=== PATIENT | male | born 1960 | race Two or more races ===

== ENCOUNTER 2016-12-05 01:04 | Inpatient (IN) | payer MEDICAID, OTHER ==
[~2016-12-05] VITALS: Ht 172.7 cm; Wt 83.5 kg
[2016-12-05] VITALS (10 sets, daily range): BP systolic 104–116; BP diastolic 57–71; PULSE 96–106; RESP 20; Ht 172.7 cm; Wt 83.5 kg
[~2016-12-05 01:04] MED LIST: ASPI325T4 PO; ATOR80TA75 PO; ESOM40CA PO; GLIM2TAB PO; IBUP200C11; METF1000 PO; METO-335 PO; NIT4 SL; SITA100T8 PO; VALS80TA2 PO
--- NOTE | 2016-12-05 01:12 | ERA ---
ER Documentation Chief Complaint Date/Time DATE: 12/05/16 TIME: 01:11 Chief Complaint Chest pain HPI The patient is a 56-year-old male, presenting to the ER because of left-sided chest pain going to the left upper back about 2 hours prior to arrival at rest. He had similar symptoms previously, complains of dyspnea. The pain was 9/ 10 that went down to 7/10 after EMS administered 3 nitroglycerin spray and aspirin 160 mg p.o. He denies fever, chills, neck pain, chest pain, abdominal pain, vomiting, dysuria, diarrhea. He smokes and drinks Past medical history: CAD, hypertension, diabetes mellitus, dyslipidemia, ischemic cardiomyopathy with low EF Past medical history: He has 6 stent PCI, last stent was about 7 months ago at [facility] ROS All systems reviewed and are negative except as per history of present illness. Medications Home Meds Reported Medications Carbamide Peroxide* (Debrox*) 6.5% - 15 Ml Drops, 10 DROP BOTH EARS BID, BOTTLE 4 DROPS BY OTIC 2 TIMES A DAY INTO AFFECTED EAR, 12/05/16 Cholecalciferol* (Vitamin D3*) 1,000 Unit Tablet, 1000 UNIT PO DAILY, TAB 12/05/16 Glipizide* (Glipizide*) 10 Mg Tablet, 10 MG PO AC BREAKFAST, TAB 12/05/16 Losartan Potassium* (Losartan Potassium*) 50 Mg Tablet, 50 MG PO DAILY, TAB 12/05/16 Losartan Potassium* (Losartan Potassium*) 50 Mg Tablet, 50 MG PO DAILY, TAB 12/05/16 [place]-3/Dha/Epa/Fish Oil (FISH OIL 1,000 MG SOFTGEL) 1 Each Capsule, 1 EACH PO, CAP 12/05/16 Aspirin* (Aspirin* EC) 81 Mg Tablet.dr, 81 MG PO DAILY, TAB 12/05/16 Clopidogrel Bisulfate* (Clopidogrel Bisulfate*) 75 Mg Tablet, 75 MG PO DAILY, # 30 TAB 12/05/16 Atorvastatin* (Atorvastatin*) 80 Mg Tablet, 80 MG PO QHS, #30 TAB 12/05/16 Fluoxetine Hcl* (Fluoxetine Hcl*) 10 Mg Tablet, 10 MG PO DAILY, TAB 12/05/16 Canagliflozin (Invokana) 300 Mg Tablet, 300 MG PO BID, TAB 12/05/16 Nitroglycerin* (Nitrostat*) 0.4 Mg Tab.subl, 0.4 MG SL Q5MIN Y for CHEST PAIN, BOTTLE 09/15/13 Aspirin* (Aspirin*) 325 Mg Tablet, 325 MG PO DAILY, #1 TAB 09/15/13 Metoprolol Succinate* (Toprol XL*) 25 Mg Tab.sr.24h, 25 MG PO DAILY, TAB hold for systolic bp 105 or heart reate less than 60 beats per minute 09/15/13 Atorvastatin* (Atorvastatin*) 80 Mg Tablet, 80 MG PO HS, TAB 09/13/13 Metformin Hcl* (Metformin Hcl*) 1,000 Mg Tablet, 1000 MG PO DAILY, TAB 09/13/13 Glimepiride* (Glimepiride*) 2 Mg Tablet, 2 MG PO WITH BREAKFAST, TAB 09/13/13 Ibuprofen* (Advil*) 200 Mg Capsule, 200 MG DAILY, #2 CAP 09/13/13 Nitroglycerin* (Nitrostat*) 0.4 Mg Tab.subl, 0.4 MG SL Q5MIN Y for CHEST PAIN, BOTTLE 09/13/13 Sitagliptin* (Januvia*) 100 Mg Tablet, 100 MG PO DAILY, TAB 09/13/13 Esomeprazole Mag Trihydrate (Nexium) 40 Mg Capsule.dr, 40 MG PO DAILY, CAP 09/13/13 Valsartan* (Diovan*) 80 Mg Tablet, 80 MG PO DAILY, TAB 09/13/13 Allergies Allergies: Coded Allergies: No Known Drug Allergy (Unverified Allergy, Mild, 12/05/16) PMhx/Soc History of Surgery: Yes (ANGIOGRAPHY W/ STENT ) Anesthesia Reaction: No Hx Neurological Disorder: No Hx Respiratory Disorders: No Hx Cardiac Disorders: No (STENTS ) Hx Psychiatric Problems: No Hx Miscellaneous Medical Probl: Yes Hx Alcohol Use: No Hx Substance Use: No Hx Tobacco Use: Yes Physical Exam Vitals Vital Signs Date Time Temp Pulse Resp B/P Pulse Ox O2 Delivery O2 Flow Rate FiO2 12/05/16 04:17 94 22 114/85 96 Nasal Cannula 2.0 12/05/16 03:33 94 22 115/85 96 Nasal Cannula 2.0 12/05/16 01:43 Nasal Cannula 2 12/05/16 01:14 99.0 107 22 126/78 94 Physical Exam Const: No acute distress. Head: Atraumatic. Eyes: Normal Conjunctiva. ENT: Normal External Ears, Nose and Mouth. Neck: Full range of motion. No meningismus. Resp: Clear to auscultation bilaterally. Cardio: Regular rate and rhythm. Abd: Soft, non distended, normal bowel sounds, Minimal epigastric abdominal tenderness Skin: No petechiae or rashes. Back: No midline or flank tenderness. Ext: No cyanosis, or edema. Neur: Awake and alert. No focal deficit Psych: Normal Mood and Affect. Result Diagram: 12/05/1613412/05/16 013 Results 24 hrs Laboratory Tests Test 12/05/16 01:35 White Blood Count 9.710^3/ul Red Blood Count 4.6110^6/ul Hemoglobin 14.1g/dl Hematocrit 41.3% Mean Corpuscular Volume 89.6fl Mean Corpuscular Hemoglobin 30.6pg Mean Corpuscular Hemoglobin Concent 34.1g/dl Red Cell Distribution Width 12.8% Platelet Count 18889^3/UL Mean Platelet Volume 9.5fl Neutrophils % 75.0% Lymphocytes % 14.3% Monocytes % 9.8% Eosinophils % 0.2% Basophils % 0.4% Nucleated Red Blood Cells % 0.0/100WBC Neutrophils # 7.310^3/ul Lymphocytes # 1.410^3/ul Monocytes # 1.010^3/ul Eosinophils # 0.010^3/ul Basophils # 0.010^3/ul Nucleated Red Blood Cells # 0.010^3/ul Prothrombin Time 12.5Sec Prothrombin Time Ratio 1.0 INR International Normalized Ratio 0.93 Activated Partial Thromboplast Time 34.1Sec Sodium Level 138mmol/L Potassium Level 3.8mmol/L Chloride Level 104mmol/L Carbon Dioxide Level 24mmol/L Anion Gap 14 Blood Urea Nitrogen 12mg/dl Creatinine 0.61mg/dl Glucose Level 266mg/dl Calcium Level 9.6mg/dl Total Bilirubin 0.3mg/dl Direct Bilirubin 0.00mg/dl Indirect Bilirubin 0.3mg/dl Aspartate Amino Transf (AST/SGOT) 17IU/L Alanine Aminotransferase (ALT/SGPT) 36IU/L Alkaline Phosphatase 51IU/L Troponin I 0.184ng/ml B-Type Natriuretic Peptide 317PG/ML Total Protein 7.2g/dl Albumin 4.3g/dl Globulin 2.90g/dl Albumin/Globulin Ratio 1.48 Lipase 592U/L Ethyl Alcohol Level < 10.0mg/dl Current Medications Medications (Trade) Dose Ordered Sig/Vianca Route PRN Reason Start Time Stop Time Status Last Admin Dose Admin Enoxaparin Sodium (Lovenox) 77 mg ONCE SC 12/05/16 04:00 12/05/16 04:12 Procedures/MDM EKG: At 1:19 AM Read by emergency physician Rate/Rhythm: Sinus tachycardia 103 beats/min QRS, ST, T-waves: No ST elevation, no T inversion, Left atrial enlargement, LAD, Inferolateral ST and T abnormalities Impression: Abnormal EKG EKG: At 3:16 am Read by emergency physician Rate/Rhythm: Normal sinus rhythm 95 beats/min QRS, ST, T-waves: No ST elevation, no T inversion, Left atrial enlargement, Inferolateral ST and T abnormality Impression: Abnormal EKG [place] [id number] Radiology Main Line: [phone] DIAGNOSTIC IMAGING REPORT Patient: TIFFANIE CASTILLO : 1960 Age: 56 Sex: M MR #: [id number] DOS: 12/05/16 0116 Ordering MD: ENRIQUE TEJEDA MD Location: E/R Room/Bed: PROCEDURE: XR Chest. CLINICAL INDICATION: Chest pain. TECHNIQUE: Single frontal view of the chest. COMPARISON: 09/12/2013 FINDINGS: The cardiomediastinal silhouette is within normal limits. The lungs are clear. No signs of pleural fluid or pneumothorax are seen. The osseous structures and soft tissues are unremarkable. IMPRESSION: No evidence for active cardiopulmonary disease. RPTAT: UU Physician Juli Date Time Electronically viewed and signed by Physician Juli on 12/05/2016 02:00 RS/ CC: ENRIQUE TEJEDA MD MEDICAL MAKING DECISION: Patient is a 56-year-old male, presenting with acute non-STEMI. He was treated with Lovenox 1 mg/kg subcutaneously for acute non- STEMI. After the aforementioned treatment, he does not have any chest pain The differential diagnoses considered include but are not limited to acute coronary syndrome, acute myocardial infarction, pericarditis, pulmonary embolism , aortic dissection, pneumonia, pleural effusion, pneumothorax, GERD, chest wall pain. Critical Care: Time: 35 minutes excluding all billable procedures. Treatments/Evaluations: Close monitoring and treatment of unstable vital signs, cardiorespiratory, and neurologic status, while maintaining tight balance of fluid, respiratory, and cardiac interventions. Departure Diagnosis: Primary Impression: Non-STEMI (non-ST elevated myocardial infarction) Condition: Stable Comments I discussed the findings with the patient. I discussed the patient with the on- call hospitalist Dr. Wen and who was made aware of the lab, the treatment, the patient condition. The patient is admitted to telemetry ENRIQUE TEJEDA MD Dec 05, 2016 01:12
[2016-12-05 02:00] LABS: BASOPHILS % 0.4 % (0.0-2.0); EOSINOPHILS % 0.2 % (0.0-7.0); HEMATOCRIT 41.3 % (42.0-52.0); HEMOGLOBIN 14.1 g/dl (14.0-18.0); LYMPHOCYTES # 1.4 10^3/ul (0.8-2.9); LYMPHOCYTES % 14.3 % (15.0-51.0); MEAN CORPUSCULAR HEMOGLOBIN 30.6 pg (29.0-33.0); MEAN CORPUSCULAR HGB CONC 34.1 g/dl (32.0-37.0); MEAN CORPUSCULAR VOLUME 89.6 fl (82.0-101.0); MEAN PLATELET VOLUME 9.5 fl (7.4-10.4); MONOCYTES % 9.8 % (0.0-11.0); NEUTROPHIL # 7.3 10^3/ul (1.6-7.5); PLATELET COUNT 249 10^3/UL (140-415); RED BLOOD COUNT 4.61 10^6/ul (4.70-6.10); RED CELL DISTRIBUTION WIDTH 12.8 % (11.5-14.5); WHITE BLOOD COUNT 9.7 10^3/ul (4.8-10.8)
--- NOTE | 2016-12-05 02:00 | RADRPT ---
PROCEDURE: XR Chest. CLINICAL INDICATION: Chest pain. TECHNIQUE: Single frontal view of the chest. COMPARISON: 09/12/2013 FINDINGS: The cardiomediastinal silhouette is within normal limits. The lungs are clear. No signs of pleural f luid or pneumothorax are seen. The osseous structures and soft tissues are unremarkable. IMPRESSION: No evidence for active cardiopulmonary disease. RPTAT: UU Physician Juli Date Time Electronically viewed and signed by Iftikhar Gutierrez Physician on 12/05/2016 02:00 RS/
[2016-12-05 02:15] LABS: INR 0.93; PROTIME 12.5 Sec (12.2-14.2)
[2016-12-05 02:16] LABS: PARTIAL THROMBOPLASTIN TIME 34.1 Sec (25.0-35.0)
[2016-12-05 02:30] LABS: ALANINE AMINOTRANSFERASE 36 IU/L (13-69); ALBUMIN 4.3 g/dl (3.3-4.9); ALBUMIN/GLOBULIN RATIO 1.48; ALKALINE PHOSPHATASE 51 IU/L (42-121); ANION GAP 14 (8-16); ASPARTATE AMINO TRANSFERASE 17 IU/L (15-46); BILIRUBIN,INDIRECT 0.3 mg/dl (0-1.1); BILIRUBIN,TOTAL 0.3 mg/dl (0.2-1.3); BLOOD UREA NITROGEN 12 mg/dl (7-20); CALCIUM 9.6 mg/dl (8.4-10.2); CARBON DIOXIDE 24 mmol/L (21-31); CHLORIDE 104 mmol/L (97-110); CREATININE 0.61 mg/dl (0.61-1.24); GLUCOSE 266 mg/dl (70-220); POTASSIUM 3.8 mmol/L (3.5-5.1); SODIUM 138 mmol/L (135-144); TOTAL PROTEIN 7.2 g/dl (6.1-8.1)
[2016-12-05 02:40] LABS: B-TYPE NATRIURETIC PEPTIDE 317 PG/ML (0-125)
[2016-12-05 02:46] LABS: ETHANOL < 10.0 mg/dl
[2016-12-05 02:48] LABS: TROPONIN-I 0.184 ng/ml (0.00-0.12)
[2016-12-05] MEDS ORDERED: ENOXAPARIN 80 MG/0.8 ML SYG SC SCH (04:00)
[2016-12-05] MEDS ORDERED: FLUO10TA PO (04:05)
[2016-12-05] MEDS ORDERED: CANA300T PO (04:05)
[2016-12-05] MEDS ORDERED: ATOR80TA75 PO (04:05)
[2016-12-05] MEDS ORDERED: CLOP75TA4 PO (04:07)
[2016-12-05] MEDS ORDERED: ASPI-664 PO (04:07)
[2016-12-05] MEDS ORDERED: GLIP-95 PO (04:18)
[2016-12-05] MEDS ORDERED: CHOL100062 PO (04:18)
[2016-12-05] MEDS ORDERED: CARB15DR50 BOTH EARS (04:18)
[2016-12-05] MEDS ORDERED: OMEG1CAP31 PO (04:18)
[2016-12-05] MEDS ORDERED: LOSA50TA6 PO (04:18)
[2016-12-05] MEDS ORDERED: NACL 0.9% 3 ML SYG IV SCH (05:00)
[2016-12-05] MEDS ORDERED: NITROGLYCERIN (SL) 0.4 MG TAB SL PRN ×2 (05:00)
[2016-12-05] MEDS ORDERED: ALBUTEROL/IPRATROPIUM (NEB) 3 ML AMP HHN PRN (05:00)
[2016-12-05] MEDS: DEXTROSE 5%-0.45% NACL 1,000 ML IV SCH ×2 (05:06→07:38)
[2016-12-05] MEDS: INSULIN ASPART [NOVOLOG] 3 ML PEN SC SCH ×4 (05:28→23:47)
[2016-12-05] MEDS: PANTOPRAZOLE (EC) 40 MG TAB PO SCH (05:35)
--- NOTE | 2016-12-05 07:38 | HP ---
Date/Time of Note Date/Time of Note DATE: 12/05/16 TIME: 07:31 Assessment/Plan VTE Prophylaxis VTE Prophylaxis Intervention: heparin Lines/Catheters IV [facility] Peripheral IV Urinary Cath still in place: No Assessment/Plan Assessment/Plan 1. NSTEMI -Continue telemetry monitoring -Continue his home cardiac medications, including aspirin, Plavix, beta-korey and statin. Will provide nitro and morphine as needed for pain -Will trend his troponin and start heparin drip accordingly -2D echo and cardiology consult 2. History of CAD with multiple stents -See #1 3. Ischemic cardiomyopathy with EF of 25-30% -See #1 4. Diabetes with hyperglycemia -Check A1c -Insulin while in house with adjustment as needed 5. Dyslipidemia -Continue statin 6. Pancreatitis -Patient with elevated lipase of over 600 -He is already n.p.o. for possible cardiac cath -Continue IV fluids and I will provide pain medication as needed - will repeat lipase and check abdominal ultrasound HPI/ROS Admit Date/Time Admit Date/Time Dec 05, 2016 at 03:57 Hx of Present Illness This is a 56-year-old male with a history of CAD with stents, ischemic cardiomyopathy with EF of 2530%, diabetes, dyslipidemia who presented to the emergency department complaining of chest pain. Pain is left-sided with radiation to the left arm. Pain slightly improved with sublingual nitro. Patient underwent PCI with stent in [address] Tomas after he presented with STEMI. He also underwent PCI with stent 7 months ago at [facility]. When presented to the ER, his first troponin is elevated at 0.184. Rest of labs are within normal limits except a glucose of 266 and a lipase of 592. Chest x-ray was no active cardiopulmonary disease. PMH/Family/Social Social History Smoking Status: Current every day smoker Exam/Review of Systems Vital Signs Vitals Vital Signs Date Time Temp Pulse Resp B/P Pulse Ox O2 Delivery O2 Flow Rate FiO2 12/05/16 07:06 98.2 62 20 104/57 98 12/05/16 04:17 Nasal Cannula 2.0 Exam Constitutional: other (No acute distress) Head: atraumatic, normocephalic Eyes: EOMI, PERRL Respiratory: clear to auscultation, normal air movement Cardiovascular: nl pulses, regular rate and rhythm Gastrointestinal: non-tender, soft Extremities: normal pulses Labs Result Diagram: 12/05/165 12/05/16134 Medications Medications Current Medications Dextrose/Sodium Chloride (D5-1/2ns) 1,000 ml @ 70 mls/hr [id number] IV Last administered on 12/05/16 05:06; Admin Dose 70 MLS/HR; Start 12/05/16 at 04:38 Ondansetron HCl (Zofran Inj) 4 mg Q6H PRN IV NAUSEA AND/OR VOMITING; Start at 05:00 Nitroglycerin (Nitroglycerin (Sl Tab) 0.4 Mg) 1 tab Q5M PRN SL CHEST PAIN; Start 12/05/16 at 05:00 Acetaminophen (Tylenol Tab) 650 mg Q6H PRN PO PAIN LEVEL 1-3 OR FEVER; Start at 05:00 Morphine Sulfate (morphine) 2 mg Q4H PRN IV PAIN LEVEL 7-10; Start 12/05/16 at 05:00 Enoxaparin Sodium (Lovenox) 40 mg DAILY SC ; Start 12/05/16 at 09:00 Aspirin (Halfprin) 81 mg DAILY PO ; Start 12/05/16 at 09:00 Atorvastatin Calcium (Lipitor) 80 mg HS PO ; Start 12/05/16 at 21:00 Carbamide Peroxide (Debrox Otic) 10 drop BID BOTH EARS ; Start 12/05/16 at 09:00 Cholecalciferol (Vitamin D) 1,000 unit DAILY PO ; Start 12/05/16 at 09:00 Clopidogrel Bisulfate (plaVIX) 75 mg DAILY PO ; Start 12/05/16 at 09:00 Fluoxetine HCl (Prozac) 10 mg DAILY PO ; Start 12/05/16 at 09:00 Losartan Potassium (Cozaar) 50 mg DAILY PO ; Start 12/05/16 at 09:00 Metoprolol Succinate (Toprol Xl) 25 mg DAILY PO ; Start 12/05/16 at 09:00 Valsartan (Diovan) 80 mg DAILY PO ; Start 12/05/16 at 09:00 Pantoprazole (Protonix Tab) 40 mg DAILY@06 PO Last administered on 12/05/16 05 :35; Admin Dose 40 MG; Start 12/05/16 at 06:00 Insulin Glargine (Lantus) 12 unit DAILY@08 SC ; Start 12/05/16 at 08:00 Insulin Aspart (Novolog Insulin Pen) NOVOLOG *MILD* ALGORI... Q6 SC ; Start at 06:00 IMELDA JOHNSON MD Dec 05, 2016 07:38
[2016-12-05 08:11] LABS: CK-MB 11.1 ng/ml (0.0-2.4)
[2016-12-05 08:13] LABS: TROPONIN-I 3.44 ng/ml (0.00-0.12)
[2016-12-05] MEDS: VALSARTAN 80 MG TAB PO SCH (08:43)
[2016-12-05] MEDS: ASPIRIN (EC) 81 MG TAB PO SCH (08:43)
[2016-12-05] MEDS: CLOPIDOGREL 75 MG TAB PO SCH (08:43)
[2016-12-05] MEDS: METOPROLOL (XL) 25 MG TAB PO SCH (08:43)
[2016-12-05] MEDS: LOSARTAN 50 MG TAB PO SCH (08:43)
[2016-12-05] MEDS: CARBAMIDE PEROXIDE 6.5% 15ML OTIC BOTH EARS SCH ×2 (08:43→20:44)
[2016-12-05] MEDS: INSULIN GLARGINE [LANtus] 3 ML PEN SC SCH (08:46)
[2016-12-05] MEDS: FLUOXETINE 10 MG CAP PO SCH (08:47)
[2016-12-05] MEDS ORDERED: LOSARTAN 50 MG TAB PO SCH (09:00)
[2016-12-05] MEDS ORDERED: ENOXAPARIN 40 MG/0.4 ML SYG SC SCH (09:00)
--- NOTE | 2016-12-05 09:11 | RADRPT ---
PROCEDURE: US Abdomen (right upper quadrant). CLINICAL INDICATION: Pancreatitis. TECHNIQUE: Multiple real-time longitudinal and transverse images of the right upper quadrant of th e abdomen were acquired utilizing a curved array transducer. Images were reviewed on a high-resoluti on PACS workstation. COMPARISON: None FINDINGS: The liver is enlarged and diffusely increased in echogenicity consistent with fatty metamorphosis. There is no focal hepatic lesion. Color Doppler and pulsed Doppler sonography demonstrate normal a ntegrade flow in the portal vein. The gallbladder is normal with no stones or wall thickening. There is no pericholecystic fluid cheng ection. The bile ducts are normal with the common bile duct measuring 4.2 mm in diameter. The pancreas is not visualized due to overlying bowel gas. No free fluid is present. The right kidney measures 13.3 x 4.9 cm. There is normal echogenicity of the right kidney. There is no perinephric fluid collection. No hydronephrosis, mass, or calculus is seen. IMPRESSION: 1. Hepatomegaly. 2. Fatty metamorphosis of the liver. 3. Pancreas not visualized. 4. Otherwise normal right upper quadrant abdomen ultrasound. RPTAT: QQ .Blayne Gonzalez MD, Date Time Electronically viewed and signed by .Blayne Gonzalez MD, on 12/05/2016 09:10 .R/
[2016-12-05] MEDS ORDERED: HEPARIN 1000 UNITS/ML 10 ML INJ IV PRN (11:00)
[2016-12-05] MEDS ORDERED: HEPARIN 1000 UNITS/ML 10 ML INJ IV ONE (11:00)
[2016-12-05] MEDS: CHOLECALCIFEROL 1,000 UNIT TAB PO SCH (11:20)
[2016-12-05] MEDS: HEPARIN 25000 UNITS/250 ML 250 ML IV SCH ×2 (11:23→17:56)
[2016-12-05 11:43] LABS: BASOPHILS % 0.3 % (0.0-2.0); EOSINOPHILS % 0.1 % (0.0-7.0); HEMATOCRIT 41.4 % (42.0-52.0); HEMOGLOBIN 14.4 g/dl (14.0-18.0); LYMPHOCYTES # 1.9 10^3/ul (0.8-2.9); LYMPHOCYTES % 16.1 % (15.0-51.0); MEAN CORPUSCULAR HEMOGLOBIN 31.2 pg (29.0-33.0); MEAN CORPUSCULAR HGB CONC 34.8 g/dl (32.0-37.0); MEAN CORPUSCULAR VOLUME 89.6 fl (82.0-101.0); MEAN PLATELET VOLUME 9.6 fl (7.4-10.4); MONOCYTE # 1.3 10^3/ul (0.3-0.9); MONOCYTES % 10.8 % (0.0-11.0); NEUTROPHIL # 8.6 10^3/ul (1.6-7.5); NEUTROPHILS % 72.4 % (39.0-77.0); PLATELET COUNT 241 10^3/UL (140-415); RED BLOOD COUNT 4.62 10^6/ul (4.70-6.10); RED CELL DISTRIBUTION WIDTH 12.6 % (11.5-14.5); WHITE BLOOD COUNT 11.9 10^3/ul (4.8-10.8)
--- NOTE | 2016-12-05 14:53 | CONS ---
Date/Time of Note Date/Time of Note DATE: 12/05/16 TIME: 14:51 Assessment/Plan Assessment/Plan Additional Assessment/Plan 56 yo with isch CMY, EF 25%, [place] [facility] [place], possible medical non-compliance , now with NSTEMI. Will obtain results from [facility] - [facility] rx for now. # [id number] Consultation Date/Type/Reason Admit Date/Time Dec 05, 2016 at 03:57 Initial Consult Date Exam/Review of Systems Vital Signs Vitals Vital Signs Date Time Temp Pulse Resp B/P Pulse Ox O2 Delivery O2 Flow Rate FiO2 12/05/16 12:08 101 12/05/16 11:53 99.1 20 116/71 96 12/05/16 04:17 Nasal Cannula 2.0 Results Result Diagram: 12/05/16 1124 12/05/16 0135 Results 24 hrs Laboratory Tests Test 12/05/16 01:35 12/05/16 05:08 12/05/16 07:23 12/05/16 08:42 White Blood Count 9.7 Red Blood Count 4.61 L Hemoglobin 14.1 Hematocrit 41.3 L Mean Corpuscular Volume 89.6 Mean Corpuscular Hemoglobin 30.6 Mean Corpuscular Hemoglobin Concent 34.1 Red Cell Distribution Width 12.8 Platelet Count 249 Mean Platelet Volume 9.5 Neutrophils % 75.0 Lymphocytes % 14.3 L Monocytes % 9.8 Eosinophils % 0.2 Basophils % 0.4 Nucleated Red Blood Cells % 0.0 Neutrophils # 7.3 Lymphocytes # 1.4 Monocytes # 1.0 H Eosinophils # 0.0 Basophils # 0.0 Nucleated Red Blood Cells # 0.0 Prothrombin Time 12.5 Prothrombin Time Ratio 1.0 INR International Normalized Ratio 0.93 Activated Partial Thromboplast Time 34.1 Sodium Level 138 Potassium Level 3.8 Chloride Level 104 Carbon Dioxide Level 24 Anion Gap 14 Blood Urea Nitrogen 12 Creatinine 0.61 Glucose Level 266 H Calcium Level 9.6 Total Bilirubin 0.3 Direct Bilirubin 0.00 Indirect Bilirubin 0.3 Aspartate Amino Transf (AST/SGOT) 17 Alanine Aminotransferase (ALT/SGPT) 36 Alkaline Phosphatase 51 Troponin I 0.184 *H 3.440 *H B-Type Natriuretic Peptide 317 H Total Protein 7.2 Albumin 4.3 Globulin 2.90 Albumin/Globulin Ratio 1.48 Lipase 177 Ethyl Alcohol Level < 10.0 Bedside Glucose 134 162 Creatine Kinase 227 H Creatine Kinase Index 4.9 Creatinine Kinase MB (Mass) 11.10 H Test 12/05/16 11:24 12/05/16 12:01 White Blood Count 11.9 #H Red Blood Count 4.62 L Hemoglobin 14.4 Hematocrit 41.4 L Mean Corpuscular Volume 89.6 Mean Corpuscular Hemoglobin 31.2 Mean Corpuscular Hemoglobin Concent 34.8 Red Cell Distribution Width 12.6 Platelet Count 241 Mean Platelet Volume 9.6 Neutrophils % 72.4 Lymphocytes % 16.1 Monocytes % 10.8 Eosinophils % 0.1 Basophils % 0.3 Nucleated Red Blood Cells % 0.0 Neutrophils # 8.6 H Lymphocytes # 1.9 Monocytes # 1.3 H Eosinophils # 0.0 Basophils # 0.0 Nucleated Red Blood Cells # 0.0 Bedside Glucose 155 Medications Medications Current Medications Ondansetron HCl (Zofran Inj) 4 mg Q6H PRN IV NAUSEA AND/OR VOMITING; Start at 05:00 Nitroglycerin (Nitroglycerin (Sl Tab) 0.4 Mg) 1 tab Q5M PRN SL CHEST PAIN; Start 12/05/16 at 05:00 Acetaminophen (Tylenol Tab) 650 mg Q6H PRN PO PAIN LEVEL 1-3 OR FEVER; Start at 05:00 Morphine Sulfate (morphine) 2 mg Q4H PRN IV PAIN LEVEL 7-10; Start 12/05/16 at 05:00 Aspirin (Halfprin) 81 mg DAILY PO Last administered on 12/05/16 08:43; Admin Dose 81 MG; Start 12/05/16 at 09:00 Atorvastatin Calcium (Lipitor) 80 mg HS PO ; Start 12/05/16 at 21:00 Carbamide Peroxide (Debrox Otic) 10 drop BID BOTH EARS Last administered on 08:43; Admin Dose 10 DROP; Start 12/05/16 at 09:00 Cholecalciferol (Vitamin D) 1,000 unit DAILY PO Last administered on 12/05/16 11:20; Admin Dose 1,000 UNIT; Start 12/05/16 at 09:00 Clopidogrel Bisulfate (plaVIX) 75 mg DAILY PO Last administered on 12/05/16 08 :43; Admin Dose 75 MG; Start 12/05/16 at 09:00 Fluoxetine HCl (Prozac) 10 mg DAILY PO Last administered on 12/05/16 08:47; Admin Dose 10 MG; Start 12/05/16 at 09:00 Losartan Potassium (Cozaar) 50 mg DAILY PO Last administered on 12/05/16 08:43 ; Admin Dose 50 MG; Start 12/05/16 at 09:00 Metoprolol Succinate (Toprol Xl) 25 mg DAILY PO Last administered on 12/05/16 08:43; Admin Dose 25 MG; Start 12/05/16 at 09:00 Valsartan (Diovan) 80 mg DAILY PO Last administered on 12/05/16 08:43; Admin Dose 80 MG; Start 12/05/16 at 09:00 Pantoprazole (Protonix Tab) 40 mg DAILY@06 PO Last administered on 12/05/16 05 :35; Admin Dose 40 MG; Start 12/05/16 at 06:00 Insulin Glargine (Lantus) 12 unit DAILY@08 SC Last administered on 12/05/16 08 :46; Admin Dose 12 UNIT; Start 12/05/16 at 08:00 Insulin Aspart (Novolog Insulin Pen) NOVOLOG *MILD* ALGORI... Q6 SC Last administered on 12/05/16 12:16; Admin Dose 1 UNIT; Start 12/05/16 at 06:00 KING CM MD Dec 05, 2016 14:53
[2016-12-05 15:14] LABS: CK-MB 6.3 ng/ml (0.0-2.4); TROPONIN-I 3.8 ng/ml (0.00-0.12)
[2016-12-05 17:45] LABS: INR 1.01; PROTIME 13.3 Sec (12.2-14.2)
[2016-12-05 17:46] LABS: PARTIAL THROMBOPLASTIN TIME 65.5 Sec (25.0-35.0)
[2016-12-05] MEDS: ATORVASTATIN 80 MG TAB PO SCH (20:44)
[2016-12-05] MEDS ORDERED: ATORVASTATIN 80 MG TAB PO SCH (21:00)
[2016-12-06] VITALS (10 sets, daily range): BP systolic 90–126; BP diastolic 55–74; PULSE 84–110; RESP 19–20
--- NOTE | 2016-12-06 01:09 | CONS ---
DATE OF ADMISSION: 12/05/2016 DATE OF CONSULTATION: 12/05/2016 REASON FOR CONSULTATION: Chest pain. HISTORY OF PRESENT ILLNESS: Mr. Velázquez is a 56-year-old gentleman with history of extensive coronary disease, history of ischemic cardiomyopathy of 25%, recent stenting at [facility] x4 in May 2016, possible medical noncompliance, chest pain. The patient has mildly elevated troponin, has chest precordial sternal chest pain, as well as abdominal pain prior. It is not clear to me if patient has totally been compliant with his cardiac medications. In the setting of this event, the patient does also have elevated lipase and recent alcohol intake, for now conservative therapy is expected. Patient has been initiated on heparin per Dr. Hyatt, which is reasonable. Will try to obtain the records from [facility] and track his troponins. It does not appear the patient has suffered a large myocardial infarction. Right now, he does not DVT or fluid overload at this time. Will obtain a 2D echo to re-establish ejection fraction. PAST MEDICAL HISTORY: 1. Hypertension. 2. Dyslipidemia. 3. Ischemic cardiomyopathy. 4. Prior history of multiple stenting, recently in May 2016 at [facility]. 5. History of medical noncompliance. 6. History of diabetes. 7. History of tobacco use, active. ALLERGIES: NO KNOWN DRUG ALLERGIES. SOCIAL HISTORY: Patient has history of tobacco use. He has a history of alcohol use, does not use drugs. FAMILY HISTORY: Negative for sudden cardiac , premature coronary artery disease. MEDICATIONS: Patient has an extensive medication list including metoprolol, aspirin, Plavix, but I am not clear if he is truly compliant with all his medicines. REVIEW OF SYSTEMS: No fevers, no chills. No chest pain reported now. . No nausea, vomiting. No dysuria, hematuria. Cranial nerves II-XII intact. PHYSICAL EXAMINATION: Temperature 99.1, heart rate is 101, blood pressure 116/71. Patient is alert and oriented x3. Normocephalic, atraumatic. Trachea 6-7 cm. Heart is regular. murmur at the base. PMI . Bowel sounds are present. LABORATORY: White blood cell count 1.9, hemoglobin , platelets 241,000. INR 1.0. His troponin is positive at 3.4. 11.4. ASSESSMENT: 1. Patient with non ST elevation myocardial infarction. His troponins are elevated. He has been initiated on heparin. He is chest pain free now. For now, medical indicated. 2. Hypertension. Blood pressure well optimized. Continue to follow. 3. Cardiomyopathy. Patient with history of cardiomyopathy, ishemic. Will followup with a 2D echo, will try to find cath results form [facility]. 4. Medical noncompliance. Patient encouraged to comply with his medical therapy. 5. Tobacco use. I would like to thank Dr. Wen for referring this patient for my evaluation. Dictated By: Ray Ferro MD /yvette/frank /Document#: [id number]
[2016-12-06] MEDS ORDERED: ACCU-CHEK XX SCH (02:00)
[2016-12-06] MEDS ORDERED: GLUCAGON 1 MG INJ IM PRN (05:30)
[2016-12-06] MEDS ORDERED: GLUCOSE GEL 15 GRAM TUBE BUCCAL PRN (05:30)
[2016-12-06] MEDS ORDERED: DEXTROSE 50% 50 ML SYRINGE IV PRN ×2 (05:30)
[2016-12-06] MEDS ORDERED: GLUCOSE GEL 15 GRAM TUBE PO PRN ×2 (05:30)
[2016-12-06] MEDS: PANTOPRAZOLE (EC) 40 MG TAB PO SCH (06:26)
[2016-12-06 07:42] LABS: ALBUMIN 4.2 g/dl (3.3-4.9); ALBUMIN/GLOBULIN RATIO 1.4; BILIRUBIN,INDIRECT 0.9 mg/dl (0-1.1); BILIRUBIN,TOTAL 0.9 mg/dl (0.2-1.3); CALCIUM 9.3 mg/dl (8.4-10.2); CREATININE 0.67 mg/dl (0.61-1.24); MAGNESIUM 1.9 mg/dl (1.7-2.5); POTASSIUM 3.9 mmol/L (3.5-5.1); TOTAL PROTEIN 7.2 g/dl (6.1-8.1)
[2016-12-06] MEDS: METOPROLOL (XL) 25 MG TAB PO SCH (08:20)
[2016-12-06] MEDS: ACETAMINOPHEN 325 MG TAB PO PRN ×3 (08:20→18:52)
[2016-12-06] MEDS: FLUOXETINE 10 MG CAP PO SCH (08:20)
[2016-12-06] MEDS: CLOPIDOGREL 75 MG TAB PO SCH (08:20)
[2016-12-06] MEDS: ASPIRIN (EC) 81 MG TAB PO SCH (08:20)
[2016-12-06] MEDS: VALSARTAN 80 MG TAB PO SCH (08:20)
[2016-12-06] MEDS: CHOLECALCIFEROL 1,000 UNIT TAB PO SCH (08:20)
[2016-12-06] MEDS: LOSARTAN 50 MG TAB PO SCH (08:21)
[2016-12-06] MEDS: CARBAMIDE PEROXIDE 6.5% 15ML OTIC BOTH EARS SCH ×2 (08:21→20:34)
[2016-12-06] MEDS: INSULIN GLARGINE [LANtus] 3 ML PEN SC SCH (08:24)
[2016-12-06] MEDS: INSULIN ASPART [NOVOLOG] 3 ML PEN SC SCH ×4 (08:25→20:32)
[2016-12-06] MEDS: HEPARIN 25000 UNITS/250 ML 250 ML IV SCH ×5 (08:25→22:51)
[2016-12-06 10:19] LABS: BASOPHILS % 0.4 % (0.0-2.0); HEMATOCRIT 41.4 % (42.0-52.0); HEMOGLOBIN 14.3 g/dl (14.0-18.0); LYMPHOCYTES # 1.8 10^3/ul (0.8-2.9); LYMPHOCYTES % 16.4 % (15.0-51.0); MEAN CORPUSCULAR HGB CONC 34.5 g/dl (32.0-37.0); MEAN CORPUSCULAR VOLUME 89.8 fl (82.0-101.0); MEAN PLATELET VOLUME 10.3 fl (7.4-10.4); MONOCYTE # 1.3 10^3/ul (0.3-0.9); MONOCYTES % 11.8 % (0.0-11.0); NEUTROPHIL # 7.9 10^3/ul (1.6-7.5); NEUTROPHILS % 71.1 % (39.0-77.0); PLATELET COUNT 227 10^3/UL (140-415); RED BLOOD COUNT 4.61 10^6/ul (4.70-6.10); RED CELL DISTRIBUTION WIDTH 12.6 % (11.5-14.5)
--- NOTE | 2016-12-06 12:51 | PN ---
Date/Time of Note Date/Time of Note DATE: 12/06/16 TIME: 12:50 Assessment/Plan VTE Prophylaxis VTE Prophylaxis Intervention: other Lines/Catheters IV Catheter Type (from Nrs): Peripheral IV Urinary Cath still in place: No Assessment/Plan Chief Complaint/Hosp Course 1) NSTMI - monitor - echo results pending - awaiting further workup per cardiology Problems: Subjective 24 Hr Interval Summary Free Text/Dictation Patient denies any current chest pain Exam/Review of Systems Vital Signs Vitals Vital Signs Date Time Temp Pulse Resp B/P Pulse Ox O2 Delivery O2 Flow Rate FiO2 12/06/16 12:10 84 12/06/16 12:02 97.7 20 101/62 96 12/05/16 04:17 Nasal Cannula 2.0 Intake and Output 12/05/16 12/05/16 12/06/16 15:00 23:00 07:00 Intake Total 1000 ml 627.5 ml Balance 1000 ml 627.5 ml Exam Constitutional: well developed Head: atraumatic, normocephalic Neck: supple Respiratory: clear to auscultation Cardiovascular: regular rate and rhythm Gastrointestinal: non-tender, soft Extremities: normal pulses Results Result Diagram: 12/06/16 0706 12/06/16 0706 Results 24 hrs Laboratory Tests Test 12/05/16 14:05 12/05/16 16:58 12/05/16 17:07 12/05/16 23:07 Creatine Kinase 201 H Creatine Kinase Index 3.1 Creatinine Kinase MB (Mass) 6.30 H Troponin I 3.800 *H Bedside Glucose 132 Prothrombin Time 13.3 Prothrombin Time Ratio 1.0 INR International Normalized Ratio 1.01 Activated Partial Thromboplast Time 65.5 H 52.5 H Test 12/05/16 23:35 12/06/16 07:06 12/06/16 07:48 12/06/16 08:07 Bedside Glucose 192 162 White Blood Count 11.0 H Red Blood Count 4.61 L Hemoglobin 14.3 Hematocrit 41.4 L Mean Corpuscular Volume 89.8 Mean Corpuscular Hemoglobin 31.0 Mean Corpuscular Hemoglobin Concent 34.5 Red Cell Distribution Width 12.6 Platelet Count 227 Mean Platelet Volume 10.3 Neutrophils % 71.1 Lymphocytes % 16.4 Monocytes % 11.8 H Eosinophils % 0.0 Basophils % 0.4 Nucleated Red Blood Cells % 0.0 Neutrophils # 7.9 H Lymphocytes # 1.8 Monocytes # 1.3 H Eosinophils # 0.0 Basophils # 0.0 Nucleated Red Blood Cells # 0.0 Sodium Level 135 Potassium Level 3.9 Chloride Level 100 Carbon Dioxide Level 22 Anion Gap 17 H Blood Urea Nitrogen 13 Creatinine 0.67 Glucose Level 159 # Hemoglobin A1c 8.8 H Calcium Level 9.3 Magnesium Level 1.9 Total Bilirubin 0.9 Direct Bilirubin 0.00 Indirect Bilirubin 0.9 Aspartate Amino Transf (AST/SGOT) 24 Alanine Aminotransferase (ALT/SGPT) 32 Alkaline Phosphatase 53 Total Protein 7.2 Albumin 4.2 Globulin 3.00 Albumin/Globulin Ratio 1.40 Triglycerides Level 101 Cholesterol Level 158 LDL Cholesterol, Calculated 99 HDL Cholesterol 39 Cholesterol/HDL Ratio 4.0 Activated Partial Thromboplast Time 55.4 H Test 12/06/16 12:24 Bedside Glucose 255 H Medications Medications Current Medications Ondansetron HCl (Zofran Inj) 4 mg Q6H PRN IV NAUSEA AND/OR VOMITING; Start at 05:00 Nitroglycerin (Nitroglycerin (Sl Tab) 0.4 Mg) 1 tab Q5M PRN SL CHEST PAIN; Start 12/05/16 at 05:00 Acetaminophen (Tylenol Tab) 650 mg Q6H PRN PO PAIN LEVEL 1-3 OR FEVER Last administered on 12/06/16 08:20; Admin Dose 650 MG; Start 12/05/16 at 05:00 Morphine Sulfate (morphine) 2 mg Q4H PRN IV PAIN LEVEL 7-10; Start 12/05/16 at 05:00 Aspirin (Halfprin) 81 mg DAILY PO Last administered on 12/06/16 08:20; Admin Dose 81 MG; Start 12/05/16 at 09:00 Atorvastatin Calcium (Lipitor) 80 mg HS PO Last administered on 12/05/16 20:44 ; Admin Dose 80 MG; Start 12/05/16 at 21:00 Carbamide Peroxide (Debrox Otic) 10 drop BID BOTH EARS Last administered on 20:44; Admin Dose 10 DROP; Start 12/05/16 at 09:00 Cholecalciferol (Vitamin D) 1,000 unit DAILY PO Last administered on 12/06/16 08:20; Admin Dose 1,000 UNIT; Start 12/05/16 at 09:00 Clopidogrel Bisulfate (plaVIX) 75 mg DAILY PO Last administered on 12/06/16 08 :20; Admin Dose 75 MG; Start 12/05/16 at 09:00 Fluoxetine HCl (Prozac) 10 mg DAILY PO Last administered on 12/06/16 08:20; Admin Dose 10 MG; Start 12/05/16 at 09:00 Losartan Potassium (Cozaar) 50 mg DAILY PO Last administered on 12/06/16 08:21 ; Admin Dose 50 MG; Start 12/05/16 at 09:00 Metoprolol Succinate (Toprol Xl) 25 mg DAILY PO Last administered on 12/06/16 08:20; Admin Dose 25 MG; Start 12/05/16 at 09:00 Valsartan (Diovan) 80 mg DAILY PO Last administered on 12/06/16 08:20; Admin Dose 80 MG; Start 12/05/16 at 09:00 Pantoprazole (Protonix Tab) 40 mg DAILY@06 PO Last administered on 12/06/16 06 :26; Admin Dose 40 MG; Start 12/05/16 at 06:00 Insulin Glargine (Lantus) 12 unit DAILY@08 SC Last administered on 12/06/16 08 :24; Admin Dose 12 UNIT; Start 12/05/16 at 08:00 Diagnostic Test (Pha) (Accu-Chek) 1 ea 02 XX ; Start 12/07/16 at 02:00 Miscellaneous Information 1 ea NOTE XX ; Start 12/06/16 at 05:30 Glucose (Glutose) 15 gm Q15M PRN PO DECREASED GLUCOSE; Start 12/06/16 at 05:30 Glucose (Glutose) 22.5 gm Q15M PRN PO DECREASED GLUCOSE; Start 12/06/16 at 05: 30 Dextrose (D50w Syringe) 25 ml Q15M PRN IV DECREASED GLUCOSE; Start 12/06/16 at 05:30 Dextrose (D50w Syringe) 50 ml Q15M PRN IV DECREASED GLUCOSE; Start 12/06/16 at 05:30 Glucagon (Glucagen) 1 mg Q15M PRN IM DECREASED GLUCOSE; Start 12/06/16 at 05:30 Glucose (Glutose) 15 gm Q15M PRN BUCCAL DECREASED GLUCOSE; Start 12/06/16 at 05 :30 ES MEDRANO Dec 06, 2016 12:51
--- NOTE | 2016-12-06 13:34 | CONS ---
Date/Time of Note Date/Time of Note DATE: 12/06/16 TIME: 13:33 Assessment/Plan Assessment/Plan Additional Assessment/Plan 1. Patient with non ST elevation myocardial infarction. His troponins are elevated. He has been initiated on heparin. He is chest pain free now. Will schedule stress test tomorrow. 2. Hypertension. Blood pressure well optimized. Continue to follow. BETTER. 3. Cardiomyopathy. Patient with history of cardiomyopathy, ishemic. Will followup with a 2D echo, will try to find cath results form [facility]. 4. Medical noncompliance. Patient encouraged to comply with his medical therapy. 5. Tobacco use. D/c advised. Consultation Date/Type/Reason Admit Date/Time Dec 05, 2016 at 03:57 24 HR Interval Summary Free Text/Dictation chest pain free now. Will schedule stress test tomorrow. ROS: No fever, no chills, no nausea, no vomiting, no diarrhea/constipation No recent weight changes No chest pain, no PND, no orthopnea No dizziness, blurred vision No thirst, no heat or cold intolerance Exam/Review of Systems Vital Signs Vitals Vital Signs Date Time Temp Pulse Resp B/P Pulse Ox O2 Delivery O2 Flow Rate FiO2 12/06/16 12:10 84 12/06/16 12:02 97.7 20 101/62 96 12/05/16 04:17 Nasal Cannula 2.0 Intake and Output 12/05/16 12/05/16 12/06/16 15:00 23:00 07:00 Intake Total 1000 ml 627.5 ml Balance 1000 ml 627.5 ml Exam General: WN/WD/NAD, AOx 3 HEENT: Unicetric/atraumatic/EOMI ( follow commands) NECK: JVD elevated, no thyromegaly Lymph: no lymphadenopathy HEART: regular with no S3, II/ systolic murmur at apex LUNGS: Coarse sounds ABD: soft, NT, ND, +BS : Intact Neuro: non focal SKIN: chronic changes EXT: trace edema Results Result Diagram: 12/06/16 0712/06/16 0706 Results 24 hrs Laboratory Tests Test 12/05/16 14:05 12/05/16 16:58 12/05/16 17:07 12/05/16 23:07 Creatine Kinase 201 H Creatine Kinase Index 3.1 Creatinine Kinase MB (Mass) 6.30 H Troponin I 3.800 *H Bedside Glucose 132 Prothrombin Time 13.3 Prothrombin Time Ratio 1.0 INR International Normalized Ratio 1.01 Activated Partial Thromboplast Time 65.5 H 52.5 H Test 12/05/16 23:35 12/06/16 07:06 12/06/16 07:48 12/06/16 08:07 Bedside Glucose 192 162 White Blood Count 11.0 H Red Blood Count 4.61 L Hemoglobin 14.3 Hematocrit 41.4 L Mean Corpuscular Volume 89.8 Mean Corpuscular Hemoglobin 31.0 Mean Corpuscular Hemoglobin Concent 34.5 Red Cell Distribution Width 12.6 Platelet Count 227 Mean Platelet Volume 10.3 Neutrophils % 71.1 Lymphocytes % 16.4 Monocytes % 11.8 H Eosinophils % 0.0 Basophils % 0.4 Nucleated Red Blood Cells % 0.0 Neutrophils # 7.9 H Lymphocytes # 1.8 Monocytes # 1.3 H Eosinophils # 0.0 Basophils # 0.0 Nucleated Red Blood Cells # 0.0 Sodium Level 135 Potassium Level 3.9 Chloride Level 100 Carbon Dioxide Level 22 Anion Gap 17 H Blood Urea Nitrogen 13 Creatinine 0.67 Glucose Level 159 # Hemoglobin A1c 8.8 H Calcium Level 9.3 Magnesium Level 1.9 Total Bilirubin 0.9 Direct Bilirubin 0.00 Indirect Bilirubin 0.9 Aspartate Amino Transf (AST/SGOT) 24 Alanine Aminotransferase (ALT/SGPT) 32 Alkaline Phosphatase 53 Total Protein 7.2 Albumin 4.2 Globulin 3.00 Albumin/Globulin Ratio 1.40 Triglycerides Level 101 Cholesterol Level 158 LDL Cholesterol, Calculated 99 HDL Cholesterol 39 Cholesterol/HDL Ratio 4.0 Activated Partial Thromboplast Time 55.4 H Test 12/06/16 12:24 Bedside Glucose 255 H Medications Medications Current Medications Ondansetron HCl (Zofran Inj) 4 mg Q6H PRN IV NAUSEA AND/OR VOMITING; Start at 05:00 Nitroglycerin (Nitroglycerin (Sl Tab) 0.4 Mg) 1 tab Q5M PRN SL CHEST PAIN; Start 12/05/16 at 05:00 Acetaminophen (Tylenol Tab) 650 mg Q6H PRN PO PAIN LEVEL 1-3 OR FEVER Last administered on 12/06/16t 08:20; Admin Dose 650 MG; Start 12/05/16 at 05:00 Morphine Sulfate (morphine) 2 mg Q4H PRN IV PAIN LEVEL 7-10; Start 12/05/16 at 05:00 Aspirin (Halfprin) 81 mg DAILY PO Last administered on 12/06/16 08:20; Admin Dose 81 MG; Start 12/05/16 at 09:00 Atorvastatin Calcium (Lipitor) 80 mg HS PO Last administered on 12/05/16 20:44 ; Admin Dose 80 MG; Start 12/05/16 at 21:00 Carbamide Peroxide (Debrox Otic) 10 drop BID BOTH EARS Last administered on 20:44; Admin Dose 10 DROP; Start 12/05/16 at 09:00 Cholecalciferol (Vitamin D) 1,000 unit DAILY PO Last administered on 12/06/16 08:20; Admin Dose 1,000 UNIT; Start 12/05/16 at 09:00 Clopidogrel Bisulfate (plaVIX) 75 mg DAILY PO Last administered on 12/06/16 08 :20; Admin Dose 75 MG; Start 12/05/16 at 09:00 Fluoxetine HCl (Prozac) 10 mg DAILY PO Last administered on 12/06/16 08:20; Admin Dose 10 MG; Start 12/05/16 at 09:00 Losartan Potassium (Cozaar) 50 mg DAILY PO Last administered on 12/06/16 08:21 ; Admin Dose 50 MG; Start 12/05/16 at 09:00 Metoprolol Succinate (Toprol Xl) 25 mg DAILY PO Last administered on 12/06/16 08:20; Admin Dose 25 MG; Start 12/05/16 at 09:00 Valsartan (Diovan) 80 mg DAILY PO Last administered on 12/06/16 08:20; Admin Dose 80 MG; Start 12/05/16 at 09:00 Pantoprazole (Protonix Tab) 40 mg DAILY@06 PO Last administered on 12/06/16 06 :26; Admin Dose 40 MG; Start 12/05/16 at 06:00 Insulin Glargine (Lantus) 12 unit DAILY@08 SC Last administered on 12/06/16 08 :24; Admin Dose 12 UNIT; Start 12/05/16 at 08:00 Diagnostic Test (Pha) (Accu-Chek) 1 ea 02 XX ; Start 12/07/16 at 02:00 Miscellaneous Information 1 ea NOTE XX ; Start 12/06/16 at 05:30 Glucose (Glutose) 15 gm Q15M PRN PO DECREASED GLUCOSE; Start 12/06/16 at 05:30 Glucose (Glutose) 22.5 gm Q15M PRN PO DECREASED GLUCOSE; Start 12/06/16 at 05: 30 Dextrose (D50w Syringe) 25 ml Q15M PRN IV DECREASED GLUCOSE; Start 12/06/16 at 05:30 Dextrose (D50w Syringe) 50 ml Q15M PRN IV DECREASED GLUCOSE; Start 12/06/16 at 05:30 Glucagon (Glucagen) 1 mg Q15M PRN IM DECREASED GLUCOSE; Start 12/06/16 at 05:30 Glucose (Glutose) 15 gm Q15M PRN BUCCAL DECREASED GLUCOSE; Start 12/06/16 at 05 :30 KING CM MD Dec 06, 2016 13:34
[2016-12-06 15:00] LABS: ADD UMIC YES; UR ASCORBIC ACID NEGATIVE (NEGATIVE); UR BACTERIA FEW /HPF (NONE SEEN); UR BILIRUBIN (Dip) NEGATIVE (NEGATIVE); UR BLOOD (Dip) 1+ mg/dL (NEGATIVE); UR CLARITY CLEAR (CLEAR); UR COLOR YELLOW (YELLOW); UR GLUCOSE (Dip) 3+ mg/dL (NEGATIVE); UR KETONES (Dip) 1+ mg/dL (NEGATIVE); UR LEUKOCYTE ESTERASE (Dip) NEGATIVE Leu/ul (NEGATIVE); UR NITRITE (Dip) NEGATIVE (NEGATIVE); UR RBC 1 /HPF (0-5); UR SPECIFIC GRAVITY (Dip) 1.033 (1.003-1.030); UR TOTAL PROTEIN (Dip) NEGATIVE (NEGATIVE); UR UROBILINOGEN (Dip) 2+ mg/dL (NEGATIVE)
--- NOTE | 2016-12-06 15:12 | RADRPT ---
PROCEDURE: XR Chest. CLINICAL INDICATION: Shortness of breath. TECHNIQUE: Single frontal view. COMPARISON: 12/05/2016. FINDINGS: The lungs are clear. The heart size is normal. There is no pleural effusion or pneumothorax. There is calcific tendonitis of the right shoulder. IMPRESSION: 1. Calcific tendonitis of the right shoulder. 2. Otherwise normal chest radiograph. RPTAT: QQ .Blayne Gonzalez MD, MD Date Time Electronically viewed and signed by .Blayne Gonzalez MD, on 12/06/2016 15:12 .R/
[2016-12-06] MEDS ORDERED: SOD CHLORIDE 0.9% 1,000 ML IV SCH (19:00)
[2016-12-06] MEDS: ONDANSETRON 4 MG INJ IV PRN (19:30)
[2016-12-06] MEDS: LEVOFLOXACIN 500MG/D5W (PMX) 100 ML IVPB SCH (19:50)
[2016-12-06] MEDS: morphine 2 MG INJ IV PRN (20:01)
[2016-12-06] MEDS: ATORVASTATIN 80 MG TAB PO SCH (20:32)
[2016-12-07] VITALS (14 sets, daily range): BP systolic 90–117; BP diastolic 51–75; PULSE 91–130; RESP 18–20
[2016-12-07] MEDS: ACCU-CHEK XX SCH (02:00)
[2016-12-07] MEDS: morphine 2 MG INJ IV PRN ×2 (02:29→18:49)
[2016-12-07] MEDS: ONDANSETRON 4 MG INJ IV PRN (02:29)
[2016-12-07] MEDS: ACETAMINOPHEN 325 MG TAB PO PRN (02:36)
[2016-12-07] MEDS ORDERED: ALBUTEROL/IPRATROPIUM (NEB) 3 ML AMP HHN PRN (02:55)
[2016-12-07] MEDS: HEPARIN 25000 UNITS/250 ML 250 ML IV SCH (03:07)
[2016-12-07] MEDS: PANTOPRAZOLE (EC) 40 MG TAB PO SCH (06:01)
[2016-12-07] MEDS: ALBUTEROL/IPRATROPIUM (NEB) 3 ML AMP HHN SCH ×3 (07:53→19:48)
[2016-12-07 08:19] LABS: BASOPHILS % 0.2 % (0.0-2.0); LYMPHOCYTES # 1.2 10^3/ul (0.8-2.9); MEAN CORPUSCULAR HGB CONC 32.6 g/dl (32.0-37.0); MEAN CORPUSCULAR VOLUME 92.1 fl (82.0-101.0); MEAN PLATELET VOLUME 9.8 fl (7.4-10.4); MONOCYTE # 1.4 10^3/ul (0.3-0.9); MONOCYTES % 10.7 % (0.0-11.0); NEUTROPHIL # 10.6 10^3/ul (1.6-7.5); NEUTROPHILS % 79.6 % (39.0-77.0); PLATELET COUNT 240 10^3/UL (140-415); RED BLOOD COUNT 4.67 10^6/ul (4.70-6.10); RED CELL DISTRIBUTION WIDTH 13.1 % (11.5-14.5); WHITE BLOOD COUNT 13.3 10^3/ul (4.8-10.8)
[2016-12-07] MEDS ORDERED: INSULIN GLARGINE [LANtus] 3 ML PEN SC ONE (08:30)
[2016-12-07] MEDS: CLOPIDOGREL 75 MG TAB PO SCH (08:47)
[2016-12-07] MEDS: CHOLECALCIFEROL 1,000 UNIT TAB PO SCH (08:47)
[2016-12-07] MEDS: ASPIRIN (EC) 81 MG TAB PO SCH (08:47)
[2016-12-07] MEDS: METOPROLOL (XL) 25 MG TAB PO SCH (08:48)
[2016-12-07] MEDS: FLUOXETINE 10 MG CAP PO SCH (08:48)
[2016-12-07] MEDS: LOSARTAN 50 MG TAB PO SCH (08:49)
[2016-12-07] MEDS: INSULIN ASPART [NOVOLOG] 3 ML PEN SC SCH ×4 (08:52→21:02)
[2016-12-07 09:00] LABS: ALBUMIN 3.8 g/dl (3.3-4.9); ALBUMIN/GLOBULIN RATIO 1.4; BILIRUBIN,INDIRECT 0.6 mg/dl (0-1.1); BILIRUBIN,TOTAL 0.6 mg/dl (0.2-1.3); CALCIUM 8.7 mg/dl (8.4-10.2); CREATININE 0.69 mg/dl (0.61-1.24); POTASSIUM 3.9 mmol/L (3.5-5.1); TOTAL PROTEIN 6.5 g/dl (6.1-8.1)
[2016-12-07] MEDS: CARBAMIDE PEROXIDE 6.5% 15ML OTIC BOTH EARS SCH ×2 (09:00→21:00)
[2016-12-07] MEDS ORDERED: REGADENOSON 0.4 MG/5 ML SYG ONE (09:16)
--- NOTE | 2016-12-07 09:28 | CONS ---
Date/Time of Note Date/Time of Note DATE: 12/07/16 TIME: 09:26 Assessment/Plan Assessment/Plan Additional Assessment/Plan 1. Patient with non ST elevation myocardial infarction. His troponins are elevated. He has been initiated on heparin, will hold off now with downtrending troponin . He is chest pain free now. Stress test today. 2. Hypertension. Blood pressure well optimized. Continue to follow. BETTER. 3. Cardiomyopathy. Patient with history of cardiomyopathy, ishemic. Will followup with a 2D echo, will try to find cath results form [facility]. 4. Medical noncompliance. Patient encouraged to comply with his medical therapy. 5. Tobacco use. D/c advised. Consultation Date/Type/Reason Admit Date/Time Dec 05, 2016 at 03:57 24 HR Interval Summary Free Text/Dictation Downtrending troponin . He is chest pain free now. Stress test today. ROS: No fever, no chills, no nausea, no vomiting, no diarrhea/constipation No recent weight changes No chest pain, no PND, no orthopnea No dizziness, blurred vision No thirst, no heat or cold intolerance Exam/Review of Systems Vital Signs Vitals Vital Signs Date Time Temp Pulse Resp B/P Pulse Ox O2 Delivery O2 Flow Rate FiO2 12/07/16 08:20 98 12/07/16 08:09 99.2 20 91/62 98 12/07/16 07:53 Nasal Cannula 4.0 Intake and Output 12/06/16 12/06/16 12/07/16 15:00 23:00 07:00 Intake Total 1100 ml 1747.5 ml Balance 1100 ml 1747.5 ml Exam General: WN/WD/NAD, AOx 3 HEENT: Unicetric/atraumatic/EOMI (follows commands) NECK: JVD elevated, no thyromegaly Lymph: no lymphadenopathy HEART: regular with no S3, II/ systolic murmur at apex LUNGS: Coarse sounds ABD: soft, NT, ND, +BS : Intact Neuro: non focal SKIN: chronic changes EXT: trace edema Results Result Diagram: 12/07/16 0711 12/07/16 0711 Results 24 hrs Laboratory Tests Test 12/06/16 12:24 12/06/16 13:49 12/06/16 14:42 12/06/16 17:01 Bedside Glucose 255 H 351 H Activated Partial Thromboplast Time 45.9 H Urine Color YELLOW Urine Clarity CLEAR Urine pH 5.0 Urine Specific [place] 1.033 H Urine Ketones 1+ H Urine Nitrite NEGATIVE Urine Bilirubin NEGATIVE Urine Urobilinogen 2+ H Urine Leukocyte Esterase NEGATIVE Urine Microscopic RBC 1 Urine Microscopic WBC 1 Urine Bacteria FEW A Urine Hemoglobin 1+ H Urine Glucose 3+ H Urine Total Protein NEGATIVE Test 12/06/16 20:31 12/06/16 20:50 12/07/16 07:11 12/07/16 07:51 Bedside Glucose 158 212 Activated Partial Thromboplast Time 114.6 *H 79.3 *H White Blood Count 13.3 #H Red Blood Count 4.67 L Hemoglobin 14.0 Hematocrit 43.0 Mean Corpuscular Volume 92.1 Mean Corpuscular Hemoglobin 30.0 Mean Corpuscular Hemoglobin Concent 32.6 Red Cell Distribution Width 13.1 Platelet Count 240 Mean Platelet Volume 9.8 Neutrophils % 79.6 H Lymphocytes % 9.0 L Monocytes % 10.7 Eosinophils % 0.0 Basophils % 0.2 Nucleated Red Blood Cells % 0.0 Neutrophils # 10.6 H Lymphocytes # 1.2 Monocytes # 1.4 H Eosinophils # 0.0 Basophils # 0.0 Nucleated Red Blood Cells # 0.0 Sodium Level 133 L Potassium Level 3.9 Chloride Level 98 Carbon Dioxide Level 19 L Anion Gap 20 H Blood Urea Nitrogen 14 Creatinine 0.69 Glucose Level 202 Calcium Level 8.7 Total Bilirubin 0.6 Direct Bilirubin 0.00 Indirect Bilirubin 0.6 Aspartate Amino Transf (AST/SGOT) 25 Alanine Aminotransferase (ALT/SGPT) 32 Alkaline Phosphatase 61 Troponin I 0.554 *H Total Protein 6.5 Albumin 3.8 Globulin 2.70 Albumin/Globulin Ratio 1.40 Medications Medications Current Medications Ondansetron HCl (Zofran Inj) 4 mg Q6H PRN IV NAUSEA AND/OR VOMITING Last administered on 12/07/16 02:29; Admin Dose 4 MG; Start 12/05/16 at 05:00 Nitroglycerin (Nitroglycerin (Sl Tab) 0.4 Mg) 1 tab Q5M PRN SL CHEST PAIN; Start 12/05/16 at 05:00 Acetaminophen (Tylenol Tab) 650 mg Q6H PRN PO PAIN LEVEL 1-3 OR FEVER Last administered on 12/07/16 02:36; Admin Dose 650 MG; Start 12/05/16 at 05:00 Morphine Sulfate (morphine) 2 mg Q4H PRN IV PAIN LEVEL 7-10 Last administered on 12/07/16 02:29; Admin Dose 2 MG; Start 12/05/16 at 05:00 Aspirin (Halfprin) 81 mg DAILY PO Last administered on 12/07/16 08:47; Admin Dose 81 MG; Start 12/05/16 at 09:00 Atorvastatin Calcium (Lipitor) 80 mg HS PO Last administered on 12/06/16 20:32 ; Admin Dose 80 MG; Start 12/05/16 at 21:00 Carbamide Peroxide (Debrox Otic) 10 drop BID BOTH EARS Last administered on 20:44; Admin Dose 10 DROP; Start 12/05/16 at 09:00 Cholecalciferol (Vitamin D) 1,000 unit DAILY PO Last administered on 12/07/16 08:47; Admin Dose 1,000 UNIT; Start 12/05/16 at 09:00 Clopidogrel Bisulfate (plaVIX) 75 mg DAILY PO Last administered on 12/07/16 08 :47; Admin Dose 75 MG; Start 12/05/16 at 09:00 Fluoxetine HCl (Prozac) 10 mg DAILY PO Last administered on 12/07/16 08:48; Admin Dose 10 MG; Start 12/05/16 at 09:00 Losartan Potassium (Cozaar) 50 mg DAILY PO Last administered on 12/07/16 08:49 ; Admin Dose 50 MG; Start 12/05/16 at 09:00 Metoprolol Succinate (Toprol Xl) 25 mg DAILY PO Last administered on 12/07/16 08:48; Admin Dose 25 MG; Start 12/05/16 at 09:00 Valsartan (Diovan) 80 mg DAILY PO Last administered on 12/06/16 08:20; Admin Dose 80 MG; Start 12/05/16 at 09:00 Pantoprazole (Protonix Tab) 40 mg DAILY@06 PO Last administered on 12/07/16 06 :01; Admin Dose 40 MG; Start 12/05/16 at 06:00 Insulin Glargine (Lantus) 12 unit DAILY@08 SC Last administered on 12/06/16 08 :24; Admin Dose 12 UNIT; Start 12/05/16 at 08:00; Status Future hold Diagnostic Test (Pha) (Accu-Chek) 1 ea 02 XX ; Start 12/07/16 at 02:00 Miscellaneous Information 1 ea NOTE XX ; Start 12/06/16 at 05:30 Glucose (Glutose) 15 gm Q15M PRN PO DECREASED GLUCOSE; Start 12/06/16 at 05:30 Glucose (Glutose) 22.5 gm Q15M PRN PO DECREASED GLUCOSE; Start 12/06/16 at 05: 30 Dextrose (D50w Syringe) 25 ml Q15M PRN IV DECREASED GLUCOSE; Start 12/06/16 at 05:30 Dextrose (D50w Syringe) 50 ml Q15M PRN IV DECREASED GLUCOSE; Start 12/06/16 at 05:30 Glucagon (Glucagen) 1 mg Q15M PRN IM DECREASED GLUCOSE; Start 12/06/16 at 05:30 Glucose 15 gm 15 gm Q15M PRN BUCCAL DECREASED GLUCOSE; Start 12/06/16 at 05:30 Levofloxacin/ Dextrose (Levaquin 500mg/ D5W 100 ml (Pmx)) 100 ml @ 100 mls/hr Q24H IVPB Last administered on 12/06/16t 19:50; Admin Dose 100 MLS/HR; Start at 19:00 KING CM MD Dec 07, 2016 09:28
--- NOTE | 2016-12-07 11:05 | RADRPT ---
PROCEDURE: Lexiscan myocardial perfusion study CLINICAL INDICATION: 56 -year-old patient complaining of chest pain. TECHNIQUE: Lexiscan 0.4 mg intravenously separate acquisition gated myocardial perfusion SPECT usi ng Tc 99m sestamibi 33.0 mCi intravenously at stress and Tc-99m Sestamibi, 10.5 mCi intravenously at rest was performed using the rest/stress sequence. Poststress sestamibi SPECT images were obtained in the supine positions. COMPARISON: September 12, 2013. FINDINGS: Perfusion images reveal a large size moderate to severe in degree nonreversible perfusion defect in the apical, anterior, septal and inferior andres. Lexiscan post stress gated SPECT images demonstrate moderate to severe hypokinesis of the dilated le ft ventricle. IMPRESSION: 1. The type and distribution of the scintigraphic abnormalities are most consistent with a large si ze nonreversible perfusion defect involving the apex, anterior, septal and inferior andres. 2. Moderate to severe hypokinesis of the dilated left ventricle. 3. The left ventricle ejection fraction at stress is 21%. A call report was made to Dr. Ferro at 11:00 a.m. on December 07, 2016 RPTAT: HH .Klaudia Herzog MD, Date Time Electronically viewed and signed by .Klaudia Herzog MD, on 12/07/2016 11:04 .L/
--- NOTE | 2016-12-07 13:26 | PN ---
Date/Time of Note Date/Time of Note DATE: 12/07/16 TIME: 13:15 Assessment/Plan VTE Prophylaxis VTE Prophylaxis Intervention: SCD's Lines/Catheters IV [facility]ter Type (from [facility]): Peripheral IV Urinary Cath still in place: No Assessment/Plan Chief Complaint/Hosp Course Patient status post stress test today, denies any chest pain denies shortness of breath, borderline blood pressure. Problems: Assessment/Plan - NSTEMI. S/p stress test today. Continue aspirin and Plavix. Dr. Ferro is following in cardiology consultation. - History of CAD with multiple stents - Hypertension. - Ischemic cardiomyopathy ejection fraction of 30% - Dyslipidemia, continue statin - Diabetes mellitus with hemoglobin A1c is 8.8. - Tobacco use. Patient is strongly advised. - Medical noncompliance. Further recommendations based on clinical course. Plan of care discussed with Dr. Waggoner. Exam/Review of Systems Vital Signs Vitals Vital Signs Date Time Temp Pulse Resp B/P Pulse Ox O2 Delivery O2 Flow Rate FiO2 12/07/16 12:12 91 12/07/16 11:58 98.7 20 91/51 98 12/07/16 08:10 Nasal Cannula 4.0 Intake and Output 12/06/16 12/06/16 12/07/16 15:00 23:00 07:00 Intake Total 1100 ml 1747.5 ml Balance 1100 ml 1747.5 ml Exam Constitutional: alert, oriented Head: normocephalic Neck: supple Respiratory: clear to auscultation Cardiovascular: nl pulses Gastrointestinal: non-tender, soft Musculoskeletal: nl extremities to inspection Extremities: normal pulses Results Result Diagram: 12/07/16 0711 12/07/16 0711 Results 24 hrs Laboratory Tests Test 12/06/16 13:49 12/06/16 14:42 12/06/16 17:01 12/06/16 20:31 Activated Partial Thromboplast Time 45.9 H Urine Color YELLOW Urine Clarity CLEAR Urine pH 5.0 Urine Specific [place] 1.033 H Urine Ketones 1+ H Urine Nitrite NEGATIVE Urine Bilirubin NEGATIVE Urine Urobilinogen 2+ H Urine Leukocyte Esterase NEGATIVE Urine Microscopic RBC 1 Urine Microscopic WBC 1 Urine Bacteria FEW A Urine Hemoglobin 1+ H Urine Glucose 3+ H Urine Total Protein NEGATIVE Bedside Glucose 351 H 158 Test 12/06/16 20:50 12/07/16 07:11 12/07/16 07:51 12/07/16 11:52 Activated Partial Thromboplast Time 114.6 *H 79.3 *H White Blood Count 13.3 #H Red Blood Count 4.67 L Hemoglobin 14.0 Hematocrit 43.0 Mean Corpuscular Volume 92.1 Mean Corpuscular Hemoglobin 30.0 Mean Corpuscular Hemoglobin Concent 32.6 Red Cell Distribution Width 13.1 Platelet Count 240 Mean Platelet Volume 9.8 Neutrophils % 79.6 H Lymphocytes % 9.0 L Monocytes % 10.7 Eosinophils % 0.0 Basophils % 0.2 Nucleated Red Blood Cells % 0.0 Neutrophils # 10.6 H Lymphocytes # 1.2 Monocytes # 1.4 H Eosinophils # 0.0 Basophils # 0.0 Nucleated Red Blood Cells # 0.0 Sodium Level 133 L Potassium Level 3.9 Chloride Level 98 Carbon Dioxide Level 19 L Anion Gap 20 H Blood Urea Nitrogen 14 Creatinine 0.69 Glucose Level 202 Calcium Level 8.7 Total Bilirubin 0.6 Direct Bilirubin 0.00 Indirect Bilirubin 0.6 Aspartate Amino Transf (AST/SGOT) 25 Alanine Aminotransferase (ALT/SGPT) 32 Alkaline Phosphatase 61 Troponin I 0.554 *H Total Protein 6.5 Albumin 3.8 Globulin 2.70 Albumin/Globulin Ratio 1.40 Bedside Glucose 212 278 H Medications Medications Current Medications Ondansetron HCl (Zofran Inj) 4 mg Q6H PRN IV NAUSEA AND/OR VOMITING Last administered on 12/07/16 02:29; Admin Dose 4 MG; Start 12/05/16 at 05:00 Nitroglycerin (Nitroglycerin (Sl Tab) 0.4 Mg) 1 tab Q5M PRN SL CHEST PAIN; Start 12/05/16 at 05:00 Acetaminophen (Tylenol Tab) 650 mg Q6H PRN PO PAIN LEVEL 1-3 OR FEVER Last administered on 12/07/16 02:36; Admin Dose 650 MG; Start 12/05/16 at 05:00 Morphine Sulfate (morphine) 2 mg Q4H PRN IV PAIN LEVEL 7-10 Last administered on 12/07/16 02:29; Admin Dose 2 MG; Start 12/05/16 at 05:00 Aspirin (Halfprin) 81 mg DAILY PO Last administered on 12/07/16 08:47; Admin Dose 81 MG; Start 12/05/16 at 09:00 Atorvastatin Calcium (Lipitor) 80 mg HS PO Last administered on 12/06/16 20:32 ; Admin Dose 80 MG; Start 12/05/16 at 21:00 Carbamide Peroxide (Debrox Otic) 10 drop BID BOTH EARS Last administered on 20:44; Admin Dose 10 DROP; Start 12/05/16 at 09:00 Cholecalciferol (Vitamin D) 1,000 unit DAILY PO Last administered on 12/07/16 08:47; Admin Dose 1,000 UNIT; Start 12/05/16 at 09:00 Clopidogrel Bisulfate (plaVIX) 75 mg DAILY PO Last administered on 12/07/16 08 :47; Admin Dose 75 MG; Start 12/05/16 at 09:00 Fluoxetine HCl (Prozac) 10 mg DAILY PO Last administered on 12/07/16 08:48; Admin Dose 10 MG; Start 12/05/16 at 09:00 Losartan Potassium (Cozaar) 50 mg DAILY PO Last administered on 12/07/16 08:49 ; Admin Dose 50 MG; Start 12/05/16 at 09:00 Metoprolol Succinate (Toprol Xl) 25 mg DAILY PO Last administered on 12/07/16 08:48; Admin Dose 25 MG; Start 12/05/16 at 09:00 Valsartan (Diovan) 80 mg DAILY PO Last administered on 12/06/16 08:20; Admin Dose 80 MG; Start 12/05/16 at 09:00 Pantoprazole (Protonix Tab) 40 mg DAILY@06 PO Last administered on 12/07/16 06 :01; Admin Dose 40 MG; Start 12/05/16 at 06:00 Insulin Glargine (Lantus) 12 unit DAILY@08 SC Last administered on 12/06/16 08 :24; Admin Dose 12 UNIT; Start 12/05/16 at 08:00; Status Future hold Diagnostic Test (Pha) (Accu-Chek) 1 ea 02 XX ; Start 12/07/16 at 02:00 Miscellaneous Information 1 ea NOTE XX ; Start 12/06/16 at 05:30 Glucose (Glutose) 15 gm Q15M PRN PO DECREASED GLUCOSE; Start 12/06/16 at 05:30 Glucose (Glutose) 22.5 gm Q15M PRN PO DECREASED GLUCOSE; Start 12/06/16 at 05: 30 Dextrose (D50w Syringe) 25 ml Q15M PRN IV DECREASED GLUCOSE; Start 12/06/16 at 05:30 Dextrose (D50w Syringe) 50 ml Q15M PRN IV DECREASED GLUCOSE; Start 12/06/16 at 05:30 Glucagon (Glucagen) 1 mg Q15M PRN IM DECREASED GLUCOSE; Start 12/06/16 at 05:30 Glucose 15 gm 15 gm Q15M PRN BUCCAL DECREASED GLUCOSE; Start 12/06/16 at 05:30 Levofloxacin/ Dextrose (Levaquin 500mg/ D5W 100 ml (Pmx)) 100 ml @ 100 mls/hr Q24H IVPB Last administered on 12/06/16t 19:50; Admin Dose 100 MLS/HR; Start at 19:00 RIGOBERTO LAI Dec 07, 2016 13:26
--- NOTE | 2016-12-07 14:16 | PDOCDIS ---
Discharge Instructions CONDITION Patient Condition: Good HOME CARE INSTRUCTIONS: Diet Instructions: Reduced Sodium ACTIVITY: Activity Restrictions: No Restrictions FOLLOW UP/APPOINTMENTS Follow-up Plan FOLLOW UP WITH YOUR PRIMARY CARE PHYSICIAN IN 1-2 WEEKS, ALSO FOLLOW UP WITH YOUR ENVIRONMENTAL REMEDIATION SPECIALIST SJ ROBERTSON Dec 07, 2016 14:16
[2016-12-07] MEDS: LINAGLIPTIN 5 MG TABLET PO SCH (17:17)
[2016-12-07] MEDS: LEVOFLOXACIN 500MG/D5W (PMX) 100 ML IVPB SCH (17:44)
[2016-12-07] MEDS ORDERED: FUROSEMIDE 20 MG INJ ONE (19:16)
[2016-12-07] MEDS ORDERED: FUROSEMIDE 20 MG INJ IV ONE (19:30)
[2016-12-07] MEDS ORDERED: CEPASTAT LOZENGE MT PRN (20:00)
--- NOTE | 2016-12-07 20:25 | ECORPT ---
DATE OF SERVICE: 12/07/2016 ECHOCARDIOGRAM PROCEDURE PERFORMED: Lexiscan cardiac stress test. REASON FOR TEST: Non-ST elevation myocardial infarction. Prior history of coronary artery disease. PROCEDURE: The patient condition. He had Lexiscan scan injection. Initial heart rate was 90 and went up to 110. Blood pressure 98/60. Imaging portion will be dictated separately. Dictated By: Ray Ferro MD /yvette/shani /Document#: [id number]
[2016-12-07] MEDS: ATORVASTATIN 80 MG TAB PO SCH (20:59)
[2016-12-07] MEDS: SPIRONOLACTONE 25 MG TAB PO SCH (20:59)
[2016-12-07] MEDS: VALSARTAN 80 MG TAB PO SCH (21:48)
[2016-12-08] VITALS (11 sets, daily range): BP systolic 108–122; BP diastolic 64–72; PULSE 76–120; RESP 16–18
[2016-12-08] MEDS: morphine 2 MG INJ IV PRN ×2 (02:02→05:55)
[2016-12-08] MEDS: ONDANSETRON 4 MG INJ IV PRN (02:02)
[2016-12-08] MEDS: ACCU-CHEK XX SCH (02:06)
[2016-12-08] MEDS: PANTOPRAZOLE (EC) 40 MG TAB PO SCH (05:44)
[2016-12-08] MEDS: FUROSEMIDE 20 MG INJ IV SCH ×2 (05:45→18:21)
[2016-12-08] MEDS ORDERED: INSULIN GLARGINE [LANtus] 3 ML PEN SC SCH (08:00)
[2016-12-08] MEDS: INSULIN ASPART [NOVOLOG] 3 ML PEN SC SCH ×7 (08:08→21:21)
[2016-12-08] MEDS: ALBUTEROL/IPRATROPIUM (NEB) 3 ML AMP HHN SCH ×3 (08:18→19:49)
[2016-12-08] MEDS: SPIRONOLACTONE 25 MG TAB PO SCH (08:29)
[2016-12-08] MEDS: VALSARTAN 80 MG TAB PO SCH (08:29)
[2016-12-08] MEDS: CLOPIDOGREL 75 MG TAB PO SCH (08:29)
[2016-12-08] MEDS: ASPIRIN (EC) 81 MG TAB PO SCH (08:29)
[2016-12-08] MEDS: FLUOXETINE 10 MG CAP PO SCH (08:29)
[2016-12-08] MEDS: LINAGLIPTIN 5 MG TABLET PO SCH (08:29)
[2016-12-08] MEDS: METOPROLOL (XL) 25 MG TAB PO SCH (08:30)
[2016-12-08] MEDS: CARBAMIDE PEROXIDE 6.5% 15ML OTIC BOTH EARS SCH ×2 (08:30→21:12)
[2016-12-08] MEDS: ENOXAPARIN 40 MG/0.4 ML SYG SC SCH (08:31)
[2016-12-08] MEDS: CHOLECALCIFEROL 1,000 UNIT TAB PO SCH (08:40)
--- NOTE | 2016-12-08 08:41 | CONS ---
Date/Time of Note Date/Time of Note DATE: 12/08/16 TIME: 08:38 Assessment/Plan Assessment/Plan Additional Assessment/Plan 1. Patient with non ST elevation myocardial infarction. His troponins are elevated. He has been initiated on heparin, will hold off now with downtrending troponin . He is chest pain free now. Stress test- LARGE FIX DEFECT, EF 21%. . 2. Hypertension. Blood pressure well optimized. Continue to follow. BETTER. 3. Cardiomyopathy. Patient with history of cardiomyopathy, ishemic. cath results form [facility]- no reversible defect by stress test - sharmin add gentle diuresis now. 4. Medical noncompliance. Patient encouraged to comply with his medical therapy. 5. Tobacco use. D/c advised. 6. Tachycardia - sinus tachy ? unclear, infection - mild CHF by exam only. Consultation Date/Type/Reason Admit Date/Time Dec 05, 2016 at 03:57 24 HR Interval Summary Free Text/Dictation Now with sinus tach - etiology unclear - sharmin monitor - gentle diuresis now. ROS: No fever, no chills, no nausea, no vomiting, no diarrhea/constipation No recent weight changes No chest pain, no PND, no orthopnea No dizziness, blurred vision No thirst, no heat or cold intolerance Exam/Review of Systems Vital Signs Vitals Vital Signs Date Time Temp Pulse Resp B/P Pulse Ox O2 Delivery O2 Flow Rate FiO2 12/08/16 08:28 110 12/08/16 08:21 22 92 Nasal Cannula 4.0 12/08/16 07:47 98.1 109/68 Intake and Output 12/07/16 12/07/16 12/08/16 15:00 23:00 07:00 Intake Total 1200 ml Balance 1200 ml Exam General: WN/WD/NAD, AOx 3 HEENT: Unicetric/atraumatic/EOMI (follow commands) NECK: JVD elevated, no thyromegaly Lymph: no lymphadenopathy HEART: tachy regular with no S3, II/ systolic murmur at apex LUNGS: Coarse sounds ABD: soft, NT, ND, +BS : Intact Neuro: non focal SKIN: chronic changes EXT: trace edema Results Result Diagram: 12/07/16 0711 12/07/16 0711 Results 24 hrs Laboratory Tests Test 12/07/16 11:52 12/07/16 16:47 12/07/16 20:58 12/08/16 01:55 Bedside Glucose 278 H 415 *H 325 H 204 Medications Medications Current Medications Ondansetron HCl (Zofran Inj) 4 mg Q6H PRN IV NAUSEA AND/OR VOMITING Last administered on 12/08/16 02:02; Admin Dose 4 MG; Start 12/05/16 at 05:00 Nitroglycerin (Nitroglycerin (Sl Tab) 0.4 Mg) 1 tab Q5M PRN SL CHEST PAIN; Start 12/05/16 at 05:00 Acetaminophen (Tylenol Tab) 650 mg Q6H PRN PO PAIN LEVEL 1-3 OR FEVER Last administered on 12/07/16 02:36; Admin Dose 650 MG; Start 12/05/16 at 05:00 Morphine Sulfate (morphine) 2 mg Q4H PRN IV PAIN LEVEL 7-10 Last administered on 12/08/16 05:55; Admin Dose 2 MG; Start 12/05/16 at 05:00 Aspirin (Halfprin) 81 mg DAILY PO Last administered on 12/07/16 08:47; Admin Dose 81 MG; Start 12/05/16 at 09:00 Atorvastatin Calcium (Lipitor) 80 mg HS PO Last administered on 12/07/16 20:59 ; Admin Dose 80 MG; Start 12/05/16 at 21:00 Carbamide Peroxide (Debrox Otic) 10 drop BID BOTH EARS Last administered on 20:44; Admin Dose 10 DROP; Start 12/05/16 at 09:00 Cholecalciferol (Vitamin D) 1,000 unit DAILY PO Last administered on 12/07/16 08:47; Admin Dose 1,000 UNIT; Start 12/05/16 at 09:00 Clopidogrel Bisulfate (plaVIX) 75 mg DAILY PO Last administered on 12/07/16 08 :47; Admin Dose 75 MG; Start 12/05/16 at 09:00 Fluoxetine HCl (Prozac) 10 mg DAILY PO Last administered on 12/07/16 08:48; Admin Dose 10 MG; Start 12/05/16 at 09:00 Metoprolol Succinate (Toprol Xl) 25 mg DAILY PO Last administered on 12/07/16 08:48; Admin Dose 25 MG; Start 12/05/16 at 09:00 Valsartan (Diovan) 80 mg DAILY PO Last administered on 12/06/16 08:20; Admin Dose 80 MG; Start 12/05/16 at 09:00 Pantoprazole (Protonix Tab) 40 mg DAILY@06 PO Last administered on 12/08/16 05 :44; Admin Dose 40 MG; Start 12/05/16 at 06:00 Diagnostic Test (Pha) (Accu-Chek) 1 ea 02 XX Last administered on 12/08/16 02: 06; Admin Dose 1 EA; Start 12/07/16 at 02:00 Miscellaneous Information 1 ea NOTE XX ; Start 12/06/16 at 05:30 Glucose (Glutose) 15 gm Q15M PRN PO DECREASED GLUCOSE; Start 12/06/16 at 05:30 Glucose (Glutose) 22.5 gm Q15M PRN PO DECREASED GLUCOSE; Start 12/06/16 at 05: 30 Dextrose (D50w Syringe) 25 ml Q15M PRN IV DECREASED GLUCOSE; Start 12/06/16 at 05:30 Dextrose (D50w Syringe) 50 ml Q15M PRN IV DECREASED GLUCOSE; Start 12/06/16 at 05:30 Glucagon (Glucagen) 1 mg Q15M PRN IM DECREASED GLUCOSE; Start 12/06/16 at 05:30 Glucose 15 gm 15 gm Q15M PRN BUCCAL DECREASED GLUCOSE; Start 12/06/16 at 05:30 Levofloxacin/ Dextrose (Levaquin 500mg/ D5W 100 ml (Pmx)) 100 ml @ 100 mls/hr Q24H IVPB Last administered on 12/07/16 17:44; Admin Dose 100 MLS/HR; Start at 19:00 Linagliptin (Tradjenta) 5 mg DAILY PO Last administered on 12/07/16 17:17; Admin Dose 5 MG; Start 12/07/16 at 14:15 Spironolactone (Aldactone) 25 mg DAILY PO Last administered on 12/07/16 20:59 ; Admin Dose 25 MG; Start 12/07/16 at 19:30 Enoxaparin Sodium (Lovenox) 40 mg DAILY SC ; Start 12/08/16 at 09:00 Phenol (Cepastat Lozenge) 1 lozenge Q1H PRN MT SORE THROAT Last administered on 12/08/16 02:05; Admin Dose 1 LOZENGE; Start 12/07/16 at 20:00 Insulin Glargine (Lantus) 12 unit DAILY@08 SC ; Start 12/08/16 at 08:00 KING CM MD Dec 08, 2016 08:41
[2016-12-08] MEDS ORDERED: FUROSEMIDE 20 MG TAB PO ONE (09:00)
[2016-12-08] MEDS ORDERED: FUROSEMIDE 20 MG INJ IV SCH (09:00)
--- NOTE | 2016-12-08 09:08 | RADRPT ---
Echocardiogram Report Patient Name: TIFFANIE CASTILLO Gender: Male Date: 1960 Study Date: 05-Dec-2016 Search Engineer: DREW Location: I Ref. Physician: IMELDA JOHNSON Quality: Adequate Procedures: Transthoracic echocardiogram with complete 2D, M-Mode, and doppler examination. Indications: NSTEMI. 2D/M Mode Doppler Measurement Value Normal Ranges Measurement Value Normal Ranges AoR Diam MM 3.8 cm AV Peak Alfredo 1.1 m/sec ACS MM 2.0 cm AV Peak PG 4.9 mmHg LVIDd 2D 6.7 3.5 - 5.6 cm LVOT Peak Alfredo 0.7 m/sec LVIDs 2D 5.7 2.1 - 4.1 cm LVOT Peak PG 2.0 mmHg LVPWd 2D 1.0 0.6 - 1.1 cm MV E Peak Alfredo 0.9 m/sec IVSd 2D 1.0 0.6 - 1.1 cm MV A Peak Alfredo 0.8 m/sec EDV 2D 234.6 cm3 MV E/A 1.2 ESV 2D 185.0 cm3 MV Decel Time 126 msec LA Dimen 2D 3.9 2.3 - 4.0 cm MV Decel [place] 7 MV E/A 1.2 PV Peak Alfredo 1.0 m/sec PV Peak PG 4.0 mmHg Findings Left Ventricle: Normal left ventricular wall thickness. Moderate enlargement of left ventricle cavity. Severe global left ventricular systolic dysfunction. Severe left ventricular systolic dysfunction. Ejection fraction is visually estimated at 30 %. Tissue Doppler/Mitral Doppler indices are consistent with pseudonormalization with mildly elevated left atrial pressure (Stage II diastolic dysfunction), patient could not Valsalva. E/E`=25. These segments of the LV are akinetic inferior base segment, inferior mid segment, Apical inferior segment, apical anterior segment, apical septum segment, inferoseptum mid segment, inferoseptum base segment, apical lateral segment and inferolateral mid segment. Right Ventricle: Normal right ventricular size. Left Atrium: The left atrium is normal in size. Right Atrium: The right atrium is normal in size. Atrial Septum: Normal atrial septum. Mitral Valve: Normal appearance of the mitral valve. Moderate mitral valve regurgitation. Aortic Valve: Normal appearance of the aortic valve. No significant aortic stenosis or insufficiency. Tricuspid Valve: Normal appearance of the tricuspid valve. No evidence of tricuspid regurgitation. Pulmonic Valve: Pulmonic valve not well visualized. No evidence of pulmonic regurgitation. Pericardium: Normal pericardium with no significant pericardial effusion. Aorta: Normal aortic root. IVC: Normal size and normal respiratory collapse consistent with normal right atrial pressure. Pulmonary Artery: Normal pulmonary artery size. Conclusions 1.Normal left ventricular wall thickness. Moderate enlargement of left ventricle cavity. Severe global left ventricular systolic dysfunction. Severe left ventricular systolic dysfunction. Ejection fraction is visually estimated at 30 %. Tissue Doppler/Mitral Doppler indices are consistent with pseudonormalization with mildly elevated left atrial pressure (Stage II diastolic dysfunction), patient could not Valsalva. E/E`=25. These segments of the LV are akinetic inferior base segment, inferior mid segment, Apical inferior segment, apical anterior segment, apical septum segment, inferoseptum mid segment, inferoseptum base segment, apical lateral segment and inferolateral mid segment. 2.Normal appearance of the mitral valve. Moderate mitral valve regurgitation. 3.Normal appearance of the tricuspid valve. No evidence of tricuspid regurgitation. Electronically Signed By: Ray Ferro 07-Dec-2016 10:00:37 -[id number] Patient Name: TIFFANIE CASTILLO Study Date: 05-Dec-2016 [id number]
--- NOTE | 2016-12-08 09:09 | RADRPT ---
PROCEDURE: XR Chest. CLINICAL INDICATION: Shortness of breath TECHNIQUE: 2 AP views of the chest were obtained COMPARISON: Chest x-ray dated 12/06/2016 FINDINGS: There is a peripheral left lung opacity. No pleural effusion or pneumothorax is seen. The cardiomed iastinal silhouette is upper limits of normal in size. The osseous structures are unremarkable. IMPRESSION: Peripheral left lung opacity, at least partially related to overlying soft tissues. A lateral view i s recommended for further evaluation. Alternatively, CT of the chest can be performed. RPTAT: HH .Betsey Rodriguez MD, Date Time Electronically viewed and signed by .Betsey Rordiguez MD, on 12/08/2016 07:55 .G/
[2016-12-08] MEDS: LEVOFLOXACIN 500MG/D5W (PMX) 100 ML IVPB SCH (18:21)
--- NOTE | 2016-12-08 19:16 | PN ---
Date/Time of Note Date/Time of Note DATE: 12/08/16 TIME: 19:13 Assessment/Plan VTE Prophylaxis VTE Prophylaxis Intervention: SCD's Lines/Catheters IV Catheter Type (from [facility]): [place] Urinary Cath still in place: No Assessment/Plan Chief Complaint/Hosp Course Patient complains of shortness of breath, decreasing chest pain however complains of precluding pricking sensation in the chest, obtain CT of the chest , continue antibiotics for possible underlying pneumonia. Assessment/Plan - NSTEMI. S/p stress test today. Continue aspirin and Plavix. Dr. Ferro is following in cardiology consultation. - History of CAD with multiple stents - Hypertension. - Ischemic cardiomyopathy ejection fraction of 30% - Dyslipidemia, continue statin - Diabetes mellitus with hemoglobin A1c is 8.8. Continue Lantus and pre-meal NovoLog. - Tobacco use. Patient is strongly advised. - Medical noncompliance. Further recommendations based on clinical course. Plan of care discussed with Dr. Waggoner. Problems: Exam/Review of Systems Vital Signs Vitals Vital Signs Date Time Temp Pulse Resp B/P Pulse Ox O2 Delivery O2 Flow Rate FiO2 12/08/16 16:40 98.6 76 18 119/72 94 Room Air 12/08/16 14:16 4.0 Intake and Output 12/07/16 12/07/16 12/08/16 15:00 23:00 07:00 Intake Total 1200 ml Balance 1200 ml Exam Constitutional: alert, oriented Head: normocephalic Neck: supple Respiratory: clear to auscultation Cardiovascular: nl pulses Gastrointestinal: non-tender, soft Musculoskeletal: nl extremities to inspection Extremities: normal pulses Results Result Diagram: 12/07/16 0711 12/07/16 0711 Results 24 hrs Laboratory Tests Test 12/07/16 20:58 12/08/16 01:55 12/08/16 07:32 12/08/16 08:05 Bedside Glucose 325 H 204 232 H B-Type Natriuretic Peptide 1330 H Test 12/08/16 11:56 12/08/16 17:13 Bedside Glucose 268 H 173 Medications Medications Current Medications Ondansetron HCl (Zofran Inj) 4 mg Q6H PRN IV NAUSEA AND/OR VOMITING Last administered on 12/08/16t 02:02; Admin Dose 4 MG; Start 12/05/16 at 05:00 Nitroglycerin (Nitroglycerin (Sl Tab) 0.4 Mg) 1 tab Q5M PRN SL CHEST PAIN; Start 12/05/16 at 05:00 Acetaminophen (Tylenol Tab) 650 mg Q6H PRN PO PAIN LEVEL 1-3 OR FEVER Last administered on 12/07/16 02:36; Admin Dose 650 MG; Start 12/05/16 at 05:00 Morphine Sulfate (morphine) 2 mg Q4H PRN IV PAIN LEVEL 7-10 Last administered on 12/08/16 05:55; Admin Dose 2 MG; Start 12/05/16 at 05:00 Aspirin (Halfprin) 81 mg DAILY PO Last administered on 12/08/16 08:29; Admin Dose 81 MG; Start 12/05/16 at 09:00 Atorvastatin Calcium (Lipitor) 80 mg HS PO Last administered on 12/07/16 20:59 ; Admin Dose 80 MG; Start 12/05/16 at 21:00 Carbamide Peroxide (Debrox Otic) 10 drop BID BOTH EARS Last administered on 08:30; Admin Dose 10 DROP; Start 12/05/16 at 09:00 Cholecalciferol (Vitamin D) 1,000 unit DAILY PO Last administered on 12/08/16 08:40; Admin Dose 1,000 UNIT; Start 12/05/16 at 09:00 Clopidogrel Bisulfate (plaVIX) 75 mg DAILY PO Last administered on 12/08/16 08 :29; Admin Dose 75 MG; Start 12/05/16 at 09:00 Fluoxetine HCl (Prozac) 10 mg DAILY PO Last administered on 12/08/16 08:29; Admin Dose 10 MG; Start 12/05/16 at 09:00 Metoprolol Succinate (Toprol Xl) 25 mg DAILY PO Last administered on 12/08/16 08:30; Admin Dose 25 MG; Start 12/05/16 at 09:00 Valsartan (Diovan) 80 mg DAILY PO Last administered on 12/08/16 08:29; Admin Dose 80 MG; Start 12/05/16 at 09:00 Pantoprazole (Protonix Tab) 40 mg DAILY@06 PO Last administered on 12/08/16 05 :44; Admin Dose 40 MG; Start 12/05/16 at 06:00 Diagnostic Test (Pha) (Accu-Chek) 1 ea 02 XX Last administered on 12/08/16 02: 06; Admin Dose 1 EA; Start 12/07/16 at 02:00 Miscellaneous Information 1 ea NOTE XX ; Start 12/06/16 at 05:30 Glucose (Glutose) 15 gm Q15M PRN PO DECREASED GLUCOSE; Start 12/06/16 at 05:30 Glucose (Glutose) 22.5 gm Q15M PRN PO DECREASED GLUCOSE; Start 12/06/16 at 05: 30 Dextrose (D50w Syringe) 25 ml Q15M PRN IV DECREASED GLUCOSE; Start 12/06/16 at 05:30 Dextrose (D50w Syringe) 50 ml Q15M PRN IV DECREASED GLUCOSE; Start 12/06/16 at 05:30 Glucagon (Glucagen) 1 mg Q15M PRN IM DECREASED GLUCOSE; Start 12/06/16 at 05:30 Glucose 15 gm 15 gm Q15M PRN BUCCAL DECREASED GLUCOSE; Start 12/06/16 at 05:30 Levofloxacin/ Dextrose (Levaquin 500mg/ D5W 100 ml (Pmx)) 100 ml @ 100 mls/hr Q24H IVPB Last administered on 12/08/16 18:21; Admin Dose 100 MLS/HR; Start at 19:00 Linagliptin (Tradjenta) 5 mg DAILY PO Last administered on 12/08/16 08:29; Admin Dose 5 MG; Start 12/07/16 at 14:15 Spironolactone (Aldactone) 25 mg DAILY PO Last administered on 12/08/16 08:29 ; Admin Dose 25 MG; Start 12/07/16 at 19:30 Enoxaparin Sodium (Lovenox) 40 mg DAILY SC Last administered on 12/08/16 08:31 ; Admin Dose 40 MG; Start 12/08/16 at 09:00 Phenol (Cepastat Lozenge) 1 lozenge Q1H PRN MT SORE THROAT Last administered on 12/08/16 02:05; Admin Dose 1 LOZENGE; Start 12/07/16 at 20:00 Insulin Glargine (Lantus) 12 unit DAILY@08 SC Last administered on 12/08/16 08 :51; Admin Dose 12 UNIT; Start 12/08/16 at 08:00 RIGOBERTO LAI Dec 08, 2016 19:16
[2016-12-08] MEDS ORDERED: INSULIN ASPART [NOVOLOG] 3 ML PEN SC SCH (21:00)
[2016-12-08] MEDS: ATORVASTATIN 80 MG TAB PO SCH (21:12)
[2016-12-08] MEDS: ZOLPIDEM 5 MG TAB PO PRN (21:13)
[2016-12-09] VITALS (11 sets, daily range): BP systolic 98–117; BP diastolic 61–78; PULSE 92–103; RESP 18–20
[2016-12-09] MEDS ORDERED: ACCU-CHEK XX SCH ×2 (02:00)
[2016-12-09] MEDS: ACCU-CHEK XX SCH (02:00)
[2016-12-09] MEDS: FUROSEMIDE 20 MG INJ IV SCH ×2 (06:39→17:11)
[2016-12-09] MEDS: PANTOPRAZOLE (EC) 40 MG TAB PO SCH (06:40)
[2016-12-09] MEDS: metFORMIN 500 MG TAB PO SCH ×2 (08:18→17:11)
[2016-12-09 08:28] LABS: BASOPHILS % 0.1 % (0.0-2.0); EOSINOPHILS % 0.1 % (0.0-7.0); HEMATOCRIT 36.9 % (42.0-52.0); HEMOGLOBIN 12.3 g/dl (14.0-18.0); LYMPHOCYTES # 1.1 10^3/ul (0.8-2.9); LYMPHOCYTES % 12.8 % (15.0-51.0); MEAN CORPUSCULAR HGB CONC 33.3 g/dl (32.0-37.0); MEAN PLATELET VOLUME 9.7 fl (7.4-10.4); MONOCYTE # 1.2 10^3/ul (0.3-0.9); MONOCYTES % 13.3 % (0.0-11.0); NEUTROPHIL # 6.4 10^3/ul (1.6-7.5); NEUTROPHILS % 73.1 % (39.0-77.0); PLATELET COUNT 271 10^3/UL (140-415); RED CELL DISTRIBUTION WIDTH 13.2 % (11.5-14.5); WHITE BLOOD COUNT 8.8 10^3/ul (4.8-10.8)
[2016-12-09] MEDS: INSULIN GLARGINE [LANtus] 3 ML PEN SC SCH (08:28)
[2016-12-09] MEDS: INSULIN ASPART [NOVOLOG] 3 ML PEN SC SCH ×7 (08:30→20:52)
[2016-12-09] MEDS: LINAGLIPTIN 5 MG TABLET PO SCH (08:40)
[2016-12-09] MEDS: VALSARTAN 80 MG TAB PO SCH (08:40)
[2016-12-09] MEDS: SPIRONOLACTONE 25 MG TAB PO SCH (08:40)
[2016-12-09] MEDS: ASPIRIN (EC) 81 MG TAB PO SCH (08:40)
[2016-12-09] MEDS: CLOPIDOGREL 75 MG TAB PO SCH (08:40)
[2016-12-09] MEDS: METOPROLOL (XL) 25 MG TAB PO SCH (08:41)
[2016-12-09] MEDS: FLUOXETINE 10 MG CAP PO SCH (08:41)
[2016-12-09] MEDS: CARBAMIDE PEROXIDE 6.5% 15ML OTIC BOTH EARS SCH ×2 (08:41→20:53)
[2016-12-09] MEDS: CHOLECALCIFEROL 1,000 UNIT TAB PO SCH (08:44)
[2016-12-09 08:54] LABS: CALCIUM 8.7 mg/dl (8.4-10.2); CREATININE 0.59 mg/dl (0.61-1.24); POTASSIUM 3.8 mmol/L (3.5-5.1)
[2016-12-09] MEDS: ALBUTEROL/IPRATROPIUM (NEB) 3 ML AMP HHN SCH ×3 (09:00→20:34)
[2016-12-09] MEDS ORDERED: IODIXANOL LOCM 100 ML BTL ONE (09:30)
[2016-12-09] MEDS ORDERED: SOD CHLORIDE 0.9% 100 ML ONE (09:30)
[2016-12-09] MEDS: ENOXAPARIN 40 MG/0.4 ML SYG SC SCH (10:39)
--- NOTE | 2016-12-09 13:47 | RADRPT ---
PROCEDURE: CT Chest with contrast. CLINICAL INDICATION: Lung opacity. Abnormal chest x-ray. TECHNIQUE: CT scan of the chest with contrast was performed following the uncomplicated intravenou s administration of 90 cc of Visipaque 320. Coronal and sagittal reformatted images were obtained f rom the axial source images. Images were reviewed on a high-resolution PACS workstation. CTDIvol (mG y): 13.37; Total Exam DLP (mGy-cm): 583.00. One or more of the following dose reduction techniques were utilized: - Automated exposure control. - Adjustment of the mA and/or kV according to patient size. - Use of iterative reconstruction technique. COMPARISON: Chest x-ray 12/07/2016. CT chest 05/23/2016. FINDINGS: Limited imaging of the lower neck is unremarkable. The heart is within upper limits of normal in size to mildly enlarged. There is no pericardial effus ion. Prominent mediastinal and hilar lymph nodes are present and increased since prior examination. The largest lymph node measures 10 mm in short axis within the prevascular space. The thoracic aorta is normal in caliber. Atherosclerotic calcification is present. Coronary artery calcifications ar e present. The pulmonary arteries are not enlarged. Trace right and small layering left pleural effusions are present. There is a large area of consolid ation within the left upper lobe along the major fissure. Ground-glass opacification with background interstitial thickening is seen within the immediate surrounding pulmonary parenchyma. Air bronchog wang are present. Patchy consolidation is seen within the lateral segment of the right middle lobe. Nonspecific ground-glass opacification is seen within the bilateral lower lobes. Diffuse bronchial w all thickening is present. A small cluster of tiny nodules are seen within the medial aspect of the right upper lobe and are slightly decreased. Limited imaging of the upper abdomen is unremarkable. Degenerative changes of the thoracic spine are present. Body wall soft tissues are unremarkable. IMPRESSION: Mild cardiac enlargement with trace right and small left layering pleural effusions. Dominant area of consolidation with air bronchograms within the posterior aspect of the left upper l obe. Mild patchy consolidation is seen within the lateral aspect of the right middle lobe with a non specific ground-glass opacification within the bilateral lower lobes. Imaging findings suggest the p resence of pneumonia. Correlate with appropriate clinical data and signs and symptomatology. Diffuse bronchial wall thickening suggesting airway inflammation. Mild mediastinal and hilar lymphadenopathy, likely reactive in nature. RPTAT: [facility] .Ethel Isidro MD, MD Date Time Electronically viewed and signed by .Ethel Isidro MD, on 12/09/2016 13:47 .T/
--- NOTE | 2016-12-09 14:13 | PN ---
Date/Time of Note Date/Time of Note DATE: 12/09/16 TIME: 14:03 Assessment/Plan VTE Prophylaxis VTE Prophylaxis Intervention: SCD's Lines/Catheters IV [facility] Urinary Cath still in place: No Assessment/Plan Chief Complaint/Hosp Course Patient continues to complains of shortness of breath, currently on supplemental oxygen, plans of occasional chest pain. Blood glucose is improved however still above 200, continue glimepiride metformin Lantus, pre-meal NovoLog and NovoLog per mild algorithm sliding. Assessment/Plan - CAP, continue Levaquin. Dr. Barr is asked to see patient in infection disease consultation. - NSTEMI. S/p stress test today. Continue aspirin and Plavix. Dr. Ferro is following in cardiology consultation. - History of CAD with multiple stents - Hypertension. - Ischemic cardiomyopathy ejection fraction of 30% - Dyslipidemia, continue statin - Diabetes mellitus with hemoglobin A1c is 8.8. Continue Lantus and pre-meal NovoLog. - Tobacco use. Cessation is strongly advised. - Medical noncompliance. Further recommendations based on clinical course. Plan of care discussed with Dr. Waggoner. Problems: Exam/Review of Systems Vital Signs Vitals Vital Signs Date Time Temp Pulse Resp B/P Pulse Ox O2 Delivery O2 Flow Rate FiO2 12/09/16 13:10 103 24 94 21 12/09/16 11:39 98.9 104/67 12/09/16 09:00 Nasal Cannula 6.0 Intake and Output 12/08/16 12/08/16 12/09/16 15:00 23:00 07:00 Intake Total 900 ml 400 ml Output Total 1200 ml Balance 900 ml -800 ml Exam Constitutional: alert, oriented Head: normocephalic Neck: supple Respiratory: clear to auscultation Cardiovascular: nl pulses Gastrointestinal: non-tender, soft Musculoskeletal: nl extremities to inspection Extremities: normal pulses Results Result Diagram: 12/09/16 0744 12/09/16 0744 Results 24 hrs Laboratory Tests Test 12/08/16 17:13 12/08/16 21:14 12/09/16 02:48 12/09/16 07:44 Bedside Glucose 173 243 H 260 H White Blood Count 8.8 # Red Blood Count 4.10 L Hemoglobin 12.3 L Hematocrit 36.9 L Mean Corpuscular Volume 90.0 Mean Corpuscular Hemoglobin 30.0 Mean Corpuscular Hemoglobin Concent 33.3 Red Cell Distribution Width 13.2 Platelet Count 271 Mean Platelet Volume 9.7 Neutrophils % 73.1 Lymphocytes % 12.8 L Monocytes % 13.3 H Eosinophils % 0.1 Basophils % 0.1 Nucleated Red Blood Cells % 0.0 Neutrophils # 6.4 Lymphocytes # 1.1 Monocytes # 1.2 H Eosinophils # 0.0 Basophils # 0.0 Nucleated Red Blood Cells # 0.0 Sodium Level 134 L Potassium Level 3.8 Chloride Level 97 Carbon Dioxide Level 25 Anion Gap 16 Blood Urea Nitrogen 17 Creatinine 0.59 L Glucose Level 225 H Calcium Level 8.7 Test 12/09/16 08:11 12/09/16 12:06 Bedside Glucose 220 206 Medications Medications Current Medications Ondansetron HCl (Zofran Inj) 4 mg Q6H PRN IV NAUSEA AND/OR VOMITING Last administered on 12/08/16 02:02; Admin Dose 4 MG; Start 12/05/16 at 05:00 Nitroglycerin (Nitroglycerin (Sl Tab) 0.4 Mg) 1 tab Q5M PRN SL CHEST PAIN; Start 12/05/16 at 05:00 Acetaminophen (Tylenol Tab) 650 mg Q6H PRN PO PAIN LEVEL 1-3 OR FEVER Last administered on 12/07/16 02:36; Admin Dose 650 MG; Start 12/05/16 at 05:00 Morphine Sulfate (morphine) 2 mg Q4H PRN IV PAIN LEVEL 7-10 Last administered on 12/08/16 05:55; Admin Dose 2 MG; Start 12/05/16 at 05:00 Aspirin (Halfprin) 81 mg DAILY PO Last administered on 12/09/16 08:40; Admin Dose 81 MG; Start 12/05/16 at 09:00 Atorvastatin Calcium (Lipitor) 80 mg HS PO Last administered on 12/08/16 21:12 ; Admin Dose 80 MG; Start 12/05/16 at 21:00 Carbamide Peroxide (Debrox Otic) 10 drop BID BOTH EARS Last administered on 21:12; Admin Dose 10 DROP; Start 12/05/16 at 09:00 Cholecalciferol (Vitamin D) 1,000 unit DAILY PO Last administered on 12/09/16 08:44; Admin Dose 1,000 UNIT; Start 12/05/16 at 09:00 Clopidogrel Bisulfate (plaVIX) 75 mg DAILY PO Last administered on 12/09/16 08 :40; Admin Dose 75 MG; Start 12/05/16 at 09:00 Fluoxetine HCl (Prozac) 10 mg DAILY PO Last administered on 12/09/16 08:41; Admin Dose 10 MG; Start 12/05/16 at 09:00 Metoprolol Succinate (Toprol Xl) 25 mg DAILY PO Last administered on 12/09/16 08:41; Admin Dose 25 MG; Start 12/05/16 at 09:00 Valsartan (Diovan) 80 mg DAILY PO Last administered on 12/09/16 08:40; Admin Dose 80 MG; Start 12/05/16 at 09:00 Pantoprazole (Protonix Tab) 40 mg DAILY@06 PO Last administered on 12/09/16 06 :40; Admin Dose 40 MG; Start 12/05/16 at 06:00 Diagnostic Test (Pha) (Accu-Chek) 1 ea 02 XX Last administered on 12/08/16 02: 06; Admin Dose 1 EA; Start 12/07/16 at 02:00 Miscellaneous Information 1 ea NOTE XX ; Start 12/06/16 at 05:30 Glucose (Glutose) 15 gm Q15M PRN PO DECREASED GLUCOSE; Start 12/06/16 at 05:30 Glucose (Glutose) 22.5 gm Q15M PRN PO DECREASED GLUCOSE; Start 12/06/16 at 05: 30 Dextrose (D50w Syringe) 25 ml Q15M PRN IV DECREASED GLUCOSE; Start 12/06/16 at 05:30 Dextrose (D50w Syringe) 50 ml Q15M PRN IV DECREASED GLUCOSE; Start 12/06/16 at 05:30 Glucagon (Glucagen) 1 mg Q15M PRN IM DECREASED GLUCOSE; Start 12/06/16 at 05:30 Glucose 15 gm 15 gm Q15M PRN BUCCAL DECREASED GLUCOSE; Start 12/06/16 at 05:30 Levofloxacin/ Dextrose (Levaquin 500mg/ D5W 100 ml (Pmx)) 100 ml @ 100 mls/hr Q24H IVPB Last administered on 12/08/16 18:21; Admin Dose 100 MLS/HR; Start at 19:00 Linagliptin (Tradjenta) 5 mg DAILY PO Last administered on 12/09/16 08:40; Admin Dose 5 MG; Start 12/07/16 at 14:15 Spironolactone (Aldactone) 25 mg DAILY PO Last administered on 12/09/16 08:40 ; Admin Dose 25 MG; Start 12/07/16 at 19:30 Enoxaparin Sodium (Lovenox) 40 mg DAILY SC Last administered on 12/09/16 10:39 ; Admin Dose 40 MG; Start 12/08/16 at 09:00 Phenol (Cepastat Lozenge) 1 lozenge Q1H PRN MT SORE THROAT Last administered on 12/08/16 02:05; Admin Dose 1 LOZENGE; Start 12/07/16 at 20:00 Insulin Glargine (Lantus) 21 unit DAILY@08 SC Last administered on 12/09/16 08 :28; Admin Dose 21 UNIT; Start 12/09/16 at 08:00 Zolpidem Tartrate (Ambien) 5 mg HS PRN PO INSOMNIA Last administered on 21:13; Admin Dose 5 MG; Start 12/08/16 at 21:00 RIGOBERTO LAI Dec 09, 2016 14:13
--- NOTE | 2016-12-09 17:49 | CONS ---
Date/Time of Note Date/Time of Note DATE: 12/09/16 TIME: 17:34 Assessment/Plan Assessment/Plan Chief Complaint/Hosp Course IMP: 1.nstemi-no sig increase 2.chest pain-resolved 3.cardiomyopathy-low ef lexiscan with large scar, no sig ischemia 4.DM 5.PNA Recc: -Tele -continue lasix/aldactone -Continue BB/ARB -continue statin -Follow volume status closely -Continue abx's and f/u cx data Problems: Consultation Date/Type/Reason Admit Date/Time Dec 05, 2016 at 03:57 Initial Consult Date 12/05/16 Type of Consultation: cardiology Reason for Consultation nstemi/cardiomyopathy Referring Provider: IMELDA JOHNSON MD Exam/Review of Systems Vital Signs Vitals Vital Signs Date Time Temp Pulse Resp B/P Pulse Ox O2 Delivery O2 Flow Rate FiO2 12/09/16 16:28 98.6 98 18 98/61 98 12/09/16 13:10 21 12/09/16 09:00 Nasal Cannula 6.0 Intake and Output 12/08/16 12/08/16 12/09/16 15:00 23:00 07:00 Intake Total 900 ml 400 ml Output Total 1200 ml Balance 900 ml -800 ml Exam Review of Systems: CONSTITUTIONAL: No fevers, chills. PULMONARY: No sob CARDIOVASCULAR: No chest pain/palpitations GASTROINTESTINAL: No nausea/vomiting. GENITOURINARY: No hematuria/dysuria. MUSCULOSKELETAL: No myagias/arthalgias. PSYCHIATRIC: The patient denies depression. NEUROLOGIC: No weakness Constitutional: alert Psych: no complaints Head: normocephalic ENMT: mucosa pink and moist Neck: jvd (9 cm water), supple Respiratory: diminished breath sounds Cardiovascular: regular rate and rhythm Gastrointestinal: non-tender, soft Musculoskeletal: muscle tone Extremities: normal pulses Neurological: other (no focal deficits) Results Result Diagram: 12/09/16 0744 12/09/16 0744 Results 24 hrs Laboratory Tests Test 12/08/16 21:14 12/09/16 02:48 12/09/16 07:44 12/09/16 08:11 Bedside Glucose 243 H 260 H 220 White Blood Count 8.8 # Red Blood Count 4.10 L Hemoglobin 12.3 L Hematocrit 36.9 L Mean Corpuscular Volume 90.0 Mean Corpuscular Hemoglobin 30.0 Mean Corpuscular Hemoglobin Concent 33.3 Red Cell Distribution Width 13.2 Platelet Count 271 Mean Platelet Volume 9.7 Neutrophils % 73.1 Lymphocytes % 12.8 L Monocytes % 13.3 H Eosinophils % 0.1 Basophils % 0.1 Nucleated Red Blood Cells % 0.0 Neutrophils # 6.4 Lymphocytes # 1.1 Monocytes # 1.2 H Eosinophils # 0.0 Basophils # 0.0 Nucleated Red Blood Cells # 0.0 Sodium Level 134 L Potassium Level 3.8 Chloride Level 97 Carbon Dioxide Level 25 Anion Gap 16 Blood Urea Nitrogen 17 Creatinine 0.59 L Glucose Level 225 H Calcium Level 8.7 Test 12/09/16 12:06 12/09/16 17:12 Bedside Glucose 206 207 Medications Medications Current Medications Ondansetron HCl (Zofran Inj) 4 mg Q6H PRN IV NAUSEA AND/OR VOMITING Last administered on 12/08/16 02:02; Admin Dose 4 MG; Start 12/05/16 at 05:00 Nitroglycerin (Nitroglycerin (Sl Tab) 0.4 Mg) 1 tab Q5M PRN SL CHEST PAIN; Start 12/05/16 at 05:00 Acetaminophen (Tylenol Tab) 650 mg Q6H PRN PO PAIN LEVEL 1-3 OR FEVER Last administered on 12/07/16 02:36; Admin Dose 650 MG; Start 12/05/16 at 05:00 Morphine Sulfate (morphine) 2 mg Q4H PRN IV PAIN LEVEL 7-10 Last administered on 12/08/16 05:55; Admin Dose 2 MG; Start 12/05/16 at 05:00 Aspirin (Halfprin) 81 mg DAILY PO Last administered on 12/09/16 08:40; Admin Dose 81 MG; Start 12/05/16 at 09:00 Atorvastatin Calcium (Lipitor) 80 mg HS PO Last administered on 12/08/16 21:12 ; Admin Dose 80 MG; Start 12/05/16 at 21:00 Carbamide Peroxide (Debrox Otic) 10 drop BID BOTH EARS Last administered on 21:12; Admin Dose 10 DROP; Start 12/05/16 at 09:00 Cholecalciferol (Vitamin D) 1,000 unit DAILY PO Last administered on 12/09/16 08:44; Admin Dose 1,000 UNIT; Start 12/05/16 at 09:00 Clopidogrel Bisulfate (plaVIX) 75 mg DAILY PO Last administered on 12/09/16 08 :40; Admin Dose 75 MG; Start 12/05/16 at 09:00 Fluoxetine HCl (Prozac) 10 mg DAILY PO Last administered on 12/09/16 08:41; Admin Dose 10 MG; Start 12/05/16 at 09:00 Metoprolol Succinate (Toprol Xl) 25 mg DAILY PO Last administered on 12/09/16 08:41; Admin Dose 25 MG; Start 12/05/16 at 09:00 Valsartan (Diovan) 80 mg DAILY PO Last administered on 12/09/16 08:40; Admin Dose 80 MG; Start 12/05/16 at 09:00 Pantoprazole (Protonix Tab) 40 mg DAILY@06 PO Last administered on 12/09/16 06 :40; Admin Dose 40 MG; Start 12/05/16 at 06:00 Diagnostic Test (Pha) (Accu-Chek) 1 ea 02 XX Last administered on 12/08/16 02: 06; Admin Dose 1 EA; Start 12/07/16 at 02:00 Miscellaneous Information 1 ea NOTE XX ; Start 12/06/16 at 05:30 Glucose (Glutose) 15 gm Q15M PRN PO DECREASED GLUCOSE; Start 12/06/16 at 05:30 Glucose (Glutose) 22.5 gm Q15M PRN PO DECREASED GLUCOSE; Start 12/06/16 at 05: 30 Dextrose (D50w Syringe) 25 ml Q15M PRN IV DECREASED GLUCOSE; Start 12/06/16 at 05:30 Dextrose (D50w Syringe) 50 ml Q15M PRN IV DECREASED GLUCOSE; Start 12/06/16 at 05:30 Glucagon (Glucagen) 1 mg Q15M PRN IM DECREASED GLUCOSE; Start 12/06/16 at 05:30 Glucose 15 gm 15 gm Q15M PRN BUCCAL DECREASED GLUCOSE; Start 12/06/16 at 05:30 Levofloxacin/ Dextrose (Levaquin 500mg/ D5W 100 ml (Pmx)) 100 ml @ 100 mls/hr Q24H IVPB Last administered on 12/08/16 18:21; Admin Dose 100 MLS/HR; Start at 19:00 Linagliptin (Tradjenta) 5 mg DAILY PO Last administered on 12/09/16 08:40; Admin Dose 5 MG; Start 12/07/16 at 14:15 Spironolactone (Aldactone) 25 mg DAILY PO Last administered on 12/09/16 08:40 ; Admin Dose 25 MG; Start 12/07/16 at 19:30 Enoxaparin Sodium (Lovenox) 40 mg DAILY SC Last administered on 12/09/16 10:39 ; Admin Dose 40 MG; Start 12/08/16 at 09:00 Phenol (Cepastat Lozenge) 1 lozenge Q1H PRN MT SORE THROAT Last administered on 12/08/16 02:05; Admin Dose 1 LOZENGE; Start 12/07/16 at 20:00 Insulin Glargine (Lantus) 21 unit DAILY@08 SC Last administered on 12/09/16 08 :28; Admin Dose 21 UNIT; Start 12/09/16 at 08:00 Zolpidem Tartrate (Ambien) 5 mg HS PRN PO INSOMNIA Last administered on 21:13; Admin Dose 5 MG; Start 12/08/16 at 21:00 ROMA BUSCH Dec 09, 2016 17:46
[2016-12-09] MEDS: LEVOFLOXACIN 500MG/D5W (PMX) 100 ML IVPB SCH (18:15)
--- NOTE | 2016-12-09 18:47 | CONS ---
DATE OF ADMISSION: 12/05/2016 DATE OF CONSULTATION: 12/09/2016 REASON FOR CONSULTATION: Antibiotic management. HISTORY OF PRESENT ILLNESS: Ev Velázquez is a 56-year-old [place] male who is admitted with a number of problems and is being seen for antibiotic management. His past problems include: 1. Coronary artery disease with stent placement. 2. Ischemic cardiomyopathy myopathy with ejection fraction of 25-30 percent. 3. Adult-onset diabetes mellitus. 4. Dyslipidemia. Acutely, the patient comes in with left-sided chest pain with radiation to the arm slightly improved with sublingual nitro. He had a PCI done by Dr. Tomas in 2009 after he presented with a STEMI and underwent PCI 7 months ago at [facility]. Chest x-ray initially showed no acute infiltrates. He was admitted as noted on the . His white count was 9.7, H and H of 14.1 and 41.3, platelet count 249,000. White count on the was 8.8. BUN and creatinine 17/0.59. Urine is 2+ urobilinogen, negative nitrite and negative leukocyte esterase. Ethyl alcohol less than 10. Chest x-ray on the showed peripheral left lung opacity at least partially related to overlying soft tissue. A CT scan of the chest was done on the , and it showed mild cardiac enlargement with trace right and small left layering pleural effusions. Dominant areas of consolidation with air bronchograms within the posterior aspect of left upper lobe. Mild patchy consolidation within the lateral aspect of the right middle lobe with nonspecific ground-glass opacification within the bilateral lower lobes. Imaging findings suggest the presence of pneumonia, correlate with appropriate clinical data and signs and symptomatology. Diffuse bronchial wall thickening suggesting airway inflammation, mild mediastinal and hilar lymphadenopathy, likely reactive in nature. The patient was placed on Levaquin on the . Currently he continues to complain of shortness of breath. He has community-acquired pneumonia on Levaquin plus numerous cardiac problems. Today's white count is 8.8. PAST MEDICAL HISTORY: As outlined. PAST SURGICAL HISTORY: As outline. FAMILY HISTORY: Noncontributory. SOCIAL HISTORY: He does not smoke, drink, or abuse drugs. ALLERGIES: NONE TO PENICILLIN, SULFA, OR FOODS. MEDICATION: Per chart. REVIEW OF SYSTEMS: Noncontributory. PHYSICAL EXAMINATION: GENERAL: Patient is a well-developed, well-nourished male who is alert, responsive, in no acute distress. VITAL SIGNS: Stable. He is afebrile. SKIN: Without generalized rash. HEENT: Within normal limits. NECK: Supple. Lymph nodes nonpalpable. CHEST: Clear to P and A. HEART: Without murmur or gallop. ABDOMEN: Soft, nontender, without organosplenomegaly or masses. EXTREMITIES: Without cyanosis, clubbing, or edema. RECTAL: Deferred. GENITAL: Deferred. NEUROLOGIC: No focal neurological abnormalities. IMPRESSION AND PLAN: Patient currently is afebrile. His white count is coming down to 8.8, and he has community-acquired pneumonia. I do not think that he is bringing up significant sputum but if he is, we will try to get a sputum culture, and if he does not progress, we will change him from Levaquin to cefepime. I will dictate my findings to Dr. Waggoner. Dictated By: Mekhi Barr MD JD/yvette/thuan /Document#: [id number]
[2016-12-09] MEDS: ATORVASTATIN 80 MG TAB PO SCH (20:53)
[2016-12-10] VITALS (10 sets, daily range): BP systolic 90–108; BP diastolic 57–73; PULSE 74–103; RESP 15–18
[2016-12-10] MEDS: ACCU-CHEK XX SCH (01:59)
[2016-12-10] MEDS: ZOLPIDEM 5 MG TAB PO PRN ×2 (02:03→22:49)
[2016-12-10] MEDS: PANTOPRAZOLE (EC) 40 MG TAB PO SCH (05:52)
[2016-12-10] MEDS: FUROSEMIDE 20 MG INJ IV SCH ×2 (05:52→17:06)
[2016-12-10] MEDS: ALBUTEROL/IPRATROPIUM (NEB) 3 ML AMP HHN SCH ×3 (07:45→20:35)
[2016-12-10 07:50] LABS: BASOPHILS % 0.5 % (0.0-2.0); EOSINOPHILS # 0.1 10^3/ul (0.0-0.5); EOSINOPHILS % 0.9 % (0.0-7.0); HEMATOCRIT 35.1 % (42.0-52.0); LYMPHOCYTES # 1.1 10^3/ul (0.8-2.9); LYMPHOCYTES % 14.9 % (15.0-51.0); MEAN CORPUSCULAR HEMOGLOBIN 30.3 pg (29.0-33.0); MEAN CORPUSCULAR HGB CONC 34.2 g/dl (32.0-37.0); MEAN CORPUSCULAR VOLUME 88.6 fl (82.0-101.0); MEAN PLATELET VOLUME 9.6 fl (7.4-10.4); MONOCYTE # 1.1 10^3/ul (0.3-0.9); MONOCYTES % 14.2 % (0.0-11.0); NEUTROPHIL # 5.2 10^3/ul (1.6-7.5); PLATELET COUNT 294 10^3/UL (140-415); RED BLOOD COUNT 3.96 10^6/ul (4.70-6.10); RED CELL DISTRIBUTION WIDTH 12.6 % (11.5-14.5); WHITE BLOOD COUNT 7.5 10^3/ul (4.8-10.8)
[2016-12-10] MEDS: glipiZIDE 10 MG TAB PO SCH (07:56)
[2016-12-10 08:05] LABS: CALCIUM 8.5 mg/dl (8.4-10.2); CREATININE 0.64 mg/dl (0.61-1.24); POTASSIUM 3.6 mmol/L (3.5-5.1)
[2016-12-10] MEDS: INSULIN GLARGINE [LANtus] 3 ML PEN SC SCH (08:06)
[2016-12-10] MEDS: INSULIN ASPART [NOVOLOG] 3 ML PEN SC SCH ×7 (08:06→20:23)
[2016-12-10] MEDS: metFORMIN 500 MG TAB PO SCH ×2 (08:07→17:05)
[2016-12-10] MEDS: CARBAMIDE PEROXIDE 6.5% 15ML OTIC BOTH EARS SCH ×2 (08:44→20:18)
[2016-12-10] MEDS: CLOPIDOGREL 75 MG TAB PO SCH (08:48)
[2016-12-10] MEDS: ASPIRIN (EC) 81 MG TAB PO SCH (08:48)
[2016-12-10] MEDS: CHOLECALCIFEROL 1,000 UNIT TAB PO SCH (08:48)
[2016-12-10] MEDS: SPIRONOLACTONE 25 MG TAB PO SCH (08:48)
[2016-12-10] MEDS: LINAGLIPTIN 5 MG TABLET PO SCH (08:49)
[2016-12-10] MEDS: METOPROLOL (XL) 25 MG TAB PO SCH (08:49)
[2016-12-10] MEDS: FLUOXETINE 10 MG CAP PO SCH (08:49)
[2016-12-10] MEDS: VALSARTAN 80 MG TAB PO SCH (08:49)
[2016-12-10] MEDS: ENOXAPARIN 40 MG/0.4 ML SYG SC SCH (08:56)
--- NOTE | 2016-12-10 14:40 | CONS ---
Date/Time of Note Date/Time of Note DATE: 12/10/16 TIME: 14:39 Assessment/Plan Assessment/Plan Chief Complaint/Hosp Course Patient is alert feels good denies pain, breathing comfortably on nasal cannula Temperature 98.5 pulse 86 respirations 18 blood pressure 97/60 saturation 96 on 3 L WBC 7.5 H&H 12 and 35.1 platelets 294 neutrophils 69 BUN 20 creatinine 0.64 Blood cultures remain negative Antimicrobials patient is on Levaquin Physical examination well-developed well-nourished middle-aged [place]ian man who is awake in no distress head atraumatic normocephalic sclerae nonicteric vehicle mucosa pink neck is supple chest rise symmetrical breath sounds clear. S1-S2 abdomen soft bowel sounds present extremities without cyanosis Assessment #1 community-acquired pneumonia #2 ischemic cardiomyopathy with ejection fraction of 25-30% #3 diabetes #4 history of cardiac stents Plan: Remains stable continue present care, follow cardiology recommendations, follow sputum cultures Problems: Consultation Date/Type/Reason Admit Date/Time Dec 05, 2016 at 03:57 Initial Consult Date Type of Consultation: id Referring Provider: IMELDA JOHNSON MD Exam/Review of Systems Vital Signs Vitals Vital Signs Date Time Temp Pulse Resp B/P Pulse Ox O2 Delivery O2 Flow Rate FiO2 12/10/16 13:53 92 22 96 Nasal Cannula 3.0 12/10/16 11:28 98.5 97/60 12/09/16 13:10 21 Intake and Output 12/09/16 12/09/16 12/10/16 15:00 23:00 07:00 Intake Total 700 ml 400 ml Balance 700 ml 400 ml Results Result Diagram: 12/10/1617 12/10/16 0717 Results 24 hrs Laboratory Tests Test 12/09/16 17:12 12/09/16 20:50 12/10/16 01:55 12/10/16 07:17 Bedside Glucose 207 213 312 H White Blood Count 7.5 Red Blood Count 3.96 L Hemoglobin 12.0 L Hematocrit 35.1 L Mean Corpuscular Volume 88.6 Mean Corpuscular Hemoglobin 30.3 Mean Corpuscular Hemoglobin Concent 34.2 Red Cell Distribution Width 12.6 Platelet Count 294 Mean Platelet Volume 9.6 Neutrophils % 69.0 Lymphocytes % 14.9 L Monocytes % 14.2 H Eosinophils % 0.9 Basophils % 0.5 Nucleated Red Blood Cells % 0.0 Neutrophils # 5.2 Lymphocytes # 1.1 Monocytes # 1.1 H Eosinophils # 0.1 Basophils # 0.0 Nucleated Red Blood Cells # 0.0 Sodium Level 131 L Potassium Level 3.6 Chloride Level 94 L Carbon Dioxide Level 30 Anion Gap 11 Blood Urea Nitrogen 20 Creatinine 0.64 Glucose Level 283 H Calcium Level 8.5 Magnesium Level 2.1 Test 12/10/16 07:55 12/10/16 11:46 Bedside Glucose 275 H 175 Medications Medications Current Medications Ondansetron HCl (Zofran Inj) 4 mg Q6H PRN IV NAUSEA AND/OR VOMITING Last administered on 12/08/16 02:02; Admin Dose 4 MG; Start 12/05/16 at 05:00 Nitroglycerin (Nitroglycerin (Sl Tab) 0.4 Mg) 1 tab Q5M PRN SL CHEST PAIN; Start 12/05/16 at 05:00 Acetaminophen (Tylenol Tab) 650 mg Q6H PRN PO PAIN LEVEL 1-3 OR FEVER Last administered on 12/07/16 02:36; Admin Dose 650 MG; Start 12/05/16 at 05:00 Morphine Sulfate (morphine) 2 mg Q4H PRN IV PAIN LEVEL 7-10 Last administered on 12/08/16 05:55; Admin Dose 2 MG; Start 12/05/16 at 05:00 Aspirin (Halfprin) 81 mg DAILY PO Last administered on 12/10/16 08:48; Admin Dose 81 MG; Start 12/05/16 at 09:00 Atorvastatin Calcium (Lipitor) 80 mg HS PO Last administered on 12/09/16 20:53 ; Admin Dose 80 MG; Start 12/05/16 at 21:00 Carbamide Peroxide (Debrox Otic) 10 drop BID BOTH EARS Last administered on 20:53; Admin Dose 10 DROP; Start 12/05/16 at 09:00 Cholecalciferol (Vitamin D) 1,000 unit DAILY PO Last administered on 12/10/16 08:48; Admin Dose 1,000 UNIT; Start 12/05/16 at 09:00 Clopidogrel Bisulfate (plaVIX) 75 mg DAILY PO Last administered on 12/10/16 08 :48; Admin Dose 75 MG; Start 12/05/16 at 09:00 Fluoxetine HCl (Prozac) 10 mg DAILY PO Last administered on 12/10/16 08:49; Admin Dose 10 MG; Start 12/05/16 at 09:00 Metoprolol Succinate (Toprol Xl) 25 mg DAILY PO Last administered on 12/10/16 08:49; Admin Dose 25 MG; Start 12/05/16 at 09:00 Valsartan (Diovan) 80 mg DAILY PO Last administered on 12/10/16 08:49; Admin Dose 80 MG; Start 12/05/16 at 09:00 Pantoprazole (Protonix Tab) 40 mg DAILY@06 PO Last administered on 12/10/16 05 :52; Admin Dose 40 MG; Start 12/05/16 at 06:00 Diagnostic Test (Pha) (Accu-Chek) 1 ea 02 XX Last administered on 12/08/16 02: 06; Admin Dose 1 EA; Start 12/07/16 at 02:00 Miscellaneous Information 1 ea NOTE XX ; Start 12/06/16 at 05:30 Glucose (Glutose) 15 gm Q15M PRN PO DECREASED GLUCOSE; Start 12/06/16 at 05:30 Glucose (Glutose) 22.5 gm Q15M PRN PO DECREASED GLUCOSE; Start 12/06/16 at 05: 30 Dextrose (D50w Syringe) 25 ml Q15M PRN IV DECREASED GLUCOSE; Start 12/06/16 at 05:30 Dextrose (D50w Syringe) 50 ml Q15M PRN IV DECREASED GLUCOSE; Start 12/06/16 at 05:30 Glucagon (Glucagen) 1 mg Q15M PRN IM DECREASED GLUCOSE; Start 12/06/16 at 05:30 Glucose 15 gm 15 gm Q15M PRN BUCCAL DECREASED GLUCOSE; Start 12/06/16 at 05:30 Levofloxacin/ Dextrose (Levaquin 500mg/ D5W 100 ml (Pmx)) 100 ml @ 100 mls/hr Q24H IVPB Last administered on 12/09/16 18:15; Admin Dose 100 MLS/HR; Start at 19:00 Linagliptin (Tradjenta) 5 mg DAILY PO Last administered on 12/10/16 08:49; Admin Dose 5 MG; Start 12/07/16 at 14:15 Spironolactone (Aldactone) 25 mg DAILY PO Last administered on 12/10/16 08:48 ; Admin Dose 25 MG; Start 12/07/16 at 19:30 Enoxaparin Sodium (Lovenox) 40 mg DAILY SC Last administered on 12/10/16 08:56 ; Admin Dose 40 MG; Start 12/08/16 at 09:00 Phenol (Cepastat Lozenge) 1 lozenge Q1H PRN MT SORE THROAT Last administered on 12/08/16 02:05; Admin Dose 1 LOZENGE; Start 12/07/16 at 20:00 Insulin Glargine (Lantus) 21 unit DAILY@08 SC Last administered on 12/10/16 08 :06; Admin Dose 21 UNIT; Start 12/09/16 at 08:00 Zolpidem Tartrate (Ambien) 5 mg HS PRN PO INSOMNIA Last administered on 02:03; Admin Dose 5 MG; Start 12/08/16 at 21:00 SKYLAR ROSADO NP Dec 10, 2016 14:40
[2016-12-10] MEDS: LEVOFLOXACIN 500MG/D5W (PMX) 100 ML IVPB SCH (18:09)
--- NOTE | 2016-12-10 19:01 | CONS ---
Date/Time of Note Date/Time of Note DATE: 12/10/16 TIME: 18:58 Assessment/Plan Assessment/Plan Chief Complaint/Hosp Course IMP: 1.nstemi-no sig increase 2.chest pain-resolved 3.cardiomyopathy-low ef lexiscan with large scar, no sig ischemia 4.DM 5.PNA Recc: -Tele -continue lasix/aldactone -Continue BB and decrease ARB and follow marginal BP -start digoxin to increase contractility with very low ef -continue statin -Follow volume status closely -Continue abx's and f/u cx data Problems: Consultation Date/Type/Reason Admit Date/Time Dec 05, 2016 at 03:57 Initial Consult Date 12/05/16 Type of Consultation: cardiology Reason for Consultation CHF Referring Provider: IMELDA JOHNSON MD Exam/Review of Systems Vital Signs Vitals Vital Signs Date Time Temp Pulse Resp B/P Pulse Ox O2 Delivery O2 Flow Rate FiO2 12/10/16 18:20 3.0 12/10/16 16:19 88 12/10/16 16:00 Nasal Cannula 12/10/16 15:25 98.3 18 93/70 99 12/09/16 13:10 21 Intake and Output 12/09/16 12/09/16 12/10/16 15:00 23:00 07:00 Intake Total 700 ml 400 ml Balance 700 ml 400 ml Exam Review of Systems: CONSTITUTIONAL: No fevers, chills. PULMONARY: mild sob CARDIOVASCULAR: No chest pain/palpitations GASTROINTESTINAL: No nausea/vomiting. GENITOURINARY: No hematuria/dysuria. MUSCULOSKELETAL: No myagias/arthalgias. PSYCHIATRIC: The patient denies depression. NEUROLOGIC: No weakness Constitutional: alert Psych: no complaints Head: normocephalic ENMT: mucosa pink and moist Neck: jvd (9 cm water), supple Respiratory: diminished breath sounds Cardiovascular: regular rate and rhythm Gastrointestinal: non-tender, soft Musculoskeletal: muscle tone (normal) Extremities: edema (none) Neurological: other (No focal deficits) Results Result Diagram: 12/10/1671612/10/16716 Results 24 hrs Laboratory Tests Test 12/09/16 20:50 12/10/16 01:55 12/10/16 07:17 12/10/16 07:55 Bedside Glucose 213 312 H 275 H White Blood Count 7.5 Red Blood Count 3.96 L Hemoglobin 12.0 L Hematocrit 35.1 L Mean Corpuscular Volume 88.6 Mean Corpuscular Hemoglobin 30.3 Mean Corpuscular Hemoglobin Concent 34.2 Red Cell Distribution Width 12.6 Platelet Count 294 Mean Platelet Volume 9.6 Neutrophils % 69.0 Lymphocytes % 14.9 L Monocytes % 14.2 H Eosinophils % 0.9 Basophils % 0.5 Nucleated Red Blood Cells % 0.0 Neutrophils # 5.2 Lymphocytes # 1.1 Monocytes # 1.1 H Eosinophils # 0.1 Basophils # 0.0 Nucleated Red Blood Cells # 0.0 Sodium Level 131 L Potassium Level 3.6 Chloride Level 94 L Carbon Dioxide Level 30 Anion Gap 11 Blood Urea Nitrogen 20 Creatinine 0.64 Glucose Level 283 H Calcium Level 8.5 Magnesium Level 2.1 Test 12/10/16 11:46 12/10/16 17:04 Bedside Glucose 175 123 Medications Medications Current Medications Ondansetron HCl (Zofran Inj) 4 mg Q6H PRN IV NAUSEA AND/OR VOMITING Last administered on 12/08/16 02:02; Admin Dose 4 MG; Start 12/05/16 at 05:00 Nitroglycerin (Nitroglycerin (Sl Tab) 0.4 Mg) 1 tab Q5M PRN SL CHEST PAIN; Start 12/05/16 at 05:00 Acetaminophen (Tylenol Tab) 650 mg Q6H PRN PO PAIN LEVEL 1-3 OR FEVER Last administered on 12/07/16 02:36; Admin Dose 650 MG; Start 12/05/16 at 05:00 Morphine Sulfate (morphine) 2 mg Q4H PRN IV PAIN LEVEL 7-10 Last administered on 12/08/16 05:55; Admin Dose 2 MG; Start 12/05/16 at 05:00 Aspirin (Halfprin) 81 mg DAILY PO Last administered on 12/10/16 08:48; Admin Dose 81 MG; Start 12/05/16 at 09:00 Atorvastatin Calcium (Lipitor) 80 mg HS PO Last administered on 12/09/16 20:53 ; Admin Dose 80 MG; Start 12/05/16 at 21:00 Carbamide Peroxide (Debrox Otic) 10 drop BID BOTH EARS Last administered on 20:53; Admin Dose 10 DROP; Start 12/05/16 at 09:00 Cholecalciferol (Vitamin D) 1,000 unit DAILY PO Last administered on 12/10/16 08:48; Admin Dose 1,000 UNIT; Start 12/05/16 at 09:00 Clopidogrel Bisulfate (plaVIX) 75 mg DAILY PO Last administered on 12/10/16 08 :48; Admin Dose 75 MG; Start 12/05/16 at 09:00 Fluoxetine HCl (Prozac) 10 mg DAILY PO Last administered on 12/10/16 08:49; Admin Dose 10 MG; Start 12/05/16 at 09:00 Metoprolol Succinate (Toprol Xl) 25 mg DAILY PO Last administered on 12/10/16 08:49; Admin Dose 25 MG; Start 12/05/16 at 09:00 Valsartan (Diovan) 80 mg DAILY PO Last administered on 12/10/16 08:49; Admin Dose 80 MG; Start 12/05/16 at 09:00 Pantoprazole (Protonix Tab) 40 mg DAILY@06 PO Last administered on 12/10/16 05 :52; Admin Dose 40 MG; Start 12/05/16 at 06:00 Diagnostic Test (Pha) (Accu-Chek) 1 ea 02 XX Last administered on 12/08/16 02: 06; Admin Dose 1 EA; Start 12/07/16 at 02:00 Miscellaneous Information 1 ea NOTE XX ; Start 12/06/16 at 05:30 Glucose (Glutose) 15 gm Q15M PRN PO DECREASED GLUCOSE; Start 12/06/16 at 05:30 Glucose (Glutose) 22.5 gm Q15M PRN PO DECREASED GLUCOSE; Start 12/06/16 at 05: 30 Dextrose (D50w Syringe) 25 ml Q15M PRN IV DECREASED GLUCOSE; Start 12/06/16 at 05:30 Dextrose (D50w Syringe) 50 ml Q15M PRN IV DECREASED GLUCOSE; Start 12/06/16 at 05:30 Glucagon (Glucagen) 1 mg Q15M PRN IM DECREASED GLUCOSE; Start 12/06/16 at 05:30 Glucose 15 gm 15 gm Q15M PRN BUCCAL DECREASED GLUCOSE; Start 12/06/16 at 05:30 Levofloxacin/ Dextrose (Levaquin 500mg/ D5W 100 ml (Pmx)) 100 ml @ 100 mls/hr Q24H IVPB Last administered on 12/10/16 18:09; Admin Dose 100 MLS/HR; Start at 19:00 Linagliptin (Tradjenta) 5 mg DAILY PO Last administered on 12/10/16 08:49; Admin Dose 5 MG; Start 12/07/16 at 14:15 Spironolactone (Aldactone) 25 mg DAILY PO Last administered on 12/10/16 08:48 ; Admin Dose 25 MG; Start 12/07/16 at 19:30 Enoxaparin Sodium (Lovenox) 40 mg DAILY SC Last administered on 12/10/16 08:56 ; Admin Dose 40 MG; Start 12/08/16 at 09:00 Phenol (Cepastat Lozenge) 1 lozenge Q1H PRN MT SORE THROAT Last administered on 12/08/16 02:05; Admin Dose 1 LOZENGE; Start 12/07/16 at 20:00 Insulin Glargine (Lantus) 21 unit DAILY@08 SC Last administered on 12/10/16 08 :06; Admin Dose 21 UNIT; Start 12/09/16 at 08:00 Zolpidem Tartrate (Ambien) 5 mg HS PRN PO INSOMNIA Last administered on 02:03; Admin Dose 5 MG; Start 12/08/16 at 21:00 ROMA BUSCH Dec 10, 2016 19:01
--- NOTE | 2016-12-10 19:50 | PN ---
Date/Time of Note Date/Time of Note DATE: 12/10/16 TIME: 19:49 Assessment/Plan VTE Prophylaxis VTE Prophylaxis Intervention: SCD's Lines/Catheters IV [facility] Type [facility] Saline Lock Urinary Cath still in place: No Assessment/Plan Assessment/Plan - CAP, continue Levaquin. Dr. Barr is asked to see patient in infection disease consultation. - NSTEMI. S/p stress test today. Continue aspirin and Plavix. Dr. Ferro is following in cardiology consultation. - History of CAD with multiple stents - Hypertension. - Ischemic cardiomyopathy ejection fraction of 30% - Dyslipidemia, continue statin - Diabetes mellitus with hemoglobin A1c is 8.8. Continue Lantus and pre-meal NovoLog. - Tobacco use. Cessation is strongly advised. - Medical noncompliance. Further recommendations based on clinical course. Plan of care discussed with Dr. Waggoner. Subjective 24 Hr Interval Summary Free Text/Dictation feels better, family at bed side, all Qs answered. want to go home. dw staff- no new events reported overnight Eyes: no complaints ENT: no complaints Respiratory: no complaints Cardiovascular: no complaints Gastrointestinal: no complaints Genitourinary: no complaints Exam/Review of Systems Vital Signs Vitals Vital Signs Date Time Temp Pulse Resp B/P Pulse Ox O2 Delivery O2 Flow Rate FiO2 12/10/16 19:33 98.2 95 15 90/65 100 12/10/16 18:20 3.0 12/10/16 16:00 Nasal Cannula 12/09/16 13:10 21 Intake and Output 12/09/16 12/09/16 12/10/16 15:00 23:00 07:00 Intake Total 700 ml 400 ml Balance 700 ml 400 ml Exam Constitutional: alert, well developed Respiratory: clear to auscultation, normal air movement Cardiovascular: nl pulses Gastrointestinal: non-tender, soft Musculoskeletal: nl extremities to inspection Extremities: normal pulses Neurological: nl mental status, nl speech Results Result Diagram: 12/10/1671612/10/16716 Results 24 hrs Laboratory Tests Test 12/09/16 20:50 12/10/16 01:55 12/10/16 07:17 12/10/16 07:55 Bedside Glucose 213 312 H 275 H White Blood Count 7.5 Red Blood Count 3.96 L Hemoglobin 12.0 L Hematocrit 35.1 L Mean Corpuscular Volume 88.6 Mean Corpuscular Hemoglobin 30.3 Mean Corpuscular Hemoglobin Concent 34.2 Red Cell Distribution Width 12.6 Platelet Count 294 Mean Platelet Volume 9.6 Neutrophils % 69.0 Lymphocytes % 14.9 L Monocytes % 14.2 H Eosinophils % 0.9 Basophils % 0.5 Nucleated Red Blood Cells % 0.0 Neutrophils # 5.2 Lymphocytes # 1.1 Monocytes # 1.1 H Eosinophils # 0.1 Basophils # 0.0 Nucleated Red Blood Cells # 0.0 Sodium Level 131 L Potassium Level 3.6 Chloride Level 94 L Carbon Dioxide Level 30 Anion Gap 11 Blood Urea Nitrogen 20 Creatinine 0.64 Glucose Level 283 H Calcium Level 8.5 Magnesium Level 2.1 Test 12/10/16 11:46 12/10/16 17:04 Bedside Glucose 175 123 Medications Medications Current Medications Ondansetron HCl (Zofran Inj) 4 mg Q6H PRN IV NAUSEA AND/OR VOMITING Last administered on 12/08/16 02:02; Admin Dose 4 MG; Start 12/05/16 at 05:00 Nitroglycerin (Nitroglycerin (Sl Tab) 0.4 Mg) 1 tab Q5M PRN SL CHEST PAIN; Start 12/05/16 at 05:00 Acetaminophen (Tylenol Tab) 650 mg Q6H PRN PO PAIN LEVEL 1-3 OR FEVER Last administered on 12/07/16 02:36; Admin Dose 650 MG; Start 12/05/16 at 05:00 Morphine Sulfate (morphine) 2 mg Q4H PRN IV PAIN LEVEL 7-10 Last administered on 12/08/16 05:55; Admin Dose 2 MG; Start 12/05/16 at 05:00 Aspirin (Halfprin) 81 mg DAILY PO Last administered on 12/10/16 08:48; Admin Dose 81 MG; Start 12/05/16 at 09:00 Atorvastatin Calcium (Lipitor) 80 mg HS PO Last administered on 12/09/16 20:53 ; Admin Dose 80 MG; Start 12/05/16 at 21:00 Carbamide Peroxide (Debrox Otic) 10 drop BID BOTH EARS Last administered on 20:53; Admin Dose 10 DROP; Start 12/05/16 at 09:00 Cholecalciferol (Vitamin D) 1,000 unit DAILY PO Last administered on 12/10/16 08:48; Admin Dose 1,000 UNIT; Start 12/05/16 at 09:00 Clopidogrel Bisulfate (plaVIX) 75 mg DAILY PO Last administered on 12/10/16 08 :48; Admin Dose 75 MG; Start 12/05/16 at 09:00 Fluoxetine HCl (Prozac) 10 mg DAILY PO Last administered on 12/10/16 08:49; Admin Dose 10 MG; Start 12/05/16 at 09:00 Metoprolol Succinate (Toprol Xl) 25 mg DAILY PO Last administered on 12/10/16 08:49; Admin Dose 25 MG; Start 12/05/16 at 09:00 Pantoprazole (Protonix Tab) 40 mg DAILY@06 PO Last administered on 12/10/16 05 :52; Admin Dose 40 MG; Start 12/05/16 at 06:00 Diagnostic Test (Pha) (Accu-Chek) 1 ea 02 XX Last administered on 12/08/16 02: 06; Admin Dose 1 EA; Start 12/07/16 at 02:00 Miscellaneous Information 1 ea NOTE XX ; Start 12/06/16 at 05:30 Glucose (Glutose) 15 gm Q15M PRN PO DECREASED GLUCOSE; Start 12/06/16 at 05:30 Glucose (Glutose) 22.5 gm Q15M PRN PO DECREASED GLUCOSE; Start 12/06/16 at 05: 30 Dextrose (D50w Syringe) 25 ml Q15M PRN IV DECREASED GLUCOSE; Start 12/06/16 at 05:30 Dextrose (D50w Syringe) 50 ml Q15M PRN IV DECREASED GLUCOSE; Start 12/06/16 at 05:30 Glucagon (Glucagen) 1 mg Q15M PRN IM DECREASED GLUCOSE; Start 12/06/16 at 05:30 Glucose 15 gm 15 gm Q15M PRN BUCCAL DECREASED GLUCOSE; Start 12/06/16 at 05:30 Levofloxacin/ Dextrose (Levaquin 500mg/ D5W 100 ml (Pmx)) 100 ml @ 100 mls/hr Q24H IVPB Last administered on 12/10/16 18:09; Admin Dose 100 MLS/HR; Start at 19:00 Linagliptin (Tradjenta) 5 mg DAILY PO Last administered on 12/10/16 08:49; Admin Dose 5 MG; Start 12/07/16 at 14:15 Spironolactone (Aldactone) 25 mg DAILY PO Last administered on 12/10/16 08:48 ; Admin Dose 25 MG; Start 12/07/16 at 19:30 Enoxaparin Sodium (Lovenox) 40 mg DAILY SC Last administered on 12/10/16 08:56 ; Admin Dose 40 MG; Start 12/08/16 at 09:00 Phenol (Cepastat Lozenge) 1 lozenge Q1H PRN MT SORE THROAT Last administered on 12/08/16 02:05; Admin Dose 1 LOZENGE; Start 12/07/16 at 20:00 Insulin Glargine (Lantus) 21 unit DAILY@08 SC Last administered on 12/10/16 08 :06; Admin Dose 21 UNIT; Start 12/09/16 at 08:00 Zolpidem Tartrate (Ambien) 5 mg HS PRN PO INSOMNIA Last administered on 02:03; Admin Dose 5 MG; Start 12/08/16 at 21:00 Valsartan (Diovan) 40 mg DAILY PO ; Start 12/11/16 at 09:00 Digoxin (Digoxin) 0.125 mg DAILY@13 PO ; Start 12/11/16 at 13:00 ILENE JIMENEZ Dec 10, 2016 19:50
[2016-12-10] MEDS: ATORVASTATIN 80 MG TAB PO SCH (20:23)
[2016-12-11] VITALS (13 sets, daily range): BP systolic 97–118; BP diastolic 56–67; PULSE 85–120; RESP 15–20
[2016-12-11] MEDS: ACCU-CHEK XX SCH (02:00)
[2016-12-11] MEDS: FUROSEMIDE 20 MG INJ IV SCH ×2 (05:46→17:13)
[2016-12-11] MEDS: PANTOPRAZOLE (EC) 40 MG TAB PO SCH (05:46)
[2016-12-11 07:23] LABS: BASOPHIL # 0.1 10^3/ul (0.0-0.1); BASOPHILS % 0.7 % (0.0-2.0); EOSINOPHILS # 0.1 10^3/ul (0.0-0.5); EOSINOPHILS % 1.5 % (0.0-7.0); HEMOGLOBIN 13.5 g/dl (14.0-18.0); LYMPHOCYTES % 21.8 % (15.0-51.0); MEAN CORPUSCULAR HEMOGLOBIN 29.8 pg (29.0-33.0); MEAN CORPUSCULAR HGB CONC 32.9 g/dl (32.0-37.0); MEAN CORPUSCULAR VOLUME 90.5 fl (82.0-101.0); MEAN PLATELET VOLUME 9.7 fl (7.4-10.4); MONOCYTE # 1.2 10^3/ul (0.3-0.9); MONOCYTES % 12.6 % (0.0-11.0); NEUTROPHIL # 5.8 10^3/ul (1.6-7.5); PLATELET COUNT 390 10^3/UL (140-415); RED BLOOD COUNT 4.53 10^6/ul (4.70-6.10); RED CELL DISTRIBUTION WIDTH 12.9 % (11.5-14.5); WHITE BLOOD COUNT 9.1 10^3/ul (4.8-10.8)
[2016-12-11] MEDS: ALBUTEROL/IPRATROPIUM (NEB) 3 ML AMP HHN SCH ×3 (07:44→20:22)
[2016-12-11] MEDS: metFORMIN 500 MG TAB PO SCH ×2 (08:06→17:12)
[2016-12-11] MEDS: glipiZIDE 10 MG TAB PO SCH (08:06)
[2016-12-11] MEDS: INSULIN GLARGINE [LANtus] 3 ML PEN SC SCH (08:07)
[2016-12-11] MEDS: INSULIN ASPART [NOVOLOG] 3 ML PEN SC SCH ×7 (08:12→20:06)
[2016-12-11] MEDS: ASPIRIN (EC) 81 MG TAB PO SCH (08:13)
[2016-12-11] MEDS: CHOLECALCIFEROL 1,000 UNIT TAB PO SCH (08:14)
[2016-12-11] MEDS: SPIRONOLACTONE 25 MG TAB PO SCH (08:14)
[2016-12-11] MEDS: LINAGLIPTIN 5 MG TABLET PO SCH (08:14)
[2016-12-11] MEDS: CLOPIDOGREL 75 MG TAB PO SCH (08:14)
[2016-12-11] MEDS: VALSARTAN 80 MG TAB PO SCH (08:15)
[2016-12-11] MEDS: FLUOXETINE 10 MG CAP PO SCH (08:15)
[2016-12-11] MEDS: METOPROLOL (XL) 25 MG TAB PO SCH (08:15)
[2016-12-11] MEDS: ENOXAPARIN 40 MG/0.4 ML SYG SC SCH (08:30)
[2016-12-11] MEDS: CARBAMIDE PEROXIDE 6.5% 15ML OTIC BOTH EARS SCH ×2 (08:31→20:09)
[2016-12-11 09:35] LABS: CREATININE 0.6 mg/dl (0.61-1.24); POTASSIUM 3.5 mmol/L (3.5-5.1)
[2016-12-11] MEDS: DIGOXIN 0.125 MG TAB PO SCH (12:13)
--- NOTE | 2016-12-11 14:16 | CONS ---
Date/Time of Note Date/Time of Note DATE: 12/11/16 TIME: 14:15 Assessment/Plan Assessment/Plan Chief Complaint/Hosp Course Alert feels better comfortable on room air Temperature 98.1 pulse 74 respirations 17 blood pressure 115/67 saturation 97% on room air WBC 9.1 platelets 390 no shift no bands BUN 13 creatinine 0.60 Antimicrobials: patient is on Levaquin Physical examination: well-developed well-nourished middle-aged [place] man who is awake in no distress head atraumatic normocephalic sclerae nonicteric vehicle mucosa pink neck is supple chest rise symmetrical breath sounds clear. S1-S2 abdomen soft bowel sounds present extremities without cyanosis Assessment #1 community-acquired pneumonia #2 ischemic cardiomyopathy with ejection fraction of 25-30% #3 diabetes #4 history of cardiac stents Plan: Remains stable, continue present care, follow cardiology recommendations, be discharged on oral Levaquin Problems: Consultation Date/Type/Reason Admit Date/Time Dec 05, 2016 at 03:57 Type of Consultation: id Referring Provider: IMELDA JOHNSON MD Exam/Review of Systems Vital Signs Vitals Vital Signs Date Time Temp Pulse Resp B/P Pulse Ox O2 Delivery O2 Flow Rate FiO2 12/11/16 12:03 92 12/11/16 11:55 98.1 17 115/67 97 12/11/16 07:47 3.0 12/11/16 07:47 Nasal Cannula 12/09/16 13:10 21 Intake and Output 12/10/16 12/10/16 12/11/16 15:00 23:00 07:00 Intake Total 820 ml Balance 820 ml Results Result Diagram: 12/11/16 0654 12/11/16 0654 Results 24 hrs Laboratory Tests Test 12/10/16 17:04 12/10/16 20:21 12/11/16 06:54 12/11/16 08:05 Bedside Glucose 123 144 236 H White Blood Count 9.1 # Red Blood Count 4.53 L Hemoglobin 13.5 L Hematocrit 41.0 L Mean Corpuscular Volume 90.5 Mean Corpuscular Hemoglobin 29.8 Mean Corpuscular Hemoglobin Concent 32.9 Red Cell Distribution Width 12.9 Platelet Count 390 # Mean Platelet Volume 9.7 Neutrophils % 63.0 Lymphocytes % 21.8 Monocytes % 12.6 H Eosinophils % 1.5 Basophils % 0.7 Nucleated Red Blood Cells % 0.0 Neutrophils # 5.8 Lymphocytes # 2.0 Monocytes # 1.2 H Eosinophils # 0.1 Basophils # 0.1 Nucleated Red Blood Cells # 0.0 Sodium Level 135 Potassium Level 3.5 Chloride Level 96 L Carbon Dioxide Level 29 Anion Gap 14 Blood Urea Nitrogen 13 Creatinine 0.60 L Glucose Level 229 H Calcium Level 9.0 Test 12/11/16 12:03 Bedside Glucose 256 H Medications Medications Current Medications Ondansetron HCl (Zofran Inj) 4 mg Q6H PRN IV NAUSEA AND/OR VOMITING Last administered on 12/08/16 02:02; Admin Dose 4 MG; Start 12/05/16 at 05:00 Nitroglycerin (Nitroglycerin (Sl Tab) 0.4 Mg) 1 tab Q5M PRN SL CHEST PAIN; Start 12/05/16 at 05:00 Acetaminophen (Tylenol Tab) 650 mg Q6H PRN PO PAIN LEVEL 1-3 OR FEVER Last administered on 12/07/16 02:36; Admin Dose 650 MG; Start 12/05/16 at 05:00 Morphine Sulfate (morphine) 2 mg Q4H PRN IV PAIN LEVEL 7-10 Last administered on 12/08/16 05:55; Admin Dose 2 MG; Start 12/05/16 at 05:00 Aspirin (Halfprin) 81 mg DAILY PO Last administered on 12/11/16 08:13; Admin Dose 81 MG; Start 12/05/16 at 09:00 Atorvastatin Calcium (Lipitor) 80 mg HS PO Last administered on 12/10/16 20:23 ; Admin Dose 80 MG; Start 12/05/16 at 21:00 Carbamide Peroxide (Debrox Otic) 10 drop BID BOTH EARS Last administered on 20:53; Admin Dose 10 DROP; Start 12/05/16 at 09:00 Cholecalciferol (Vitamin D) 1,000 unit DAILY PO Last administered on 12/11/16 08:14; Admin Dose 1,000 UNIT; Start 12/05/16 at 09:00 Clopidogrel Bisulfate (plaVIX) 75 mg DAILY PO Last administered on 12/11/16 08 :14; Admin Dose 75 MG; Start 12/05/16 at 09:00 Fluoxetine HCl (Prozac) 10 mg DAILY PO Last administered on 12/11/16 08:15; Admin Dose 10 MG; Start 12/05/16 at 09:00 Metoprolol Succinate (Toprol Xl) 25 mg DAILY PO Last administered on 12/11/16 08:15; Admin Dose 25 MG; Start 12/05/16 at 09:00 Pantoprazole (Protonix Tab) 40 mg DAILY@06 PO Last administered on 12/11/16 05 :46; Admin Dose 40 MG; Start 12/05/16 at 06:00 Diagnostic Test (Pha) (Accu-Chek) 1 ea 02 XX Last administered on 12/08/16 02: 06; Admin Dose 1 EA; Start 12/07/16 at 02:00 Miscellaneous Information 1 ea NOTE XX ; Start 12/06/16 at 05:30 Glucose (Glutose) 15 gm Q15M PRN PO DECREASED GLUCOSE; Start 12/06/16 at 05:30 Glucose (Glutose) 22.5 gm Q15M PRN PO DECREASED GLUCOSE; Start 12/06/16 at 05: 30 Dextrose (D50w Syringe) 25 ml Q15M PRN IV DECREASED GLUCOSE; Start 12/06/16 at 05:30 Dextrose (D50w Syringe) 50 ml Q15M PRN IV DECREASED GLUCOSE; Start 12/06/16 at 05:30 Glucagon (Glucagen) 1 mg Q15M PRN IM DECREASED GLUCOSE; Start 12/06/16 at 05:30 Glucose 15 gm 15 gm Q15M PRN BUCCAL DECREASED GLUCOSE; Start 12/06/16 at 05:30 Levofloxacin/ Dextrose (Levaquin 500mg/ D5W 100 ml (Pmx)) 100 ml @ 100 mls/hr Q24H IVPB Last administered on 12/10/16 18:09; Admin Dose 100 MLS/HR; Start at 19:00 Linagliptin (Tradjenta) 5 mg DAILY PO Last administered on 12/11/16 08:14; Admin Dose 5 MG; Start 12/07/16 at 14:15 Spironolactone (Aldactone) 25 mg DAILY PO Last administered on 12/11/16 08:14 ; Admin Dose 25 MG; Start 12/07/16 at 19:30 Enoxaparin Sodium (Lovenox) 40 mg DAILY SC Last administered on 12/11/16 08:30 ; Admin Dose 40 MG; Start 12/08/16 at 09:00 Phenol (Cepastat Lozenge) 1 lozenge Q1H PRN MT SORE THROAT Last administered on 12/08/16 02:05; Admin Dose 1 LOZENGE; Start 12/07/16 at 20:00 Zolpidem Tartrate (Ambien) 5 mg HS PRN PO INSOMNIA Last administered on 22:49; Admin Dose 5 MG; Start 12/08/16 at 21:00 Valsartan (Diovan) 40 mg DAILY PO Last administered on 12/11/16 08:15; Admin Dose 40 MG; Start 12/11/16 at 09:00 Digoxin (Digoxin) 0.125 mg DAILY@13 PO Last administered on 12/11/16 12:13; Admin Dose 0.125 MG; Start 12/11/16 at 13:00 Insulin Glargine (Lantus) 24 unit DAILY@08 SC Last administered on 12/11/16 08 :07; Admin Dose 24 UNIT; Start 12/11/16 at 08:00 SKYLAR ROSADO NP Dec 11, 2016 14:16
--- NOTE | 2016-12-11 16:38 | CONS ---
Date/Time of Note Date/Time of Note DATE: 12/11/16 TIME: 16:34 Assessment/Plan Assessment/Plan Chief Complaint/Hosp Course IMP: 1.nstemi-no sig increase 2.chest pain-resolved 3.cardiomyopathy-low ef lexiscan with large scar, no sig ischemia 4.DM 5.PNA Recc: -Tele -continue lasix/aldactone -Continue BB/ARB and follow BP closelu -Continue digoxin to increase contractility with very low ef -continue statin -Follow volume status closely -Continue abx's and f/u cx data Problems: Consultation Date/Type/Reason Admit Date/Time Dec 05, 2016 at 03:57 Initial Consult Date 12/05/16 Type of Consultation: cardiology Reason for Consultation chest pain Referring Provider: IMELDA JOHNSON MD Exam/Review of Systems Vital Signs Vitals Vital Signs Date Time Temp Pulse Resp B/P Pulse Ox O2 Delivery O2 Flow Rate FiO2 12/11/16 15:42 98.0 90 18 100/56 99 12/11/16 07:47 3.0 12/11/16 07:47 Nasal Cannula 12/09/16 13:10 21 Intake and Output 12/10/16 12/10/16 12/11/16 15:00 23:00 07:00 Intake Total 820 ml Balance 820 ml Exam Review of Systems: CONSTITUTIONAL: No fevers, chills. PULMONARY: No sob CARDIOVASCULAR: No chest pain/palpitations GASTROINTESTINAL: No nausea/vomiting. GENITOURINARY: No hematuria/dysuria. MUSCULOSKELETAL: No myagias/arthalgias. PSYCHIATRIC: The patient denies depression. NEUROLOGIC: No weakness Constitutional: alert, oriented Psych: no complaints Head: normocephalic ENMT: mucosa pink and moist Neck: jvd (9 cm water), supple Respiratory: clear to auscultation Cardiovascular: regular rate and rhythm Gastrointestinal: non-tender, soft Musculoskeletal: muscle weakness (normal) Extremities: edema (none) Neurological: other (No focal deficits) Results Result Diagram: 12/11/16 0654 12/11/16 0654 Results 24 hrs Laboratory Tests Test 12/10/16 17:04 12/10/16 20:21 12/11/16 06:54 12/11/16 08:05 Bedside Glucose 123 144 236 H White Blood Count 9.1 # Red Blood Count 4.53 L Hemoglobin 13.5 L Hematocrit 41.0 L Mean Corpuscular Volume 90.5 Mean Corpuscular Hemoglobin 29.8 Mean Corpuscular Hemoglobin Concent 32.9 Red Cell Distribution Width 12.9 Platelet Count 390 # Mean Platelet Volume 9.7 Neutrophils % 63.0 Lymphocytes % 21.8 Monocytes % 12.6 H Eosinophils % 1.5 Basophils % 0.7 Nucleated Red Blood Cells % 0.0 Neutrophils # 5.8 Lymphocytes # 2.0 Monocytes # 1.2 H Eosinophils # 0.1 Basophils # 0.1 Nucleated Red Blood Cells # 0.0 Sodium Level 135 Potassium Level 3.5 Chloride Level 96 L Carbon Dioxide Level 29 Anion Gap 14 Blood Urea Nitrogen 13 Creatinine 0.60 L Glucose Level 229 H Calcium Level 9.0 Test 12/11/16 12:03 Bedside Glucose 256 H Medications Medications Current Medications Ondansetron HCl (Zofran Inj) 4 mg Q6H PRN IV NAUSEA AND/OR VOMITING Last administered on 12/08/16 02:02; Admin Dose 4 MG; Start 12/05/16 at 05:00 Nitroglycerin (Nitroglycerin (Sl Tab) 0.4 Mg) 1 tab Q5M PRN SL CHEST PAIN; Start 12/05/16 at 05:00 Acetaminophen (Tylenol Tab) 650 mg Q6H PRN PO PAIN LEVEL 1-3 OR FEVER Last administered on 12/07/16 02:36; Admin Dose 650 MG; Start 12/05/16 at 05:00 Morphine Sulfate (morphine) 2 mg Q4H PRN IV PAIN LEVEL 7-10 Last administered on 12/08/16 05:55; Admin Dose 2 MG; Start 12/05/16 at 05:00 Aspirin (Halfprin) 81 mg DAILY PO Last administered on 12/11/16 08:13; Admin Dose 81 MG; Start 12/05/16 at 09:00 Atorvastatin Calcium (Lipitor) 80 mg HS PO Last administered on 12/10/16 20:23 ; Admin Dose 80 MG; Start 12/05/16 at 21:00 Carbamide Peroxide (Debrox Otic) 10 drop BID BOTH EARS Last administered on 20:53; Admin Dose 10 DROP; Start 12/05/16 at 09:00 Cholecalciferol (Vitamin D) 1,000 unit DAILY PO Last administered on 12/11/16 08:14; Admin Dose 1,000 UNIT; Start 12/05/16 at 09:00 Clopidogrel Bisulfate (plaVIX) 75 mg DAILY PO Last administered on 12/11/16 08 :14; Admin Dose 75 MG; Start 12/05/16 at 09:00 Fluoxetine HCl (Prozac) 10 mg DAILY PO Last administered on 12/11/16 08:15; Admin Dose 10 MG; Start 12/05/16 at 09:00 Metoprolol Succinate (Toprol Xl) 25 mg DAILY PO Last administered on 12/11/16 08:15; Admin Dose 25 MG; Start 12/05/16 at 09:00 Pantoprazole (Protonix Tab) 40 mg DAILY@06 PO Last administered on 12/11/16 05 :46; Admin Dose 40 MG; Start 12/05/16 at 06:00 Diagnostic Test (Pha) (Accu-Chek) 1 ea 02 XX Last administered on 12/08/16 02: 06; Admin Dose 1 EA; Start 12/07/16 at 02:00 Miscellaneous Information 1 ea NOTE XX ; Start 12/06/16 at 05:30 Glucose (Glutose) 15 gm Q15M PRN PO DECREASED GLUCOSE; Start 12/06/16 at 05:30 Glucose (Glutose) 22.5 gm Q15M PRN PO DECREASED GLUCOSE; Start 12/06/16 at 05: 30 Dextrose (D50w Syringe) 25 ml Q15M PRN IV DECREASED GLUCOSE; Start 12/06/16 at 05:30 Dextrose (D50w Syringe) 50 ml Q15M PRN IV DECREASED GLUCOSE; Start 12/06/16 at 05:30 Glucagon (Glucagen) 1 mg Q15M PRN IM DECREASED GLUCOSE; Start 12/06/16 at 05:30 Glucose 15 gm 15 gm Q15M PRN BUCCAL DECREASED GLUCOSE; Start 12/06/16 at 05:30 Levofloxacin/ Dextrose (Levaquin 500mg/ D5W 100 ml (Pmx)) 100 ml @ 100 mls/hr Q24H IVPB Last administered on 12/10/16 18:09; Admin Dose 100 MLS/HR; Start at 19:00 Linagliptin (Tradjenta) 5 mg DAILY PO Last administered on 12/11/16 08:14; Admin Dose 5 MG; Start 12/07/16 at 14:15 Spironolactone (Aldactone) 25 mg DAILY PO Last administered on 12/11/16 08:14 ; Admin Dose 25 MG; Start 12/07/16 at 19:30 Enoxaparin Sodium (Lovenox) 40 mg DAILY SC Last administered on 12/11/16 08:30 ; Admin Dose 40 MG; Start 12/08/16 at 09:00 Phenol (Cepastat Lozenge) 1 lozenge Q1H PRN MT SORE THROAT Last administered on 12/08/16 02:05; Admin Dose 1 LOZENGE; Start 12/07/16 at 20:00 Zolpidem Tartrate (Ambien) 5 mg HS PRN PO INSOMNIA Last administered on 22:49; Admin Dose 5 MG; Start 12/08/16 at 21:00 Valsartan (Diovan) 40 mg DAILY PO Last administered on 12/11/16 08:15; Admin Dose 40 MG; Start 12/11/16 at 09:00 Digoxin (Digoxin) 0.125 mg DAILY@13 PO Last administered on 12/11/16 12:13; Admin Dose 0.125 MG; Start 12/11/16 at 13:00 Insulin Glargine (Lantus) 24 unit DAILY@08 SC Last administered on 12/11/16 08 :07; Admin Dose 24 UNIT; Start 12/11/16 at 08:00 ROMA BUSCH Dec 11, 2016 16:38
--- NOTE | 2016-12-11 17:06 | RADRPT ---
PROCEDURE: XR Chest. CLINICAL INDICATION: Pneumonia TECHNIQUE: Single portable view of the chest was obtained. COMPARISON: 12/07/2016 FINDINGS: Normal cardiomediastinal silhouette. Similar consolidation in the left upper lobe. No pleural effusi on or pneumothorax. IMPRESSION: Similar left upper lobe consolidation consistent with pneumonia. RPTAT:AAJJ Physician Estuardo Date Time Electronically viewed and signed by Bee Cast Physician on 12/11/2016 17:06 /
[2016-12-11] MEDS: LEVOFLOXACIN 500MG/D5W (PMX) 100 ML IVPB SCH (18:34)
--- NOTE | 2016-12-11 19:03 | PN ---
Date/Time of Note Date/Time of Note DATE: 12/11/16 TIME: 18:59 Assessment/Plan VTE Prophylaxis VTE Prophylaxis Intervention: LMWH Lines/Catheters IV [facility]ter Type (from [facility]): Saline Lock Urinary Cath still in place: No Assessment/Plan Chief Complaint/Hosp Course Complaints of shortness of breath on exertion comfortable at rest, complains of occasional dizziness, denies chest pain. Patient condition and treatment discussed with patient and patient's at the bedside Assessment/Plan - CAP, continue Levaquin. Dr. Barr is asked to see patient in infection disease consultation. - NSTEMI. S/p stress test today. Continue aspirin and Plavix. Dr. Ferro is following in cardiology consultation. - History of CAD with multiple stents - Hypertension. - Ischemic cardiomyopathy ejection fraction of 30% - Dyslipidemia, continue statin - Diabetes mellitus with hemoglobin A1c is 8.8. Continue Lantus and pre-meal NovoLog. - Tobacco use. Cessation is strongly advised. - Medical noncompliance. Further recommendations based on clinical course. Plan of care discussed with Dr. Waggoner. Problems: Exam/Review of Systems Vital Signs Vitals Vital Signs Date Time Temp Pulse Resp B/P Pulse Ox O2 Delivery O2 Flow Rate FiO2 12/11/16 16:04 88 12/11/16 15:42 98.0 18 100/56 99 12/11/16 07:47 3.0 12/11/16 07:47 Nasal Cannula 12/09/16 13:10 21 Intake and Output 12/10/16 12/10/16 12/11/16 15:00 23:00 07:00 Intake Total 820 ml Balance 820 ml Exam Constitutional: alert, oriented Head: normocephalic Neck: supple Respiratory: clear to auscultation Cardiovascular: nl pulses Gastrointestinal: non-tender, soft Musculoskeletal: nl extremities to inspection Extremities: normal pulses Results Result Diagram: 12/11/16 0654 12/11/16 0654 Results 24 hrs Laboratory Tests Test 12/10/16 20:21 12/11/16 06:54 12/11/16 08:05 12/11/16 12:03 Bedside Glucose 144 236 H 256 H White Blood Count 9.1 # Red Blood Count 4.53 L Hemoglobin 13.5 L Hematocrit 41.0 L Mean Corpuscular Volume 90.5 Mean Corpuscular Hemoglobin 29.8 Mean Corpuscular Hemoglobin Concent 32.9 Red Cell Distribution Width 12.9 Platelet Count 390 # Mean Platelet Volume 9.7 Neutrophils % 63.0 Lymphocytes % 21.8 Monocytes % 12.6 H Eosinophils % 1.5 Basophils % 0.7 Nucleated Red Blood Cells % 0.0 Neutrophils # 5.8 Lymphocytes # 2.0 Monocytes # 1.2 H Eosinophils # 0.1 Basophils # 0.1 Nucleated Red Blood Cells # 0.0 Sodium Level 135 Potassium Level 3.5 Chloride Level 96 L Carbon Dioxide Level 29 Anion Gap 14 Blood Urea Nitrogen 13 Creatinine 0.60 L Glucose Level 229 H Calcium Level 9.0 Test 12/11/16 17:10 Bedside Glucose 97 Medications Medications Current Medications Ondansetron HCl (Zofran Inj) 4 mg Q6H PRN IV NAUSEA AND/OR VOMITING Last administered on 12/08/16 02:02; Admin Dose 4 MG; Start 12/05/16 at 05:00 Nitroglycerin (Nitroglycerin (Sl Tab) 0.4 Mg) 1 tab Q5M PRN SL CHEST PAIN; Start 12/05/16 at 05:00 Acetaminophen (Tylenol Tab) 650 mg Q6H PRN PO PAIN LEVEL 1-3 OR FEVER Last administered on 12/07/16 02:36; Admin Dose 650 MG; Start 12/05/16 at 05:00 Morphine Sulfate (morphine) 2 mg Q4H PRN IV PAIN LEVEL 7-10 Last administered on 12/08/16 05:55; Admin Dose 2 MG; Start 12/05/16 at 05:00 Aspirin (Halfprin) 81 mg DAILY PO Last administered on 12/11/16 08:13; Admin Dose 81 MG; Start 12/05/16 at 09:00 Atorvastatin Calcium (Lipitor) 80 mg HS PO Last administered on 12/10/16 20:23 ; Admin Dose 80 MG; Start 12/05/16 at 21:00 Carbamide Peroxide (Debrox Otic) 10 drop BID BOTH EARS Last administered on 20:53; Admin Dose 10 DROP; Start 12/05/16 at 09:00 Cholecalciferol (Vitamin D) 1,000 unit DAILY PO Last administered on 12/11/16 08:14; Admin Dose 1,000 UNIT; Start 12/05/16 at 09:00 Clopidogrel Bisulfate (plaVIX) 75 mg DAILY PO Last administered on 12/11/16 08 :14; Admin Dose 75 MG; Start 12/05/16 at 09:00 Fluoxetine HCl (Prozac) 10 mg DAILY PO Last administered on 12/11/16 08:15; Admin Dose 10 MG; Start 12/05/16 at 09:00 Metoprolol Succinate (Toprol Xl) 25 mg DAILY PO Last administered on 12/11/16 08:15; Admin Dose 25 MG; Start 12/05/16 at 09:00 Pantoprazole (Protonix Tab) 40 mg DAILY@06 PO Last administered on 12/11/16 05 :46; Admin Dose 40 MG; Start 12/05/16 at 06:00 Diagnostic Test (Pha) (Accu-Chek) 1 ea 02 XX Last administered on 12/08/16 02: 06; Admin Dose 1 EA; Start 12/07/16 at 02:00 Miscellaneous Information 1 ea NOTE XX ; Start 12/06/16 at 05:30 Glucose (Glutose) 15 gm Q15M PRN PO DECREASED GLUCOSE; Start 12/06/16 at 05:30 Glucose (Glutose) 22.5 gm Q15M PRN PO DECREASED GLUCOSE; Start 12/06/16 at 05: 30 Dextrose (D50w Syringe) 25 ml Q15M PRN IV DECREASED GLUCOSE; Start 12/06/16 at 05:30 Dextrose (D50w Syringe) 50 ml Q15M PRN IV DECREASED GLUCOSE; Start 12/06/16 at 05:30 Glucagon (Glucagen) 1 mg Q15M PRN IM DECREASED GLUCOSE; Start 12/06/16 at 05:30 Glucose 15 gm 15 gm Q15M PRN BUCCAL DECREASED GLUCOSE; Start 12/06/16 at 05:30 Levofloxacin/ Dextrose (Levaquin 500mg/ D5W 100 ml (Pmx)) 100 ml @ 100 mls/hr Q24H IVPB Last administered on 12/11/16 18:34; Admin Dose 100 MLS/HR; Start at 19:00 Linagliptin (Tradjenta) 5 mg DAILY PO Last administered on 12/11/16 08:14; Admin Dose 5 MG; Start 12/07/16 at 14:15 Spironolactone (Aldactone) 25 mg DAILY PO Last administered on 12/11/16 08:14 ; Admin Dose 25 MG; Start 12/07/16 at 19:30 Enoxaparin Sodium (Lovenox) 40 mg DAILY SC Last administered on 12/11/16 08:30 ; Admin Dose 40 MG; Start 12/08/16 at 09:00 Phenol (Cepastat Lozenge) 1 lozenge Q1H PRN MT SORE THROAT Last administered on 12/08/16 02:05; Admin Dose 1 LOZENGE; Start 12/07/16 at 20:00 Zolpidem Tartrate (Ambien) 5 mg HS PRN PO INSOMNIA Last administered on 22:49; Admin Dose 5 MG; Start 12/08/16 at 21:00 Valsartan (Diovan) 40 mg DAILY PO Last administered on 12/11/16 08:15; Admin Dose 40 MG; Start 12/11/16 at 09:00 Digoxin (Digoxin) 0.125 mg DAILY@13 PO Last administered on 12/11/16 12:13; Admin Dose 0.125 MG; Start 12/11/16 at 13:00 Insulin Glargine (Lantus) 24 unit DAILY@08 SC Last administered on 12/11/16 08 :07; Admin Dose 24 UNIT; Start 12/11/16 at 08:00 RIGOBERTO LAI Dec 11, 2016 19:03
[2016-12-11] MEDS: ZOLPIDEM 5 MG TAB PO PRN (20:05)
[2016-12-11] MEDS: ATORVASTATIN 80 MG TAB PO SCH (20:05)
[2016-12-12] VITALS (12 sets, daily range): BP systolic 93–146; BP diastolic 60–82; PULSE 86–96; RESP 16–19
[2016-12-12] MEDS: ACCU-CHEK XX SCH (02:00)
[2016-12-12] MEDS: FUROSEMIDE 20 MG INJ IV SCH ×2 (05:33→17:00)
[2016-12-12] MEDS: PANTOPRAZOLE (EC) 40 MG TAB PO SCH (05:34)
[2016-12-12] MEDS: ALBUTEROL/IPRATROPIUM (NEB) 3 ML AMP HHN SCH ×3 (07:59→19:20)
[2016-12-12] MEDS: METOPROLOL (XL) 25 MG TAB PO SCH (08:27)
[2016-12-12] MEDS: ASPIRIN (EC) 81 MG TAB PO SCH (08:27)
[2016-12-12] MEDS: CHOLECALCIFEROL 1,000 UNIT TAB PO SCH (08:28)
[2016-12-12] MEDS: FLUOXETINE 10 MG CAP PO SCH (08:28)
[2016-12-12] MEDS: LINAGLIPTIN 5 MG TABLET PO SCH (08:28)
[2016-12-12] MEDS: SPIRONOLACTONE 25 MG TAB PO SCH (08:28)
[2016-12-12] MEDS: CLOPIDOGREL 75 MG TAB PO SCH (08:28)
[2016-12-12] MEDS: VALSARTAN 80 MG TAB PO SCH (08:28)
[2016-12-12] MEDS: metFORMIN 500 MG TAB PO SCH ×2 (08:28→17:05)
[2016-12-12] MEDS: glipiZIDE 10 MG TAB PO SCH (08:28)
[2016-12-12] MEDS: CARBAMIDE PEROXIDE 6.5% 15ML OTIC BOTH EARS SCH ×2 (08:29→21:00)
[2016-12-12] MEDS: INSULIN ASPART [NOVOLOG] 3 ML PEN SC SCH ×7 (08:33→20:21)
[2016-12-12] MEDS: INSULIN GLARGINE [LANtus] 3 ML PEN SC SCH (08:34)
[2016-12-12] MEDS: ENOXAPARIN 40 MG/0.4 ML SYG SC SCH (08:34)
[2016-12-12 08:57] LABS: CALCIUM 8.7 mg/dl (8.4-10.2); CREATININE 0.59 mg/dl (0.61-1.24)
--- NOTE | 2016-12-12 11:09 | PN ---
Date/Time of Note Date/Time of Note DATE: 12/12/16 TIME: 11:00 Assessment/Plan VTE Prophylaxis VTE Prophylaxis Intervention: other Lines/Catheters [facility] Type [facility] Saline Lock Urinary Cath still in place: No Assessment/Plan Assessment/Plan Complaints of shortness of breath on exertion comfortable at rest, complains of occasional dizziness, denies chest pain. Patient condition and treatment discussed with patient and patient's at the bedside Assessment/Plan - CAP, continue Levaquin. Dr. Barr is asked to see patient in infection disease consultation. - NSTEMI. S/p stress test today. Continue aspirin and Plavix. Dr. Ferro is following in cardiology consultation. - History of CAD with multiple stents - Hypertension. - Ischemic cardiomyopathy ejection fraction of 30% - Dyslipidemia, continue statin - Diabetes mellitus with hemoglobin A1c is 8.8. - Continue Lantus and pre-meal NovoLog. - change LANTUS - Tobacco use. Cessation is strongly advised. - Medical noncompliance. Further recommendations based on clinical course. Plan of care discussed with Dr. Waggoner. Subjective 24 Hr Interval Summary Respiratory: no complaints Cardiovascular: no complaints Gastrointestinal: no complaints Musculoskeletal: no complaints Neurologic: no complaints Exam/Review of Systems Vital Signs Vitals Vital Signs Date Time Temp Pulse Resp B/P Pulse Ox O2 Delivery O2 Flow Rate FiO2 12/12/16 08:06 86 12/12/16 08:05 98.3 17 105/69 98 12/12/16 07:59 Nasal Cannula 3.0 12/09/16 13:10 21 Intake and Output 12/11/16 12/11/16 12/12/16 15:00 23:00 07:00 Intake Total 700 ml Balance 700 ml Exam Constitutional: alert, oriented, well developed Respiratory: clear to auscultation Cardiovascular: nl pulses, other (SR to PVC's ) Gastrointestinal: non-tender, soft Musculoskeletal: nl extremities to inspection Extremities: normal pulses Results Result Diagram: 12/11/16 0654 12/12/16 0733 Results 24 hrs Laboratory Tests Test 12/11/16 12:03 12/11/16 17:10 12/11/16 20:01 12/12/16 01:35 Bedside Glucose 256 H 97 186 197 Test 12/12/16 07:33 Sodium Level 136 Potassium Level 4.0 Chloride Level 98 Carbon Dioxide Level 30 Anion Gap 12 Blood Urea Nitrogen 12 Creatinine 0.59 L Glucose Level 239 H Calcium Level 8.7 Medications Medications Current Medications Ondansetron HCl (Zofran Inj) 4 mg Q6H PRN IV NAUSEA AND/OR VOMITING Last administered on 12/08/16 02:02; Admin Dose 4 MG; Start 12/05/16 at 05:00 Nitroglycerin (Nitroglycerin (Sl Tab) 0.4 Mg) 1 tab Q5M PRN SL CHEST PAIN; Start 12/05/16 at 05:00 Acetaminophen (Tylenol Tab) 650 mg Q6H PRN PO PAIN LEVEL 1-3 OR FEVER Last administered on 12/07/16 02:36; Admin Dose 650 MG; Start 12/05/16 at 05:00 Morphine Sulfate (morphine) 2 mg Q4H PRN IV PAIN LEVEL 7-10 Last administered on 12/08/16 05:55; Admin Dose 2 MG; Start 12/05/16 at 05:00 Aspirin (Halfprin) 81 mg DAILY PO Last administered on 12/12/16 08:27; Admin Dose 81 MG; Start 12/05/16 at 09:00 Atorvastatin Calcium (Lipitor) 80 mg HS PO Last administered on 12/11/16 20:05 ; Admin Dose 80 MG; Start 12/05/16 at 21:00 Carbamide Peroxide (Debrox Otic) 10 drop BID BOTH EARS Last administered on 08:29; Admin Dose 10 DROP; Start 12/05/16 at 09:00 Cholecalciferol (Vitamin D) 1,000 unit DAILY PO Last administered on 12/12/16 08:28; Admin Dose 1,000 UNIT; Start 12/05/16 at 09:00 Clopidogrel Bisulfate (plaVIX) 75 mg DAILY PO Last administered on 12/12/16 08 :28; Admin Dose 75 MG; Start 12/05/16 at 09:00 Fluoxetine HCl (Prozac) 10 mg DAILY PO Last administered on 12/12/16 08:28; Admin Dose 10 MG; Start 12/05/16 at 09:00 Metoprolol Succinate (Toprol Xl) 25 mg DAILY PO Last administered on 12/12/16 08:27; Admin Dose 25 MG; Start 12/05/16 at 09:00 Pantoprazole (Protonix Tab) 40 mg DAILY@06 PO Last administered on 12/12/16 05 :34; Admin Dose 40 MG; Start 12/05/16 at 06:00 Diagnostic Test (Pha) (Accu-Chek) 1 ea 02 XX Last administered on 12/08/16 02: 06; Admin Dose 1 EA; Start 12/07/16 at 02:00 Miscellaneous Information 1 ea NOTE XX ; Start 12/06/16 at 05:30 Glucose (Glutose) 15 gm Q15M PRN PO DECREASED GLUCOSE; Start 12/06/16 at 05:30 Glucose (Glutose) 22.5 gm Q15M PRN PO DECREASED GLUCOSE; Start 12/06/16 at 05: 30 Dextrose (D50w Syringe) 25 ml Q15M PRN IV DECREASED GLUCOSE; Start 12/06/16 at 05:30 Dextrose (D50w Syringe) 50 ml Q15M PRN IV DECREASED GLUCOSE; Start 12/06/16 at 05:30 Glucagon (Glucagen) 1 mg Q15M PRN IM DECREASED GLUCOSE; Start 12/06/16 at 05:30 Glucose 15 gm 15 gm Q15M PRN BUCCAL DECREASED GLUCOSE; Start 12/06/16 at 05:30 Levofloxacin/ Dextrose (Levaquin 500mg/ D5W 100 ml (Pmx)) 100 ml @ 100 mls/hr Q24H IVPB Last administered on 12/11/16 18:34; Admin Dose 100 MLS/HR; Start at 19:00 Linagliptin (Tradjenta) 5 mg DAILY PO Last administered on 12/12/16 08:28; Admin Dose 5 MG; Start 12/07/16 at 14:15 Spironolactone (Aldactone) 25 mg DAILY PO Last administered on 12/12/16 08:28 ; Admin Dose 25 MG; Start 12/07/16 at 19:30 Enoxaparin Sodium (Lovenox) 40 mg DAILY SC Last administered on 12/12/16 08:34 ; Admin Dose 40 MG; Start 12/08/16 at 09:00 Phenol (Cepastat Lozenge) 1 lozenge Q1H PRN MT SORE THROAT Last administered on 12/08/16 02:05; Admin Dose 1 LOZENGE; Start 12/07/16 at 20:00 Zolpidem Tartrate (Ambien) 5 mg HS PRN PO INSOMNIA Last administered on 20:05; Admin Dose 5 MG; Start 12/08/16 at 21:00 Valsartan (Diovan) 40 mg DAILY PO Last administered on 12/12/16 08:28; Admin Dose 40 MG; Start 12/11/16 at 09:00 Digoxin (Digoxin) 0.125 mg DAILY@13 PO Last administered on 12/11/16 12:13; Admin Dose 0.125 MG; Start 12/11/16 at 13:00 Insulin Glargine (Lantus) 24 unit DAILY@08 SC Last administered on 12/12/16 08 :34; Admin Dose 24 UNIT; Start 12/11/16 at 08:00 ILENE JIMENEZ Dec 12, 2016 11:09
[2016-12-12] MEDS: DIGOXIN 0.125 MG TAB PO SCH (13:16)
--- NOTE | 2016-12-12 14:19 | CONS ---
Date/Time of Note Date/Time of Note DATE: 12/12/16 TIME: 14:18 Assessment/Plan Assessment/Plan Chief Complaint/Hosp Course Alert feels good, comfortable on room air Antimicrobials: patient is on Levaquin Physical examination: well-developed well-nourished middle-aged [place] man who is awake in no distress head atraumatic normocephalic sclerae nonicteric vehicle mucosa pink neck is supple chest rise symmetrical breath sounds clear. S1-S2 abdomen soft bowel sounds present extremities without cyanosis Assessment #1 community-acquired pneumonia #2 ischemic cardiomyopathy with ejection fraction of 25-30% #3 diabetes #4 history of cardiac stents Plan: Remains stable, ok dc home on oral Levaquin for 7 days Problems: Consultation Date/Type/Reason Admit Date/Time Dec 05, 2016 at 03:57 Type of Consultation: ID Referring Provider: IMELDA JOHNSON MD Exam/Review of Systems Vital Signs Vitals Vital Signs Date Time Temp Pulse Resp B/P Pulse Ox O2 Delivery O2 Flow Rate FiO2 12/12/16 12:03 88 12/12/16 11:48 98.0 17 93/67 95 12/12/16 07:59 Nasal Cannula 3.0 12/09/16 13:10 21 Intake and Output 12/11/16 12/11/16 12/12/16 15:00 23:00 07:00 Intake Total 700 ml Balance 700 ml Results Result Diagram: 12/11/16 0654 12/12/16 0733 Results 24 hrs Laboratory Tests Test 12/11/16 17:10 12/11/16 20:01 12/12/16 01:35 12/12/16 07:33 Bedside Glucose 97 186 197 Sodium Level 136 Potassium Level 4.0 Chloride Level 98 Carbon Dioxide Level 30 Anion Gap 12 Blood Urea Nitrogen 12 Creatinine 0.59 L Glucose Level 239 H Calcium Level 8.7 Test 12/12/16 11:44 Bedside Glucose 160 Medications Medications Current Medications Ondansetron HCl (Zofran Inj) 4 mg Q6H PRN IV NAUSEA AND/OR VOMITING Last administered on 12/08/16t 02:02; Admin Dose 4 MG; Start 12/05/16 at 05:00 Nitroglycerin (Nitroglycerin (Sl Tab) 0.4 Mg) 1 tab Q5M PRN SL CHEST PAIN; Start 12/05/16 at 05:00 Acetaminophen (Tylenol Tab) 650 mg Q6H PRN PO PAIN LEVEL 1-3 OR FEVER Last administered on 12/07/16 02:36; Admin Dose 650 MG; Start 12/05/16 at 05:00 Morphine Sulfate (morphine) 2 mg Q4H PRN IV PAIN LEVEL 7-10 Last administered on 12/08/16 05:55; Admin Dose 2 MG; Start 12/05/16 at 05:00 Aspirin (Halfprin) 81 mg DAILY PO Last administered on 12/12/16 08:27; Admin Dose 81 MG; Start 12/05/16 at 09:00 Atorvastatin Calcium (Lipitor) 80 mg HS PO Last administered on 12/11/16 20:05 ; Admin Dose 80 MG; Start 12/05/16 at 21:00 Carbamide Peroxide (Debrox Otic) 10 drop BID BOTH EARS Last administered on 08:29; Admin Dose 10 DROP; Start 12/05/16 at 09:00 Cholecalciferol (Vitamin D) 1,000 unit DAILY PO Last administered on 12/12/16 08:28; Admin Dose 1,000 UNIT; Start 12/05/16 at 09:00 Clopidogrel Bisulfate (plaVIX) 75 mg DAILY PO Last administered on 12/12/16 08 :28; Admin Dose 75 MG; Start 12/05/16 at 09:00 Fluoxetine HCl (Prozac) 10 mg DAILY PO Last administered on 12/12/16 08:28; Admin Dose 10 MG; Start 12/05/16 at 09:00 Metoprolol Succinate (Toprol Xl) 25 mg DAILY PO Last administered on 12/12/16 08:27; Admin Dose 25 MG; Start 12/05/16 at 09:00 Pantoprazole (Protonix Tab) 40 mg DAILY@06 PO Last administered on 12/12/16 05 :34; Admin Dose 40 MG; Start 12/05/16 at 06:00 Diagnostic Test (Pha) (Accu-Chek) 1 ea 02 XX Last administered on 12/08/16 02: 06; Admin Dose 1 EA; Start 12/07/16 at 02:00 Miscellaneous Information 1 ea NOTE XX ; Start 12/06/16 at 05:30 Glucose (Glutose) 15 gm Q15M PRN PO DECREASED GLUCOSE; Start 12/06/16 at 05:30 Glucose (Glutose) 22.5 gm Q15M PRN PO DECREASED GLUCOSE; Start 12/06/16 at 05: 30 Dextrose (D50w Syringe) 25 ml Q15M PRN IV DECREASED GLUCOSE; Start 12/06/16 at 05:30 Dextrose (D50w Syringe) 50 ml Q15M PRN IV DECREASED GLUCOSE; Start 12/06/16 at 05:30 Glucagon (Glucagen) 1 mg Q15M PRN IM DECREASED GLUCOSE; Start 12/06/16 at 05:30 Glucose 15 gm 15 gm Q15M PRN BUCCAL DECREASED GLUCOSE; Start 12/06/16 at 05:30 Levofloxacin/ Dextrose (Levaquin 500mg/ D5W 100 ml (Pmx)) 100 ml @ 100 mls/hr Q24H IVPB Last administered on 12/11/16 18:34; Admin Dose 100 MLS/HR; Start at 19:00 Linagliptin (Tradjenta) 5 mg DAILY PO Last administered on 12/12/16 08:28; Admin Dose 5 MG; Start 12/07/16 at 14:15 Spironolactone (Aldactone) 25 mg DAILY PO Last administered on 12/12/16 08:28 ; Admin Dose 25 MG; Start 12/07/16 at 19:30 Enoxaparin Sodium (Lovenox) 40 mg DAILY SC Last administered on 12/12/16 08:34 ; Admin Dose 40 MG; Start 12/08/16 at 09:00 Phenol (Cepastat Lozenge) 1 lozenge Q1H PRN MT SORE THROAT Last administered on 12/08/16 02:05; Admin Dose 1 LOZENGE; Start 12/07/16 at 20:00 Zolpidem Tartrate (Ambien) 5 mg HS PRN PO INSOMNIA Last administered on 20:05; Admin Dose 5 MG; Start 12/08/16 at 21:00 Valsartan (Diovan) 40 mg DAILY PO Last administered on 12/12/16 08:28; Admin Dose 40 MG; Start 12/11/16 at 09:00 Digoxin (Digoxin) 0.125 mg DAILY@13 PO Last administered on 12/12/16 13:16; Admin Dose 0.125 MG; Start 12/11/16 at 13:00 Insulin Glargine (Lantus) 27 unit DAILY@08 SC ; Start 12/13/16 at 08:00 SKYLAR ROSADO NP Dec 12, 2016 14:19
[2016-12-12] MEDS: LEVOFLOXACIN 500MG/D5W (PMX) 100 ML IVPB SCH (18:03)
[2016-12-12] MEDS: ATORVASTATIN 80 MG TAB PO SCH (20:20)
--- NOTE | 2016-12-12 22:15 | PN ---
Date/Time of Note Date/Time of Note DATE: 12/12/16 TIME: 22:03 Assessment/Plan VTE Prophylaxis VTE Prophylaxis Intervention: LMWH (lovenox) Lines/Catheters IV Catheter Type (from [facility]): Saline Lock Urinary Cath still in place: No Subjective 24 Hr Interval Summary Free Text/Dictation Date/Time of Note DATE: 12/12/16 TIME: 11:00 Assessment/Plan VTE Prophylaxis VTE Prophylaxis Intervention: other Lines/Catheters IV Catheter Type (from [facility]): Saline Lock Urinary Cath still in place: No Assessment/Plan Assessment/Plan Complaints of shortness of breath on exertion, comfortable at rest, denies chest pain. Patient condition and treatment discussed with patient. Assessment/Plan - CAP, continue Levaquin. Dr. Barr is asked to see patient in infection disease consultation. - NSTEMI. S/p stress test today. Continue aspirin and Plavix. Dr. Ferro is following in cardiology consultation. - History of CAD with multiple stents - Hypertension. - Ischemic cardiomyopathy ejection fraction of 30% - Dyslipidemia, continue statin - Diabetes mellitus with hemoglobin A1c is 8.8. - Continue Lantus and pre-meal NovoLog. - change LANTUS - Tobacco use. Cessation is strongly advised. - Medical noncompliance. Continue cardiac medications as recommended Subjective 24 Hr Interval Summary Respiratory: no complaints Cardiovascular: no complaints Gastrointestinal: no complaints Musculoskeletal: no complaints Neurologic: no complaints Exam/Review of Systems Vital Signs Vitals Vital Signs Date Time Temp Pulse Resp B/P Pulse Ox O2 Delivery O2 Flow Rate FiO2 12/12/16 08:06 86 12/12/16 08:05 98.3 17 105/69 98 12/12/16 07:59 Nasal Cannula 3.0 12/09/16 13:10 21 Intake and Output 12/11/16 12/11/16 12/12/16 15:00 23:00 07:00 Intake Total 700 ml Balance 700 ml Exam Constitutional: alert, oriented, well developed Respiratory: decreased air movement to the left lower lung. Cardiovascular: nl pulses, other (SR to PVC's ) Gastrointestinal: non-tender, soft Musculoskeletal: nl extremities to inspection Extremities: palpable pedal pulses Results Result Diagram: 12/11/16 0654 12/12/16 0733 Results 24 hrs Laboratory Tests Test 12/11/16 12:03 12/11/16 17:10 12/11/16 20:01 12/12/16 01:35 Bedside Glucose 256 H 97 186 197 Test 12/12/16 07:33 Sodium Level 136 Potassium Level 4.0 Chloride Level 98 Carbon Dioxide Level 30 Anion Gap 12 Blood Urea Nitrogen 12 Creatinine 0.59 L Glucose Level 239 H Calcium Level 8.7 Medications Medications Current Medications Ondansetron HCl (Zofran Inj) 4 mg Q6H PRN IV NAUSEA AND/OR VOMITING Last administered on 12/08/16 02:02; Admin Dose 4 MG; Start 12/05/16 at 05:00 Nitroglycerin (Nitroglycerin (Sl Tab) 0.4 Mg) 1 tab Q5M PRN SL CHEST PAIN; Start 12/05/16 at 05:00 Acetaminophen (Tylenol Tab) 650 mg Q6H PRN PO PAIN LEVEL 1-3 OR FEVER Last administered on 12/07/16 02:36; Admin Dose 650 MG; Start 12/05/16 at 05:00 Morphine Sulfate (morphine) 2 mg Q4H PRN IV PAIN LEVEL 7-10 Last administered on 12/08/16 05:55; Admin Dose 2 MG; Start 12/05/16 at 05:00 Aspirin (Halfprin) 81 mg DAILY PO Last administered on 12/12/16 08:27; Admin Dose 81 MG; Start 12/05/16 at 09:00 Atorvastatin Calcium (Lipitor) 80 mg HS PO Last administered on 12/11/16 20:05 ; Admin Dose 80 MG; Start 12/05/16 at 21:00 Carbamide Peroxide (Debrox Otic) 10 drop BID BOTH EARS Last administered on 08:29; Admin Dose 10 DROP; Start 12/05/16 at 09:00 Cholecalciferol (Vitamin D) 1,000 unit DAILY PO Last administered on 12/12/16 08:28; Admin Dose 1,000 UNIT; Start 12/05/16 at 09:00 Clopidogrel Bisulfate (plaVIX) 75 mg DAILY PO Last administered on 12/12/16 08 :28; Admin Dose 75 MG; Start 12/05/16 at 09:00 Fluoxetine HCl (Prozac) 10 mg DAILY PO Last administered on 12/12/16 08:28; Admin Dose 10 MG; Start 12/05/16 at 09:00 Metoprolol Succinate (Toprol Xl) 25 mg DAILY PO Last administered on 12/12/16 08:27; Admin Dose 25 MG; Start 12/05/16 at 09:00 Pantoprazole (Protonix Tab) 40 mg DAILY@06 PO Last administered on 12/12/16 05 :34; Admin Dose 40 MG; Start 12/05/16 at 06:00 Diagnostic Test (Pha) (Accu-Chek) 1 ea 02 XX Last administered on 12/08/16 02: 06; Admin Dose 1 EA; Start 12/07/16 at 02:00 Miscellaneous Information 1 ea NOTE XX ; Start 12/06/16 at 05:30 Glucose (Glutose) 15 gm Q15M PRN PO DECREASED GLUCOSE; Start 12/06/16 at 05:30 Glucose (Glutose) 22.5 gm Q15M PRN PO DECREASED GLUCOSE; Start 12/06/16 at 05: 30 Dextrose (D50w Syringe) 25 ml Q15M PRN IV DECREASED GLUCOSE; Start 12/06/16 at 05:30 Dextrose (D50w Syringe) 50 ml Q15M PRN IV DECREASED GLUCOSE; Start 12/06/16 at 05:30 Glucagon (Glucagen) 1 mg Q15M PRN IM DECREASED GLUCOSE; Start 12/06/16 at 05:30 Glucose 15 gm 15 gm Q15M PRN BUCCAL DECREASED GLUCOSE; Start 12/06/16 at 05:30 Levofloxacin/ Dextrose (Levaquin 500mg/ D5W 100 ml (Pmx)) 100 ml @ 100 mls/hr Q24H IVPB Last administered on 12/11/16 18:34; Admin Dose 100 MLS/HR; Start at 19:00 Linagliptin (Tradjenta) 5 mg DAILY PO Last administered on 12/12/16 08:28; Admin Dose 5 MG; Start 12/07/16 at 14:15 Spironolactone (Aldactone) 25 mg DAILY PO Last administered on 12/12/16 08:28 ; Admin Dose 25 MG; Start 12/07/16 at 19:30 Enoxaparin Sodium (Lovenox) 40 mg DAILY SC Last administered on 12/12/16 08:34 ; Admin Dose 40 MG; Start 12/08/16 at 09:00 Phenol (Cepastat Lozenge) 1 lozenge Q1H PRN MT SORE THROAT Last administered on 12/08/16 02:05; Admin Dose 1 LOZENGE; Start 12/07/16 at 20:00 Zolpidem Tartrate (Ambien) 5 mg HS PRN PO INSOMNIA Last administered on 20:05; Admin Dose 5 MG; Start 12/08/16 at 21:00 Valsartan (Diovan) 40 mg DAILY PO Last administered on 12/12/16 08:28; Admin Dose 40 MG; Start 12/11/16 at 09:00 Digoxin (Digoxin) 0.125 mg DAILY@13 PO Last administered on 12/11/16 12:13; Admin Dose 0.125 MG; Start 12/11/16 at 13:00 Stephy Larson MD Exam/Review of Systems Vital Signs Vitals Vital Signs Date Time Temp Pulse Resp B/P Pulse Ox O2 Delivery O2 Flow Rate FiO2 12/12/16 20:11 96 12/12/16 19:50 98.5 19 107/70 97 12/12/16 19:21 Nasal Cannula 2.0 12/12/16 15:03 21 Intake and Output 12/11/16 12/11/16 12/12/16 15:00 23:00 07:00 Intake Total 700 ml Balance 700 ml Results Result Diagram: 12/11/16 0654 12/12/16 0733 Results 24 hrs Laboratory Tests Test 12/12/16 01:35 12/12/16 07:33 12/12/16 11:44 12/12/16 16:57 Bedside Glucose 197 160 125 Sodium Level 136 Potassium Level 4.0 Chloride Level 98 Carbon Dioxide Level 30 Anion Gap 12 Blood Urea Nitrogen 12 Creatinine 0.59 L Glucose Level 239 H Calcium Level 8.7 Test 12/12/16 20:19 Bedside Glucose 176 Medications Medications Current Medications Ondansetron HCl (Zofran Inj) 4 mg Q6H PRN IV NAUSEA AND/OR VOMITING Last administered on 12/08/16 02:02; Admin Dose 4 MG; Start 12/05/16 at 05:00 Nitroglycerin (Nitroglycerin (Sl Tab) 0.4 Mg) 1 tab Q5M PRN SL CHEST PAIN; Start 12/05/16 at 05:00 Acetaminophen (Tylenol Tab) 650 mg Q6H PRN PO PAIN LEVEL 1-3 OR FEVER Last administered on 12/07/16 02:36; Admin Dose 650 MG; Start 12/05/16 at 05:00 Morphine Sulfate (morphine) 2 mg Q4H PRN IV PAIN LEVEL 7-10 Last administered on 12/08/16 05:55; Admin Dose 2 MG; Start 12/05/16 at 05:00 Aspirin (Halfprin) 81 mg DAILY PO Last administered on 12/12/16 08:27; Admin Dose 81 MG; Start 12/05/16 at 09:00 Atorvastatin Calcium (Lipitor) 80 mg HS PO Last administered on 12/12/16 20:20 ; Admin Dose 80 MG; Start 12/05/16 at 21:00 Carbamide Peroxide (Debrox Otic) 10 drop BID BOTH EARS Last administered on 08:29; Admin Dose 10 DROP; Start 12/05/16 at 09:00 Cholecalciferol (Vitamin D) 1,000 unit DAILY PO Last administered on 12/12/16 08:28; Admin Dose 1,000 UNIT; Start 12/05/16 at 09:00 Clopidogrel Bisulfate (plaVIX) 75 mg DAILY PO Last administered on 12/12/16 08 :28; Admin Dose 75 MG; Start 12/05/16 at 09:00 Fluoxetine HCl (Prozac) 10 mg DAILY PO Last administered on 12/12/16 08:28; Admin Dose 10 MG; Start 12/05/16 at 09:00 Metoprolol Succinate (Toprol Xl) 25 mg DAILY PO Last administered on 12/12/16 08:27; Admin Dose 25 MG; Start 12/05/16 at 09:00 Pantoprazole (Protonix Tab) 40 mg DAILY@06 PO Last administered on 12/12/16 05 :34; Admin Dose 40 MG; Start 12/05/16 at 06:00 Diagnostic Test (Pha) (Accu-Chek) 1 ea 02 XX Last administered on 12/08/16 02: 06; Admin Dose 1 EA; Start 12/07/16 at 02:00 Miscellaneous Information 1 ea NOTE XX ; Start 12/06/16 at 05:30 Glucose (Glutose) 15 gm Q15M PRN PO DECREASED GLUCOSE; Start 12/06/16 at 05:30 Glucose (Glutose) 22.5 gm Q15M PRN PO DECREASED GLUCOSE; Start 12/06/16 at 05: 30 Dextrose (D50w Syringe) 25 ml Q15M PRN IV DECREASED GLUCOSE; Start 12/06/16 at 05:30 Dextrose (D50w Syringe) 50 ml Q15M PRN IV DECREASED GLUCOSE; Start 12/06/16 at 05:30 Glucagon (Glucagen) 1 mg Q15M PRN IM DECREASED GLUCOSE; Start 12/06/16 at 05:30 Glucose 15 gm 15 gm Q15M PRN BUCCAL DECREASED GLUCOSE; Start 12/06/16 at 05:30 Levofloxacin/ Dextrose (Levaquin 500mg/ D5W 100 ml (Pmx)) 100 ml @ 100 mls/hr Q24H IVPB Last administered on 12/12/16 18:03; Admin Dose 100 MLS/HR; Start at 19:00 Linagliptin (Tradjenta) 5 mg DAILY PO Last administered on 12/12/16 08:28; Admin Dose 5 MG; Start 12/07/16 at 14:15 Spironolactone (Aldactone) 25 mg DAILY PO Last administered on 12/12/16 08:28 ; Admin Dose 25 MG; Start 12/07/16 at 19:30 Enoxaparin Sodium (Lovenox) 40 mg DAILY SC Last administered on 12/12/16 08:34 ; Admin Dose 40 MG; Start 12/08/16 at 09:00 Phenol (Cepastat Lozenge) 1 lozenge Q1H PRN MT SORE THROAT Last administered on 12/08/16 02:05; Admin Dose 1 LOZENGE; Start 12/07/16 at 20:00 Zolpidem Tartrate (Ambien) 5 mg HS PRN PO INSOMNIA Last administered on 20:05; Admin Dose 5 MG; Start 12/08/16 at 21:00 Valsartan (Diovan) 40 mg DAILY PO Last administered on 12/12/16 08:28; Admin Dose 40 MG; Start 12/11/16 at 09:00 Digoxin (Digoxin) 0.125 mg DAILY@13 PO Last administered on 12/12/16 13:16; Admin Dose 0.125 MG; Start 12/11/16 at 13:00 Insulin Glargine (Lantus) 27 unit DAILY@08 SC ; Start 12/13/16 at 08:00 STEPHY LARSON MD Dec 12, 2016 22:13
[2016-12-13] VITALS (12 sets, daily range): BP systolic 91–105; BP diastolic 55–73; PULSE 81–93; RESP 16–19
[2016-12-13] MEDS: ACCU-CHEK XX SCH (02:00)
[2016-12-13] MEDS: FUROSEMIDE 20 MG INJ IV SCH ×2 (05:28→17:37)
[2016-12-13] MEDS: PANTOPRAZOLE (EC) 40 MG TAB PO SCH (05:31)
[2016-12-13 08:09] LABS: BASOPHIL # 0.1 10^3/ul (0.0-0.1); BASOPHILS % 0.8 % (0.0-2.0); EOSINOPHILS # 0.1 10^3/ul (0.0-0.5); EOSINOPHILS % 1.8 % (0.0-7.0); HEMATOCRIT 37.1 % (42.0-52.0); HEMOGLOBIN 12.8 g/dl (14.0-18.0); LYMPHOCYTES # 2.2 10^3/ul (0.8-2.9); MEAN CORPUSCULAR HEMOGLOBIN 30.9 pg (29.0-33.0); MEAN CORPUSCULAR HGB CONC 34.5 g/dl (32.0-37.0); MEAN CORPUSCULAR VOLUME 89.6 fl (82.0-101.0); MEAN PLATELET VOLUME 9.5 fl (7.4-10.4); MONOCYTES % 12.6 % (0.0-11.0); NEUTROPHIL # 4.4 10^3/ul (1.6-7.5); NEUTROPHILS % 55.1 % (39.0-77.0); PLATELET COUNT 414 10^3/UL (140-415); RED BLOOD COUNT 4.14 10^6/ul (4.70-6.10); RED CELL DISTRIBUTION WIDTH 12.6 % (11.5-14.5); WHITE BLOOD COUNT 7.9 10^3/ul (4.8-10.8)
[2016-12-13] MEDS: ALBUTEROL/IPRATROPIUM (NEB) 3 ML AMP HHN SCH ×3 (08:18→19:31)
[2016-12-13 08:29] LABS: CALCIUM 8.5 mg/dl (8.4-10.2); CREATININE 0.66 mg/dl (0.61-1.24); POTASSIUM 3.6 mmol/L (3.5-5.1)
[2016-12-13] MEDS: FLUOXETINE 10 MG CAP PO SCH (09:33)
[2016-12-13] MEDS: ASPIRIN (EC) 81 MG TAB PO SCH (09:33)
[2016-12-13] MEDS: SPIRONOLACTONE 25 MG TAB PO SCH (09:33)
[2016-12-13] MEDS: CLOPIDOGREL 75 MG TAB PO SCH (09:33)
[2016-12-13] MEDS: glipiZIDE 10 MG TAB PO SCH (09:33)
[2016-12-13] MEDS: metFORMIN 500 MG TAB PO SCH ×2 (09:33→17:37)
[2016-12-13] MEDS: LINAGLIPTIN 5 MG TABLET PO SCH (09:34)
[2016-12-13] MEDS: VALSARTAN 80 MG TAB PO SCH (09:35)
[2016-12-13] MEDS: METOPROLOL (XL) 25 MG TAB PO SCH (09:35)
[2016-12-13] MEDS: CHOLECALCIFEROL 1,000 UNIT TAB PO SCH (09:35)
[2016-12-13] MEDS: ENOXAPARIN 40 MG/0.4 ML SYG SC SCH (09:36)
[2016-12-13] MEDS: INSULIN ASPART [NOVOLOG] 3 ML PEN SC SCH ×8 (09:37→20:48)
[2016-12-13] MEDS: INSULIN GLARGINE [LANtus] 3 ML PEN SC SCH (09:39)
[2016-12-13] MEDS: CARBAMIDE PEROXIDE 6.5% 15ML OTIC BOTH EARS SCH ×2 (09:42→20:44)
--- NOTE | 2016-12-13 11:01 | PN ---
Date/Time of Note Date/Time of Note DATE: 12/13/16 TIME: 10:59 Assessment/Plan VTE Prophylaxis VTE Prophylaxis Intervention: SCD's Lines/Catheters IV [facility]ter Type (from [facility]): Saline Lock Urinary Cath still in place: No Assessment/Plan Assessment/Plan - CAP, continue Levaquin. Dr. Barr is asked to see patient in infection disease consultation. - NSTEMI. S/p stress test today. Continue aspirin and Plavix. Dr. Ferro is following in cardiology consultation. - History of CAD with multiple stents - Hypertension. - Ischemic cardiomyopathy ejection fraction of 30% - Dyslipidemia, continue statin - Diabetes mellitus with hemoglobin A1c is 8.8. - Continue Lantus and pre-meal NovoLog. - change LANTUS - Tobacco use. Cessation is strongly advised. - Medical noncompliance. Further recommendations based on clinical course. Plan of care discussed with Dr. Waggoner. Subjective 24 Hr Interval Summary Respiratory: no complaints Cardiovascular: no complaints Gastrointestinal: no complaints Genitourinary: no complaints Musculoskeletal: no complaints Exam/Review of Systems Vital Signs Vitals Vital Signs Date Time Temp Pulse Resp B/P Pulse Ox O2 Delivery O2 Flow Rate FiO2 12/13/16 08:22 87 16 95 Nasal Cannula 2.0 12/13/16 07:50 97.8 100/65 12/12/16 15:03 21 Intake and Output 12/12/16 12/12/16 12/13/16 15:00 23:00 07:00 Intake Total 1000 ml 800 ml Balance 1000 ml 800 ml Exam Constitutional: alert, oriented, well developed Respiratory: clear to auscultation, normal air movement Cardiovascular: nl pulses, regular rate and rhythm Gastrointestinal: non-tender, soft Musculoskeletal: nl extremities to inspection Extremities: normal pulses Neurological: nl mental status, nl speech Results Result Diagram: 12/13/16 0656 12/13/16 0656 Results 24 hrs Laboratory Tests Test 12/12/16 11:44 12/12/16 16:57 12/12/16 20:19 12/13/16 02:26 Bedside Glucose 160 125 176 182 Test 12/13/16 06:56 12/13/16 08:50 White Blood Count 7.9 Red Blood Count 4.14 L Hemoglobin 12.8 L Hematocrit 37.1 L Mean Corpuscular Volume 89.6 Mean Corpuscular Hemoglobin 30.9 Mean Corpuscular Hemoglobin Concent 34.5 Red Cell Distribution Width 12.6 Platelet Count 414 Mean Platelet Volume 9.5 Neutrophils % 55.1 Lymphocytes % 28.0 Monocytes % 12.6 H Eosinophils % 1.8 Basophils % 0.8 Nucleated Red Blood Cells % 0.0 Neutrophils # 4.4 Lymphocytes # 2.2 Monocytes # 1.0 H Eosinophils # 0.1 Basophils # 0.1 Nucleated Red Blood Cells # 0.0 Sodium Level 139 Potassium Level 3.6 Chloride Level 98 Carbon Dioxide Level 34 H Anion Gap 11 Blood Urea Nitrogen 11 Creatinine 0.66 Glucose Level 174 Calcium Level 8.5 Bedside Glucose 235 H Medications Medications Current Medications Ondansetron HCl (Zofran Inj) 4 mg Q6H PRN IV NAUSEA AND/OR VOMITING Last administered on 12/08/16 02:02; Admin Dose 4 MG; Start 12/05/16 at 05:00 Nitroglycerin (Nitroglycerin (Sl Tab) 0.4 Mg) 1 tab Q5M PRN SL CHEST PAIN; Start 12/05/16 at 05:00 Acetaminophen (Tylenol Tab) 650 mg Q6H PRN PO PAIN LEVEL 1-3 OR FEVER Last administered on 12/07/16 02:36; Admin Dose 650 MG; Start 12/05/16 at 05:00 Morphine Sulfate (morphine) 2 mg Q4H PRN IV PAIN LEVEL 7-10 Last administered on 12/08/16 05:55; Admin Dose 2 MG; Start 12/05/16 at 05:00 Aspirin (Halfprin) 81 mg DAILY PO Last administered on 12/13/16 09:33; Admin Dose 81 MG; Start 12/05/16 at 09:00 Atorvastatin Calcium (Lipitor) 80 mg HS PO Last administered on 12/12/16 20:20 ; Admin Dose 80 MG; Start 12/05/16 at 21:00 Carbamide Peroxide (Debrox Otic) 10 drop BID BOTH EARS Last administered on 09:42; Admin Dose 10 DROP; Start 12/05/16 at 09:00 Cholecalciferol (Vitamin D) 1,000 unit DAILY PO Last administered on 12/13/16 09:35; Admin Dose 1,000 UNIT; Start 12/05/16 at 09:00 Clopidogrel Bisulfate (plaVIX) 75 mg DAILY PO Last administered on 12/13/16 09 :33; Admin Dose 75 MG; Start 12/05/16 at 09:00 Fluoxetine HCl (Prozac) 10 mg DAILY PO Last administered on 12/13/16 09:33; Admin Dose 10 MG; Start 12/05/16 at 09:00 Metoprolol Succinate (Toprol Xl) 25 mg DAILY PO Last administered on 12/13/16 09:35; Admin Dose 25 MG; Start 12/05/16 at 09:00 Pantoprazole (Protonix Tab) 40 mg DAILY@06 PO Last administered on 12/13/16 05 :31; Admin Dose 40 MG; Start 12/05/16 at 06:00 Diagnostic Test (Pha) (Accu-Chek) 1 ea 02 XX Last administered on 12/08/16 02: 06; Admin Dose 1 EA; Start 12/07/16 at 02:00 Miscellaneous Information 1 ea NOTE XX ; Start 12/06/16 at 05:30 Glucose (Glutose) 15 gm Q15M PRN PO DECREASED GLUCOSE; Start 12/06/16 at 05:30 Glucose (Glutose) 22.5 gm Q15M PRN PO DECREASED GLUCOSE; Start 12/06/16 at 05: 30 Dextrose (D50w Syringe) 25 ml Q15M PRN IV DECREASED GLUCOSE; Start 12/06/16 at 05:30 Dextrose (D50w Syringe) 50 ml Q15M PRN IV DECREASED GLUCOSE; Start 12/06/16 at 05:30 Glucagon (Glucagen) 1 mg Q15M PRN IM DECREASED GLUCOSE; Start 12/06/16 at 05:30 Glucose 15 gm 15 gm Q15M PRN BUCCAL DECREASED GLUCOSE; Start 12/06/16 at 05:30 Levofloxacin/ Dextrose (Levaquin 500mg/ D5W 100 ml (Pmx)) 100 ml @ 100 mls/hr Q24H IVPB Last administered on 12/12/16 18:03; Admin Dose 100 MLS/HR; Start at 19:00 Linagliptin (Tradjenta) 5 mg DAILY PO Last administered on 12/13/16 09:34; Admin Dose 5 MG; Start 12/07/16 at 14:15 Spironolactone (Aldactone) 25 mg DAILY PO Last administered on 12/13/16 09:33 ; Admin Dose 25 MG; Start 12/07/16 at 19:30 Enoxaparin Sodium (Lovenox) 40 mg DAILY SC Last administered on 12/13/16 09:36 ; Admin Dose 40 MG; Start 12/08/16 at 09:00 Phenol (Cepastat Lozenge) 1 lozenge Q1H PRN MT SORE THROAT Last administered on 12/08/16 02:05; Admin Dose 1 LOZENGE; Start 12/07/16 at 20:00 Zolpidem Tartrate (Ambien) 5 mg HS PRN PO INSOMNIA Last administered on 20:05; Admin Dose 5 MG; Start 12/08/16 at 21:00 Valsartan (Diovan) 40 mg DAILY PO Last administered on 12/13/16 09:35; Admin Dose 40 MG; Start 12/11/16 at 09:00 Digoxin (Digoxin) 0.125 mg DAILY@13 PO Last administered on 12/12/16 13:16; Admin Dose 0.125 MG; Start 12/11/16 at 13:00 Insulin Glargine (Lantus) 27 unit DAILY@08 SC Last administered on 12/13/16 09 :39; Admin Dose 27 UNIT; Start 12/13/16 at 08:00 ILENE JIMENEZ Dec 13, 2016 11:01
[2016-12-13] MEDS: DIGOXIN 0.125 MG TAB PO SCH (13:25)
--- NOTE | 2016-12-13 16:05 | CONS ---
Date/Time of Note Date/Time of Note DATE: 12/13/16 TIME: 16:03 Assessment/Plan Assessment/Plan Chief Complaint/Hosp Course Assessment/Plan Chief Complaint/Hosp Course Alert. Awake. No Acute Distress. Antimicrobials: patient is on Levaquin Physical examination: well-developed well-nourished middle-aged [place] man who is awake in no distress head atraumatic normocephalic sclerae nonicteric vehicle mucosa pink neck is supple chest rise symmetrical breath sounds clear. S1-S2 abdomen soft bowel sounds present extremities without cyanosis Assessment #1 community-acquired pneumonia #2 ischemic cardiomyopathy with ejection fraction of 25-30% #3 diabetes #4 history of cardiac stents Plan: Remains stable, ok dc home on oral Levaquin for 7 days Problems: Consultation Date/Type/Reason Admit Date/Time Dec 05, 2016 at 03:57 Initial Consult Date Type of Consultation: ID Referring Provider: IMELDA JOHNSON MD Exam/Review of Systems Vital Signs Vitals Vital Signs Date Time Temp Pulse Resp B/P Pulse Ox O2 Delivery O2 Flow Rate FiO2 12/13/16 15:28 95 2.0 12/13/16 15:28 94 20 Nasal Cannula 12/13/16 15:21 98.3 105/73 12/12/16 15:03 21 Intake and Output 12/12/16 12/12/16 12/13/16 15:00 23:00 07:00 Intake Total 1000 ml 800 ml Balance 1000 ml 800 ml Results Result Diagram: 12/13/16 0656 12/13/16 0656 Results 24 hrs Laboratory Tests Test 12/12/16 16:57 12/12/16 20:19 12/13/16 02:26 12/13/16 06:56 Bedside Glucose 125 176 182 White Blood Count 7.9 Red Blood Count 4.14 L Hemoglobin 12.8 L Hematocrit 37.1 L Mean Corpuscular Volume 89.6 Mean Corpuscular Hemoglobin 30.9 Mean Corpuscular Hemoglobin Concent 34.5 Red Cell Distribution Width 12.6 Platelet Count 414 Mean Platelet Volume 9.5 Neutrophils % 55.1 Lymphocytes % 28.0 Monocytes % 12.6 H Eosinophils % 1.8 Basophils % 0.8 Nucleated Red Blood Cells % 0.0 Neutrophils # 4.4 Lymphocytes # 2.2 Monocytes # 1.0 H Eosinophils # 0.1 Basophils # 0.1 Nucleated Red Blood Cells # 0.0 Sodium Level 139 Potassium Level 3.6 Chloride Level 98 Carbon Dioxide Level 34 H Anion Gap 11 Blood Urea Nitrogen 11 Creatinine 0.66 Glucose Level 174 Calcium Level 8.5 Test 12/13/16 08:50 12/13/16 12:43 Bedside Glucose 235 H 217 Medications Medications Current Medications Ondansetron HCl (Zofran Inj) 4 mg Q6H PRN IV NAUSEA AND/OR VOMITING Last administered on 12/08/16 02:02; Admin Dose 4 MG; Start 12/05/16 at 05:00 Nitroglycerin (Nitroglycerin (Sl Tab) 0.4 Mg) 1 tab Q5M PRN SL CHEST PAIN; Start 12/05/16 at 05:00 Acetaminophen (Tylenol Tab) 650 mg Q6H PRN PO PAIN LEVEL 1-3 OR FEVER Last administered on 12/07/16 02:36; Admin Dose 650 MG; Start 12/05/16 at 05:00 Morphine Sulfate (morphine) 2 mg Q4H PRN IV PAIN LEVEL 7-10 Last administered on 12/08/16 05:55; Admin Dose 2 MG; Start 12/05/16 at 05:00 Aspirin (Halfprin) 81 mg DAILY PO Last administered on 12/13/16 09:33; Admin Dose 81 MG; Start 12/05/16 at 09:00 Atorvastatin Calcium (Lipitor) 80 mg HS PO Last administered on 12/12/16 20:20 ; Admin Dose 80 MG; Start 12/05/16 at 21:00 Carbamide Peroxide (Debrox Otic) 10 drop BID BOTH EARS Last administered on 09:42; Admin Dose 10 DROP; Start 12/05/16 at 09:00 Cholecalciferol (Vitamin D) 1,000 unit DAILY PO Last administered on 12/13/16 09:35; Admin Dose 1,000 UNIT; Start 12/05/16 at 09:00 Clopidogrel Bisulfate (plaVIX) 75 mg DAILY PO Last administered on 12/13/16 09 :33; Admin Dose 75 MG; Start 12/05/16 at 09:00 Fluoxetine HCl (Prozac) 10 mg DAILY PO Last administered on 12/13/16 09:33; Admin Dose 10 MG; Start 12/05/16 at 09:00 Metoprolol Succinate (Toprol Xl) 25 mg DAILY PO Last administered on 12/13/16 09:35; Admin Dose 25 MG; Start 12/05/16 at 09:00 Pantoprazole (Protonix Tab) 40 mg DAILY@06 PO Last administered on 12/13/16 05 :31; Admin Dose 40 MG; Start 12/05/16 at 06:00 Diagnostic Test (Pha) (Accu-Chek) 1 ea 02 XX Last administered on 12/08/16 02: 06; Admin Dose 1 EA; Start 12/07/16 at 02:00 Miscellaneous Information 1 ea NOTE XX ; Start 12/06/16 at 05:30 Glucose (Glutose) 15 gm Q15M PRN PO DECREASED GLUCOSE; Start 12/06/16 at 05:30 Glucose (Glutose) 22.5 gm Q15M PRN PO DECREASED GLUCOSE; Start 12/06/16 at 05: 30 Dextrose (D50w Syringe) 25 ml Q15M PRN IV DECREASED GLUCOSE; Start 12/06/16 at 05:30 Dextrose (D50w Syringe) 50 ml Q15M PRN IV DECREASED GLUCOSE; Start 12/06/16 at 05:30 Glucagon (Glucagen) 1 mg Q15M PRN IM DECREASED GLUCOSE; Start 12/06/16 at 05:30 Glucose 15 gm 15 gm Q15M PRN BUCCAL DECREASED GLUCOSE; Start 12/06/16 at 05:30 Levofloxacin/ Dextrose (Levaquin 500mg/ D5W 100 ml (Pmx)) 100 ml @ 100 mls/hr Q24H IVPB Last administered on 12/12/16 18:03; Admin Dose 100 MLS/HR; Start at 19:00 Linagliptin (Tradjenta) 5 mg DAILY PO Last administered on 12/13/16 09:34; Admin Dose 5 MG; Start 12/07/16 at 14:15 Spironolactone (Aldactone) 25 mg DAILY PO Last administered on 12/13/16 09:33 ; Admin Dose 25 MG; Start 12/07/16 at 19:30 Enoxaparin Sodium (Lovenox) 40 mg DAILY SC Last administered on 12/13/16 09:36 ; Admin Dose 40 MG; Start 12/08/16 at 09:00 Phenol (Cepastat Lozenge) 1 lozenge Q1H PRN MT SORBurak THROAT Last administered on 12/08/16 02:05; Admin Dose 1 LOZENGE; Start 12/07/16 at 20:00 Zolpidem Tartrate (Ambien) 5 mg HS PRN PO INSOMNIA Last administered on 20:05; Admin Dose 5 MG; Start 12/08/16 at 21:00 Valsartan (Diovan) 40 mg DAILY PO Last administered on 12/13/16 09:35; Admin Dose 40 MG; Start 12/11/16 at 09:00 Digoxin (Digoxin) 0.125 mg DAILY@13 PO Last administered on 12/13/16 13:25; Admin Dose 0.125 MG; Start 12/11/16 at 13:00 Insulin Glargine (Lantus) 27 unit DAILY@08 SC Last administered on 12/13/16 09 :39; Admin Dose 27 UNIT; Start 12/13/16 at 08:00 GENESIS JOE NP Dec 13, 2016 16:05
--- NOTE | 2016-12-13 17:16 | PN ---
Date/Time of Note Date/Time of Note DATE: 12/13/16 TIME: 16:46 Assessment/Plan VTE Prophylaxis VTE Prophylaxis Intervention: LMWH Lines/Catheters IV Catheter Type (from [facility]): [place] Urinary Cath still in place: No Subjective 24 Hr Interval Summary Free Text/Dictation Date/Time of Note Date/Time of Note DATE: 12/13/16 TIME: 16:03 Assessment/Plan VTE Prophylaxis VTE Prophylaxis Intervention: LMWH (lovenox) Lines/Catheters IV Catheter Type (from [facility]): Sal[place] Urinary Cath still in place: No Subjective 24 Hr Interval Summary Assessment/Plan VTE Prophylaxis VTE Prophylaxis Intervention: LMWH Lines/Catheters IV Catheter Type (from [facility]): Saline Lock Urinary Cath still in place: No Assessment/Plan Assessment/Plan NO shortness of breath at this time (at rest), has chronic dyspnea with exertion , comfortable at rest, denies chest pain. Patient condition and treatment discussed with patient. Assessment/Plan - CAP, continue Levaquin. Dr. Barr is asked to see patient in infection disease consultation. - NSTEMI. S/p pharmacologic nuclear stress test 12/12/2016. Continue aspirin and Plavix. - History of CAD with multiple stents - Hypertension. - Ischemic cardiomyopathy ejection fraction of 20 to 30%, depending of the imaging modality. - Dyslipidemia, continue statin - Diabetes mellitus with hemoglobin A1c is 8.8. - Continue Lantus and pre-meal NovoLog. - change LANTUS - Tobacco use. Cessation is strongly advised. - Medical noncompliance. Continue cardiac medications as recommended Subjective 24 Hr Interval Summary Respiratory: no complaints Cardiovascular: no complaints Gastrointestinal: no complaints Musculoskeletal: no complaints Neurologic: no complaints Exam/Review of Systems Vital Signs Last Vital Signs: Temp: 98.3 ; BP: 105/73 mmHg ; P: 84, regular ; RR: 16-18/min. ; SaO2: 97% Vital Signs Date Time Temp Pulse Resp B/P Pulse Ox O2 Delivery O2 Flow Rate FiO2 12/12/16 08:06 86 12/12/16 08:05 98.3 17 105/69 98 12/12/16 07:59 Nasal Cannula 3.0 12/09/16 13:10 21 Intake and Output 12/11/16 12/11/16 12/12/16 15:00 23:00 07:00 Intake Total 700 ml Balance 700 ml Exam Constitutional: alert, oriented, well developed Respiratory: decreased air movement to the left lower lung. Cardiovascular: normal pulses, other (SR to PVC's ) Gastrointestinal: non-tender, soft Musculoskeletal: normal extremities to inspection Extremities: palpable pedal pulses Results Result Diagram: 12/11/16 0654 12/12/16 0733 Results 48 hrs Laboratory Tests Test 12/11/16 12:03 12/11/16 17:10 12/11/16 20:01 12/12/16 01:35 Bedside Glucose 256 H 97 186 197 Test 12/12/16 07:33 Sodium Level 136 Potassium Level 4.0 Chloride Level 98 Carbon Dioxide Level 30 Anion Gap 12 Blood Urea Nitrogen 12 Creatinine 0.59 L Glucose Level 239 H Calcium Level 8.7 Medications Medications Current Medications Ondansetron HCl (Zofran Inj) 4 mg Q6H PRN IV NAUSEA AND/OR VOMITING Last administered on 12/08/16 02:02; Admin Dose 4 MG; Start 12/05/16 at 05:00 Nitroglycerin (Nitroglycerin (Sl Tab) 0.4 Mg) 1 tab Q5M PRN SL CHEST PAIN; Start 12/05/16 at 05:00 Acetaminophen (Tylenol Tab) 650 mg Q6H PRN PO PAIN LEVEL 1-3 OR FEVER Last administered on 12/07/16 02:36; Admin Dose 650 MG; Start 12/05/16 at 05:00 Morphine Sulfate (morphine) 2 mg Q4H PRN IV PAIN LEVEL 7-10 Last administered on 12/08/16 05:55; Admin Dose 2 MG; Start 12/05/16 at 05:00 Aspirin (Halfprin) 81 mg DAILY PO Last administered on 12/12/16 08:27; Admin Dose 81 MG; Start 12/05/16 at 09:00 Atorvastatin Calcium (Lipitor) 80 mg HS PO Last administered on 12/11/16 20:05 ; Admin Dose 80 MG; Start 12/05/16 at 21:00 Carbamide Peroxide (Debrox Otic) 10 drop BID BOTH EARS Last administered on 08:29; Admin Dose 10 DROP; Start 12/05/16 at 09:00 Cholecalciferol (Vitamin D) 1,000 unit DAILY PO Last administered on 12/12/16 08:28; Admin Dose 1,000 UNIT; Start 12/05/16 at 09:00 Clopidogrel Bisulfate (plaVIX) 75 mg DAILY PO Last administered on 12/12/16 08 :28; Admin Dose 75 MG; Start 12/05/16 at 09:00 Fluoxetine HCl (Prozac) 10 mg DAILY PO Last administered on 12/12/16 08:28; Admin Dose 10 MG; Start 12/05/16 at 09:00 Metoprolol Succinate (Toprol Xl) 25 mg DAILY PO Last administered on 12/12/16 08:27; Admin Dose 25 MG; Start 12/05/16 at 09:00 Pantoprazole (Protonix Tab) 40 mg DAILY@06 PO Last administered on 12/12/16 05 :34; Admin Dose 40 MG; Start 12/05/16 at 06:00 Diagnostic Test (Pha) (Accu-Chek) 1 ea 02 XX Last administered on 12/08/16 02: 06; Admin Dose 1 EA; Start 12/07/16 at 02:00 Miscellaneous Information 1 ea NOTE XX ; Start 12/06/16 at 05:30 Glucose (Glutose) 15 gm Q15M PRN PO DECREASED GLUCOSE; Start 12/06/16 at 05:30 Glucose (Glutose) 22.5 gm Q15M PRN PO DECREASED GLUCOSE; Start 12/06/16 at 05: 30 Dextrose (D50w Syringe) 25 ml Q15M PRN IV DECREASED GLUCOSE; Start 12/06/16 at 05:30 Dextrose (D50w Syringe) 50 ml Q15M PRN IV DECREASED GLUCOSE; Start 12/06/16 at 05:30 Glucagon (Glucagen) 1 mg Q15M PRN IM DECREASED GLUCOSE; Start 12/06/16 at 05:30 Glucose 15 gm 15 gm Q15M PRN BUCCAL DECREASED GLUCOSE; Start 12/06/16 at 05:30 Levofloxacin/ Dextrose (Levaquin 500mg/ D5W 100 ml (Pmx)) 100 ml @ 100 mls/hr Q24H IVPB Last administered on 12/11/16 18:34; Admin Dose 100 MLS/HR; Start at 19:00 Linagliptin (Tradjenta) 5 mg DAILY PO Last administered on 12/12/16 08:28; Admin Dose 5 MG; Start 12/07/16 at 14:15 Spironolactone (Aldactone) 25 mg DAILY PO Last administered on 12/12/16 08:28 ; Admin Dose 25 MG; Start 12/07/16 at 19:30 Enoxaparin Sodium (Lovenox) 40 mg DAILY SC Last administered on 12/12/16 08:34 ; Admin Dose 40 MG; Start 12/08/16 at 09:00 Phenol (Cepastat Lozenge) 1 lozenge Q1H PRN MT SORE THROAT Last administered on 12/08/16 02:05; Admin Dose 1 LOZENGE; Start 12/07/16 at 20:00 Zolpidem Tartrate (Ambien) 5 mg HS PRN PO INSOMNIA Last administered on 20:05; Admin Dose 5 MG; Start 12/08/16 at 21:00 Valsartan (Diovan) 40 mg DAILY PO Last administered on 12/12/16 08:28; Admin Dose 40 MG; Start 12/11/16 at 09:00 Digoxin (Digoxin) 0.125 mg DAILY@13 PO Last administered on 12/11/16 12:13; Admin Dose 0.125 MG; Start 12/11/16 at 13:00 Stephy Larson MD Exam/Review of Systems Vital Signs Vitals Vital Signs Date Time Temp Pulse Resp B/P Pulse Ox O2 Delivery O2 Flow Rate FiO2 12/12/16 20:11 96 12/12/16 19:50 98.5 19 107/70 97 12/12/16 19:21 Nasal Cannula 2.0 12/12/16 15:03 21 Intake and Output 12/11/16 12/11/16 12/12/16 15:00 23:00 07:00 Intake Total 700 ml Balance 700 ml Results Result Diagram: 12/11/16 0654 12/12/16 0733 Results 24 hrs Laboratory Tests Echocardiogram: Dilated LV and LA; markedly decreased LV systolic function, LVEF < 30% ; Moderate MR. Lexiscan nuclear stress test: Negative for ischemia; LVEF < 25% ; Large, confluent anteroapical and inferior scar. Current patient's condition: stable and asymptomatic. 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 I recommend discharge home with meds and instructions including smoking cessation. Test 12/12/16 01:35 12/12/16 07:33 12/12/16 11:44 12/12/16 16:57 Bedside Glucose 197 160 125 Sodium Level 136 Potassium Level 4.0 Chloride Level 98 Carbon Dioxide Level 30 Anion Gap 12 Blood Urea Nitrogen 12 Creatinine 0.59 L Glucose Level 239 H Calcium Level 8.7 Test 12/12/16 20:19 Bedside Glucose 176 Medications Medications Current Medications Ondansetron HCl (Zofran Inj) 4 mg Q6H PRN IV NAUSEA AND/OR VOMITING Last administered on 12/08/16 02:02; Admin Dose 4 MG; Start 12/05/16 at 05:00 Nitroglycerin (Nitroglycerin (Sl Tab) 0.4 Mg) 1 tab Q5M PRN SL CHEST PAIN; Start 12/05/16 at 05:00 Acetaminophen (Tylenol Tab) 650 mg Q6H PRN PO PAIN LEVEL 1-3 OR FEVER Last administered on 12/07/16 02:36; Admin Dose 650 MG; Start 12/05/16 at 05:00 Morphine Sulfate (morphine) 2 mg Q4H PRN IV PAIN LEVEL 7-10 Last administered on 12/08/16 05:55; Admin Dose 2 MG; Start 12/05/16 at 05:00 Aspirin (Halfprin) 81 mg DAILY PO Last administered on 12/12/16 08:27; Admin Dose 81 MG; Start 12/05/16 at 09:00 Atorvastatin Calcium (Lipitor) 80 mg HS PO Last administered on 12/12/16 20:20 ; Admin Dose 80 MG; Start 12/05/16 at 21:00 Carbamide Peroxide (Debrox Otic) 10 drop BID BOTH EARS Last administered on 08:29; Admin Dose 10 DROP; Start 12/05/16 at 09:00 Cholecalciferol (Vitamin D) 1,000 unit DAILY PO Last administered on 12/12/16 08:28; Admin Dose 1,000 UNIT; Start 12/05/16 at 09:00 Clopidogrel Bisulfate (plaVIX) 75 mg DAILY PO Last administered on 12/12/16 08 :28; Admin Dose 75 MG; Start 12/05/16 at 09:00 Fluoxetine HCl (Prozac) 10 mg DAILY PO Last administered on 12/12/16 08:28; Admin Dose 10 MG; Start 12/05/16 at 09:00 Metoprolol Succinate (Toprol Xl) 25 mg DAILY PO Last administered on 12/12/16 08:27; Admin Dose 25 MG; Start 12/05/16 at 09:00 Pantoprazole (Protonix Tab) 40 mg DAILY@06 PO Last administered on 12/12/16 05 :34; Admin Dose 40 MG; Start 12/05/16 at 06:00 Diagnostic Test (Pha) (Accu-Chek) 1 ea 02 XX Last administered on 12/08/16 02: 06; Admin Dose 1 EA; Start 12/07/16 at 02:00 Miscellaneous Information 1 ea NOTE XX ; Start 12/06/16 at 05:30 Glucose (Glutose) 15 gm Q15M PRN PO DECREASED GLUCOSE; Start 12/06/16 at 05:30 Glucose (Glutose) 22.5 gm Q15M PRN PO DECREASED GLUCOSE; Start 12/06/16 at 05: 30 Dextrose (D50w Syringe) 25 ml Q15M PRN IV DECREASED GLUCOSE; Start 12/06/16 at 05:30 Dextrose (D50w Syringe) 50 ml Q15M PRN IV DECREASED GLUCOSE; Start 12/06/16 at 05:30 Glucagon (Glucagen) 1 mg Q15M PRN IM DECREASED GLUCOSE; Start 12/06/16 at 05:30 Glucose 15 gm 15 gm Q15M PRN BUCCAL DECREASED GLUCOSE; Start 12/06/16 at 05:30 Levofloxacin/ Dextrose (Levaquin 500mg/ D5W 100 ml (Pmx)) 100 ml @ 100 mls/hr Q24H IVPB Last administered on 12/12/16 18:03; Admin Dose 100 MLS/HR; Start at 19:00 Linagliptin (Tradjenta) 5 mg DAILY PO Last administered on 12/12/16 08:28; Admin Dose 5 MG; Start 12/07/16 at 14:15 Spironolactone (Aldactone) 25 mg DAILY PO Last administered on 12/12/16 08:28 ; Admin Dose 25 MG; Start 12/07/16 at 19:30 Enoxaparin Sodium (Lovenox) 40 mg DAILY SC Last administered on 12/12/16 08:34 ; Admin Dose 40 MG; Start 12/08/16 at 09:00 Phenol (Cepastat Lozenge) 1 lozenge Q1H PRN MT SORE THROAT Last administered on 12/08/16 02:05; Admin Dose 1 LOZENGE; Start 12/07/16 at 20:00 Zolpidem Tartrate (Ambien) 5 mg HS PRN PO INSOMNIA Last administered on 20:05; Admin Dose 5 MG; Start 12/08/16 at 21:00 Valsartan (Diovan) 40 mg DAILY PO Last administered on 12/12/16 08:28; Admin Dose 40 MG; Start 12/11/16 at 09:00 Digoxin (Digoxin) 0.125 mg DAILY@13 PO Last administered on 12/12/16 13:16; Admin Dose 0.125 MG; Start 12/11/16 at 13:00 Insulin Glargine (Lantus) 27 unit DAILY@08 SC ; Start 12/13/16 at 08:00 STEPHY LARSON MD Exam/Review of Systems Vital Signs Vitals Vital Signs Date Time Temp Pulse Resp B/P Pulse Ox O2 Delivery O2 Flow Rate FiO2 12/13/16 16:00 87 12/13/16 15:28 95 2.0 12/13/16 15:28 20 Nasal Cannula 12/13/16 15:21 98.3 105/73 12/12/16 15:03 21 Intake and Output 12/12/16 12/12/16 12/13/16 14:59 22:59 06:59 Intake Total 1000 ml 800 ml Balance 1000 ml 800 ml Results Result Diagram: 12/13/16 0656 12/13/16 0656 Results 24 hrs Laboratory Tests Test 12/12/16 16:57 12/12/16 20:19 12/13/16 02:26 12/13/16 06:56 Bedside Glucose 125 176 182 White Blood Count 7.9 Red Blood Count 4.14 L Hemoglobin 12.8 L Hematocrit 37.1 L Mean Corpuscular Volume 89.6 Mean Corpuscular Hemoglobin 30.9 Mean Corpuscular Hemoglobin Concent 34.5 Red Cell Distribution Width 12.6 Platelet Count 414 Mean Platelet Volume 9.5 Neutrophils % 55.1 Lymphocytes % 28.0 Monocytes % 12.6 H Eosinophils % 1.8 Basophils % 0.8 Nucleated Red Blood Cells % 0.0 Neutrophils # 4.4 Lymphocytes # 2.2 Monocytes # 1.0 H Eosinophils # 0.1 Basophils # 0.1 Nucleated Red Blood Cells # 0.0 Sodium Level 139 Potassium Level 3.6 Chloride Level 98 Carbon Dioxide Level 34 H Anion Gap 11 Blood Urea Nitrogen 11 Creatinine 0.66 Glucose Level 174 Calcium Level 8.5 Test 12/13/16 08:50 12/13/16 12:43 Bedside Glucose 235 H 217 Medications Medications Current Medications Ondansetron HCl (Zofran Inj) 4 mg Q6H PRN IV NAUSEA AND/OR VOMITING Last administered on 12/08/16 02:02; Admin Dose 4 MG; Start 12/05/16 at 05:00 Nitroglycerin (Nitroglycerin (Sl Tab) 0.4 Mg) 1 tab Q5M PRN SL CHEST PAIN; Start 12/05/16 at 05:00 Acetaminophen (Tylenol Tab) 650 mg Q6H PRN PO PAIN LEVEL 1-3 OR FEVER Last administered on 12/07/16 02:36; Admin Dose 650 MG; Start 12/05/16 at 05:00 Morphine Sulfate (morphine) 2 mg Q4H PRN IV PAIN LEVEL 7-10 Last administered on 12/08/16 05:55; Admin Dose 2 MG; Start 12/05/16 at 05:00 Aspirin (Halfprin) 81 mg DAILY PO Last administered on 12/13/16 09:33; Admin Dose 81 MG; Start 12/05/16 at 09:00 Atorvastatin Calcium (Lipitor) 80 mg HS PO Last administered on 12/12/16 20:20 ; Admin Dose 80 MG; Start 12/05/16 at 21:00 Carbamide Peroxide (Debrox Otic) 10 drop BID BOTH EARS Last administered on 09:42; Admin Dose 10 DROP; Start 12/05/16 at 09:00 Cholecalciferol (Vitamin D) 1,000 unit DAILY PO Last administered on 12/13/16 09:35; Admin Dose 1,000 UNIT; Start 12/05/16 at 09:00 Clopidogrel Bisulfate (plaVIX) 75 mg DAILY PO Last administered on 12/13/16 09 :33; Admin Dose 75 MG; Start 12/05/16 at 09:00 Fluoxetine HCl (Prozac) 10 mg DAILY PO Last administered on 12/13/16 09:33; Admin Dose 10 MG; Start 12/05/16 at 09:00 Metoprolol Succinate (Toprol Xl) 25 mg DAILY PO Last administered on 12/13/16 09:35; Admin Dose 25 MG; Start 12/05/16 at 09:00 Pantoprazole (Protonix Tab) 40 mg DAILY@06 PO Last administered on 12/13/16 05 :31; Admin Dose 40 MG; Start 12/05/16 at 06:00 Diagnostic Test (Pha) (Accu-Chek) 1 ea 02 XX Last administered on 12/08/16 02: 06; Admin Dose 1 EA; Start 12/07/16 at 02:00 Miscellaneous Information 1 ea NOTE XX ; Start 12/06/16 at 05:30 Glucose (Glutose) 15 gm Q15M PRN PO DECREASED GLUCOSE; Start 12/06/16 at 05:30 Glucose (Glutose) 22.5 gm Q15M PRN PO DECREASED GLUCOSE; Start 12/06/16 at 05: 30 Dextrose (D50w Syringe) 25 ml Q15M PRN IV DECREASED GLUCOSE; Start 12/06/16 at 05:30 Dextrose (D50w Syringe) 50 ml Q15M PRN IV DECREASED GLUCOSE; Start 12/06/16 at 05:30 Glucagon (Glucagen) 1 mg Q15M PRN IM DECREASED GLUCOSE; Start 12/06/16 at 05:30 Glucose 15 gm 15 gm Q15M PRN BUCCAL DECREASED GLUCOSE; Start 12/06/16 at 05:30 Levofloxacin/ Dextrose (Levaquin 500mg/ D5W 100 ml (Pmx)) 100 ml @ 100 mls/hr Q24H IVPB Last administered on 12/12/16 18:03; Admin Dose 100 MLS/HR; Start at 19:00 Linagliptin (Tradjenta) 5 mg DAILY PO Last administered on 12/13/16 09:34; Admin Dose 5 MG; Start 12/07/16 at 14:15 Spironolactone (Aldactone) 25 mg DAILY PO Last administered on 12/13/16 09:33 ; Admin Dose 25 MG; Start 12/07/16 at 19:30 Enoxaparin Sodium (Lovenox) 40 mg DAILY SC Last administered on 12/13/16 09:36 ; Admin Dose 40 MG; Start 12/08/16 at 09:00 Phenol (Cepastat Lozenge) 1 lozenge Q1H PRN MT SORE THROAT Last administered on 12/08/16 02:05; Admin Dose 1 LOZENGE; Start 12/07/16 at 20:00 Zolpidem Tartrate (Ambien) 5 mg HS PRN PO INSOMNIA Last administered on 20:05; Admin Dose 5 MG; Start 12/08/16 at 21:00 Valsartan (Diovan) 40 mg DAILY PO Last administered on 12/13/16 09:35; Admin Dose 40 MG; Start 12/11/16 at 09:00 Digoxin (Digoxin) 0.125 mg DAILY@13 PO Last administered on 12/13/16 13:25; Admin Dose 0.125 MG; Start 12/11/16 at 13:00 Insulin Glargine (Lantus) 27 unit DAILY@08 SC Last administered on 12/13/16 09 :39; Admin Dose 27 UNIT; Start 12/13/16 at 08:00 STEPHY LARSON MD Dec 13, 2016 17:14
[2016-12-13] MEDS: LEVOFLOXACIN 500 MG TAB PO SCH (19:04)
[2016-12-13] MEDS: ATORVASTATIN 80 MG TAB PO SCH (20:45)
[2016-12-14] VITALS (10 sets, daily range): BP systolic 99–106; BP diastolic 56–68; PULSE 82–89; RESP 18–20
[2016-12-14] MEDS: ACCU-CHEK XX SCH (02:00)
[2016-12-14] MEDS: PANTOPRAZOLE (EC) 40 MG TAB PO SCH (05:59)
[2016-12-14 07:13] LABS: BASOPHIL # 0.1 10^3/ul (0.0-0.1); BASOPHILS % 0.9 % (0.0-2.0); EOSINOPHILS # 0.1 10^3/ul (0.0-0.5); EOSINOPHILS % 1.7 % (0.0-7.0); HEMATOCRIT 36.3 % (42.0-52.0); LYMPHOCYTES # 2.4 10^3/ul (0.8-2.9); LYMPHOCYTES % 31.4 % (15.0-51.0); MEAN CORPUSCULAR HEMOGLOBIN 30.1 pg (29.0-33.0); MEAN CORPUSCULAR HGB CONC 33.1 g/dl (32.0-37.0); MEAN PLATELET VOLUME 9.5 fl (7.4-10.4); MONOCYTES % 12.9 % (0.0-11.0); NEUTROPHILS % 51.8 % (39.0-77.0); PLATELET COUNT 385 10^3/UL (140-415); RED BLOOD COUNT 3.99 10^6/ul (4.70-6.10); RED CELL DISTRIBUTION WIDTH 12.8 % (11.5-14.5); WHITE BLOOD COUNT 7.7 10^3/ul (4.8-10.8)
[2016-12-14 07:33] LABS: CALCIUM 8.6 mg/dl (8.4-10.2); CREATININE 0.71 mg/dl (0.61-1.24); POTASSIUM 3.8 mmol/L (3.5-5.1)
[2016-12-14] MEDS: ALBUTEROL/IPRATROPIUM (NEB) 3 ML AMP HHN SCH ×2 (08:20→15:45)
[2016-12-14] MEDS: metFORMIN 500 MG TAB PO SCH ×2 (08:24→17:21)
[2016-12-14] MEDS: LINAGLIPTIN 5 MG TABLET PO SCH (08:25)
[2016-12-14] MEDS: FLUOXETINE 10 MG CAP PO SCH (08:25)
[2016-12-14] MEDS: CHOLECALCIFEROL 1,000 UNIT TAB PO SCH (08:25)
[2016-12-14] MEDS: ASPIRIN (EC) 81 MG TAB PO SCH (08:25)
[2016-12-14] MEDS: CLOPIDOGREL 75 MG TAB PO SCH (08:25)
[2016-12-14] MEDS: INSULIN ASPART [NOVOLOG] 3 ML PEN SC SCH ×6 (08:27→17:23)
[2016-12-14] MEDS: INSULIN GLARGINE [LANtus] 3 ML PEN SC SCH (08:28)
[2016-12-14] MEDS: ENOXAPARIN 40 MG/0.4 ML SYG SC SCH (08:29)
[2016-12-14] MEDS: glipiZIDE 10 MG TAB PO SCH (08:30)
[2016-12-14] MEDS: CARBAMIDE PEROXIDE 6.5% 15ML OTIC BOTH EARS SCH (09:00)
[2016-12-14] MEDS ORDERED: POTASSIUM CHLORIDE (SR) 20 MEQ TAB PO SCH (09:00)
[2016-12-14] MEDS ORDERED: FUROSEMIDE 40 MG TAB PO SCH (09:00)
[2016-12-14] MEDS: SPIRONOLACTONE 25 MG TAB PO SCH (09:47)
[2016-12-14] MEDS: VALSARTAN 80 MG TAB PO SCH (09:48)
[2016-12-14] MEDS: METOPROLOL (XL) 25 MG TAB PO SCH (09:49)
[2016-12-14] MEDS: DIGOXIN 0.125 MG TAB PO SCH (12:36)
[2016-12-14] MEDS ORDERED: SPIR25TA PO (18:12)
[2016-12-14] MEDS ORDERED: LEVO500T72 PO (18:12)
[2016-12-14] MEDS ORDERED: NOVO3I SC (18:12)
[2016-12-14] MEDS ORDERED: DIGO125T PO (18:12)
[2016-12-14] MEDS ORDERED: VALS80TA2 PO (18:12)
[2016-12-14] MEDS ORDERED: METF500T PO (18:12)
[2016-12-14] MEDS ORDERED: LANT3I SC (18:12)
[2016-12-14] MEDS ORDERED: FURO40TA4 PO (18:14)
[2016-12-14] MEDS ORDERED: POTA20TA15 PO (18:14)
[2016-12-14] MEDS: LEVOFLOXACIN 500 MG TAB PO SCH (18:45)
--- NOTE | 2016-12-14 19:00 | DS ---
Date/Time of Note Date/Time of Note DATE: 12/14/16 TIME: 18:56 Discharge Summary Admission/Discharge Info Admit Date/Time Dec 05, 2016 at 03:57 Discharge Date/Time Patient Condition: Stable Hx of Present Illness This is a 56-year-old male with a history of CAD with stents, ischemic cardiomyopathy with EF of 25-30%, diabetes, dyslipidemia who presented to the emergency department complaining of chest pain. Pain is left-sided with radiation to the left arm. Pain slightly improved with sublingual nitro. Patient underwent PCI with stent in [address] Tomas after he presented with STEMI. He also underwent PCI with stent 7 months ago at [facility]. When presented to the ER, his first troponin is elevated at 0.184. Rest of labs are within normal limits except a glucose of 266 and a lipase of 592. Chest x-ray was no active cardiopulmonary disease. Hospital Course - CAP, continue Levaquin. Dr. Barr is asked to see patient in infection disease consultation. - NSTEMI. S/p stress test large scar and no ischemia, continue aspirin and Plavix. Dr. Ferro and Dr. Tomas were is following in cardiology consultation. - History of CAD with multiple stents - Hypertension. Blood pressure medication were optimized by cardiology - Ischemic cardiomyopathy ejection fraction of 30% - Dyslipidemia, continue statin - Diabetes mellitus with hemoglobin A1c is 8.8. Continue Lantus and pre-meal NovoLog. - Tobacco use. Cessation is strongly advised. - Medical noncompliance. Patient condition improved and patient was discharged home with prescription for Levaquin for 5 more days. Discharge instructions given to the patient and patient's at the bedside. Home Meds Active Scripts Furosemide* (Furosemide*) 40 Mg Tablet, 40 MG PO DAILY for 30 Days, TAB Prov:NE LAILANA 12/14/16 Potassium Chloride* (K-Dur*) 20 Meq Tab.prt.sr, 20 MEQ PO DAILY for 30 Days Prov:JOSUE LAIA 12/14/16 Digoxin* (Digitek*) 125 Mcg Tablet, 0.125 MG PO DAILY@13 for 30 Days, TAB Prov:NE LAILANA 12/14/16 Metformin Hcl (Glucophage) 500 Mg Tablet, 1000 MG PO BID WITH MEALS for 30 Days , TAB Prov:NE LAILANA 12/14/16 Valsartan* (Diovan*) 80 Mg Tablet, 40 MG PO DAILY for 30 Days, TAB Prov:JUAN LAIETLANA 12/14/16 Spironolactone* (Aldactone*) 25 Mg Tablet, 25 MG PO DAILY for 30 Days, TAB Prov:RIGOBERTO LAI 12/14/16 Levofloxacin* (Levaquin*) 500 Mg Tablet, 500 MG PO Q24H for 5 Days, TAB Prov:RIGOBERTO LAI 12/14/16 Insulin Glargine* (Lantus*) 100 Unit/Ml Soln, 27 UNIT SC DAILY@08 for 30 Days Prov:NE LAILANA 12/14/16 Insulin Aspart* (Novolog Insulin Pen*) 100 Unit/Ml Soln, 9 UNIT SC WITH MEALS for 30 Days Prov:RIGOBERTO LAI 12/14/16 Reported Medications Cholecalciferol* (Vitamin D3*) 1,000 Unit Tablet, 1000 UNIT PO DAILY, TAB 12/05/16 Glipizide* (Glipizide*) 10 Mg Tablet, 10 MG PO AC BREAKFAST, TAB 12/05/16 [place]-3/Dha/Epa/Fish Oil (FISH OIL 1,000 MG SOFTGEL) 1 Each Capsule, 1 EACH PO, CAP 12/05/16 Aspirin* (Aspirin* EC) 81 Mg Tablet.dr, 81 MG PO DAILY, TAB 12/05/16 Clopidogrel Bisulfate* (Clopidogrel Bisulfate*) 75 Mg Tablet, 75 MG PO DAILY, # 30 TAB 12/05/16 Atorvastatin* (Atorvastatin*) 80 Mg Tablet, 80 MG PO QHS, #30 TAB 12/05/16 Fluoxetine Hcl* (Fluoxetine Hcl*) 10 Mg Tablet, 10 MG PO DAILY, TAB 12/05/16 Nitroglycerin* (Nitrostat*) 0.4 Mg Tab.subl, 0.4 MG SL Q5MIN Y for CHEST PAIN, BOTTLE 09/15/13 Metoprolol Succinate* (Toprol XL*) 25 Mg Tab.sr.24h, 25 MG PO DAILY, TAB hold for systolic bp 105 or heart reate less than 60 beats per minute 09/15/13 Metformin Hcl* (Metformin Hcl*) 1,000 Mg Tablet, 1000 MG PO DAILY, TAB 09/13/13 Sitagliptin* (Januvia*) 100 Mg Tablet, 100 MG PO DAILY, TAB 09/13/13 Esomeprazole Mag Trihydrate (Nexium) 40 Mg Capsule.dr, 40 MG PO DAILY, CAP 09/13/13 Discontinued Reported Medications Carbamide Peroxide* (Debrox*) 6.5% - 15 Ml Drops, 10 DROP BOTH EARS BID, BOTTLE 4 DROPS BY OTIC 2 TIMES A DAY INTO AFFECTED EAR, 12/05/16 Losartan Potassium* (Losartan Potassium*) 50 Mg Tablet, 50 MG PO DAILY, TAB 12/05/16 Losartan Potassium* (Losartan Potassium*) 50 Mg Tablet, 50 MG PO DAILY, TAB 12/05/16 Canagliflozin (Invokana) 300 Mg Tablet, 300 MG PO BID, TAB 12/05/16 Aspirin* (Aspirin*) 325 Mg Tablet, 325 MG PO DAILY, #1 TAB 09/15/13 Atorvastatin* (Atorvastatin*) 80 Mg Tablet, 80 MG PO HS, TAB 09/13/13 Glimepiride* (Glimepiride*) 2 Mg Tablet, 2 MG PO WITH BREAKFAST, TAB 09/13/13 Ibuprofen* (Advil*) 200 Mg Capsule, 200 MG DAILY, #2 CAP 09/13/13 Nitroglycerin* (Nitrostat*) 0.4 Mg Tab.subl, 0.4 MG SL Q5MIN Y for CHEST PAIN, BOTTLE 09/13/13 Valsartan* (Diovan*) 80 Mg Tablet, 80 MG PO DAILY, TAB 09/13/13 Follow-up Plan FOLLOW UP WITH YOUR PRIMARY CARE PHYSICIAN IN 1-2 WEEKS, ALSO FOLLOW UP WITH YOUR SCANNER OPERATOR , repeat chest x-ray in 2 weeks at primary care physician office Primary Care Provider Renita Rey Pending Labs Laboratory Tests Test 12/13/16 20:46 12/14/16 06:38 12/14/16 08:19 12/14/16 12:15 Bedside Glucose 132mg/dL (70-220) 169mg/dL (70-220) 151mg/dL (70-220) White Blood Count 7.710^3/ul (4.8-10.8) Red Blood Count 3.9910^6/ul (4.70-6.10) Hemoglobin 12.0g/dl (14.0-18.0) Hematocrit 36.3% (42.0-52.0) Mean Corpuscular Volume 91.0fl (82.0-101.0) Mean Corpuscular Hemoglobin 30.1pg (29.0-33.0) Mean Corpuscular Hemoglobin Concent 33.1g/dl (32.0-37.0) Red Cell Distribution Width 12.8% (11.5-14.5) Platelet Count 95409^3/UL (140-415) Mean Platelet Volume 9.5fl (7.4-10.4) Neutrophils % 51.8% (39.0-77.0) Lymphocytes % 31.4% (15.0-51.0) Monocytes % 12.9% (0.0-11.0) Eosinophils % 1.7% (0.0-7.0) Basophils % 0.9% (0.0-2.0) Nucleated Red Blood Cells % 0.0/100WBC (0.0-0.0) Neutrophils # 4.010^3/ul (1.6-7.5) Lymphocytes # 2.410^3/ul (0.8-2.9) Monocytes # 1.010^3/ul (0.3-0.9) Eosinophils # 0.110^3/ul (0.0-0.5) Basophils # 0.110^3/ul (0.0-0.1) Nucleated Red Blood Cells # 0.010^3/ul (0.0-0.0) Sodium Level 139mmol/L (135-144) Potassium Level 3.8mmol/L (3.5-5.1) Chloride Level 99mmol/L (97-110) Carbon Dioxide Level 34mmol/L (21-31) Anion Gap 10 (8-16) Blood Urea Nitrogen 11mg/dl (7-20) Creatinine 0.71mg/dl (0.61-1.24) Glucose Level 215mg/dl (70-220) Calcium Level 8.6mg/dl (8.4-10.2) Test 12/14/16 17:19 Bedside Glucose 131mg/dL (70-220) RIGOBERTO LAI Dec 14, 2016 19:00
--- NOTE | 2016-12-14 19:12 | CONS ---
Date/Time of Note Date/Time of Note DATE: 12/14/16 TIME: 19:08 Assessment/Plan Assessment/Plan Chief Complaint/Hosp Course IMP: 1.nstemi-no sig increase 2.chest pain-resolved 3.cardiomyopathy-low ef lexiscan with large scar, no sig ischemia 4.DM 5.PNA Recc: -Tele -continue lasix/aldactone -Continue BB/ARB and follow BP closely -Continue digoxin to increase contractility with very low ef -continue statin -Follow volume status closely which is improved -Continue abx's and f/u cx data -D/C planning Problems: Consultation Date/Type/Reason Admit Date/Time Dec 05, 2016 at 03:57 Initial Consult Date 12/05/16 Type of Consultation: cardiology Reason for Consultation cardiomyopathy/CHF Referring Provider: IMELDA JOHNSON MD Exam/Review of Systems Vital Signs Vitals Vital Signs Date Time Temp Pulse Resp B/P Pulse Ox O2 Delivery O2 Flow Rate FiO2 12/14/16 16:02 98.2 93 19 106/67 98 12/14/16 15:45 Nasal Cannula 2.0 12/12/16 15:03 21 Intake and Output 12/13/16 12/13/16 12/14/16 14:59 22:59 06:59 Intake Total 720 ml 300 ml Balance 720 ml 300 ml Exam Review of Systems: CONSTITUTIONAL: No fevers, chills. PULMONARY: No sob CARDIOVASCULAR: No chest pain/palpitations GASTROINTESTINAL: No nausea/vomiting. GENITOURINARY: No hematuria/dysuria. MUSCULOSKELETAL: No myagias/arthalgias. PSYCHIATRIC: The patient denies depression. NEUROLOGIC: No weakness Constitutional: alert Psych: no complaints Head: normocephalic ENMT: mucosa pink and moist Neck: jvd (9 cm water), supple Respiratory: clear to auscultation Cardiovascular: other (lateral PMI), regular rate and rhythm Gastrointestinal: soft Musculoskeletal: muscle tone (normal) Extremities: edema (trace) Neurological: other (No focal deficits) Results Result Diagram: 12/14/16 0638 12/14/16 0638 Results 24 hrs Laboratory Tests Test 12/13/16 20:46 12/14/16 06:38 12/14/16 08:19 12/14/16 12:15 Bedside Glucose 132 169 151 White Blood Count 7.7 Red Blood Count 3.99 L Hemoglobin 12.0 L Hematocrit 36.3 L Mean Corpuscular Volume 91.0 Mean Corpuscular Hemoglobin 30.1 Mean Corpuscular Hemoglobin Concent 33.1 Red Cell Distribution Width 12.8 Platelet Count 385 Mean Platelet Volume 9.5 Neutrophils % 51.8 Lymphocytes % 31.4 Monocytes % 12.9 H Eosinophils % 1.7 Basophils % 0.9 Nucleated Red Blood Cells % 0.0 Neutrophils # 4.0 Lymphocytes # 2.4 Monocytes # 1.0 H Eosinophils # 0.1 Basophils # 0.1 Nucleated Red Blood Cells # 0.0 Sodium Level 139 Potassium Level 3.8 Chloride Level 99 Carbon Dioxide Level 34 H Anion Gap 10 Blood Urea Nitrogen 11 Creatinine 0.71 Glucose Level 215 Calcium Level 8.6 Test 12/14/16 17:19 Bedside Glucose 131 Medications Medications Current Medications Ondansetron HCl (Zofran Inj) 4 mg Q6H PRN IV NAUSEA AND/OR VOMITING Last administered on 12/08/16 02:02; Admin Dose 4 MG; Start 12/05/16 at 05:00 Nitroglycerin (Nitroglycerin (Sl Tab) 0.4 Mg) 1 tab Q5M PRN SL CHEST PAIN; Start 12/05/16 at 05:00 Acetaminophen (Tylenol Tab) 650 mg Q6H PRN PO PAIN LEVEL 1-3 OR FEVER Last administered on 12/07/16 02:36; Admin Dose 650 MG; Start 12/05/16 at 05:00 Morphine Sulfate (morphine) 2 mg Q4H PRN IV PAIN LEVEL 7-10 Last administered on 12/08/16 05:55; Admin Dose 2 MG; Start 12/05/16 at 05:00 Aspirin (Halfprin) 81 mg DAILY PO Last administered on 12/14/16 08:25; Admin Dose 81 MG; Start 12/05/16 at 09:00 Atorvastatin Calcium (Lipitor) 80 mg HS PO Last administered on 12/13/16 20:45 ; Admin Dose 80 MG; Start 12/05/16 at 21:00 Carbamide Peroxide (Debrox Otic) 10 drop BID BOTH EARS Last administered on 09:42; Admin Dose 10 DROP; Start 12/05/16 at 09:00 Cholecalciferol (Vitamin D) 1,000 unit DAILY PO Last administered on 12/14/16 08:25; Admin Dose 1,000 UNIT; Start 12/05/16 at 09:00 Clopidogrel Bisulfate (plaVIX) 75 mg DAILY PO Last administered on 12/14/16 08 :25; Admin Dose 75 MG; Start 12/05/16 at 09:00 Fluoxetine HCl (Prozac) 10 mg DAILY PO Last administered on 12/14/16 08:25; Admin Dose 10 MG; Start 12/05/16 at 09:00 Metoprolol Succinate (Toprol Xl) 25 mg DAILY PO Last administered on 12/14/16 09:49; Admin Dose 25 MG; Start 12/05/16 at 09:00 Pantoprazole (Protonix Tab) 40 mg DAILY@06 PO Last administered on 12/14/16 05 :59; Admin Dose 40 MG; Start 12/05/16 at 06:00 Diagnostic Test (Pha) (Accu-Chek) 1 ea 02 XX Last administered on 12/08/16 02: 06; Admin Dose 1 EA; Start 12/07/16 at 02:00 Miscellaneous Information 1 ea NOTE XX ; Start 12/06/16 at 05:30 Glucose (Glutose) 15 gm Q15M PRN PO DECREASED GLUCOSE; Start 12/06/16 at 05:30 Glucose (Glutose) 22.5 gm Q15M PRN PO DECREASED GLUCOSE; Start 12/06/16 at 05: 30 Dextrose (D50w Syringe) 25 ml Q15M PRN IV DECREASED GLUCOSE; Start 12/06/16 at 05:30 Dextrose (D50w Syringe) 50 ml Q15M PRN IV DECREASED GLUCOSE; Start 12/06/16 at 05:30 Glucagon (Glucagen) 1 mg Q15M PRN IM DECREASED GLUCOSE; Start 12/06/16 at 05:30 Glucose (Glutose) 15 gm Q15M PRN BUCCAL DECREASED GLUCOSE; Start 12/06/16 at 05 :30 Linagliptin (Tradjenta) 5 mg DAILY PO Last administered on 12/14/16 08:25; Admin Dose 5 MG; Start 12/07/16 at 14:15 Spironolactone (Aldactone) 25 mg DAILY PO Last administered on 12/14/16 09:47 ; Admin Dose 25 MG; Start 12/07/16 at 19:30 Enoxaparin Sodium (Lovenox) 40 mg DAILY SC Last administered on 12/14/16 08:29 ; Admin Dose 40 MG; Start 12/08/16 at 09:00 Phenol (Cepastat Lozenge) 1 lozenge Q1H PRN MT SORE THROAT Last administered on 12/08/16 02:05; Admin Dose 1 LOZENGE; Start 12/07/16 at 20:00 Zolpidem Tartrate (Ambien) 5 mg HS PRN PO INSOMNIA Last administered on 20:05; Admin Dose 5 MG; Start 12/08/16 at 21:00 Valsartan (Diovan) 40 mg DAILY PO Last administered on 12/14/16 09:48; Admin Dose 40 MG; Start 12/11/16 at 09:00 Digoxin (Digoxin) 0.125 mg DAILY@13 PO Last administered on 12/14/16 12:36; Admin Dose 0.125 MG; Start 12/11/16 at 13:00 Insulin Glargine (Lantus) 27 unit DAILY@08 SC Last administered on 12/14/16 08 :28; Admin Dose 27 UNIT; Start 12/13/16 at 08:00 Levofloxacin (Levaquin) 500 mg Q24H PO Last administered on 12/14/16 18:45; Admin Dose 500 MG; Start 12/13/16 at 19:00 Furosemide (Lasix) 40 mg DAILY PO Last administered on 12/14/16 09:48; Admin Dose 40 MG; Start 12/14/16 at 09:00 Potassium Chloride (Klor-Con 20) 20 meq DAILY PO Last administered on 08:25; Admin Dose 20 MEQ; Start 12/14/16 at 09:00 ROMA BUSCH Dec 14, 2016 19:12
== END 2016-12-14 18:48 | disposition home or self-care (01) | DRG 280 ==
LOC: E/R 01:04 → TEL 03:57 → MS4 04:47
PROVIDERS: ADMIT Internal Medicine; ATTEND Internal Medicine
DX: I21.4 Non-ST elevation (NSTEMI) myocardial infarction (principal); J18.9 Pneumonia, unspecified organism; E11.65 Type 2 diabetes mellitus with hyperglycemia; I10 Essential (primary) hypertension; I25.119 Atherosclerotic heart disease of native coronary artery with unspecified angina pectoris; I25.5 Ischemic cardiomyopathy; Z79.4 Long term (current) use of insulin; E78.5 Hyperlipidemia, unspecified; Z72.0 Tobacco use; Z91.14 Patient's other noncompliance with medication regimen; Z95.5 Presence of coronary angioplasty implant and graft
CPT/HCPCS: 36415; 71010; 71260; 76705; 78452; 80048; 80053; 80061; 80306; 81001; 82550; 82553; 82962; 83036; 83690; 83735; 83880; 84484; 85025; 85610; 85730; 87040; 87070; 93005; 93017; 93306; 94640; 94664; 96372; J1940; A9500; A9505; J1644; J1650; J1815; J1956; J2270; J2405; J2785; J7030; J7042; Q9967

== ENCOUNTER 2017-01-07 03:34 | Inpatient (IN) | payer OTHER ==
[2017-01-07] VITALS (8 sets, daily range): BP systolic 109–116; BP diastolic 70–75; PULSE 77–87; RESP 19; Ht 172.7 cm; Wt 88.0 kg
[~2017-01-07] VITALS: Ht 172.7 cm; Wt 88.0 kg
[~2017-01-07 03:34] MED LIST changes: +ASPI-664 PO; -ASPI325T4 PO; +CHOL100062 PO; +CLOP75TA4 PO; +DIGO125T PO; +FLUO10TA PO; +FURO40TA4 PO; -GLIM2TAB PO; +GLIP-95 PO; -IBUP200C11; +LANT3I SC; +LEVO500T72 PO; +METF500T PO; +NOVO3I SC; +OMEG1CAP31 PO; +POTA20TA15 PO; +SPIR25TA PO
[2017-01-07] MEDS ORDERED: ASPIRIN 325 MG TAB PO STA (04:11)
[2017-01-07] MEDS ORDERED: NITROGLYCERIN 2% 1 GM OINT PKT TD STA (04:11)
[2017-01-07 04:48] LABS: BASOPHILS % 0.6 % (0.0-2.0); EOSINOPHILS # 0.2 10^3/ul (0.0-0.5); EOSINOPHILS % 2.9 % (0.0-7.0); HEMATOCRIT 35.7 % (42.0-52.0); LYMPHOCYTES # 2.2 10^3/ul (0.8-2.9); LYMPHOCYTES % 35.7 % (15.0-51.0); MEAN CORPUSCULAR HEMOGLOBIN 31.1 pg (29.0-33.0); MEAN CORPUSCULAR HGB CONC 33.6 g/dl (32.0-37.0); MEAN CORPUSCULAR VOLUME 92.5 fl (82.0-101.0); MEAN PLATELET VOLUME 9.5 fl (7.4-10.4); MONOCYTE # 0.6 10^3/ul (0.3-0.9); NEUTROPHIL # 3.1 10^3/ul (1.6-7.5); NEUTROPHILS % 50.3 % (39.0-77.0); PLATELET COUNT 225 10^3/UL (140-415); RED BLOOD COUNT 3.86 10^6/ul (4.70-6.10); RED CELL DISTRIBUTION WIDTH 13.3 % (11.5-14.5); WHITE BLOOD COUNT 6.2 10^3/ul (4.8-10.8)
--- NOTE | 2017-01-07 05:05 | ERA ---
ER Documentation Chief Complaint Date/Time DATE: 01/07/17 TIME: 05:02 Chief Complaint left side CP radiating to left back HPI This is a 56-year-old male with a history of multiple heart attacks with 6 stents with hypertension diabetes ejection fraction 25-30%. Patient was admitted in November of this year for non-STEMI. He states prior to arrival he had the same chest pain he has been he has heart attacks described as a substernal chest pressure or shortness of breath and diaphoresis. The patient took a nitroglycerin at home that did not help. Says however currently his pain is now gone. ROS All systems reviewed and are negative except as per history of present illness. Medications Home Meds Active Scripts Furosemide* (Furosemide*) 40 Mg Tablet, 40 MG PO DAILY for 30 Days, TAB Prov:RIGOBERTO LAI 12/14/16 Potassium Chloride* (K-Dur*) 20 Meq Tab.prt.sr, 20 MEQ PO DAILY for 30 Days Prov:RIGOBERTO LAI 12/14/16 Digoxin* (Digitek*) 125 Mcg Tablet, 0.125 MG PO DAILY@13 for 30 Days, TAB Prov:RIGOBERTO LAI 12/14/16 Metformin Hcl (Glucophage) 500 Mg Tablet, 1000 MG PO BID WITH MEALS for 30 Days , TAB Prov:LULAJUANRIGOBERTO 12/14/16 Valsartan* (Diovan*) 80 Mg Tablet, 40 MG PO DAILY for 30 Days, TAB Prov:JUAN LAI12/14/16 Spironolactone* (Aldactone*) 25 Mg Tablet, 25 MG PO DAILY for 30 Days, TAB Prov:RIGOBERTO LAI 12/14/16 Levofloxacin* (Levaquin*) 500 Mg Tablet, 500 MG PO Q24H for 5 Days, TAB Prov:RIGOBERTO LAI 12/14/16 Insulin Glargine* (Lantus*) 100 Unit/Ml Soln, 27 UNIT SC DAILY@08 for 30 Days Prov:RIGOBERTO LAI 12/14/16 Insulin Aspart* (Novolog Insulin Pen*) 100 Unit/Ml Soln, 9 UNIT SC WITH MEALS for 30 Days Prov:RIGOBERTO LAI 12/14/16 Reported Medications Cholecalciferol* (Vitamin D3*) 1,000 Unit Tablet, 1000 UNIT PO DAILY, TAB 12/05/16 Glipizide* (Glipizide*) 10 Mg Tablet, 10 MG PO AC BREAKFAST, TAB 12/05/16 [place]-3/Dha/Epa/Fish Oil (FISH OIL 1,000 MG SOFTGEL) 1 Each Capsule, 1 EACH PO, CAP 12/05/16 Aspirin* (Aspirin* EC) 81 Mg Tablet.dr, 81 MG PO DAILY, TAB 12/05/16 Clopidogrel Bisulfate* (Clopidogrel Bisulfate*) 75 Mg Tablet, 75 MG PO DAILY, # 30 TAB 12/05/16 Atorvastatin* (Atorvastatin*) 80 Mg Tablet, 80 MG PO QHS, #30 TAB 12/05/16 Fluoxetine Hcl* (Fluoxetine Hcl*) 10 Mg Tablet, 10 MG PO DAILY, TAB 12/05/16 Nitroglycerin* (Nitrostat*) 0.4 Mg Tab.subl, 0.4 MG SL Q5MIN Y for CHEST PAIN, BOTTLE 09/15/13 Metoprolol Succinate* (Toprol XL*) 25 Mg Tab.sr.24h, 25 MG PO DAILY, TAB hold for systolic bp 105 or heart reate less than 60 beats per minute 09/15/13 Metformin Hcl* (Metformin Hcl*) 1,000 Mg Tablet, 1000 MG PO DAILY, TAB 09/13/13 Sitagliptin* (Januvia*) 100 Mg Tablet, 100 MG PO DAILY, TAB 09/13/13 Esomeprazole Mag Trihydrate (Nexium) 40 Mg Capsule.dr, 40 MG PO DAILY, CAP 09/13/13 Allergies Allergies: Coded Allergies: No Known Drug Allergy (Unverified Allergy, Mild, 12/05/16) PMhx/Soc History of Surgery: Yes (HEART STENTS X 6) Anesthesia Reaction: No Hx Neurological Disorder: No Hx Respiratory Disorders: Yes (Pneumonia) Hx Cardiac Disorders: Yes (STENTS;CA X 2;) Hx Psychiatric Problems: No Hx Miscellaneous Medical Probl: No Hx Alcohol Use: Yes (OCCASIONALLY) Hx Substance Use: No Hx Tobacco Use: Yes (1 PACK OF CIGARETTES) Smoking Status: Current every day smoker FmHx Family History: No coronary disease Physical Exam Vitals Vital Signs Date Time Temp Pulse Resp B/P Pulse Ox O2 Delivery O2 Flow Rate FiO2 01/07/17 03:40 97.5 98 18 114/66 96 Physical Exam Const: Well-developed, well-nourished Head: Atraumatic, normocephalic Eyes: Normal Conjunctiva, PERRLA, EOMI, normal sclera, no nystagmus ENT: Normal External Ears, Nose and Mouth, moist mucus membranes. Neck: Full range of motion. No meningismus, no lymphadenopathy. Resp: Clear to auscultation bilaterally, no wheezing, rhonchi, rales Cardio: Regular rate and rhythm, no murmurs, S1 S2 present Abd: Soft, non tender x 4, non distended. Normal bowel sounds, no guarding or rebound, no pulsitile abdominal masses or bruits Skin: No petechiae or rashes, no ecchymosis , no maculopapular rash Back: No midline or flank tenderness Ext: No cyanosis, or edema, FROM x 4, normal inspection, neurovascularly intact x 4 Neur: Awake and alert, STR 5/5 x 4, sensation intact x 4, no focal findings, cerebellum intact Psych: Normal Mood and Affect Result Diagram: 01/07/1742901/07/17 0430 Results 24 hrs Laboratory Tests Test 01/07/17 04:30 White Blood Count 6.210^3/ul Red Blood Count 3.8610^6/ul Hemoglobin 12.0g/dl Hematocrit 35.7% Mean Corpuscular Volume 92.5fl Mean Corpuscular Hemoglobin 31.1pg Mean Corpuscular Hemoglobin Concent 33.6g/dl Red Cell Distribution Width 13.3% Platelet Count 95294^3/UL Mean Platelet Volume 9.5fl Neutrophils % 50.3% Lymphocytes % 35.7% Monocytes % 10.0% Eosinophils % 2.9% Basophils % 0.6% Nucleated Red Blood Cells % 0.0/100WBC Neutrophils # 3.110^3/ul Lymphocytes # 2.210^3/ul Monocytes # 0.610^3/ul Eosinophils # 0.210^3/ul Basophils # 0.010^3/ul Nucleated Red Blood Cells # 0.010^3/ul Sodium Level 141mmol/L Potassium Level 3.7mmol/L Chloride Level 105mmol/L Carbon Dioxide Level 25mmol/L Anion Gap 15 Blood Urea Nitrogen 15mg/dl Creatinine 0.56mg/dl Glucose Level 183mg/dl Calcium Level 8.9mg/dl Troponin I 0.014ng/ml Current Medications Medications (Trade) Dose Ordered Sig/Vianca Route PRN Reason Start Time Stop Time Status Last Admin Dose Admin Aspirin (Aspirin) 325 mg ONCE STAT PO 01/07/17 04:11 01/07/17 04:12 DC 01/07/17 04:52 Nitroglycerin (Nitroglycerin 2% Oint) 1 inch ONCE STAT TD 01/07/17 04:11 01/07/17 04:12 DC Procedures/MDM EKG: Rate/Rhythm: Normal sinus rhythm, nonspecific intraventricular block , Q waves in V1 and V2 QRS, ST, QT: NORMAL NE, QRS, QT] Impression: Abnormal EKG PROCEDURE: CHEST - 1 VIEW CLINICAL INDICATION: 56-year-old male with chest pain. TECHNIQUE: A single frontal AP portable view of the chest was performed. The images were reviewed on a PACS workstation. COMPARISON: Chest x-ray December 11, 2016; CT chest December 17, 2016. FINDINGS: The cardiomediastinal silhouette is prominent but without significant interval change. There is clearing but persistent left upper lobe infiltrate most prominently within the lateral aspect of the left mid lung zone. Costophrenic angles are incompletely visualized. There is no evidence for congestive heart failure. There is no evidence for pneumothorax. The osseous structures are intact. IMPRESSION: Clearing but persistent left upper lobe infiltrate. .Bill Saldana MD, Date Time Electronically viewed and signed by .Bill Saldana MD, on 01/07/2017 05:44 .M/ CC: ALICJA RAZA DO Due to the patient's severe risk factors and multiple stents and heart attacks will admit for cardiac eval. Patient's symptoms are concerning for cardiac cause will require inpatient workup and continuous monitoring. Further w/u for ischemia, arrhythmia, PE or dissection will be deferred to the inpatient team. Accepting Care Team: Current data and ongoing care discussed. Time: Time of admission Primary Provider: [XOXOXO] Consulting: [XOXOXO] Outstanding Data: none Departure Diagnosis: Primary Impression: Chest pain Qualified Code: R07.9 - Chest pain, unspecified type Condition: ALICJA Romero DO Jan 07, 2017 05:05
[2017-01-07 05:14] LABS: CALCIUM 8.9 mg/dl (8.4-10.2); CREATININE 0.56 mg/dl (0.61-1.24)
[2017-01-07 05:23] LABS: POTASSIUM 3.7 mmol/L (3.5-5.1)
[2017-01-07 05:27] LABS: TROPONIN-I 0.014 ng/ml (0.00-0.12)
--- NOTE | 2017-01-07 05:44 | RADRPT ---
PROCEDURE: CHEST - 1 VIEW CLINICAL INDICATION: 56-year-old male with chest pain. TECHNIQUE: A single frontal AP portable view of the chest was performed. The images were reviewed on a PACS workstation. COMPARISON: Chest x-ray December 11, 2016; CT chest December 17, 2016. FINDINGS: The cardiomediastinal silhouette is prominent but without significant interval change. There is marco a ring but persistent left upper lobe infiltrate most prominently within the lateral aspect of the lef t mid lung zone. Costophrenic angles are incompletely visualized. There is no evidence for congesti ve heart failure. There is no evidence for pneumothorax. The osseous structures are intact. IMPRESSION: Clearing but persistent left upper lobe infiltrate. .Bill Saldana MD, MD Date Time Electronically viewed and signed by .Bill Saldana MD, on 01/07/2017 05:44 .M/
[2017-01-07] MEDS: SOD CHLORIDE 0.9% 1,000 ML IV SCH ×2 (05:51→08:54)
[2017-01-07] MEDS ORDERED: ONDANSETRON 4 MG INJ IV PRN (06:00)
[2017-01-07] MEDS ORDERED: ACETAMINOPHEN 325 MG TAB PO PRN (06:00)
[2017-01-07] MEDS ORDERED: NON-FORMULARY/PATIENT OWN MED (Esomeprazole Mag Trihydrate (Nexium) 40 MG) PO SCH (11:30)
[2017-01-07] MEDS ORDERED: GLUCOSE GEL 15 GRAM TUBE PO PRN ×2 (12:00)
[2017-01-07] MEDS ORDERED: GLUCOSE GEL 15 GRAM TUBE BUCCAL PRN (12:00)
[2017-01-07] MEDS ORDERED: DEXTROSE 50% 50 ML SYRINGE IV PRN ×2 (12:00)
[2017-01-07] MEDS ORDERED: GLUCAGON 1 MG INJ IM PRN (12:00)
[2017-01-07] MEDS: SPIRONOLACTONE 25 MG TAB PO SCH (12:26)
[2017-01-07] MEDS: DIGOXIN 0.125 MG TAB PO SCH (12:28)
[2017-01-07] MEDS: VALSARTAN 80 MG TAB PO SCH (12:28)
[2017-01-07] MEDS: FUROSEMIDE 40 MG TAB PO SCH (12:29)
[2017-01-07] MEDS: POTASSIUM CHLORIDE (SR) 20 MEQ TAB PO SCH (12:29)
[2017-01-07] MEDS: METOPROLOL (XL) 25 MG TAB PO SCH (12:30)
[2017-01-07] MEDS: ASPIRIN (EC) 81 MG TAB PO SCH (12:30)
[2017-01-07] MEDS: FLUOXETINE 10 MG CAP PO SCH (12:33)
[2017-01-07] MEDS: CLOPIDOGREL 75 MG TAB PO SCH (12:33)
[2017-01-07] MEDS: CHOLECALCIFEROL 1,000 UNIT TAB PO SCH (12:33)
[2017-01-07] MEDS: PANTOPRAZOLE (EC) 40 MG TAB PO SCH (12:34)
[2017-01-07] MEDS: INSULIN GLARGINE [LANtus] 3 ML PEN SC SCH (12:38)
[2017-01-07] MEDS: INSULIN ASPART [NOVOLOG] 3 ML PEN SC SCH ×5 (12:38→20:52)
[2017-01-07 13:53] LABS: CHOL/HDL RATIO 3.8 RATIO
[2017-01-07] MEDS: FUROSEMIDE 20 MG INJ IV SCH (14:07)
--- NOTE | 2017-01-07 14:37 | CONS ---
DATE OF ADMISSION: 01/07/2017 DATE OF CONSULTATION: 01/07/2017 TYPE OF CONSULTATION: Cardiology. REASON FOR CONSULTATION: Chest pain/acute coronary syndrome. REQUESTING PHYSICIAN: Dr. Vidya Waggoner. Mr. Velázquez is a 56-year-old male with history of extensive coronary artery disease, status post stenting 05/2016 at [facility] x4, cardiomyopathy, decreased left ventricular ejection fraction, recent Abel iscan 12/06/2016 revealing EF of 21% with large scar with no significant ischemia. Echo from [facility] revealing EF of 30%, ongoing tobacco usage, diabetes mellitus, hypertension, dys[facility] [place] [facility] with complaints of substernal chest pain. Upon arrival, temperature was 97.5, bloo d pressure 114/66, pulse 98, respiratory rate 18, saturating 93%. The patient's labs revealed a whi te count of 6.2, hemoglobin 12.1, platelet count 225. His sodium 141, potassium 3.7, creatinine 0.5 6, BUN 15, troponin negative, glucose of 158. The patient had a chest x-ray revealing with pe rsistent left upper lobe infiltrate. The patient's electrocardiogram revealed normal sinus rhythm a t 95, with normal axis and diffuse nonspecific ST-T abnormalities. The patient was subsequently adm itted to the floor and since admit to the floor, has had stable vital signs, and by telemetry has be en in sinus rhythm. PAST MEDICAL HISTORY: As above in HPI. MEDICATIONS CURRENTLY IN HOSPITAL: 1. Lipitor 80 mg at bedtime. 2. Digoxin 0.125 mg daily. 3. Plavix 75 mg daily. 4. Prozac. 5. Lantus insulin. 6. Aspirin 81 mg daily. 7. Lasix 40 mg daily. 8. Toprol-XL 25 mg daily. 9. Aldactone 25 mg daily. 10. Diovan 40 mg daily. 11. Potassium chloride 20 mEq daily. 12. IV fluid hydration at 80 mL an hour. ALLERGIES: NO KNOWN DRUG ALLERGIES. SOCIAL HISTORY: Positive tobacco, social ETOH, no illicit drug use. FAMILY HISTORY: No history of sudden cardiac or early CAD. REVIEW OF SYSTEMS: As above in HPI. CONSTITUTIONAL: No fevers, chills. PULMONARY: Shortness of breath. CARDIOVASCULAR: Chest pain. GASTROINTESTINAL: No vomiting. GENITOURINARY: No hematuria. MUSCULOSKELETAL: Degenerative joint disease. PSYCHIATRIC: The patient denies depression. NEUROLOGIC: No documented history of CVA. ENDOCRINE: Diabetes mellitus. PHYSICAL EXAMINATION: VITAL SIGNS: Temperature 98.2, blood pressure 112/72, pulse 89, respiratory rate 19, saturating 97% . GENERAL: The patient is alert, awake, complaining of mild shortness of breath, intermittent chest p ain. NECK: JVP of 8 cm water. CHEST: Decreased breath sounds at bases bilaterally. HEART: Regular rate and rhythm. Normal S1, S2, I/ systolic murmur, nondisplaced PMI. ABDOMEN: Positive bowel sounds, soft. EXTREMITIES: No pitting edema, 1+ pulses bilaterally posterior tibial. LABORATORY DATA: As above in HPI. No further labs for my review at this time. IMAGING STUDIES: As above in HPI. No further imaging studies for my review at this time. ECG: As above in HPI. No further electrocardiograms for my review at this time. IMPRESSION: 1. Chest pain, assess for acute coronary syndrome. 2. Shortness of breath, assess for congestive heart failure. 3. Cardiomyopathy with severely depressed left ventricular ejection fraction, last being approximat rima 25% between echo and stress, 12/2016. 4. History of percutaneous transluminal coronary angioplasty and stent placement multiple times, mo st recently 05/2016 at [facility]. 5. Hypertension. 6. Dyslipidemia. 7. Ongoing tobacco usage. RECOMMENDATIONS: 1. At this time, would maintain the patient on telemetry monitoring to follow rhythm and rate contr ol closely. 2. Continue the patient's rule out for myocardial infarction and thus send troponins q.6h. x2 to en sure that the patient's chest pain was not due to an acute coronary syndrome with acute myocardial i nfarction. 3. Continue the patient's dual antiplatelet therapy with aspirin and Plavix. Continue the patient' s beta korey and afterload reduction for treatment of cardiomyopathy as well as Aldactone. 4. Will initiate the patient on oral nitrates and stop the patient's IV fluids, check a BNP to furt her assess the patient's current volume status and need for possible gentle diuresis and follow the patient's symptomatology on oral nitrates. Thank you for allowing me to take part in the care of this patient. I will continue to follow very closely with you with further recommendations to be made as the patient progresses through his [facility] clinical course. Dictated By: ROMA ZAPIEN/MICHAEL Conf#: [id number] DID#: [id number] CC: VIDYA WAGGONER MD;*EndCC*
[2017-01-07 18:47] LABS: CREATINE KINASE 72 IU/L (23-200)
[2017-01-07 18:59] LABS: CK-MB 1.38 ng/ml (0.0-2.4); TROPONIN-I < 0.012 ng/ml (0.00-0.12)
[2017-01-07] MEDS: ATORVASTATIN 80 MG TAB PO SCH (20:43)
[2017-01-07] MEDS: ISOSORBIDE DINITRATE 20 MG TAB PO SCH (20:44)
[2017-01-08] VITALS (13 sets, daily range): BP systolic 94–120; BP diastolic 54–73; PULSE 73–101; RESP 18–20
[2017-01-08 01:32] LABS: CREATINE KINASE 67 IU/L (23-200)
[2017-01-08 01:45] LABS: CK-MB 1.17 ng/ml (0.0-2.4); TROPONIN-I < 0.012 ng/ml (0.00-0.12)
[2017-01-08] MEDS: ACCU-CHEK XX SCH (02:00)
[2017-01-08] MEDS ORDERED: ACCU-CHEK XX SCH (02:00)
[2017-01-08] MEDS: FUROSEMIDE 40 MG TAB PO SCH (06:00)
[2017-01-08] MEDS: SPIRONOLACTONE 25 MG TAB PO SCH (06:18)
[2017-01-08] MEDS: FUROSEMIDE 20 MG INJ IV SCH (06:18)
[2017-01-08] MEDS: PANTOPRAZOLE (EC) 40 MG TAB PO SCH (06:18)
[2017-01-08 06:19] LABS: BASOPHIL # 0.1 10^3/ul (0.0-0.1); BASOPHILS % 1.1 % (0.0-2.0); EOSINOPHILS # 0.2 10^3/ul (0.0-0.5); EOSINOPHILS % 3.3 % (0.0-7.0); HEMATOCRIT 39.1 % (42.0-52.0); HEMOGLOBIN 12.7 g/dl (14.0-18.0); LYMPHOCYTES # 2.7 10^3/ul (0.8-2.9); LYMPHOCYTES % 43.5 % (15.0-51.0); MEAN CORPUSCULAR HEMOGLOBIN 29.8 pg (29.0-33.0); MEAN CORPUSCULAR HGB CONC 32.5 g/dl (32.0-37.0); MEAN CORPUSCULAR VOLUME 91.8 fl (82.0-101.0); MEAN PLATELET VOLUME 9.6 fl (7.4-10.4); MONOCYTE # 0.6 10^3/ul (0.3-0.9); MONOCYTES % 9.6 % (0.0-11.0); NEUTROPHIL # 2.6 10^3/ul (1.6-7.5); PLATELET COUNT 241 10^3/UL (140-415); RED BLOOD COUNT 4.26 10^6/ul (4.70-6.10); RED CELL DISTRIBUTION WIDTH 13.4 % (11.5-14.5); WHITE BLOOD COUNT 6.3 10^3/ul (4.8-10.8)
[2017-01-08 07:15] LABS: CALCIUM 8.9 mg/dl (8.4-10.2); CREATININE 0.57 mg/dl (0.61-1.24); POTASSIUM 4.1 mmol/L (3.5-5.1)
[2017-01-08] MEDS: ASPIRIN (EC) 81 MG TAB PO SCH (08:16)
[2017-01-08] MEDS: VALSARTAN 80 MG TAB PO SCH (08:16)
[2017-01-08] MEDS: CLOPIDOGREL 75 MG TAB PO SCH (08:17)
[2017-01-08] MEDS: ISOSORBIDE DINITRATE 20 MG TAB PO SCH ×3 (08:17→21:00)
[2017-01-08] MEDS: POTASSIUM CHLORIDE (SR) 20 MEQ TAB PO SCH (08:17)
[2017-01-08] MEDS: FLUOXETINE 10 MG CAP PO SCH (08:17)
[2017-01-08] MEDS: METOPROLOL (XL) 25 MG TAB PO SCH (08:18)
[2017-01-08] MEDS: CHOLECALCIFEROL 1,000 UNIT TAB PO SCH (08:18)
[2017-01-08] MEDS: INSULIN GLARGINE [LANtus] 3 ML PEN SC SCH (08:38)
[2017-01-08] MEDS: INSULIN ASPART [NOVOLOG] 3 ML PEN SC SCH ×7 (08:38→20:35)
--- NOTE | 2017-01-08 11:50 | HP ---
Date/Time of Note Date/Time of Note DATE: 01/07/17 TIME: 13:29 Assessment/Plan Lines/Catheters IV Catheter Type (from Nrsg): Peripheral IV Assessment/Plan Assessment/Plan - Chest Pain - Cardiology consult- Dr Tomas Notified -Continue telemetry monitoring -Resume home cardiac medications, -2D echo - SP NSTEMI. - Nov 2016 - Shortness of breath -- Pulmonary consul- Dr Xiong notified - History of CAD with multiple stents - Ischemic cardiomyopathy with EF of 25-30% - Diabetes with elevated blood sugar -Check A1c - Glycemic control -Dyslipidemia -Continue statin -DVT Prophylaxis -Gi Prophylaxis -Plan of care dw Dr Waggoner/staff/patient HPI/ROS Admit Date/Time Admit Date/Time Jan 07, 2017 at 05:53 ROS HPI This is a 56-year-old male with a history of CAD, multiple heart attacks with 6 stents, hypertension, diabetes, ischemic cardiomyopathy with ejection fraction 25-30%, dyslipidemia. He is admitted with c/o chest pain.He He described as a substernal chest pressure or shortness of breath and diaphoresis. Patient seems comfortable at present. No s/s of chest pain noted. Please consider that patient was admitted in November 2016 for non-STEM. Patient underwent PCI with stent in [address] Tomas after he presented with STEMI. He also underwent PCI with stent 7 months ago at [facility]. During assessment, patent denies any chest pain, shortness of breath, fever, palpitations, chills, headache, focal weakness or numbness, abdominal pain, nausea/vomitting, constipation, diarrhea. Plan of care dw patient. ROS All systems reviewed and are negative except as per history of present illness. Allergies No Known Drug Allergy (Unverified Allergy, Mild, 12/05/16) Constitutional: improved Respiratory: shortness of breath Cardiovascular: no complaints Gastrointestinal: no complaints Genitourinary: no complaints Musculoskeletal: no complaints Skin: no complaints Neurologic: no complaints PMH/Family/Social Past Medical History PMhx/Soc History of Surgery: Yes (HEART STENTS X 6) Anesthesia Reaction: No Hx Neurological Disorder: No Hx Respiratory Disorders: Yes (Pneumonia) Hx Cardiac Disorders: Yes (STENTS;FL X 2;) Hx Psychiatric Problems: No Hx Miscellaneous Medical Probl: Pancreatitis Hx Alcohol Use: Yes (OCCASIONALLY) Hx Substance Use: No Hx Tobacco Use: Yes (1 PACK OF CIGARETTES) Smoking Status: Current every day smoker FmHx Family History: No coronary disease Social History Smoking Status: Former smoker Exam/Review of Systems Vital Signs Vitals Vital Signs Date Time Temp Pulse Resp B/P Pulse Ox O2 Delivery O2 Flow Rate FiO2 01/07/17 12:30 77 01/07/17 12:19 98.2 19 112/72 97 01/07/17 08:00 Nasal Cannula 3.0 Exam Constitutional: alert, oriented, well developed Respiratory: clear to auscultation, normal air movement Cardiovascular: nl pulses, other (S1S2) Gastrointestinal: non-tender, soft Musculoskeletal: nl extremities to inspection Extremities: normal pulses Neurological: nl mental status, nl speech Labs Result Diagram: 01/07/1742901/07/17 043 Medications Medications Current Medications Sodium Chloride (NS) 1,000 ml @ 80 mls/hr [id number] IV Last administered on 08:54; Admin Dose 80 MLS/HR; Start 01/07/17 at 05:51; Stop 01/07/17 at 18:20 Aspirin (Halfprin) 81 mg DAILY PO Last administered on 01/07/17 12:30; Admin Dose 81 MG; Start 01/07/17 at 11:30 Atorvastatin Calcium (Lipitor) 80 mg QHS PO ; Start 01/07/17 at 21:00 Cholecalciferol (Vitamin D) 1,000 unit DAILY PO Last administered on 12:33; Admin Dose 1,000 UNIT; Start 01/07/17 at 12:00 Clopidogrel Bisulfate (plaVIX) 75 mg DAILY PO Last administered on 01/07/17 12:33; Admin Dose 75 MG; Start 01/07/17 at 12:00 Digoxin (Digoxin) 0.125 mg DAILY@13 PO Last administered on 01/07/17 12:28; Admin Dose 0.125 MG; Start 01/07/17 at 13:00 Fluoxetine HCl (Prozac) 10 mg DAILY PO Last administered on 01/07/17 12:33; Admin Dose 10 MG; Start 01/07/17 at 12:00 Furosemide (Lasix) 40 mg DAILY@06 PO Last administered on 01/07/17 12:29; Admin Dose 40 MG; Start 01/07/17 at 11:30 Insulin Glargine (Lantus) 27 unit DAILY@08 SC Last administered on 01/07/17 12:38; Admin Dose 27 UNIT; Start 01/07/17 at 13:00 Metoprolol Succinate (Toprol Xl) 25 mg DAILY PO Last administered on 12:30; Admin Dose 25 MG; Start 01/07/17 at 11:30 Potassium Chloride (Klor-Con 20) 20 meq DAILY PO Last administered on 12:29; Admin Dose 20 MEQ; Start 01/07/17 at 11:30 Spironolactone (Aldactone) 25 mg DAILY@06 PO Last administered on 01/07/17 12 :26; Admin Dose 25 MG; Start 01/07/17 at 11:30 Valsartan (Diovan) 40 mg DAILY PO Last administered on 01/07/17 12:28; Admin Dose 40 MG; Start 01/07/17 at 11:30 Diagnostic Test (Pha) (Accu-Chek) 1 ea 02 XX ; Start 01/08/17 at 02:00 Diagnostic Test (Pha) (Accu-Chek) 1 ea 02 XX ; Start 01/08/17 at 02:00 Miscellaneous Information 1 ea NOTE XX ; Start 01/07/17 at 12:00 Glucose (Glutose) 15 gm Q15M PRN PO DECREASED GLUCOSE; Start 01/07/17 at 12:00 Glucose (Glutose) 22.5 gm Q15M PRN PO DECREASED GLUCOSE; Start 01/07/17 at 12: 00 Dextrose (D50w Syringe) 25 ml Q15M PRN IV DECREASED GLUCOSE; Start 01/07/17 at 12:00 Dextrose (D50w Syringe) 50 ml Q15M PRN IV DECREASED GLUCOSE; Start 01/07/17 at 12:00 Glucagon (Glucagen) 1 mg Q15M PRN IM DECREASED GLUCOSE; Start 01/07/17 at 12: 00 Glucose (Glutose) 15 gm Q15M PRN BUCCAL DECREASED GLUCOSE; Start 01/07/17 at 12:00 Pantoprazole (Protonix Tab) 40 mg DAILY@06 PO Last administered on 01/07/17 12:34; Admin Dose 40 MG; Start 01/07/17 at 12:00 ILENE JIMENEZ Jan 07, 2017 13:39
[2017-01-08] MEDS: DIGOXIN 0.125 MG TAB PO SCH (12:32)
--- NOTE | 2017-01-08 13:38 | CONS ---
Date/Time of Note Date/Time of Note DATE: 01/08/17 TIME: 13:27 Assessment/Plan Assessment/Plan Chief Complaint/Hosp Course IMPRESSION: 1. Chest pain, assess for acute coronary syndrome.-negative trop x 3. CP resolved 2. Shortness of breath, assess for congestive heart failure. 3. Cardiomyopathy with severely depressed left ventricular ejection fraction, last being approximately 25% between echo and stress, 12/2016. 4. History of percutaneous transluminal coronary angioplasty and stent placement multiple times, most recently 05/2016 at [facility]. 5. Hypertension. 6. Dyslipidemia. 7. Ongoing tobacco usage. REcc: -Tele -Continue current BB/diovan -Low dose nitrates as tolerated -start ranexa and follow for recurrent chest pain -Continue daily lasix -Continue digoxin/aldactone Problems: Consultation Date/Type/Reason Admit Date/Time Jan 07, 2017 at 05:53 Initial Consult Date 01/07/17 Type of Consultation: Cardiology Reason for Consultation chest pain Referring Provider: VIDYA HOFFMAN MD Exam/Review of Systems Vital Signs Vitals Vital Signs Date Time Temp Pulse Resp B/P Pulse Ox O2 Delivery O2 Flow Rate FiO2 01/08/17 12:02 77 01/08/17 11:25 98.0 20 94/54 95 01/07/17 08:00 Nasal Cannula 3.0 Intake and Output 01/07/17 01/07/17 01/08/17 15:00 23:00 07:00 Intake Total 600 ml 200 ml Balance 600 ml 200 ml Exam Review of Systems: CONSTITUTIONAL: No fevers, chills. PULMONARY: No sob CARDIOVASCULAR: No chest pain/palpitations GASTROINTESTINAL: No nausea/vomiting. GENITOURINARY: No hematuria/dysuria. MUSCULOSKELETAL: No myagias/arthalgias. PSYCHIATRIC: The patient denies depression. NEUROLOGIC: No weakness Constitutional: alert Psych: no complaints Head: normocephalic ENMT: mucosa pink and moist Neck: supple Respiratory: clear to auscultation Cardiovascular: regular rate and rhythm Gastrointestinal: non-tender, soft Musculoskeletal: muscle tone (normal) Extremities: edema (none) Neurological: other (No focal deficits) Results Result Diagram: 01/08/17 0554 01/08/17 0554 Results 24 hrs Laboratory Tests Test 01/07/17 18:04 01/07/17 18:05 01/07/17 20:42 01/08/17 00:50 Bedside Glucose 201 189 Creatine Kinase 72 67 Creatine Kinase Index 1.9 1.7 Creatinine Kinase MB (Mass) 1.38 1.17 Troponin I < 0.012 < 0.012 Test 01/08/17 05:54 01/08/17 08:14 01/08/17 12:22 White Blood Count 6.3 Red Blood Count 4.26 L Hemoglobin 12.7 L Hematocrit 39.1 L Mean Corpuscular Volume 91.8 Mean Corpuscular Hemoglobin 29.8 Mean Corpuscular Hemoglobin Concent 32.5 Red Cell Distribution Width 13.4 Platelet Count 241 Mean Platelet Volume 9.6 Neutrophils % 42.0 Lymphocytes % 43.5 Monocytes % 9.6 Eosinophils % 3.3 Basophils % 1.1 Nucleated Red Blood Cells % 0.0 Neutrophils # 2.6 Lymphocytes # 2.7 Monocytes # 0.6 Eosinophils # 0.2 Basophils # 0.1 Nucleated Red Blood Cells # 0.0 Sodium Level 144 Potassium Level 4.1 Chloride Level 104 Carbon Dioxide Level 31 Anion Gap 13 Blood Urea Nitrogen 11 Creatinine 0.57 L Glucose Level 158 Calcium Level 8.9 Bedside Glucose 174 246 H Medications Medications Current Medications Aspirin (Halfprin) 81 mg DAILY PO Last administered on 01/08/17 08:16; Admin Dose 81 MG; Start 01/07/17 at 11:30 Atorvastatin Calcium (Lipitor) 80 mg QHS PO Last administered on 01/07/17 20: 43; Admin Dose 80 MG; Start 01/07/17 at 21:00 Cholecalciferol (Vitamin D) 1,000 unit DAILY PO Last administered on 08:18; Admin Dose 1,000 UNIT; Start 01/07/17 at 12:00 Clopidogrel Bisulfate (plaVIX) 75 mg DAILY PO Last administered on 01/08/17 08:17; Admin Dose 75 MG; Start 01/07/17 at 12:00 Digoxin (Digoxin) 0.125 mg DAILY@13 PO Last administered on 01/08/17 12:32; Admin Dose 0.125 MG; Start 01/07/17 at 13:00 Fluoxetine HCl (Prozac) 10 mg DAILY PO Last administered on 01/08/17 08:17; Admin Dose 10 MG; Start 01/07/17 at 12:00 Furosemide (Lasix) 40 mg DAILY@06 PO Last administered on 01/07/17 12:29; Admin Dose 40 MG; Start 01/07/17 at 11:30 Insulin Glargine (Lantus) 27 unit DAILY@08 SC Last administered on 01/08/17 08:38; Admin Dose 27 UNIT; Start 01/07/17 at 13:00 Metoprolol Succinate (Toprol Xl) 25 mg DAILY PO Last administered on 08:18; Admin Dose 25 MG; Start 01/07/17 at 11:30 Potassium Chloride (Klor-Con 20) 20 meq DAILY PO Last administered on 08:17; Admin Dose 20 MEQ; Start 01/07/17 at 11:30 Spironolactone (Aldactone) 25 mg DAILY@06 PO Last administered on 01/08/17 06 :18; Admin Dose 25 MG; Start 01/07/17 at 11:30 Valsartan (Diovan) 40 mg DAILY PO Last administered on 01/08/17 08:16; Admin Dose 40 MG; Start 01/07/17 at 11:30 Diagnostic Test (Pha) (Accu-Chek) 1 ea 02 XX ; Start 01/08/17 at 02:00 Miscellaneous Information 1 ea NOTE XX ; Start 01/07/17 at 12:00 Glucose (Glutose) 15 gm Q15M PRN PO DECREASED GLUCOSE; Start 01/07/17 at 12:00 Glucose (Glutose) 22.5 gm Q15M PRN PO DECREASED GLUCOSE; Start 01/07/17 at 12: 00 Dextrose (D50w Syringe) 25 ml Q15M PRN IV DECREASED GLUCOSE; Start 01/07/17 at 12:00 Dextrose (D50w Syringe) 50 ml Q15M PRN IV DECREASED GLUCOSE; Start 01/07/17 at 12:00 Glucagon (Glucagen) 1 mg Q15M PRN IM DECREASED GLUCOSE; Start 01/07/17 at 12: 00 Glucose (Glutose) 15 gm Q15M PRN BUCCAL DECREASED GLUCOSE; Start 01/07/17 at 12:00 Pantoprazole (Protonix Tab) 40 mg DAILY@06 PO Last administered on 01/08/17 06:18; Admin Dose 40 MG; Start 01/07/17 at 12:00 Isosorbide Dinitrate (Isordil) 20 mg TID PO Last administered on 01/08/17 08: 17; Admin Dose 20 MG; Start 01/07/17 at 21:00 Furosemide (Lasix) 20 mg DAILY@06 IV Last administered on 01/08/17 06:18; Admin Dose 20 MG; Start 01/07/17 at 14:00 ROMA BUSCH Jan 08, 2017 13:37
[2017-01-08] MEDS: RANOLAZINE (SR) 500 MG TAB PO SCH ×2 (14:42→23:32)
--- NOTE | 2017-01-08 15:38 | PN ---
Date/Time of Note Date/Time of Note DATE: 01/08/17 TIME: 15:33 Assessment/Plan VTE Prophylaxis VTE Prophylaxis Intervention: SCD's Lines/Catheters IV Catheter Type (from Nrs): Peripheral IV Assessment/Plan Chief Complaint/Hosp Course Patient complains of occasional chest pain currently is chest pain-free comfortable and supplemental oxygen Problems: Assessment/Plan - Chest pain, assess for acute coronary syndrome.-negative trop x 3. CP resolved. Dr. Tomas is following in cardiology consultation. - Acute respiratory insufficiency, assess for a congestive heart failure exacerbation - Status post treatment for pneumonia last month - Cardiomyopathy with severely depressed left ventricular ejection fraction, last being approximately 25% between echo and stress, 12/2016. - History of percutaneous transluminal coronary angioplasty and stent placement multiple times, most recently 05/2016 at [facility]. - Hypertension. - Dyslipidemia. - Long-term tobacco usage. - Diabetes mellitus with hemoglobin A1c is 8.8. Continue Lantus and pre-meal NovoLog. Further recommendations based on clinical course. Plan of care discussed with Dr. Waggoner. Exam/Review of Systems Vital Signs Vitals Vital Signs Date Time Temp Pulse Resp B/P Pulse Ox O2 Delivery O2 Flow Rate FiO2 01/08/17 15:06 97.8 77 20 94/55 96 01/08/17 14:48 Nasal Cannula 01/07/17 08:00 3.0 Intake and Output 01/07/17 01/07/17 01/08/17 15:00 23:00 07:00 Intake Total 600 ml 200 ml Balance 600 ml 200 ml Exam Constitutional: alert, oriented Head: normocephalic Neck: supple Respiratory: normal air movement Cardiovascular: nl pulses Gastrointestinal: non-tender, soft Extremities: normal pulses Neurological: nl mental status Results Result Diagram: 01/08/17 0554 01/08/17 0554 Results 24 hrs Laboratory Tests Test 01/07/17 18:04 01/07/17 18:05 01/07/17 20:42 01/08/17 00:50 Bedside Glucose 201 189 Creatine Kinase 72 67 Creatine Kinase Index 1.9 1.7 Creatinine Kinase MB (Mass) 1.38 1.17 Troponin I < 0.012 < 0.012 Test 01/08/17 05:54 01/08/17 08:14 01/08/17 12:22 01/08/17 14:47 White Blood Count 6.3 Red Blood Count 4.26 L Hemoglobin 12.7 L Hematocrit 39.1 L Mean Corpuscular Volume 91.8 Mean Corpuscular Hemoglobin 29.8 Mean Corpuscular Hemoglobin Concent 32.5 Red Cell Distribution Width 13.4 Platelet Count 241 Mean Platelet Volume 9.6 Neutrophils % 42.0 Lymphocytes % 43.5 Monocytes % 9.6 Eosinophils % 3.3 Basophils % 1.1 Nucleated Red Blood Cells % 0.0 Neutrophils # 2.6 Lymphocytes # 2.7 Monocytes # 0.6 Eosinophils # 0.2 Basophils # 0.1 Nucleated Red Blood Cells # 0.0 Sodium Level 144 Potassium Level 4.1 Chloride Level 104 Carbon Dioxide Level 31 Anion Gap 13 Blood Urea Nitrogen 11 Creatinine 0.57 L Glucose Level 158 Calcium Level 8.9 Bedside Glucose 174 246 H 61 L Medications Medications Current Medications Aspirin (Halfprin) 81 mg DAILY PO Last administered on 01/08/17 08:16; Admin Dose 81 MG; Start 01/07/17 at 11:30 Atorvastatin Calcium (Lipitor) 80 mg QHS PO Last administered on 01/07/17 20: 43; Admin Dose 80 MG; Start 01/07/17 at 21:00 Cholecalciferol (Vitamin D) 1,000 unit DAILY PO Last administered on 08:18; Admin Dose 1,000 UNIT; Start 01/07/17 at 12:00 Clopidogrel Bisulfate (plaVIX) 75 mg DAILY PO Last administered on 01/08/17 08:17; Admin Dose 75 MG; Start 01/07/17 at 12:00 Digoxin (Digoxin) 0.125 mg DAILY@13 PO Last administered on 01/08/17 12:32; Admin Dose 0.125 MG; Start 01/07/17 at 13:00 Fluoxetine HCl (Prozac) 10 mg DAILY PO Last administered on 01/08/17 08:17; Admin Dose 10 MG; Start 01/07/17 at 12:00 Furosemide (Lasix) 40 mg DAILY@06 PO Last administered on 01/07/17 12:29; Admin Dose 40 MG; Start 01/07/17 at 11:30 Insulin Glargine (Lantus) 27 unit DAILY@08 SC Last administered on 01/08/17 08:38; Admin Dose 27 UNIT; Start 01/07/17 at 13:00 Metoprolol Succinate (Toprol Xl) 25 mg DAILY PO Last administered on 08:18; Admin Dose 25 MG; Start 01/07/17 at 11:30 Potassium Chloride (Klor-Con 20) 20 meq DAILY PO Last administered on 08:17; Admin Dose 20 MEQ; Start 01/07/17 at 11:30 Spironolactone (Aldactone) 25 mg DAILY@06 PO Last administered on 01/08/17 06 :18; Admin Dose 25 MG; Start 01/07/17 at 11:30 Valsartan (Diovan) 40 mg DAILY PO Last administered on 01/08/17 08:16; Admin Dose 40 MG; Start 01/07/17 at 11:30 Diagnostic Test (Pha) (Accu-Chek) 1 ea 02 XX ; Start 01/08/17 at 02:00 Miscellaneous Information 1 ea NOTE XX ; Start 01/07/17 at 12:00 Glucose (Glutose) 15 gm Q15M PRN PO DECREASED GLUCOSE; Start 01/07/17 at 12:00 Glucose (Glutose) 22.5 gm Q15M PRN PO DECREASED GLUCOSE; Start 01/07/17 at 12: 00 Dextrose (D50w Syringe) 25 ml Q15M PRN IV DECREASED GLUCOSE; Start 01/07/17 at 12:00 Dextrose (D50w Syringe) 50 ml Q15M PRN IV DECREASED GLUCOSE; Start 01/07/17 at 12:00 Glucagon (Glucagen) 1 mg Q15M PRN IM DECREASED GLUCOSE; Start 01/07/17 at 12: 00 Glucose (Glutose) 15 gm Q15M PRN BUCCAL DECREASED GLUCOSE; Start 01/07/17 at 12:00 Pantoprazole (Protonix Tab) 40 mg DAILY@06 PO Last administered on 01/08/17 06:18; Admin Dose 40 MG; Start 01/07/17 at 12:00 Isosorbide Dinitrate (Isordil) 20 mg TID PO Last administered on 01/08/17 08: 17; Admin Dose 20 MG; Start 01/07/17 at 21:00 Furosemide (Lasix) 20 mg DAILY@06 IV Last administered on 01/08/17 06:18; Admin Dose 20 MG; Start 01/07/17 at 14:00 Ranolazine (Ranexa) 500 mg Q12 PO Last administered on 01/08/17t 14:42; Admin Dose 500 MG; Start 01/08/17 at 14:00 RIGOBERTO LAI Jan 08, 2017 15:38
[2017-01-08] MEDS ORDERED: ACETAMINOPHEN 325 MG TAB PO PRN (16:30)
[2017-01-08] MEDS ORDERED: ONDANSETRON 4 MG INJ IV PRN (16:30)
--- NOTE | 2017-01-08 16:55 | RADRPT ---
Vent Rate: 77 bpm RR Interval: 0 msec [place] Interval: 172 msec QRS Duration: 128 msec QT Interval: 394 msec QTC Interval: 445 msec P-R-T [place]: 57 - 37 - -89 degrees Normal sinus rhythm Possible Left atrial enlargement Nonspecific intraventricular block Cannot rule out Septal infarct , age undetermined T wave abnormality, consider inferolateral ischemia Abnormal ECG Electronically Signed By: Drew Tomas [id number]
[2017-01-08] MEDS: ATORVASTATIN 80 MG TAB PO SCH (20:41)
[2017-01-09] VITALS (11 sets, daily range): BP systolic 109–117; BP diastolic 65–76; PULSE 80–99; RESP 18–20
[2017-01-09] MEDS: ACCU-CHEK XX SCH (02:00)
[2017-01-09] MEDS: SPIRONOLACTONE 25 MG TAB PO SCH (05:59)
[2017-01-09] MEDS: PANTOPRAZOLE (EC) 40 MG TAB PO SCH (05:59)
[2017-01-09] MEDS: FUROSEMIDE 40 MG TAB PO SCH (06:00)
[2017-01-09] MEDS: FUROSEMIDE 20 MG INJ IV SCH (06:02)
[2017-01-09 06:53] LABS: BASOPHIL # 0.1 10^3/ul (0.0-0.1); BASOPHILS % 0.7 % (0.0-2.0); EOSINOPHILS # 0.2 10^3/ul (0.0-0.5); EOSINOPHILS % 2.2 % (0.0-7.0); HEMATOCRIT 37.7 % (42.0-52.0); HEMOGLOBIN 12.6 g/dl (14.0-18.0); LYMPHOCYTES # 2.2 10^3/ul (0.8-2.9); LYMPHOCYTES % 31.7 % (15.0-51.0); MEAN CORPUSCULAR HEMOGLOBIN 30.5 pg (29.0-33.0); MEAN CORPUSCULAR HGB CONC 33.4 g/dl (32.0-37.0); MEAN CORPUSCULAR VOLUME 91.3 fl (82.0-101.0); MEAN PLATELET VOLUME 9.9 fl (7.4-10.4); MONOCYTE # 0.7 10^3/ul (0.3-0.9); MONOCYTES % 10.1 % (0.0-11.0); NEUTROPHIL # 3.8 10^3/ul (1.6-7.5); NEUTROPHILS % 54.9 % (39.0-77.0); PLATELET COUNT 225 10^3/UL (140-415); RED BLOOD COUNT 4.13 10^6/ul (4.70-6.10); WHITE BLOOD COUNT 6.9 10^3/ul (4.8-10.8)
[2017-01-09 07:58] LABS: CALCIUM 9.3 mg/dl (8.4-10.2); CREATININE 0.66 mg/dl (0.61-1.24); POTASSIUM 4.2 mmol/L (3.5-5.1)
[2017-01-09] MEDS: INSULIN ASPART [NOVOLOG] 3 ML PEN SC SCH ×7 (08:06→21:54)
[2017-01-09] MEDS: INSULIN GLARGINE [LANtus] 3 ML PEN SC SCH (08:07)
[2017-01-09] MEDS: ISOSORBIDE DINITRATE 20 MG TAB PO SCH ×3 (09:00→21:47)
[2017-01-09] MEDS: CHOLECALCIFEROL 1,000 UNIT TAB PO SCH (09:25)
[2017-01-09] MEDS: ASPIRIN (EC) 81 MG TAB PO SCH (09:25)
[2017-01-09] MEDS: POTASSIUM CHLORIDE (SR) 20 MEQ TAB PO SCH (09:25)
[2017-01-09] MEDS: CLOPIDOGREL 75 MG TAB PO SCH (09:25)
[2017-01-09] MEDS: RANOLAZINE (SR) 500 MG TAB PO SCH ×2 (09:26→21:48)
[2017-01-09] MEDS: VALSARTAN 80 MG TAB PO SCH (09:26)
[2017-01-09] MEDS: FLUOXETINE 10 MG CAP PO SCH (09:26)
[2017-01-09] MEDS: METOPROLOL (XL) 25 MG TAB PO SCH (09:26)
[2017-01-09] MEDS: DIGOXIN 0.125 MG TAB PO SCH (13:43)
--- NOTE | 2017-01-09 14:56 | PN ---
Date/Time of Note Date/Time of Note DATE: 01/09/17 TIME: 14:55 Assessment/Plan VTE Prophylaxis VTE Prophylaxis Intervention: other Lines/Catheters IV Catheter Type (from Nrsg): Saline Lock Assessment/Plan Assessment/Plan - Chest pain, assess for acute coronary syndrome.-negative trop x 3. CP resolved. - NONE AT PRESENT - Dr. Tomas is following in cardiology consultation. - Acute respiratory insufficiency, assess for a congestive heart failure exacerbation - Status post treatment for pneumonia last month - Cardiomyopathy with severely depressed left ventricular ejection fraction, last being approximately 25% between echo and stress, 12/2016. - History of percutaneous transluminal coronary angioplasty and stent placement multiple times, most recently 05/2016 at [email or web address] - Hypertension. - Dyslipidemia. - Long-term tobacco usage. - Diabetes mellitus with hemoglobin A1c is 8.8. Continue Lantus and pre-meal NovoLog. Further recommendations based on clinical course. Plan of care discussed with Dr. Waggoner. Subjective 24 Hr Interval Summary Respiratory: cough, no complaints Gastrointestinal: constipation Genitourinary: no complaints Musculoskeletal: no complaints Exam/Review of Systems Vital Signs Vitals Vital Signs Date Time Temp Pulse Resp B/P Pulse Ox O2 Delivery O2 Flow Rate FiO2 01/09/17 12:06 99 01/09/17 11:10 97.9 19 114/76 95 01/09/17 05:00 Room Air 01/07/17 08:00 3.0 Intake and Output 01/08/17 01/08/17 01/09/17 15:00 23:00 07:00 Intake Total 960 ml 300 ml Balance 960 ml 300 ml Exam Constitutional: alert, oriented, well developed Respiratory: clear to auscultation, normal air movement Cardiovascular: nl pulses, other (S1S2) Gastrointestinal: non-tender, soft Musculoskeletal: nl extremities to inspection Extremities: normal pulses Neurological: nl mental status, nl speech Results Result Diagram: 01/09/17 0557 01/09/17 0557 Results 24 hrs Laboratory Tests Test 01/08/17 15:34 01/08/17 17:36 01/08/17 20:32 01/09/17 02:16 Bedside Glucose 89 262 H 326 H 174 Test 01/09/17 05:57 01/09/17 07:58 01/09/17 11:53 White Blood Count 6.9 Red Blood Count 4.13 L Hemoglobin 12.6 L Hematocrit 37.7 L Mean Corpuscular Volume 91.3 Mean Corpuscular Hemoglobin 30.5 Mean Corpuscular Hemoglobin Concent 33.4 Red Cell Distribution Width 13.0 Platelet Count 225 Mean Platelet Volume 9.9 Neutrophils % 54.9 Lymphocytes % 31.7 Monocytes % 10.1 Eosinophils % 2.2 Basophils % 0.7 Nucleated Red Blood Cells % 0.0 Neutrophils # 3.8 Lymphocytes # 2.2 Monocytes # 0.7 Eosinophils # 0.2 Basophils # 0.1 Nucleated Red Blood Cells # 0.0 Sodium Level 141 Potassium Level 4.2 Chloride Level 102 Carbon Dioxide Level 30 Anion Gap 13 Blood Urea Nitrogen 9 Creatinine 0.66 Glucose Level 157 Calcium Level 9.3 Bedside Glucose 185 232 H Medications Medications Current Medications Aspirin (Halfprin) 81 mg DAILY PO Last administered on 01/09/17 09:25; Admin Dose 81 MG; Start 01/07/17 at 11:30 Atorvastatin Calcium (Lipitor) 80 mg QHS PO Last administered on 01/08/17 20: 41; Admin Dose 80 MG; Start 01/07/17 at 21:00 Cholecalciferol (Vitamin D) 1,000 unit DAILY PO Last administered on 09:25; Admin Dose 1,000 UNIT; Start 01/07/17 at 12:00 Clopidogrel Bisulfate (plaVIX) 75 mg DAILY PO Last administered on 01/09/17 09:25; Admin Dose 75 MG; Start 01/07/17 at 12:00 Digoxin (Digoxin) 0.125 mg DAILY@13 PO Last administered on 01/09/17 13:43; Admin Dose 0.125 MG; Start 01/07/17 at 13:00 Fluoxetine HCl (Prozac) 10 mg DAILY PO Last administered on 01/09/17 09:26; Admin Dose 10 MG; Start 01/07/17 at 12:00 Furosemide (Lasix) 40 mg DAILY@06 PO Last administered on 01/07/17 12:29; Admin Dose 40 MG; Start 01/07/17 at 11:30 Insulin Glargine (Lantus) 27 unit DAILY@08 SC Last administered on 01/09/17 08:07; Admin Dose 27 UNIT; Start 01/07/17 at 13:00 Metoprolol Succinate (Toprol Xl) 25 mg DAILY PO Last administered on 09:26; Admin Dose 25 MG; Start 01/07/17 at 11:30 Potassium Chloride (Klor-Con 20) 20 meq DAILY PO Last administered on 09:25; Admin Dose 20 MEQ; Start 01/07/17 at 11:30 Spironolactone (Aldactone) 25 mg DAILY@06 PO Last administered on 01/09/17 05 :59; Admin Dose 25 MG; Start 01/07/17 at 11:30 Valsartan (Diovan) 40 mg DAILY PO Last administered on 01/09/17 09:26; Admin Dose 40 MG; Start 01/07/17 at 11:30 Diagnostic Test (Pha) (Accu-Chek) 1 ea 02 XX ; Start 01/08/17 at 02:00 Miscellaneous Information 1 ea NOTE XX ; Start 01/07/17 at 12:00 Glucose (Glutose) 15 gm Q15M PRN PO DECREASED GLUCOSE; Start 01/07/17 at 12:00 Glucose (Glutose) 22.5 gm Q15M PRN PO DECREASED GLUCOSE; Start 01/07/17 at 12: 00 Dextrose (D50w Syringe) 25 ml Q15M PRN IV DECREASED GLUCOSE; Start 01/07/17 at 12:00 Dextrose (D50w Syringe) 50 ml Q15M PRN IV DECREASED GLUCOSE; Start 01/07/17 at 12:00 Glucagon (Glucagen) 1 mg Q15M PRN IM DECREASED GLUCOSE; Start 01/07/17 at 12: 00 Glucose (Glutose) 15 gm Q15M PRN BUCCAL DECREASED GLUCOSE; Start 01/07/17 at 12:00 Pantoprazole (Protonix Tab) 40 mg DAILY@06 PO Last administered on 01/09/17 05:59; Admin Dose 40 MG; Start 01/07/17 at 12:00 Isosorbide Dinitrate (Isordil) 20 mg TID PO Last administered on 01/08/17 08: 17; Admin Dose 20 MG; Start 01/07/17 at 21:00 Furosemide (Lasix) 20 mg DAILY@06 IV Last administered on 01/09/17 06:02; Admin Dose 20 MG; Start 01/07/17 at 14:00 Ranolazine (Ranexa) 500 mg Q12 PO Last administered on 01/09/17 09:26; Admin Dose 500 MG; Start 01/08/17 at 14:00 Acetaminophen (Tylenol Tab) 650 mg Q4H PRN PO PAIN AND OR ELEVATED TEMP Last administered on 01/08/17 16:17; Admin Dose 650 MG; Start 01/08/17 at 16:30 Ondansetron HCl (Zofran Inj) 4 mg Q4H PRN IV NAUSEA AND/OR VOMITING; Start at 16:30 ILENE JIMENEZ Jan 09, 2017 14:56
--- NOTE | 2017-01-09 14:59 | CONS ---
Date/Time of Note Date/Time of Note DATE: 01/09/17 TIME: 14:57 Assessment/Plan Assessment/Plan Chief Complaint/Hosp Course IMPRESSION: 1. Chest pain, assess for acute coronary syndrome.-negative trop x 3. CP resolved on ranexa 2. Shortness of breath, assess for congestive heart failure. 3. Cardiomyopathy with severely depressed left ventricular ejection fraction, last being approximately 25% between echo and stress, 12/2016. 4. History of percutaneous transluminal coronary angioplasty and stent placement multiple times, most recently 05/2016 at [facility]. 5. Hypertension. 6. Dyslipidemia. 7. Ongoing tobacco usage. REcc: -Tele -Continue current BB/diovan -Contnue isordil/ranexa -Continue daily lasix -Continue digoxin/aldactone -D/C planning if remains CP freee Problems: Consultation Date/Type/Reason Admit Date/Time Jan 07, 2017 at 05:53 Initial Consult Date 01/07/17 Type of Consultation: Cardiology Reason for Consultation chest pain Referring Provider: VIDYA HOFFMAN MD Exam/Review of Systems Vital Signs Vitals Vital Signs Date Time Temp Pulse Resp B/P Pulse Ox O2 Delivery O2 Flow Rate FiO2 01/09/17 12:06 99 01/09/17 11:10 97.9 19 114/76 95 01/09/17 05:00 Room Air 01/07/17 08:00 3.0 Intake and Output 01/08/17 01/08/17 01/09/17 15:00 23:00 07:00 Intake Total 960 ml 300 ml Balance 960 ml 300 ml Exam Review of Systems: CONSTITUTIONAL: No fevers, chills. PULMONARY: No sob CARDIOVASCULAR: No chest pain/palpitations GASTROINTESTINAL: No nausea/vomiting. GENITOURINARY: No hematuria/dysuria. MUSCULOSKELETAL: No myagias/arthalgias. PSYCHIATRIC: The patient denies depression. NEUROLOGIC: No weakness Constitutional: alert, oriented Psych: no complaints Head: normocephalic Neck: jvd (8-9 cm water), supple Respiratory: clear to auscultation Cardiovascular: regular rate and rhythm Gastrointestinal: soft Musculoskeletal: muscle tone (normal) Extremities: edema (none) Neurological: other (No focal deficits) Results Result Diagram: 01/09/17 0557 01/09/17 0557 Results 24 hrs Laboratory Tests Test 01/08/17:34 01/08/17 17:36 01/08/17 20:32 01/09/17 02:16 Bedside Glucose 89 262 H 326 H 174 Test 01/09/17 05:57 01/09/17 07:58 01/09/17 11:53 White Blood Count 6.9 Red Blood Count 4.13 L Hemoglobin 12.6 L Hematocrit 37.7 L Mean Corpuscular Volume 91.3 Mean Corpuscular Hemoglobin 30.5 Mean Corpuscular Hemoglobin Concent 33.4 Red Cell Distribution Width 13.0 Platelet Count 225 Mean Platelet Volume 9.9 Neutrophils % 54.9 Lymphocytes % 31.7 Monocytes % 10.1 Eosinophils % 2.2 Basophils % 0.7 Nucleated Red Blood Cells % 0.0 Neutrophils # 3.8 Lymphocytes # 2.2 Monocytes # 0.7 Eosinophils # 0.2 Basophils # 0.1 Nucleated Red Blood Cells # 0.0 Sodium Level 141 Potassium Level 4.2 Chloride Level 102 Carbon Dioxide Level 30 Anion Gap 13 Blood Urea Nitrogen 9 Creatinine 0.66 Glucose Level 157 Calcium Level 9.3 Bedside Glucose 185 232 H Medications Medications Current Medications Aspirin (Halfprin) 81 mg DAILY PO Last administered on 01/09/17 09:25; Admin Dose 81 MG; Start 01/07/17 at 11:30 Atorvastatin Calcium (Lipitor) 80 mg QHS PO Last administered on 01/08/17 20: 41; Admin Dose 80 MG; Start 01/07/17 at 21:00 Cholecalciferol (Vitamin D) 1,000 unit DAILY PO Last administered on 09:25; Admin Dose 1,000 UNIT; Start 01/07/17 at 12:00 Clopidogrel Bisulfate (plaVIX) 75 mg DAILY PO Last administered on 01/09/17 09:25; Admin Dose 75 MG; Start 01/07/17 at 12:00 Digoxin (Digoxin) 0.125 mg DAILY@13 PO Last administered on 01/09/17 13:43; Admin Dose 0.125 MG; Start 01/07/17 at 13:00 Fluoxetine HCl (Prozac) 10 mg DAILY PO Last administered on 01/09/17 09:26; Admin Dose 10 MG; Start 01/07/17 at 12:00 Furosemide (Lasix) 40 mg DAILY@06 PO Last administered on 01/07/17 12:29; Admin Dose 40 MG; Start 01/07/17 at 11:30 Metoprolol Succinate (Toprol Xl) 25 mg DAILY PO Last administered on 09:26; Admin Dose 25 MG; Start 01/07/17 at 11:30 Potassium Chloride (Klor-Con 20) 20 meq DAILY PO Last administered on 09:25; Admin Dose 20 MEQ; Start 01/07/17 at 11:30 Spironolactone (Aldactone) 25 mg DAILY@06 PO Last administered on 01/09/17 05 :59; Admin Dose 25 MG; Start 01/07/17 at 11:30 Valsartan (Diovan) 40 mg DAILY PO Last administered on 01/09/17 09:26; Admin Dose 40 MG; Start 01/07/17 at 11:30 Diagnostic Test (Pha) (Accu-Chek) 1 ea 02 XX ; Start 01/08/17 at 02:00 Miscellaneous Information 1 ea NOTE XX ; Start 01/07/17 at 12:00 Glucose (Glutose) 15 gm Q15M PRN PO DECREASED GLUCOSE; Start 01/07/17 at 12:00 Glucose (Glutose) 22.5 gm Q15M PRN PO DECREASED GLUCOSE; Start 01/07/17 at 12: 00 Dextrose (D50w Syringe) 25 ml Q15M PRN IV DECREASED GLUCOSE; Start 01/07/17 at 12:00 Dextrose (D50w Syringe) 50 ml Q15M PRN IV DECREASED GLUCOSE; Start 01/07/17 at 12:00 Glucagon (Glucagen) 1 mg Q15M PRN IM DECREASED GLUCOSE; Start 01/07/17 at 12: 00 Glucose (Glutose) 15 gm Q15M PRN BUCCAL DECREASED GLUCOSE; Start 01/07/17 at 12:00 Pantoprazole (Protonix Tab) 40 mg DAILY@06 PO Last administered on 01/09/17 05:59; Admin Dose 40 MG; Start 01/07/17 at 12:00 Isosorbide Dinitrate (Isordil) 20 mg TID PO Last administered on 01/08/17 08: 17; Admin Dose 20 MG; Start 01/07/17 at 21:00 Furosemide (Lasix) 20 mg DAILY@06 IV Last administered on 01/09/17 06:02; Admin Dose 20 MG; Start 01/07/17 at 14:00 Ranolazine (Ranexa) 500 mg Q12 PO Last administered on 01/09/17 09:26; Admin Dose 500 MG; Start 01/08/17 at 14:00 Acetaminophen (Tylenol Tab) 650 mg Q4H PRN PO PAIN AND OR ELEVATED TEMP Last administered on 01/08/17 16:17; Admin Dose 650 MG; Start 01/08/17 at 16:30 Ondansetron HCl (Zofran Inj) 4 mg Q4H PRN IV NAUSEA AND/OR VOMITING; Start at 16:30 Insulin Glargine (Lantus) 33 unit DAILY@08 SC ; Start 01/10/17 at 08:00; Status ROMA FELICIANO Jan 09, 2017 14:58
[2017-01-09 17:34] LABS: CALCIUM 9.2 mg/dl (8.4-10.2); CREATININE 0.92 mg/dl (0.61-1.24); POTASSIUM 4.5 mmol/L (3.5-5.1)
[2017-01-09] MEDS: ATORVASTATIN 80 MG TAB PO SCH (21:48)
[2017-01-10] VITALS (8 sets, daily range): BP systolic 94–123; BP diastolic 64–81; PULSE 75–85; RESP 17–20
[2017-01-10] MEDS: ACCU-CHEK XX SCH (02:44)
[2017-01-10] MEDS: FUROSEMIDE 20 MG INJ IV SCH (05:51)
[2017-01-10] MEDS: SPIRONOLACTONE 25 MG TAB PO SCH (05:51)
[2017-01-10] MEDS: PANTOPRAZOLE (EC) 40 MG TAB PO SCH (05:51)
[2017-01-10] MEDS ORDERED: INSULIN ASPART [NOVOLOG] 3 ML PEN SC SCH (07:55)
[2017-01-10] MEDS: INSULIN ASPART [NOVOLOG] 3 ML PEN SC SCH ×3 (07:55→12:10)
[2017-01-10] MEDS ORDERED: INSULIN GLARGINE [LANtus] 3 ML PEN SC SCH (08:00)
[2017-01-10 08:01] LABS: BASOPHILS % 0.7 % (0.0-2.0); EOSINOPHILS # 0.1 10^3/ul (0.0-0.5); EOSINOPHILS % 2.5 % (0.0-7.0); HEMATOCRIT 38.2 % (42.0-52.0); HEMOGLOBIN 12.5 g/dl (14.0-18.0); LYMPHOCYTES # 1.9 10^3/ul (0.8-2.9); LYMPHOCYTES % 32.9 % (15.0-51.0); MEAN CORPUSCULAR HEMOGLOBIN 29.5 pg (29.0-33.0); MEAN CORPUSCULAR HGB CONC 32.7 g/dl (32.0-37.0); MEAN CORPUSCULAR VOLUME 90.1 fl (82.0-101.0); MEAN PLATELET VOLUME 9.9 fl (7.4-10.4); MONOCYTE # 0.7 10^3/ul (0.3-0.9); MONOCYTES % 11.7 % (0.0-11.0); NEUTROPHIL # 2.9 10^3/ul (1.6-7.5); NEUTROPHILS % 51.7 % (39.0-77.0); PLATELET COUNT 239 10^3/UL (140-415); RED BLOOD COUNT 4.24 10^6/ul (4.70-6.10); RED CELL DISTRIBUTION WIDTH 13.2 % (11.5-14.5); WHITE BLOOD COUNT 5.7 10^3/ul (4.8-10.8)
[2017-01-10] MEDS: Insulin NOVOLOG SS MILD Algorithm (SS with meals and bedtime) SC SCH ×2 (08:11→12:11)
[2017-01-10] MEDS: ISOSORBIDE DINITRATE 20 MG TAB PO SCH ×2 (08:11→12:08)
[2017-01-10] MEDS: METOPROLOL (XL) 25 MG TAB PO SCH (08:51)
[2017-01-10] MEDS: FLUOXETINE 10 MG CAP PO SCH (08:51)
[2017-01-10] MEDS: POTASSIUM CHLORIDE (SR) 20 MEQ TAB PO SCH (08:51)
[2017-01-10] MEDS: CLOPIDOGREL 75 MG TAB PO SCH (08:52)
[2017-01-10] MEDS: VALSARTAN 80 MG TAB PO SCH (08:52)
[2017-01-10] MEDS: CHOLECALCIFEROL 1,000 UNIT TAB PO SCH (08:52)
[2017-01-10] MEDS: ASPIRIN (EC) 81 MG TAB PO SCH (08:52)
[2017-01-10] MEDS: RANOLAZINE (SR) 500 MG TAB PO SCH (08:52)
[2017-01-10] MEDS: DIGOXIN 0.125 MG TAB PO SCH (13:17)
--- NOTE | 2017-01-10 13:20 | CONS ---
Date/Time of Note Date/Time of Note DATE: 01/10/17 TIME: 13:17 Assessment/Plan Assessment/Plan Chief Complaint/Hosp Course IMPRESSION: 1. Chest pain, assess for acute coronary syndrome.-negative trop x 3. CP resolved on current ranexa 2. Shortness of breath-improving 3. Cardiomyopathy with severely depressed left ventricular ejection fraction, last being approximately 25% between echo and stress, 12/2016. 4. History of percutaneous transluminal coronary angioplasty and stent placement multiple times, most recently 05/2016 at [facility]. 5. Hypertension. 6. Dyslipidemia. 7. Ongoing tobacco usage 8. Possible PNA by cxr. REcc: -Tele -Continue current BB/diovan -Contnue ranexa -will d/c isordil as being held due to low BP with CP resolved on ranexa -Continue daily lasix -Continue digoxin/aldactone -? necessity of abx for upper lobe infiltrate on cxr -D/C planning if remains CP free Problems: Consultation Date/Type/Reason Admit Date/Time Jan 07, 2017 at 05:53 Initial Consult Date 01/07/17 Type of Consultation: Cardiology Reason for Consultation chest pain Referring Provider: VIDYA HOFFMAN MD Exam/Review of Systems Vital Signs Vitals Vital Signs Date Time Temp Pulse Resp B/P Pulse Ox O2 Delivery O2 Flow Rate FiO2 01/10/17 12:10 85 01/10/17 12:07 98.1 17 94/64 95 Room Air 01/07/17 08:00 3.0 Intake and Output 01/09/17 01/09/17 01/10/17 15:00 23:00 07:00 Intake Total 1200 ml Balance 1200 ml Exam Review of Systems: CONSTITUTIONAL: No fevers, chills. PULMONARY: No sob CARDIOVASCULAR: No chest pain/palpitations GASTROINTESTINAL: No nausea/vomiting. GENITOURINARY: No hematuria/dysuria. MUSCULOSKELETAL: No myagias/arthalgias. PSYCHIATRIC: The patient denies depression. NEUROLOGIC: No weakness Constitutional: alert, oriented Psych: no complaints ENMT: mucosa pink and moist Neck: jvd (9 cm water), supple Respiratory: clear to auscultation Cardiovascular: regular rate and rhythm Gastrointestinal: non-tender, soft Musculoskeletal: muscle tone (normal) Extremities: edema (none) Neurological: other (No focal deficits) Results Result Diagram: 01/10/17 0715 01/09/17 1611 Results 24 hrs Laboratory Tests Test 01/09/17 16:11 01/09/17 17:09 01/09/17 21:44 01/10/17 02:42 Sodium Level 137 Potassium Level 4.5 Chloride Level 98 Carbon Dioxide Level 28 Anion Gap 16 Blood Urea Nitrogen 16 Creatinine 0.92 Glucose Level 251 H Calcium Level 9.2 Bedside Glucose 206 302 H 236 H Test 01/10/17 07:15 01/10/17 07:48 01/10/17 11:57 White Blood Count 5.7 Red Blood Count 4.24 L Hemoglobin 12.5 L Hematocrit 38.2 L Mean Corpuscular Volume 90.1 Mean Corpuscular Hemoglobin 29.5 Mean Corpuscular Hemoglobin Concent 32.7 Red Cell Distribution Width 13.2 Platelet Count 239 Mean Platelet Volume 9.9 Neutrophils % 51.7 Lymphocytes % 32.9 Monocytes % 11.7 H Eosinophils % 2.5 Basophils % 0.7 Nucleated Red Blood Cells % 0.0 Neutrophils # 2.9 Lymphocytes # 1.9 Monocytes # 0.7 Eosinophils # 0.1 Basophils # 0.0 Nucleated Red Blood Cells # 0.0 Bedside Glucose 195 302 H Medications Medications Current Medications Aspirin (Halfprin) 81 mg DAILY PO Last administered on 01/10/17 08:52; Admin Dose 81 MG; Start 01/07/17 at 11:30 Atorvastatin Calcium (Lipitor) 80 mg QHS PO Last administered on 01/09/17 21: 48; Admin Dose 80 MG; Start 01/07/17 at 21:00 Cholecalciferol (Vitamin D) 1,000 unit DAILY PO Last administered on 08:52; Admin Dose 1,000 UNIT; Start 01/07/17 at 12:00 Clopidogrel Bisulfate (plaVIX) 75 mg DAILY PO Last administered on 01/10/17 08:52; Admin Dose 75 MG; Start 01/07/17 at 12:00 Digoxin (Digoxin) 0.125 mg DAILY@13 PO Last administered on 01/09/17 13:43; Admin Dose 0.125 MG; Start 01/07/17 at 13:00 Fluoxetine HCl (Prozac) 10 mg DAILY PO Last administered on 01/10/17 08:51; Admin Dose 10 MG; Start 01/07/17 at 12:00 Furosemide (Lasix) 40 mg DAILY@06 PO Last administered on 01/07/17 12:29; Admin Dose 40 MG; Start 01/07/17 at 11:30; Status Future Hold Metoprolol Succinate (Toprol Xl) 25 mg DAILY PO Last administered on 08:51; Admin Dose 25 MG; Start 01/07/17 at 11:30 Potassium Chloride (Klor-Con 20) 20 meq DAILY PO Last administered on 08:51; Admin Dose 20 MEQ; Start 01/07/17 at 11:30 Spironolactone (Aldactone) 25 mg DAILY@06 PO Last administered on 01/10/17 05 :51; Admin Dose 25 MG; Start 01/07/17 at 11:30 Valsartan (Diovan) 40 mg DAILY PO Last administered on 01/10/17 08:52; Admin Dose 40 MG; Start 01/07/17 at 11:30 Diagnostic Test (Pha) (Accu-Chek) 1 ea 02 XX Last administered on 01/10/17 02 :44; Admin Dose 1 EA; Start 01/08/17 at 02:00 Miscellaneous Information 1 ea NOTE XX ; Start 01/07/17 at 12:00 Glucose (Glutose) 15 gm Q15M PRN PO DECREASED GLUCOSE; Start 01/07/17 at 12:00 Glucose (Glutose) 22.5 gm Q15M PRN PO DECREASED GLUCOSE; Start 01/07/17 at 12: 00 Dextrose (D50w Syringe) 25 ml Q15M PRN IV DECREASED GLUCOSE; Start 01/07/17 at 12:00 Dextrose (D50w Syringe) 50 ml Q15M PRN IV DECREASED GLUCOSE; Start 01/07/17 at 12:00 Glucagon (Glucagen) 1 mg Q15M PRN IM DECREASED GLUCOSE; Start 01/07/17 at 12: 00 Glucose (Glutose) 15 gm Q15M PRN BUCCAL DECREASED GLUCOSE; Start 01/07/17 at 12:00 Pantoprazole (Protonix Tab) 40 mg DAILY@06 PO Last administered on 01/10/17 05:51; Admin Dose 40 MG; Start 01/07/17 at 12:00 Isosorbide Dinitrate (Isordil) 20 mg TID PO Last administered on 01/09/17 21: 47; Admin Dose 20 MG; Start 01/07/17 at 21:00 Furosemide (Lasix) 20 mg DAILY@06 IV Last administered on 01/10/17 05:51; Admin Dose 20 MG; Start 01/07/17 at 14:00 Ranolazine (Ranexa) 500 mg Q12 PO Last administered on 01/10/17 08:52; Admin Dose 500 MG; Start 01/08/17 at 14:00 Acetaminophen (Tylenol Tab) 650 mg Q4H PRN PO PAIN AND OR ELEVATED TEMP Last administered on 01/08/17 16:17; Admin Dose 650 MG; Start 01/08/17 at 16:30 Ondansetron HCl (Zofran Inj) 4 mg Q4H PRN IV NAUSEA AND/OR VOMITING; Start at 16:30 Insulin Glargine (Lantus) 33 unit DAILY@08 SC Last administered on 01/10/17 08:10; Admin Dose 33 UNIT; Start 01/10/17 at 08:00 ROMA BUSCH Jan 10, 2017 13:20
[2017-01-10] MEDS ORDERED: DOCU-144 PO (14:31)
[2017-01-10] MEDS ORDERED: RANO500T2 PO (14:31)
[2017-01-10] MEDS ORDERED: VALS80TA2 PO (14:31)
[2017-01-10] MEDS ORDERED: PANT40TA3 PO (14:32)
[2017-01-10] MEDS ORDERED: NOVO3I SC (14:40)
[2017-01-10] MEDS ORDERED: LANT3I SC (14:40)
--- NOTE | 2017-01-10 14:49 | DS ---
Date/Time of Note Date/Time of Note DATE: 01/10/17 TIME: 14:49 Discharge Summary Admission/Discharge Info Admit Date/Time Jan 07, 2017 at 05:53 Discharge Date/Time Hospital Course IMPRESSION: 1. Chest pain, assess for acute coronary syndrome.-negative trop x 3. CP resolved on current ranexa 2. Shortness of breath-improving 3. Cardiomyopathy with severely depressed left ventricular ejection fraction, last being approximately 25% between echo and stress, 12/2016. 4. History of percutaneous transluminal coronary angioplasty and stent placement multiple times, most recently 05/2016 at [facility]. 5. Hypertension. 6. Dyslipidemia. 7. Ongoing tobacco usage 8. Possible PNA by cxr. REcc: -Tele -Continue current BB/diovan -Contnue ranexa -will d/c isordil as being held due to low BP with CP resolved on ranexa -Continue daily lasix -Continue digoxin/aldactone -? necessity of abx for upper lobe infiltrate on cxr -D/C planning if remains CP free Home Meds Active Scripts Insulin Glargine* (Lantus*) 100 Unit/Ml Soln, 42 UNIT SC DAILY@08 for 30 Days Prov:ILENE JIMENEZ 01/10/17 Insulin Aspart* (Novolog Insulin Pen*) 100 Unit/Ml Soln, 14 UNIT SC WITH MEALS for 30 Days Prov:ILENE JIMENEZ 01/10/17 Pantoprazole* (Protonix*) 40 Mg Tablet.dr, 40 MG PO DAILY, #30 TAB Prov:ILENE JIMENEZ 01/10/17 Docusate Sodium* (Colace*) 100 Mg Capsule, 100 MG PO DAILY, #30 CAP Prov:ILENE JIMENEZ 01/10/17 Ranolazine* (Ranexa*) 500 Mg Tab.sr.12h, 500 MG PO Q12 for 30 Days, TAB Prov:ILENE JIMENEZ 01/10/17 Valsartan* (Diovan*) 80 Mg Tablet, 40 MG PO DAILY for 30 Days, TAB Prov:ILENE JIMENEZ 01/10/17 Furosemide* (Furosemide*) 40 Mg Tablet, 40 MG PO DAILY for 30 Days, TAB Prov:RIGOBERTO LAI 12/14/16 Potassium Chloride* (K-Dur*) 20 Meq Tab.prt.sr, 20 MEQ PO DAILY for 30 Days Prov:RIGOBERTO LAI 12/14/16 Digoxin* (Digitek*) 125 Mcg Tablet, 0.125 MG PO DAILY@13 for 30 Days, TAB Prov:RIGOBERTO LAI 12/14/16 Metformin Hcl (Glucophage) 500 Mg Tablet, 1000 MG PO BID WITH MEALS for 30 Days , TAB Prov:RIGOBERTO LAI 12/14/16 Spironolactone* (Aldactone*) 25 Mg Tablet, 25 MG PO DAILY for 30 Days, TAB Prov:RIGOBERTO LAI 12/14/16 Insulin Glargine* (Lantus*) 100 Unit/Ml Soln, 27 UNIT SC DAILY@08 for 30 Days Prov:RIGOBERTO LAI 12/14/16 Insulin Aspart* (Novolog Insulin Pen*) 100 Unit/Ml Soln, 9 UNIT SC WITH MEALS for 30 Days Prov:RIGOBERTO LAI 12/14/16 Reported Medications Cholecalciferol* (Vitamin D3*) 1,000 Unit Tablet, 1000 UNIT PO DAILY, TAB 12/05/16 Glipizide* (Glipizide*) 10 Mg Tablet, 10 MG PO AC BREAKFAST, TAB 12/05/16 Bude-3/Dha/Epa/Fish Oil (FISH OIL 1,000 MG SOFTGEL) 1 Each Capsule, 1 EACH PO, CAP 12/05/16 Aspirin* (Aspirin* EC) 81 Mg Tablet.dr, 81 MG PO DAILY, TAB 12/05/16 Clopidogrel Bisulfate* (Clopidogrel Bisulfate*) 75 Mg Tablet, 75 MG PO DAILY, # 30 TAB 12/05/16 Atorvastatin* (Atorvastatin*) 80 Mg Tablet, 80 MG PO QHS, #30 TAB 12/05/16 Fluoxetine Hcl* (Fluoxetine Hcl*) 10 Mg Tablet, 10 MG PO DAILY, TAB 12/05/16 Nitroglycerin* (Nitrostat*) 0.4 Mg Tab.subl, 0.4 MG SL Q5MIN Y for CHEST PAIN, BOTTLE 09/15/13 Metoprolol Succinate* (Toprol XL*) 25 Mg Tab.sr.24h, 25 MG PO DAILY, TAB hold for systolic bp 105 or heart reate less than 60 beats per minute 6/27/14 Metformin Hcl* (Metformin Hcl*) 1,000 Mg Tablet, 1000 MG PO DAILY, TAB 09/13/13 Sitagliptin* (Januvia*) 100 Mg Tablet, 100 MG PO DAILY, TAB 09/13/13 Esomeprazole Mag Trihydrate (Nexium) 40 Mg Capsule.dr, 40 MG PO DAILY, CAP 09/13/13 Discontinued Scripts Valsartan* (Diovan*) 80 Mg Tablet, 40 MG PO DAILY for 30 Days, TAB Prov:RIGOBERTO LAI 12/14/16 Levofloxacin* (Levaquin*) 500 Mg Tablet, 500 MG PO Q24H for 5 Days, TAB Prov:RIGOBERTO LAI 12/14/16 Primary Care Provider Renita Rey Pending Labs Laboratory Tests Test 01/09/17 16:11 01/09/17 17:09 01/09/17 21:44 01/10/17 02:42 Sodium Level 137mmol/L (135-144) Potassium Level 4.5mmol/L (3.5-5.1) Chloride Level 98mmol/L (97-110) Carbon Dioxide Level 28mmol/L (21-31) Anion Gap 16 (8-16) Blood Urea Nitrogen 16mg/dl (7-20) Creatinine 0.92mg/dl (0.61-1.24) Glucose Level 251mg/dl (70-220) Calcium Level 9.2mg/dl (8.4-10.2) Bedside Glucose 206mg/dL (70-220) 302mg/dL (70-220) 236mg/dL (70-220) Test 01/10/17 07:15 01/10/17 07:48 01/10/17 11:57 White Blood Count 5.710^3/ul (4.8-10.8) Red Blood Count 4.2410^6/ul (4.70-6.10) Hemoglobin 12.5g/dl (14.0-18.0) Hematocrit 38.2% (42.0-52.0) Mean Corpuscular Volume 90.1fl (82.0-101.0) Mean Corpuscular Hemoglobin 29.5pg (29.0-33.0) Mean Corpuscular Hemoglobin Concent 32.7g/dl (32.0-37.0) Red Cell Distribution Width 13.2% (11.5-14.5) Platelet Count 64659^3/UL (140-415) Mean Platelet Volume 9.9fl (7.4-10.4) Neutrophils % 51.7% (39.0-77.0) Lymphocytes % 32.9% (15.0-51.0) Monocytes % 11.7% (0.0-11.0) Eosinophils % 2.5% (0.0-7.0) Basophils % 0.7% (0.0-2.0) Nucleated Red Blood Cells % 0.0/100WBC (0.0-0.0) Neutrophils # 2.910^3/ul (1.6-7.5) Lymphocytes # 1.910^3/ul (0.8-2.9) Monocytes # 0.710^3/ul (0.3-0.9) Eosinophils # 0.110^3/ul (0.0-0.5) Basophils # 0.010^3/ul (0.0-0.1) Nucleated Red Blood Cells # 0.010^3/ul (0.0-0.0) Bedside Glucose 195mg/dL (70-220) 302mg/dL (70-220) ILENE JIMENEZ Jan 10, 2017 14:49
--- NOTE | 2017-01-10 18:24 | PDOCDIS ---
Discharge Instructions CONDITION Patient Condition: Stable HOME CARE INSTRUCTIONS: Diet Instructions: Low Fat /CholesterolSpecial Diet: diabetic diet, 2 gm sodium ACTIVITY: Activity Restrictions: Slowly Increase Activity Rest between Activity Avoid heavy lifting Do not Drive Do not operate Machinery Do not operate Power Tool Bathing Restrictions: FOLLOW UP/APPOINTMENTS Follow-up Plan FU with Primary x 1 week FU with cardiology as recommended. Call 911 or go to the nearest hospital if symptoms get worse. Patient and family verbalized understanding dc instructions. Dw Dr Goodman/ staff ILENE JIMENEZ Jan 10, 2017 18:24
== END 2017-01-10 16:00 | disposition home or self-care (01) | DRG 313 ==
LOC: E/R 03:34 → TEL 05:53
PROVIDERS: ADMIT Internal Medicine; ATTEND Internal Medicine
DX: R07.9 Chest pain, unspecified (principal); I25.2 Old myocardial infarction; I42.9 Cardiomyopathy, unspecified; I10 Essential (primary) hypertension; Z95.5 Presence of coronary angioplasty implant and graft; E11.9 Type 2 diabetes mellitus without complications; Z72.0 Tobacco use; E78.5 Hyperlipidemia, unspecified
CPT/HCPCS: 36415; 71010; 80048; 80061; 82550; 82553; 82962; 83880; 84484; 85025; 93005; J1940; J1815; J7030

== ENCOUNTER 2017-01-12 16:39 | Inpatient (IN) | payer OTHER ==
[~2017-01-12] VITALS: Ht 172.7 cm; Wt 77.0 kg
[~2017-01-12 16:39] MED LIST changes: +DOCU-144 PO; -LEVO500T72 PO; +PANT40TA3 PO; +RANO500T2 PO
[2017-01-12] MEDS ORDERED: NITROGLYCERIN 2% 1 GM OINT PKT TD STA (16:51)
[2017-01-12] MEDS ORDERED: NITROGLYCERIN (SL) 0.4 MG TAB SL PRN ×2 (17:00→22:00)
[2017-01-12] MEDS ORDERED: INSU100C SQ (17:20)
--- NOTE | 2017-01-12 17:20 | RADRPT ---
PROCEDURE: XR Chest. CLINICAL INDICATION: Chest pain. TECHNIQUE: Single frontal view. COMPARISON: 01/07/2017. FINDINGS: There is mild left basilar atelectasis. Mild left upper lobe pneumonia seen on 01/07/2017 is improve d. The lungs are otherwise clear. The heart size is normal. There is no pleural effusion. There is no pneumothorax. IMPRESSION: 1. Improved appearance of the left upper lobe pneumonia. 2. Mild left basilar atelectasis, unchanged. 3. No other change from 01/07/2017. RPTAT: QQ .Blayne Gonzalez MD, MD Date Time Electronically viewed and signed by .Blayne Gonzalez MD, MD on 01/12/2017 17:20 .R/
[2017-01-12] MEDS ORDERED: ACETAMINOPHEN 325 MG TAB PO PRN ×2 (17:30→22:00)
[2017-01-12] MEDS ORDERED: ONDANSETRON 4 MG INJ IV PRN (17:30)
--- NOTE | 2017-01-12 18:18 | ERD ---
ER Documentation Chief Complaint Chief Complaint PT NEDRA FROM HOME FOR CP LEFT ARM PAIN 08/29 HPI Patient is a 56-year-old male with hypertension, diabetes, and cardiac disease as well as smoking who presents with chest pain. The chest pains are he feels the pain in his left arm and left shoulder as well. He was discharged recently for similar. He took one blood pressure medicine at home as well as nitroglycerin. He was given aspirin by paramedics. He denies shortness of breath or headache. Upon review of old medical records this is the patient's sixth visit to the ER since 2009 and he has been admitted every time. ROS All systems reviewed and are negative except as per history of present illness. Medications Home Meds Active Scripts Valsartan* (Diovan*) 80 Mg Tablet, 40 MG PO DAILY for 30 Days, TAB Prov:ILENE JIMENEZ 01/10/17 Furosemide* (Furosemide*) 40 Mg Tablet, 40 MG PO DAILY for 30 Days, TAB Prov:RIGOBERTO LAI 12/14/16 Potassium Chloride* (K-Dur*) 20 Meq Tab.prt.sr, 20 MEQ PO DAILY for 30 Days Prov:RIGOBERTO LAI 12/14/16 Digoxin* (Digitek*) 125 Mcg Tablet, 0.125 MG PO DAILY@13 for 30 Days, TAB Prov:RIGOBERTO LAI 12/14/16 Insulin Glargine* (Lantus*) 100 Unit/Ml Soln, 27 UNIT SC DAILY@08 for 30 Days Prov:RIGOBERTO LAI 12/14/16 Reported Medications Insulin Lispro (Humalog) 100 Unit/1 Ml Cartridge, 9 UNIT SQ TID 01/12/17 Aspirin* (Aspirin* EC) 81 Mg Tablet.dr, 81 MG PO DAILY, TAB 12/05/16 Clopidogrel Bisulfate* (Clopidogrel Bisulfate*) 75 Mg Tablet, 75 MG PO DAILY, # 30 TAB 12/05/16 Fluoxetine Hcl* (Fluoxetine Hcl*) 10 Mg Tablet, 10 MG PO DAILY, TAB 12/05/16 Nitroglycerin* (Nitrostat*) 0.4 Mg Tab.subl, 0.4 MG SL Q5MIN Y for CHEST PAIN, BOTTLE 09/15/13 Metoprolol Succinate* (Toprol XL*) 25 Mg Tab.sr.24h, 25 MG PO DAILY, TAB hold for systolic bp 105 or heart reate less than 60 beats per minute 09/15/13 Discontinued Reported Medications Cholecalciferol* (Vitamin D3*) 1,000 Unit Tablet, 1000 UNIT PO DAILY, TAB 12/05/16 Glipizide* (Glipizide*) 10 Mg Tablet, 10 MG PO AC BREAKFAST, TAB 12/05/16 Pendroy-3/Dha/Epa/Fish Oil (FISH OIL 1,000 MG SOFTGEL) 1 Each Capsule, 1 EACH PO, CAP 12/05/16 Atorvastatin* (Atorvastatin*) 80 Mg Tablet, 80 MG PO QHS, #30 TAB 12/05/16 Metformin Hcl* (Metformin Hcl*) 1,000 Mg Tablet, 1000 MG PO DAILY, TAB 09/13/13 Sitagliptin* (Januvia*) 100 Mg Tablet, 100 MG PO DAILY, TAB 09/13/13 Esomeprazole Mag Trihydrate (Nexium) 40 Mg Capsule.dr, 40 MG PO DAILY, CAP 09/13/13 Discontinued Scripts Insulin Glargine* (Lantus*) 100 Unit/Ml Soln, 42 UNIT SC DAILY@08 for 30 Days Prov:ILENE JIMENEZ 01/10/17 Insulin Aspart* (Novolog Insulin Pen*) 100 Unit/Ml Soln, 14 UNIT SC WITH MEALS for 30 Days Prov:ILENE JIMENEZ 01/10/17 Pantoprazole* (Protonix*) 40 Mg Tablet.dr, 40 MG PO DAILY, #30 TAB Prov:ILENE JIMENEZ 01/10/17 Docusate Sodium* (Colace*) 100 Mg Capsule, 100 MG PO DAILY, #30 CAP Prov:ILENE JIMENEZ 01/10/17 Ranolazine* (Ranexa*) 500 Mg Tab.sr.12h, 500 MG PO Q12 for 30 Days, TAB Prov:ILENE JIMENEZ 01/10/17 Metformin Hcl (Glucophage) 500 Mg Tablet, 1000 MG PO BID WITH MEALS for 30 Days , TAB Prov:RIGOBERTO LAI 12/14/16 Spironolactone* (Aldactone*) 25 Mg Tablet, 25 MG PO DAILY for 30 Days, TAB Prov:RIGOBERTO LAI 12/14/16 Insulin Aspart* (Novolog Insulin Pen*) 100 Unit/Ml Soln, 9 UNIT SC WITH MEALS for 30 Days Prov:RIGOBERTO LAI 12/14/16 Valsartan* (Diovan*) 80 Mg Tablet, 40 MG PO DAILY for 30 Days, TAB Prov:RIGOBERTO LAI 12/14/16 Levofloxacin* (Levaquin*) 500 Mg Tablet, 500 MG PO Q24H for 5 Days, TAB Prov:RIGOBERTO LAI 12/14/16 Allergies Allergies: Coded Allergies: No Known Drug Allergy (Unverified Allergy, Mild, 01/12/17) PMhx/Soc History of Surgery: Yes (MULTIPLE STENT PLACEMENT) Anesthesia Reaction: No Hx Neurological Disorder: No Hx Respiratory Disorders: No Hx Cardiac Disorders: Yes (CAD, MULTIPLE STENTS, NSTEMI) Hx Psychiatric Problems: No Hx Miscellaneous Medical Probl: Yes (DM) Hx Alcohol Use: No Hx Substance Use: No Hx Tobacco Use: No Smoking Status: Former smoker FmHx Family History: coronary disease Physical Exam Vitals Vital Signs Date Time Temp Pulse Resp B/P Pulse Ox O2 Delivery O2 Flow Rate FiO2 01/12/17 17:40 99 17 117/74 97 Room Air 01/12/17 16:58 98.6 107 18 113/69 100 Physical Exam Const: Moderate distress secondary to chest pain Head: Atraumatic Eyes: Normal Conjunctiva ENT: Normal External Ears, Nose and Mouth. Neck: Full range of motion..~ No meningismus. Resp: Clear to auscultation bilaterally Cardio: Regular rate and rhythm, no murmurs Abd: Soft, non tender, non distended. Normal bowel sounds Skin: No petechiae or rashes Back: No midline or flank tenderness Ext: No cyanosis, or edema Neur: Awake and alert Psych: Normal Mood and Affect Result Diagram: 01/12/17 1655 01/12/17 1655 Results 24 hrs Laboratory Tests Test 01/12/17 16:55 White Blood Count 6.210^3/ul Red Blood Count 4.1410^6/ul Hemoglobin 12.7g/dl Hematocrit 37.0% Mean Corpuscular Volume 89.4fl Mean Corpuscular Hemoglobin 30.7pg Mean Corpuscular Hemoglobin Concent 34.3g/dl Red Cell Distribution Width 13.0% Platelet Count 66669^3/UL Mean Platelet Volume 9.6fl Neutrophils % 63.6% Lymphocytes % 26.1% Monocytes % 8.7% Eosinophils % 1.0% Basophils % 0.3% Nucleated Red Blood Cells % 0.0/100WBC Neutrophils # 3.910^3/ul Lymphocytes # 1.610^3/ul Monocytes # 0.510^3/ul Eosinophils # 0.110^3/ul Basophils # 0.010^3/ul Nucleated Red Blood Cells # 0.010^3/ul Sodium Level 138mmol/L Potassium Level 5.2mmol/L Chloride Level 98mmol/L Carbon Dioxide Level 27mmol/L Anion Gap 18 Blood Urea Nitrogen 17mg/dl Creatinine 0.74mg/dl Glucose Level 423mg/dl Calcium Level 9.3mg/dl Troponin I 0.017ng/ml Current Medications Medications (Trade) Dose Ordered Sig/Vianca Route PRN Reason Start Time Stop Time Status Last Admin Dose Admin Nitroglycerin (Nitroglycerin 2% Oint) 1 inch ONCE STAT TD 01/12/17 16:51 01/12/17 16:52 DC 01/12/17 17:39 Nitroglycerin (Nitroglycerin (Sl Tab) 0.4 Mg) 1 tab Q5M UP TO 3 DOSES PRN SL CHEST PAIN 01/12/17 17:00 Ondansetron HCl (Zofran Inj) 4 mg ER BRIDGE PRN IV NAUSEA AND/OR VOMITING 01/12/17 17:30 01/13/17 17:29 Acetaminophen (Tylenol Tab) 650 mg ER BRIDGE PRN PO MILD PAIN/FEVER 01/12/17 17:30 01/13/17 17:29 Procedures/MDM EKG read by me: Rate/Rhythm: Tachycardia Intervals: Normal Impression: Sinus tachycardia with poor R-wave progression EKG #2 is pending at this time Chest x-ray shows no pneumonia or pneumothorax per radiology. Smoking Cessation Therapy: Pt. was lectured for greater than 3 minutes on the health risks of continued smoking and the benefits of cessation. Patient is a 56-year-old male with multiple cardiac risk factors who presents with chest pain. He has hyperglycemia but no diabetic ketoacidosis. He has mild hyperkalemia. The patient will be admitted to the care of Dr. Waggoner. I feel he is unstable given his hyperglycemia, hyperkalemia, and worsening chest pain. The patient will be admitted to a telemetry bed. He was given aspirin and nitroglycerin. He will be admitted to a telemetry bed. I am concerned for acute coronary syndrome. I doubt pneumonia, pneumothorax, pulmonary embolism, or aortic dissection. Departure Diagnosis: Primary Impression: Chest pain Chest pain type: unspecified Qualified Code: R07.9 - Chest pain, unspecified type Additional Impressions: Hyperkalemia Hyperglycemia Condition: Fair MAGDY DELA CRUZ MD Jan 12, 2017 18:18
[2017-01-12 20:00] VITALS: BP 124/75; PULSE 78; RESP 18; Ht 172.7 cm; Wt 77.0 kg
[2017-01-12 20:46] VITALS: PULSE 100
[2017-01-12] MEDS ORDERED: GLUCOSE GEL 15 GRAM TUBE PO PRN ×2 (22:30)
[2017-01-12] MEDS ORDERED: GLUCOSE GEL 15 GRAM TUBE BUCCAL PRN (22:30)
[2017-01-12] MEDS ORDERED: GLUCAGON 1 MG INJ IM PRN (22:30)
[2017-01-12] MEDS ORDERED: DEXTROSE 50% 50 ML SYRINGE IV PRN ×2 (22:30)
[2017-01-12 23:37] VITALS: BP 98/54; RESP 20
[2017-01-13] VITALS (11 sets, daily range): BP systolic 100–138; BP diastolic 58–70; PULSE 66–84; RESP 17–20
[2017-01-13] MEDS ORDERED: ACCU-CHEK XX SCH ×2 (02:00)
[2017-01-13] MEDS: ACCU-CHEK XX SCH (02:00)
[2017-01-13] MEDS: FUROSEMIDE 40 MG TAB PO SCH (05:51)
[2017-01-13] MEDS ORDERED: INSULIN ASPART [NOVOLOG] 3 ML PEN SC SCH ×3 (07:55→17:55)
[2017-01-13] MEDS: INSULIN GLARGINE [LANtus] 3 ML PEN SC SCH (08:00)
[2017-01-13] MEDS: FLUOXETINE 10 MG CAP PO SCH (08:54)
[2017-01-13] MEDS: ASPIRIN (EC) 81 MG TAB PO SCH (08:54)
[2017-01-13] MEDS: CLOPIDOGREL 75 MG TAB PO SCH (08:55)
[2017-01-13] MEDS: VALSARTAN 80 MG TAB PO SCH (08:55)
[2017-01-13] MEDS ORDERED: METOPROLOL 25 MG TAB PO SCH (09:00)
[2017-01-13] MEDS: INSULIN ASPART [NOVOLOG] 3 ML PEN SC SCH ×5 (09:02→22:10)
[2017-01-13] MEDS: ENOXAPARIN 40 MG/0.4 ML SYG SC SCH (09:04)
[2017-01-13] MEDS: DIGOXIN 0.125 MG TAB PO SCH (12:25)
[2017-01-13] MEDS: FAMOTIDINE 20 MG TAB PO SCH (13:00)
[2017-01-13] MEDS ORDERED: DIPHENHYDRAMINE 50 MG CAP PO ONE (14:00)
[2017-01-13] MEDS ORDERED: DIAZEPAM 5 MG TAB PO ONE (14:00)
[2017-01-13] MEDS: RANOLAZINE (SR) 500 MG TAB PO SCH (22:07)
[2017-01-14] VITALS (18 sets, daily range): BP systolic 94–119; BP diastolic 63–90; PULSE 67–87; RESP 13–25
[2017-01-14] MEDS: ACCU-CHEK XX SCH (02:53)
[2017-01-14] MEDS: FUROSEMIDE 40 MG TAB PO SCH (06:17)
[2017-01-14] MEDS ORDERED: INSULIN ASPART [NOVOLOG] 3 ML PEN SC SCH ×2 (07:55→11:50)
[2017-01-14] MEDS: INSULIN GLARGINE [LANtus] 3 ML PEN SC SCH (08:00)
[2017-01-14] MEDS: ENOXAPARIN 40 MG/0.4 ML SYG SC SCH (08:16)
--- NOTE | 2017-01-14 08:37 | HP ---
DATE OF ADMISSION: 01/12/2017 CHIEF COMPLAINT: Chest pain with radiation to the left upper extremity. HISTORY OF PRESENT ILLNESS: The patient is a 56-year-old gentleman with hypertension, diabetes, car diomyopathy with severely decreased left ventricular ejection fraction, last being approximately 25% per last echo. The patient has multiple transluminal coronary angioplasty and stent placement in th e past, recently done in 2017 at [facility]. Patient with dyslipidemia and longtime tobacco use. Patient stated that he quit 1 month ago. Patient also with diabetes mellitus. Hemoglobin A1c the last admi ssion was 8.8. The patient was recently admitted for chest pain and was evaluated by Dr. Genoveva wiseman patient was treated for congestive heart failure exacerbation. The patient also had a history of pneumonia. Patient stated that he had developed chest pain that feels like needles in his chest. A lso, the pain was 6/10 with radiation to the left upper extremity. Patient took nitroglycerin and h is blood pressure medicine and called 911. Patient was brought by paramedics to the emergency room. In the emergency room, patient underwent 12-lead EKG, which revealed sinus tachycardia. Chest x-r ay did not show any pneumonia or pneumothorax. Troponin was negative on admission. However, patien t noted to have elevated blood sugar to 238 and patient is admitted. The patient was given nitrogly cerin paste in the emergency room with some relief in symptoms and patient was admitted for further evaluation and management. PAST MEDICAL HISTORY: Per HPI. PAST SURGICAL HISTORY: Per HPI. FAMILY HISTORY: Positive for coronary artery disease. SOCIAL HISTORY: The patient smoked for many years, stated that he quit 1 month ago. Patient denies any alcohol use, denies any illicit drug use. ALLERGIES: NO KNOWN ALLERGIES. HOME MEDICATIONS: Include: 1. Diovan. 2. Lasix. 3. K-Dur. 4. Digoxin. 5. Lantus 27 units subcutaneous daily. 6. NovoLog 9 units subcutaneous a.c. t.i.d. 7. Aspirin. 8. Plavix. 9. Fluoxetine. 10. Nitrostat. 11. Toprol-XL. REVIEW OF SYSTEMS: A 10-point review of systems is negative unless mentioned in the HPI. The patie nt denies any fever, denies any chills, denies any nausea, vomiting, diarrhea, denies any bilateral lower extremity swelling. PHYSICAL ASSESSMENT: GENERAL: Well-developed, well-nourished male, currently is awake, alert, in no acute distress. VITAL SIGNS: Temperature is 98.1, pulse is 77, blood pressure is 102/65, respiratory rate 17, oxyge n saturation 100% on room air. HEENT: Head is atraumatic, normocephalic. Pupils equal, round, reactive to light and accommodation . Oral mucosa is pink and moist. NECK: Supple, no cervical lymphadenopathy, no thyromegaly. CHEST: Lungs clear bilaterally. There is no rhonchi, wheezes, rales noted. CARDIOVASCULAR: Normal S1, S2. No murmurs, gallops, clicks, rubs noted. ABDOMEN: Round, soft, nondistended, nontender. Bowel sounds present. No guarding, no rebound tend erness. EXTREMITIES: No edema, clubbing, cyanosis. Pulses equal bilaterally 2+. SKIN: There is no rash, petechiae noted. LABORATORY DATA: On admission, CBC: White blood cells 6.2, hemoglobin 12.7, hematocrit 37.0, plate lets 250. Chemistry: Sodium is 138, potassium 5.2, chloride 98, carbon dioxide 27, anion gap 18, B UN is 17, creatinine 0.74, glucose 423. ASSESSMENT AND PLAN: 1. Chest pain, rule out acute coronary syndrome. We will obtain cardiac enzymes x3 q.8 hours and 1 2-lead EKG. Continue aspirin, Plavix, nitroglycerin and morphine for pain. Dr. Tomas is asked to see patient in cardiology consultation. 2. Cardiomyopathy with ejection fraction of 25%. 3. Coronary artery disease status post percutaneous transluminal coronary angioplasty with stent pl acement multiple times, last one in 2017 at [facility]. 4. Hypertension. 5. Dyslipidemia. 6. [facility]PC tobacco use. 7. Poorly controlled diabetes mellitus type 2 with last hemoglobin A1c of 8.8. Will resume patient's home medications including Lantus and NovoLog. Continue Plavix, aspirin. Con tinue to monitor patient on telemetry floor. Lovenox for deep venous thrombosis prophylaxis and Pep sujata for peptic ulcer disease prophylaxis. Further recommendations based on clinical course. Plan o f care discussed with Dr. Hoffman. Dictated By: RIGOBERTO LAI DISTRICT MANAGER POSTAL SERVICE for VIDYA HOFFMAN MD SR/NTS Conf#: [id number] [facility]#: [id number]
--- NOTE | 2017-01-14 08:37 | HP ---
DATE OF ADMISSION: 01/12/2017 CHIEF COMPLAINT: Chest pain with radiation to the left upper extremity. HISTORY OF PRESENT ILLNESS: The patient is a 56-year-old gentleman with hypertension, diabetes, car diomyopathy with severely decreased left ventricular ejection fraction, last being approximately 25% per last echo. The patient has multiple transluminal coronary angioplasty and stent placement in th e past, recently done in 2017 at [facility]. Patient with dyslipidemia and longtime tobacco use. Patient stated that he quit 1 month ago. Patient also with diabetes mellitus. Hemoglobin A1c the last admi ssion was 8.8. The patient was recently admitted for chest pain and was evaluated by Dr. Genoveva wiseman patient was treated for congestive heart failure exacerbation. The patient also had a history of pneumonia. Patient stated that he had developed chest pain that feels like needles in his chest. A lso, the pain was 6/10 with radiation to the left upper extremity. Patient took nitroglycerin and h is blood pressure medicine and called 911. Patient was brought by paramedics to the emergency room. In the emergency room, patient underwent 12-lead EKG, which revealed sinus tachycardia. Chest x-r ay did not show any pneumonia or pneumothorax. Troponin was negative on admission. However, patien t noted to have elevated blood sugar to 238 and patient is admitted. The patient was given nitrogly cerin paste in the emergency room with some relief in symptoms and patient was admitted for further evaluation and management. PAST MEDICAL HISTORY: Per HPI. PAST SURGICAL HISTORY: Per HPI. FAMILY HISTORY: Positive for coronary artery disease. SOCIAL HISTORY: The patient smoked for many years, stated that he quit 1 month ago. Patient denies any alcohol use, denies any illicit drug use. ALLERGIES: NO KNOWN ALLERGIES. HOME MEDICATIONS: Include: 1. Diovan. 2. Lasix. 3. K-Dur. 4. Digoxin. 5. Lantus 27 units subcutaneous daily. 6. NovoLog 9 units subcutaneous a.c. t.i.d. 7. Aspirin. 8. Plavix. 9. Fluoxetine. 10. Nitrostat. 11. Toprol-XL. REVIEW OF SYSTEMS: A 10-point review of systems is negative unless mentioned in the HPI. The patie nt denies any fever, denies any chills, denies any nausea, vomiting, diarrhea, denies any bilateral lower extremity swelling. PHYSICAL ASSESSMENT: GENERAL: Well-developed, well-nourished male, currently is awake, alert, in no acute distress. VITAL SIGNS: Temperature is 98.1, pulse is 77, blood pressure is 102/65, respiratory rate 17, oxyge n saturation 100% on room air. HEENT: Head is atraumatic, normocephalic. Pupils equal, round, reactive to light and accommodation . Oral mucosa is pink and moist. NECK: Supple, no cervical lymphadenopathy, no thyromegaly. CHEST: Lungs clear bilaterally. There is no rhonchi, wheezes, rales noted. CARDIOVASCULAR: Normal S1, S2. No murmurs, gallops, clicks, rubs noted. ABDOMEN: Round, soft, nondistended, nontender. Bowel sounds present. No guarding, no rebound tend erness. EXTREMITIES: No edema, clubbing, cyanosis. Pulses equal bilaterally 2+. SKIN: There is no rash, petechiae noted. LABORATORY DATA: On admission, CBC: White blood cells 6.2, hemoglobin 12.7, hematocrit 37.0, plate lets 250. Chemistry: Sodium is 138, potassium 5.2, chloride 98, carbon dioxide 27, anion gap 18, B UN is 17, creatinine 0.74, glucose 423. ASSESSMENT AND PLAN: 1. Chest pain, rule out acute coronary syndrome. We will obtain cardiac enzymes x3 q.8 hours and 1 2-lead EKG. Continue aspirin, Plavix, nitroglycerin and morphine for pain. Dr. Tomas is asked to see patient in cardiology consultation. 2. Cardiomyopathy with ejection fraction of 25%. 3. Coronary artery disease status post percutaneous transluminal coronary angioplasty with stent pl acement multiple times, last one in 2017 at [facility]. 4. Hypertension. 5. Dyslipidemia. 6. [facility] tobacco use. 7. Poorly controlled diabetes mellitus type 2 with last hemoglobin A1c of 8.8. Will resume patient's home medications including Lantus and NovoLog. Continue Plavix, aspirin. Con tinue to monitor patient on telemetry floor. Lovenox for deep venous thrombosis prophylaxis and Pep sujata for peptic ulcer disease prophylaxis. Further recommendations based on clinical course. Plan o f care discussed with Dr. Hoffman. Dictated By: RIGOBERTO LAI SECOND WATCH SERGEANT for VIDYA HOFFMAN MD SR/NTS Conf#: [id number] [facility]#: [id number]
--- NOTE | 2017-01-14 08:37 | HP ---
DATE OF ADMISSION: 01/12/2017 CHIEF COMPLAINT: Chest pain with radiation to the left upper extremity. HISTORY OF PRESENT ILLNESS: The patient is a 56-year-old gentleman with hypertension, diabetes, car diomyopathy with severely decreased left ventricular ejection fraction, last being approximately 25% per last echo. The patient has multiple transluminal coronary angioplasty and stent placement in th e past, recently done in 2017 at [facility]. Patient with dyslipidemia and longtime tobacco use. Patient stated that he quit 1 month ago. Patient also with diabetes mellitus. Hemoglobin A1c the last admi ssion was 8.8. The patient was recently admitted for chest pain and was evaluated by Dr. Genoveva wiseman patient was treated for congestive heart failure exacerbation. The patient also had a history of pneumonia. Patient stated that he had developed chest pain that feels like needles in his chest. A lso, the pain was 6/10 with radiation to the left upper extremity. Patient took nitroglycerin and h is blood pressure medicine and called 911. Patient was brought by paramedics to the emergency room. In the emergency room, patient underwent 12-lead EKG, which revealed sinus tachycardia. Chest x-r ay did not show any pneumonia or pneumothorax. Troponin was negative on admission. However, patien t noted to have elevated blood sugar to 238 and patient is admitted. The patient was given nitrogly cerin paste in the emergency room with some relief in symptoms and patient was admitted for further evaluation and management. PAST MEDICAL HISTORY: Per HPI. PAST SURGICAL HISTORY: Per HPI. FAMILY HISTORY: Positive for coronary artery disease. SOCIAL HISTORY: The patient smoked for many years, stated that he quit 1 month ago. Patient denies any alcohol use, denies any illicit drug use. ALLERGIES: NO KNOWN ALLERGIES. HOME MEDICATIONS: Include: 1. Diovan. 2. Lasix. 3. K-Dur. 4. Digoxin. 5. Lantus 27 units subcutaneous daily. 6. NovoLog 9 units subcutaneous a.c. t.i.d. 7. Aspirin. 8. Plavix. 9. Fluoxetine. 10. Nitrostat. 11. Toprol-XL. REVIEW OF SYSTEMS: A 10-point review of systems is negative unless mentioned in the HPI. The patie nt denies any fever, denies any chills, denies any nausea, vomiting, diarrhea, denies any bilateral lower extremity swelling. PHYSICAL ASSESSMENT: GENERAL: Well-developed, well-nourished male, currently is awake, alert, in no acute distress. VITAL SIGNS: Temperature is 98.1, pulse is 77, blood pressure is 102/65, respiratory rate 17, oxyge n saturation 100% on room air. HEENT: Head is atraumatic, normocephalic. Pupils equal, round, reactive to light and accommodation . Oral mucosa is pink and moist. NECK: Supple, no cervical lymphadenopathy, no thyromegaly. CHEST: Lungs clear bilaterally. There is no rhonchi, wheezes, rales noted. CARDIOVASCULAR: Normal S1, S2. No murmurs, gallops, clicks, rubs noted. ABDOMEN: Round, soft, nondistended, nontender. Bowel sounds present. No guarding, no rebound tend erness. EXTREMITIES: No edema, clubbing, cyanosis. Pulses equal bilaterally 2+. SKIN: There is no rash, petechiae noted. LABORATORY DATA: On admission, CBC: White blood cells 6.2, hemoglobin 12.7, hematocrit 37.0, plate lets 250. Chemistry: Sodium is 138, potassium 5.2, chloride 98, carbon dioxide 27, anion gap 18, B UN is 17, creatinine 0.74, glucose 423. ASSESSMENT AND PLAN: 1. Chest pain, rule out acute coronary syndrome. We will obtain cardiac enzymes x3 q.8 hours and 1 2-lead EKG. Continue aspirin, Plavix, nitroglycerin and morphine for pain. Dr. Tomas is asked to see patient in cardiology consultation. 2. Cardiomyopathy with ejection fraction of 25%. 3. Coronary artery disease status post percutaneous transluminal coronary angioplasty with stent pl acement multiple times, last one in 2017 at [facility]. 4. Hypertension. 5. Dyslipidemia. 6. jail tobacco use. 7. Poorly controlled diabetes mellitus type 2 with last hemoglobin A1c of 8.8. Will resume patient's home medications including Lantus and NovoLog. Continue Plavix, aspirin. Con tinue to monitor patient on telemetry floor. Lovenox for deep venous thrombosis prophylaxis and Pep sujata for peptic ulcer disease prophylaxis. Further recommendations based on clinical course. Plan o f care discussed with Dr. Hoffman. Dictated By: RIGOBERTO LAI SCREW MACHINE TOOL SETTER for VIDYA HOFFMAN MD SR/NTS Conf#: [id number] [facility]#: [id number]
[2017-01-14] MEDS: ASPIRIN (EC) 81 MG TAB PO SCH (08:55)
[2017-01-14] MEDS: CLOPIDOGREL 75 MG TAB PO SCH (08:56)
[2017-01-14] MEDS: FLUOXETINE 10 MG CAP PO SCH (08:57)
[2017-01-14] MEDS: METOPROLOL (XL) 25 MG TAB PO SCH (08:57)
[2017-01-14] MEDS: FAMOTIDINE 20 MG TAB PO SCH (08:57)
[2017-01-14] MEDS: RANOLAZINE (SR) 500 MG TAB PO SCH ×2 (08:57→23:00)
[2017-01-14] MEDS: VALSARTAN 80 MG TAB PO SCH (08:57)
[2017-01-14] MEDS: INSULIN ASPART [NOVOLOG] 3 ML PEN SC SCH ×5 (09:12→21:16)
--- NOTE | 2017-01-14 10:00 | CONS ---
DATE OF ADMISSION: 01/12/2017 DATE OF CONSULTATION: 01/13/2017 REASON FOR CONSULTATION: Chest pain concerning for unstable angina. REQUESTING PHYSICIAN: Vidya Hoffman MD HISTORY OF PRESENT ILLNESS: Mr. Velázquez is a 56-year-old male with a history of cardiomyopathy w ith severely depressed left ventricular ejection fraction ____ approximately 25% by echo stress test 10/2016, ____ [facility]. Prior PTCA and stent placement, most recently [facility] 05/2016, d yslipidemia, hypertension, ongoing tobacco usage, who presents with complaints of substernal chest p ain. The patient had recently been discharged after presenting with chest pain, placed on Ranexa, w hich patient is now presenting not on. Upon arrival in the emergency department, temperature of 98. 6, blood pressure 113/69, pulse 107, respiratory rate 18, satting 90% to 100%. The patient's labs r evealed a white count of 6.2, hemoglobin 12.7, platelet count of 250. Sodium 138, potassium 5.2, cr eatinine 0.74, glucose of 423. Troponin negative. The patient underwent a chest x-ray revealing im proved appearance of left upper lobe pneumonia, mild left basilar atelectasis. Patient's electrocar diogram was sinus tachycardia at a rate of 108, normal axis, anteroseptal Q's and borderline ST depr essions inferiorly. The patient was subsequently admitted to the floor. Since admitted to floor, paulina snyder has had 2 further troponins return negative. The patient continues to complain of chest pain at t his time. PAST MEDICAL HISTORY: As above in HPI. MEDICATIONS CURRENTLY IN HOSPITAL: 1. Insulin. 2. Digoxin 0.12 mg daily. 3. ____ daily. 4. Aspirin 81 mg daily. 5. Plavix 75 mg daily. 6. Prozac 10 mg daily. 7. Metoprolol 25 mg daily. 8. Diovan 80 mg daily. 9. Lovenox ____ subcutaneous daily. 10. Lantus 27 units subcu daily. 11. Lasix 40 mg p.o. daily. ALLERGIES: NO KNOWN DRUG ALLERGIES. SOCIAL HISTORY: Positive tobacco. No ETOH or illicit drug use. FAMILY HISTORY: No history of sudden cardiac or early CAD. REVIEW OF SYSTEMS: As above in HPI. CONSTITUTIONAL: No fevers or chills. PULMONARY: No current shortness of breath. CARDIOVASCULAR: Positive chest pain. GASTROINTESTINAL: No vomiting. GENITOURINARY: No hematuria. MUSCULOSKELETAL: Degenerative joint disease. PSYCHIATRIC: The patient denies depression. NEUROLOGIC: No documented history of CVA. PHYSICAL EXAMINATION VITAL SIGNS: Temperature 98, blood pressure 102/65, pulse 75, respiratory rate 17, saturating 100%. GENERAL: The patient is alert, awake, complaining of intermittent substernal chest pain. NECK: JVP approximately 8 to 9 cm of water. CHEST: Fair movement throughout with mildly decreased breath sounds at bases bilaterally. HEART: Regular rate and rhythm. Normal S1, S2. Laterally displaced PMI. ABDOMEN: Positive bowel sounds, soft. EXTREMITIES: No edema, 1+ pulses bilaterally, posterior tibial. LABORATORIES: As above in HPI. Most recently the patient has a blood glucose of 305. LDL 48, HDL is 46. IMAGING STUDIES: As above in HPI. No further imaging studies for my review at this time. ECG: As above in HPI. No further electrocardiograms for my review at this time. IMPRESSION: 1. Chest pain concerning for unstable angina, assess for acute coronary syndrome. 2. History of cardiomyopathy with severely depressed left ventricular ejection fraction, last ____ approximately 25%. 3. Abnormal electrocardiogram with anteroseptal Q's and borderline ST depressions in the inferior l bill. 4. Hypotension, borderline. 5. Dyslipidemia. 6. Ongoing tobacco usage. RECOMMENDATIONS: 1. At this time, we will maintain the patient on telemetry monitoring to follow rhythm and rate con trol closely. 2. We will continue the patient's aspirin and Plavix at this time, as well as beta korey and afte rload reduction with Diovan. 3. We will reinitiate the patient on Ranexa. Given the marginal blood pressure, ____ oral nitrates and will consider patient for a repeat cardiac catheterization due to now recurrent multiple hospit al admissions for chest pain concerning for unstable angina. Thank you for allowing me to take part in the care of this patient. I will continue to follow along very closely with you. Further recommendations will be made as the patient progresses through his inpatient hospital clinical course. Dictated By: ROMA ZAPIEN/MICHAEL Conf#: [id number] DID#: [id number] CC: VIDYA HOFFMAN MD;*End*
[2017-01-14] MEDS ORDERED: DIPHENHYDRAMINE 50 MG CAP ONE (10:47)
[2017-01-14] MEDS ORDERED: DIAZEPAM 5 MG TAB ONE (10:47)
[2017-01-14] MEDS ORDERED: HEPARIN 1000 UNITS/ML 10 ML INJ ONE (12:19)
[2017-01-14] MEDS ORDERED: IODIXANOL LOCM 100 ML BTL ONE (12:19)
[2017-01-14] MEDS ORDERED: LIDOCAINE 1% (MDV) 20 ML INJ ONE (12:19)
[2017-01-14] MEDS ORDERED: NITROGLYCERIN (IC) 100 MCG/ML INJ ONE (12:20)
[2017-01-14] MEDS ORDERED: FENTAnyl 50 MCG/ML VIAL ONE (12:20)
[2017-01-14] MEDS ORDERED: MIDAZOLAM 1 MG/ML 2 ML INJ ONE (12:20)
[2017-01-14] MEDS ORDERED: VERAPAMIL 5 MG INJ ONE (12:20)
[2017-01-14] MEDS ORDERED: CLOPIDOGREL 300 MG TAB ONE (13:29)
[2017-01-14] MEDS ORDERED: ASPIRIN 325 MG TAB ONE (13:30)
--- NOTE | 2017-01-14 13:35 | CONS ---
Date/Time of Note Date/Time of Note DATE: 01/14/17 TIME: 13:30 Assessment/Plan Assessment/Plan Chief Complaint/Hosp Course IMPRESSION: 1. Chest pain concerning for unstable angina, assess for acute coronary syndrome. Ongoing chest pain consistent with unstable angina. Now POD#0 s/p PTCA /stent x 1 to distal RCA for high grade stenosis 2. History of cardiomyopathy with severely depressed left ventricular ejection fraction, last approximately 25%. 3. Abnormal electrocardiogram with anteroseptal Q's and borderline ST depressions in the inferior leads. 4. Hypotension, borderline. 5. Dyslipidemia. 6. Ongoing tobacco usage. REcc: -Tele -Continue asa/plavix s/p PTCA stent to [id number] with plavix in cathlab) -Continue BB/Diovan/digoxin -Continue lasix -Low dose statin Problems: Consultation Date/Type/Reason Admit Date/Time Jan 12, 2017 at 17:09 Initial Consult Date 01/13/2017 Type of Consultation: cardiology Reason for Consultation chest pain Referring Provider: VIDYA HOFFMAN MD Exam/Review of Systems Vital Signs Vitals Vital Signs Date Time Temp Pulse Resp B/P Pulse Ox O2 Delivery O2 Flow Rate FiO2 01/14/17 08:30 86 01/14/17 07:19 98.7 17 113/75 95 01/12/17 20:00 Room Air Intake and Output 01/13/17 01/13/17 01/14/17 15:00 23:00 07:00 Intake Total 250 ml Balance 250 ml Exam Review of Systems: CONSTITUTIONAL: No fevers, chills. PULMONARY: No sob CARDIOVASCULAR: No chest pain/palpitations GASTROINTESTINAL: No nausea/vomiting. GENITOURINARY: No hematuria/dysuria. MUSCULOSKELETAL: No myagias/arthalgias. PSYCHIATRIC: The patient denies depression. NEUROLOGIC: No weakness Constitutional: alert Psych: no complaints Head: normocephalic ENMT: mucosa pink and moist Neck: jvd (9 cm water), supple Respiratory: diminished breath sounds Cardiovascular: regular rate and rhythm Gastrointestinal: non-tender, soft Musculoskeletal: muscle tone (normal) Extremities: edema (none) Neurological: other (No focal deficits) Results Result Diagram: 01/14/17 0751 01/14/17 0751 Results 24 hrs Laboratory Tests Test 01/13/17 16:53 01/13/17 22:04 01/14/17 02:29 01/14/17 07:51 Bedside Glucose 357 H 288 H 213 White Blood Count 6.7 Red Blood Count 4.56 L Hemoglobin 13.6 L Hematocrit 40.9 L Mean Corpuscular Volume 89.7 Mean Corpuscular Hemoglobin 29.8 Mean Corpuscular Hemoglobin Concent 33.3 Red Cell Distribution Width 13.1 Platelet Count 293 Mean Platelet Volume 9.6 Neutrophils % 42.2 Lymphocytes % 45.8 Monocytes % 9.5 Eosinophils % 1.4 Basophils % 0.8 Nucleated Red Blood Cells % 0.0 Neutrophils # 2.8 Lymphocytes # 3.1 H Monocytes # 0.6 Eosinophils # 0.1 Basophils # 0.1 Nucleated Red Blood Cells # 0.0 Prothrombin Time 12.8 Prothrombin Time Ratio 1.0 INR International Normalized Ratio 0.96 Activated Partial Thromboplast Time 30.7 Sodium Level 143 Potassium Level 3.8 Chloride Level 101 Carbon Dioxide Level 30 Anion Gap 16 Blood Urea Nitrogen 16 Creatinine 0.62 Glucose Level 231 #H Calcium Level 9.5 Test 01/14/17 08:54 Bedside Glucose 211 Medications Medications Current Medications Acetaminophen (Tylenol Tab) 650 mg Q4H PRN PO PAIN AND OR ELEVATED TEMP; Start 01/12/17 at 22:00 Nitroglycerin (Nitroglycerin (Sl Tab) 0.4 Mg) 1 tab Q5M PRN SL ANGINA; Start 01/12/17 at 22:00 Aspirin (Halfprin) 81 mg DAILY PO Last administered on 01/13/17 08:54; Admin Dose 81 MG; Start 01/13/17 at 09:00 Clopidogrel Bisulfate (plaVIX) 75 mg DAILY PO Last administered on 01/13/17 08:55; Admin Dose 75 MG; Start 01/13/17 at 09:00 Digoxin (Digoxin) 0.125 mg DAILY@13 PO Last administered on 01/13/17 12:25; Admin Dose 0.125 MG; Start 01/13/17 at 13:00 Fluoxetine HCl (Prozac) 10 mg DAILY PO Last administered on 01/14/17 08:57; Admin Dose 10 MG; Start 01/13/17 at 09:00 Furosemide (Lasix) 40 mg DAILY@06 PO Last administered on 01/14/17 06:17; Admin Dose 40 MG; Start 01/13/17 at 06:00 Valsartan (Diovan) 80 mg DAILY PO Last administered on 01/14/17 08:57; Admin Dose 80 MG; Start 01/13/17 at 09:00 Insulin Glargine (Lantus) 27 unit DAILY@08 SC Last administered on 01/14/17 08:00; Admin Dose 27 UNIT; Start 01/13/17 at 08:00 Diagnostic Test (Pha) (Accu-Chek) 1 ea 02 XX Last administered on 01/14/17 02 :53; Admin Dose 1 EA; Start 01/13/17 at 02:00 Enoxaparin Sodium (Lovenox) 40 mg DAILY SC Last administered on 01/13/17 09: 04; Admin Dose 40 MG; Start 01/13/17 at 09:00 Miscellaneous Information 1 ea NOTE XX ; Start 01/12/17 at 22:30 Glucose (Glutose) 15 gm Q15M PRN PO DECREASED GLUCOSE; Start 01/12/17 at 22:30 Glucose (Glutose) 22.5 gm Q15M PRN PO DECREASED GLUCOSE; Start 01/12/17 at 22: 30 Dextrose (D50w Syringe) 25 ml Q15M PRN IV DECREASED GLUCOSE; Start 01/12/17 at 22:30 Dextrose (D50w Syringe) 50 ml Q15M PRN IV DECREASED GLUCOSE; Start 01/12/17 at 22:30 Glucagon (Glucagen) 1 mg Q15M PRN IM DECREASED GLUCOSE; Start 01/12/17 at 22: 30 Glucose (Glutose) 15 gm Q15M PRN BUCCAL DECREASED GLUCOSE; Start 01/12/17 at 22:30 Famotidine (Pepcid) 20 mg DAILY PO Last administered on 01/14/17 08:57; Admin Dose 20 MG; Start 01/13/17 at 13:00 Ranolazine (Ranexa) 500 mg Q12 PO Last administered on 01/14/17 08:57; Admin Dose 500 MG; Start 01/13/17 at 21:00 Metoprolol Succinate (Toprol Xl) 25 mg DAILY PO Last administered on 08:57; Admin Dose 25 MG; Start 01/14/17 at 09:00 ROMA BUSCH Jan 14, 2017 13:35
[2017-01-14] MEDS ORDERED: SOD CHLORIDE 0.9% 1,000 ML IV SCH (13:36)
--- NOTE | 2017-01-14 13:36 | RADRPT ---
Vent Rate: 79 bpm RR Interval: 0 msec VA Interval: 166 msec QRS Duration: 130 msec QT Interval: 386 msec QTC Interval: 442 msec P-R-T [place]: 58 - 23 - -86 degrees Normal sinus rhythm Nonspecific intraventricular block Cannot rule out Septal infarct , age undetermined T wave abnormality, consider inferior ischemia Abnormal ECG Electronically Signed By: Marco Roe [id number]
--- NOTE | 2017-01-14 13:36 | RADRPT ---
Vent Rate: 79 bpm RR Interval: 0 msec ID Interval: 166 msec QRS Duration: 130 msec QT Interval: 386 msec QTC Interval: 442 msec P-R-T [place]: 58 - 23 - -86 degrees Normal sinus rhythm Nonspecific intraventricular block Cannot rule out Septal infarct , age undetermined T wave abnormality, consider inferior ischemia Abnormal ECG Electronically Signed By: Marco Roe [id number]
--- NOTE | 2017-01-14 13:36 | RADRPT ---
Vent Rate: 79 bpm RR Interval: 0 msec MT Interval: 166 msec QRS Duration: 130 msec QT Interval: 386 msec QTC Interval: 442 msec P-R-T [place]: 58 - 23 - -86 degrees Normal sinus rhythm Nonspecific intraventricular block Cannot rule out Septal infarct , age undetermined T wave abnormality, consider inferior ischemia Abnormal ECG Electronically Signed By: Marco Roe [id number]
--- NOTE | 2017-01-14 13:36 | SIPON ---
Date/Time of Note Date/Time of Note DATE: 01/14/17 TIME: 13:35 Operative Report Preoperative Diagnosis 1.unstable angiva Postoperative Diagnosis 1.s/p PTCA/stent x 1 to RCA Operation/Procedure Performed 1.C 2.PTCXA/stent x 1 to RCA with KENNETH x 1 Surgeon see signature line law office assistant Sacha Anesthesia: moderate sedation Estimated blood loss: minimal Transfusion Required none Specimen NA Grafts/Implants none Complications none ROMA BUSCH Jan 14, 2017 13:36
--- NOTE | 2017-01-14 13:36 | SIPON ---
Date/Time of Note Date/Time of Note DATE: 01/14/17 TIME: 13:35 Operative Report Preoperative Diagnosis 1.unstable angiva Postoperative Diagnosis 1.s/p PTCA/stent x 1 to RCA Operation/Procedure Performed 1.C 2.PTCXA/stent x 1 to RCA with KENNETH x 1 Surgeon see signature line family medicine physician assistant Sacha Anesthesia: moderate sedation Estimated blood loss: minimal Transfusion Required none Specimen NA Grafts/Implants none Complications none ROMA BUSCH Jan 14, 2017 13:36
--- NOTE | 2017-01-14 13:36 | SIPON ---
Date/Time of Note Date/Time of Note DATE: 01/14/17 TIME: 13:35 Operative Report Preoperative Diagnosis 1.unstable angiva Postoperative Diagnosis 1.s/p PTCA/stent x 1 to RCA Operation/Procedure Performed 1.C 2.PTCXA/stent x 1 to RCA with KENNETH x 1 Surgeon see signature line assistant professor of biology Sacha Anesthesia: moderate sedation Estimated blood loss: minimal Transfusion Required none Specimen NA Grafts/Implants none Complications none ROMA BUSCH Jan 14, 2017 13:36
--- NOTE | 2017-01-14 13:47 | RADRPT ---
PROCEDURE: XR Chest. CLINICAL INDICATION: Shortness of breath. TECHNIQUE: Single frontal view. COMPARISON: 01/12/2017. FINDINGS: The lungs are now clear. Previously noted left upper lobe pneumonia and left basilar atelectasis is no longer present. The heart size is normal. There is no pleural effusion. There is no pneumothorax. IMPRESSION: 1. Normal chest radiograph. 2. Previously noted left-sided pneumonia and left basilar atelectasis is no longer present. RPTAT: QQ .Blayne Gonzalez MD, MD Date Time Electronically viewed and signed by .Blayne Gonzalez MD, MD on 01/14/2017 13:47 .R/
[2017-01-14] MEDS ORDERED: AL HYDROX/MG HYDROX/SIMETH 30 ML CUP PO PRN (14:00)
[2017-01-14] MEDS ORDERED: ACETAMINOPHEN 325 MG TAB PO PRN (14:00)
[2017-01-14] MEDS ORDERED: ONDANSETRON 4 MG INJ IV PRN (14:00)
[2017-01-14] MEDS ORDERED: OXYCODONE/ACETAMINOPHEN (5/325) TAB PO PRN (14:00)
[2017-01-14] MEDS ORDERED: ZOLPIDEM 5 MG TAB PO PRN (14:00)
[2017-01-14] MEDS ORDERED: morphine 2 MG INJ IV PRN (14:00)
[2017-01-14] MEDS: DIGOXIN 0.125 MG TAB PO SCH (15:17)
--- NOTE | 2017-01-14 16:40 | PN ---
Date/Time of Note Date/Time of Note DATE: 01/14/17 TIME: 16:26 Assessment/Plan Lines/Catheters Urinary Cath still in place: No Assessment/Plan Assessment/Plan 1.s/p PTCA/stent x 1 to RCA - 01/14/2017 - cont monitoring in ICU - PER CARDIO 1. Chest pain, rule out acute coronary syndrome. 2. Cardiomyopathy with ejection fraction of 25%. 3. Coronary artery disease status post percutaneous transluminal coronary angioplasty with stent placement multiple times, last one in 2017 at [facility]. 4. Hypertension. 5. Dyslipidemia. 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 7. Poorly controlled diabetes mellitus type 2 with last hemoglobin A1c of 8.8. - Glycemic control Lovenox for deep venous thrombosis prophylaxis and Pepcid for peptic ulcer disease prophylaxis. Further recommendations based on clinical course. Total critical time spent 30 mins.Plan of care discussed with Dr. Waggoner. Exam/Review of Systems Vital Signs Vitals Vital Signs Date Time Temp Pulse Resp B/P Pulse Ox O2 Delivery O2 Flow Rate FiO2 01/14/17 16:00 73 01/14/17 15:00 25 109/67 97 Room Air 01/14/17 14:15 98.6 Intake and Output 01/13/17 01/13/17 01/14/17 15:00 23:00 07:00 Intake Total 250 ml Balance 250 ml Results Result Diagram: 01/14/17 0751 01/14/17 0751 Results 24 hrs Laboratory Tests Test 01/13/17 16:53 01/13/17 22:04 01/14/17 02:29 01/14/17 07:51 Bedside Glucose 357 H 288 H 213 White Blood Count 6.7 Red Blood Count 4.56 L Hemoglobin 13.6 L Hematocrit 40.9 L Mean Corpuscular Volume 89.7 Mean Corpuscular Hemoglobin 29.8 Mean Corpuscular Hemoglobin Concent 33.3 Red Cell Distribution Width 13.1 Platelet Count 293 Mean Platelet Volume 9.6 Neutrophils % 42.2 Lymphocytes % 45.8 Monocytes % 9.5 Eosinophils % 1.4 Basophils % 0.8 Nucleated Red Blood Cells % 0.0 Neutrophils # 2.8 Lymphocytes # 3.1 H Monocytes # 0.6 Eosinophils # 0.1 Basophils # 0.1 Nucleated Red Blood Cells # 0.0 Prothrombin Time 12.8 Prothrombin Time Ratio 1.0 INR International Normalized Ratio 0.96 Activated Partial Thromboplast Time 30.7 Sodium Level 143 Potassium Level 3.8 Chloride Level 101 Carbon Dioxide Level 30 Anion Gap 16 Blood Urea Nitrogen 16 Creatinine 0.62 Glucose Level 231 #H Calcium Level 9.5 Test 01/14/17 08:54 01/14/17 13:46 Bedside Glucose 211 159 Medications Medications Current Medications Acetaminophen (Tylenol Tab) 650 mg Q4H PRN PO PAIN AND OR ELEVATED TEMP; Start 01/12/17 at 22:00 Nitroglycerin (Nitroglycerin (Sl Tab) 0.4 Mg) 1 tab Q5M PRN SL ANGINA; Start 01/12/17 at 22:00 Aspirin (Halfprin) 81 mg DAILY PO Last administered on 01/13/17 08:54; Admin Dose 81 MG; Start 01/13/17 at 09:00 Clopidogrel Bisulfate (plaVIX) 75 mg DAILY PO Last administered on 01/13/17 08:55; Admin Dose 75 MG; Start 01/13/17 at 09:00 Digoxin (Digoxin) 0.125 mg DAILY@13 PO Last administered on 01/14/17 15:17; Admin Dose 0.125 MG; Start 01/13/17 at 13:00 Fluoxetine HCl (Prozac) 10 mg DAILY PO Last administered on 01/14/17 08:57; Admin Dose 10 MG; Start 01/13/17 at 09:00 Furosemide (Lasix) 40 mg DAILY@06 PO Last administered on 01/14/17 06:17; Admin Dose 40 MG; Start 01/13/17 at 06:00 Valsartan (Diovan) 80 mg DAILY PO Last administered on 01/14/17 08:57; Admin Dose 80 MG; Start 01/13/17 at 09:00 Insulin Glargine (Lantus) 27 unit DAILY@08 SC Last administered on 01/14/17 08:00; Admin Dose 27 UNIT; Start 01/13/17 at 08:00 Diagnostic Test (Pha) (Accu-Chek) 1 ea 02 XX Last administered on 01/14/17 02 :53; Admin Dose 1 EA; Start 01/13/17 at 02:00 Enoxaparin Sodium (Lovenox) 40 mg DAILY SC Last administered on 01/13/17 09: 04; Admin Dose 40 MG; Start 01/13/17 at 09:00 Miscellaneous Information 1 ea NOTE XX ; Start 01/12/17 at 22:30 Glucose (Glutose) 15 gm Q15M PRN PO DECREASED GLUCOSE; Start 01/12/17 at 22:30 Glucose (Glutose) 22.5 gm Q15M PRN PO DECREASED GLUCOSE; Start 01/12/17 at 22: 30 Dextrose (D50w Syringe) 25 ml Q15M PRN IV DECREASED GLUCOSE; Start 01/12/17 at 22:30 Dextrose (D50w Syringe) 50 ml Q15M PRN IV DECREASED GLUCOSE; Start 01/12/17 at 22:30 Glucagon (Glucagen) 1 mg Q15M PRN IM DECREASED GLUCOSE; Start 01/12/17 at 22: 30 Glucose (Glutose) 15 gm Q15M PRN BUCCAL DECREASED GLUCOSE; Start 01/12/17 at 22:30 Famotidine (Pepcid) 20 mg DAILY PO Last administered on 01/14/17 08:57; Admin Dose 20 MG; Start 01/13/17 at 13:00 Ranolazine (Ranexa) 500 mg Q12 PO Last administered on 01/14/17 08:57; Admin Dose 500 MG; Start 01/13/17 at 21:00 Metoprolol Succinate (Toprol Xl) 25 mg DAILY PO Last administered on 08:57; Admin Dose 25 MG; Start 01/14/17 at 09:00 Acetaminophen (Tylenol Tab) 650 mg Q4H PRN PO NON-CARDIAC PAIN LEVEL 1-3; Start 01/14/17 at 14:00 Oxycodone/ Acetaminophen (Percocet (5/ 325)) 1 tab Q4H PRN PO REPORTED NON- CARDIAC PAIN 4-7; Start 01/14/17 at 14:00 Morphine Sulfate (morphine) 1 mg Q1H PRN IV PAIN NOT RELIEVED BY OTHERS; Start 01/14/17 at 14:00 Al Hydrox/Mg Hydrox/Simethicone (Mag-Al Plus) 30 ml Q4H PRN PO GASTROINTESTINAL UPSET; Start 01/14/17 at 14:00 Ondansetron HCl 4 mg 4 mg Q4H PRN IV NAUSEA AND/OR VOMITING; Start 01/14/17 at 14:00 Sodium Chloride (NS) 1,000 ml @ 75 mls/hr [id number] IV Last administered on t 14:22; Admin Dose 75 MLS/HR; Start 01/14/17 at 13:36; Stop 01/15/17 at 02:55 LIENE JIMENEZ Jan 14, 2017 16:40
[2017-01-15] VITALS (24 sets, daily range): BP systolic 80–135; BP diastolic 46–84; PULSE 66–101; RESP 15–27
--- NOTE | 2017-01-15 00:31 | CARRPT ---
DATE OF PROCEDURE: 01/14/2017 TYPE OF PROCEDURE: 1. Left heart catheterization. 2. Coronary angiography. 3. Percutaneous transluminal coronary angioplasty with placement of Synergy drug-eluting stent x1 t o distal right coronary artery 2.5 x 16 mm. 4. Moderate conscious sedation. ATTENDING PHYSICIAN: Roma Tomas MD REFERRING PHYSICIAN: Dr. Altaf Waggoner INDICATION: Chest pain consistent with unstable angina, cardiomyopathy with severely depressed left ventricular ejection fraction. TYPE OF ANESTHESIA: Conscious and local. BRIEF HISTORY: Mr. Velázquez is a 56-year-old male with history of hypertension, dyslipidemia, car diomyopathy with severely depressed left ventricular ejection fraction approximately 20% to 25%, johanna or PTCA and stent placement who has had multiple recurrent admissions to the hospital for complaints of substernal chest pain consistent with unstable angina. Given these findings, the patient has no w been referred for and presents today in order to undergo left heart catheterization to assess for the possibility of significant recurrent obstructive coronary artery disease leading to his symptoms of chest pain and recurrent admits to hospital. PROCEDURE: After informed consent was obtained, the patient was brought to the [facility] cardiac catheterization lab, where he was prepped and draped in usual sterile fashion. Lid ocaine 2% was infiltrated into the right groin in the right radial area in order to achieve adequate local anesthesia. Using modified Seldinger technique, the radial artery was cannulated and a 6-[facility] arterial sheath was placed. A 6-Belizean JL3.5 catheter was used to cannulate the left main coron di ostium. With contrast injection, multiple views of the left coronary arterial system were obtai alvin. JL3.5 was removed over a guidewire and a JR4 was used to cannulate the right coronary arterial ostium. With contrast injection, multiple views of the right coronary arterial system were obtaine d. JR4 was removed and a 6-Belizean pigtail was passed across the aortic valve. Left ventricular end -diastolic pressure was measured and pulled back across the aortic valve to assess for significant g radient, which there was not and removed. At this time, given the findings of significant obstructi ve lesion, we moved directly into an interventional procedure. The patient received an additional 3 000 units of heparin in addition to the 5000 he received with his radial cocktail in order to achiev e an adequate preinterventional ACT. A JR4 guide was used to cannulate the right coronary arterial ostium. A 0.014 balance middleweight guidewire was passed distal to the lesion. The lesion was pre treated with a 2.0 x 12 mm balloon. The balloon was up to 16 to 18 atmospheres. The balloon was re moved and the lesion was stented with a 2.5 x 16 mm drug-eluting stent deployed at 14 atmospheres, p ost-dilated with the stent delivery system up to 16 atmospheres. The patient received 200 mcg of IC nitroglycerin after removal of the stent delivery system. A followup angiogram was obtained reveal ing excellent result, deployment of the stent, ADELINA 3 flow throughout the vessel, no signs of compli cation including perforation or dissection. Subsequently, at this time, the interventional guide an d guidewires were removed. The patient's sheath was removed. TR band was applied. This completed the procedure. There were no noted complications. FINDINGS: Coronary angiography: Left main 4 mm, no significant stenoses. LAD proximally is a 3 mm vessel and has a widely patent stent in this region. The remainder of the LAD is free of significant focal st enoses and does just around the apex and a very small caliber vessel in these regions. There is a pr oximal branching diagonal 2 mm vessel with luminal irregularities up to approximately 40% to 50% and a small diagonal proximal to that, a sub 2 mm vessel with mild diffuse disease. The circumflex pro ximally is a 3 mm vessel and there is a very early branching obtuse marginal which is a 2.5 mm vesse l and has stented zones x2 with no significant in-stent restenosis and mild irregularities in its mi dportion up to approximately 30% to 40%. The circumflex continuation AV groove shortly after its t akeoff becomes subtotally occluded and it has multiple areas of occlusion up to approximately 90% to 95% before becoming 100% occluded and then can be seen to fill distally via left to left collateral flow. ____ that fills all collaterals. The right coronary proximally is a 3 mm vessel and has a s tented zone and in its mid distal portion that is widely patent. In the proximal portion there is a lso a stented zone and there is in-stent restenosis up to approximately 30% to 40% and then distal t o this stented zone prior to the bifurcation, the patient has occlusion approximately 90% just befor e the bifurcation in the right dominant vessel. Measurement of left ventricular end diastolic pressure is 27 to 28. No significant aortic stenosis by gradient. PTCA and stent placement: Prior to PTCA and stent placement, the patient had a 90% distal right cor onary stenosis. Post-PTCA and stent placement, the patient had no residual stenosis, ADELINA 3 flow th roughout the vessel and no signs of complication including perforation or dissection. TOTAL FLUOROSCOPY TIME: 8 minutes. TOTAL CONTRAST: 120 mL IMPRESSION: 1. Two-vessel obstructive coronary artery disease involving a 100% occlusion in the circumflex cont inuation AV groove, with [id number] collateral flow recapitulating much of this vessel and a high grade stenosis in the mid distal right coronary artery, status post successful percutaneous translum inal coronary angioplasty and stent placement x1. 2. Elevated left heart filling pressures. 3. No significant aortic stenosis by gradient. 4. Widely patent stents in the patient's LAD and proximal right as well as the obtuse marginal bran ch of the circumflex. RECOMMENDATIONS: In light of procedure findings at this time would: 1. Maintain the patient on Plavix 75 mg 1 tab p.o. daily for at least 1 year. 2. Aspirin 81 mg 1 tab p.o. daily indefinitely. 3. Maximize medical management. 4. Aggressive risk factor reduction. 5. The patient will be admitted to the ICU for post-intervention observation and continued manageme nt of presenting symptoms with ongoing followup care. Dictated By: ROMA ZAPIEN/MICHAEL Conf#: [id number] DID#: [id number]
[2017-01-15] MEDS: ACCU-CHEK XX SCH (02:00)
[2017-01-15] MEDS: FUROSEMIDE 40 MG TAB PO SCH (05:57)
[2017-01-15] MEDS ORDERED: INSULIN ASPART [NOVOLOG] 3 ML PEN SC SCH ×2 (07:55→11:50)
[2017-01-15] MEDS: ASPIRIN (EC) 81 MG TAB PO SCH (08:32)
[2017-01-15] MEDS: FAMOTIDINE 20 MG TAB PO SCH (08:32)
[2017-01-15] MEDS: METOPROLOL (XL) 25 MG TAB PO SCH (08:33)
[2017-01-15] MEDS: VALSARTAN 80 MG TAB PO SCH (08:33)
[2017-01-15] MEDS: FLUOXETINE 10 MG CAP PO SCH (08:33)
[2017-01-15] MEDS: RANOLAZINE (SR) 500 MG TAB PO SCH ×2 (08:33→21:20)
[2017-01-15] MEDS: CLOPIDOGREL 75 MG TAB PO SCH (08:33)
[2017-01-15] MEDS: INSULIN GLARGINE [LANtus] 3 ML PEN SC SCH (08:35)
[2017-01-15] MEDS: INSULIN ASPART [NOVOLOG] 3 ML PEN SC SCH ×7 (08:36→21:00)
[2017-01-15] MEDS: ENOXAPARIN 40 MG/0.4 ML SYG SC SCH (08:37)
--- NOTE | 2017-01-15 10:15 | CONS ---
Date/Time of Note Date/Time of Note DATE: 01/15/17 TIME: 10:12 Assessment/Plan Assessment/Plan Chief Complaint/Hosp Course IMPRESSION: 1. Chest pain concerning for unstable angina, assess for acute coronary syndrome. Ongoing chest pain consistent with unstable angina. Now POD#1 s/p PTCA /stent x 1 to distal RCA for high grade stenosis 2. History of cardiomyopathy with severely depressed left ventricular ejection fraction, last approximately 25%. 3. Abnormal electrocardiogram with anteroseptal Q's and borderline ST depressions in the inferior leads. 4. Hypotension, borderline. 5. Dyslipidemia. 6. Ongoing tobacco usage. REcc: -D/C planning from cardiac standpoint if no recurrent chest pain -Continue asa/plavix s/p PTCA stent to RCA -Continue BB/Diovan/digoxin -Continue lasix -Low dose statin -outpatient f/u with me already scheduled Problems: Consultation Date/Type/Reason Admit Date/Time Jan 12, 2017 at 17:09 Initial Consult Date 01/13/2017 Type of Consultation: cardiology Reason for Consultation chest pain Referring Provider: VIDYA HOFFMAN MD Exam/Review of Systems Vital Signs Vitals Vital Signs Date Time Temp Pulse Resp B/P Pulse Ox O2 Delivery O2 Flow Rate FiO2 01/15/17 07:00 71 18 110/84 98 Room Air 01/15/17 04:00 98.0 Intake and Output 01/14/17 01/14/17 01/15/17 15:00 23:00 07:00 Intake Total 575 ml 1150 ml 575 ml Output Total 200 ml 550 ml 800 ml Balance 375 ml 600 ml -225 ml Exam Review of Systems: CONSTITUTIONAL: No fevers, chills. PULMONARY: No sob CARDIOVASCULAR: No chest pain/palpitations GASTROINTESTINAL: No nausea/vomiting. GENITOURINARY: No hematuria/dysuria. MUSCULOSKELETAL: No myagias/arthalgias. PSYCHIATRIC: The patient denies depression. NEUROLOGIC: No weakness Constitutional: alert, oriented Psych: no complaints Head: normocephalic ENMT: mucosa pink and moist Neck: jvd (8-9 cm water), supple Respiratory: clear to auscultation Cardiovascular: regular rate and rhythm Gastrointestinal: non-tender, soft Musculoskeletal: muscle tone (normal), other (R wrist palppable pulse and no sig swelling or bruising) Extremities: edema (none) Neurological: other (No focal defiicts) Results Result Diagram: 01/15/17 0509 01/15/17 0509 Results 24 hrs Laboratory Tests Test 01/14/17 13:46 01/14/17 16:48 01/14/17 21:13 01/15/17 02:04 Bedside Glucose 159 291 H 357 H 231 H Test 01/15/17 05:09 01/15/17 08:28 White Blood Count 6.6 Red Blood Count 4.18 L Hemoglobin 12.5 L Hematocrit 37.5 L Mean Corpuscular Volume 89.7 Mean Corpuscular Hemoglobin 29.9 Mean Corpuscular Hemoglobin Concent 33.3 Red Cell Distribution Width 13.0 Platelet Count 247 Mean Platelet Volume 9.5 Neutrophils % 53.2 Lymphocytes % 34.3 Monocytes % 9.4 Eosinophils % 2.0 Basophils % 0.8 Nucleated Red Blood Cells % 0.0 Neutrophils # 3.5 Lymphocytes # 2.3 Monocytes # 0.6 Eosinophils # 0.1 Basophils # 0.1 Nucleated Red Blood Cells # 0.0 Sodium Level 142 Potassium Level 4.6 Chloride Level 105 Carbon Dioxide Level 30 Anion Gap 12 Blood Urea Nitrogen 12 Creatinine 0.71 Glucose Level 180 Calcium Level 8.9 Total Bilirubin 0.3 Direct Bilirubin 0.00 Indirect Bilirubin 0.3 Aspartate Amino Transf (AST/SGOT) 17 Alanine Aminotransferase (ALT/SGPT) 51 Alkaline Phosphatase 53 Total Protein 6.7 Albumin 3.6 Globulin 3.10 Albumin/Globulin Ratio 1.16 Bedside Glucose 190 Medications Medications Current Medications Acetaminophen (Tylenol Tab) 650 mg Q4H PRN PO PAIN AND OR ELEVATED TEMP Last administered on 01/14/17 23:00; Admin Dose 650 MG; Start 01/12/17 at 22:00 Nitroglycerin (Nitroglycerin (Sl Tab) 0.4 Mg) 1 tab Q5M PRN SL ANGINA; Start 01/12/17 at 22:00 Aspirin (Halfprin) 81 mg DAILY PO Last administered on 01/15/17 08:32; Admin Dose 81 MG; Start 01/13/17 at 09:00 Clopidogrel Bisulfate (plaVIX) 75 mg DAILY PO Last administered on 01/15/17 08:33; Admin Dose 75 MG; Start 01/13/17 at 09:00 Digoxin (Digoxin) 0.125 mg DAILY@13 PO Last administered on 01/14/17 15:17; Admin Dose 0.125 MG; Start 01/13/17 at 13:00 Fluoxetine HCl (Prozac) 10 mg DAILY PO Last administered on 01/15/17 08:33; Admin Dose 10 MG; Start 01/13/17 at 09:00 Furosemide (Lasix) 40 mg DAILY@06 PO Last administered on 01/15/17 05:57; Admin Dose 40 MG; Start 01/13/17 at 06:00 Valsartan (Diovan) 80 mg DAILY PO Last administered on 01/15/17 08:33; Admin Dose 80 MG; Start 01/13/17 at 09:00 Insulin Glargine (Lantus) 27 unit DAILY@08 SC Last administered on 01/15/17 08:35; Admin Dose 27 UNIT; Start 01/13/17 at 08:00 Diagnostic Test (Pha) (Accu-Chek) 1 ea 02 XX Last administered on 01/15/17 02 :00; Admin Dose 1 EA; Start 01/13/17 at 02:00 Enoxaparin Sodium (Lovenox) 40 mg DAILY SC Last administered on 01/15/17 08: 37; Admin Dose 40 MG; Start 01/13/17 at 09:00 Miscellaneous Information 1 ea NOTE XX ; Start 01/12/17 at 22:30 Glucose (Glutose) 15 gm Q15M PRN PO DECREASED GLUCOSE; Start 01/12/17 at 22:30 Glucose (Glutose) 22.5 gm Q15M PRN PO DECREASED GLUCOSE; Start 01/12/17 at 22: 30 Dextrose (D50w Syringe) 25 ml Q15M PRN IV DECREASED GLUCOSE; Start 01/12/17 at 22:30 Dextrose (D50w Syringe) 50 ml Q15M PRN IV DECREASED GLUCOSE; Start 01/12/17 at 22:30 Glucagon (Glucagen) 1 mg Q15M PRN IM DECREASED GLUCOSE; Start 01/12/17 at 22: 30 Glucose (Glutose) 15 gm Q15M PRN BUCCAL DECREASED GLUCOSE; Start 01/12/17 at 22:30 Famotidine (Pepcid) 20 mg DAILY PO Last administered on 01/15/17 08:32; Admin Dose 20 MG; Start 01/13/17 at 13:00 Ranolazine (Ranexa) 500 mg Q12 PO Last administered on 01/15/17 08:33; Admin Dose 500 MG; Start 01/13/17 at 21:00 Metoprolol Succinate (Toprol Xl) 25 mg DAILY PO Last administered on 08:33; Admin Dose 25 MG; Start 01/14/17 at 09:00 Acetaminophen (Tylenol Tab) 650 mg Q4H PRN PO NON-CARDIAC PAIN LEVEL 1-3; Start 01/14/17 at 14:00 Oxycodone/ Acetaminophen (Percocet (5/ 325)) 1 tab Q4H PRN PO REPORTED NON- CARDIAC PAIN 4-7; Start 01/14/17 at 14:00 Morphine Sulfate (morphine) 1 mg Q1H PRN IV PAIN NOT RELIEVED BY OTHERS; Start 01/14/17 at 14:00 Al Hydrox/Mg Hydrox/Simethicone (Mag-Al Plus) 30 ml Q4H PRN PO GASTROINTESTINAL UPSET; Start 01/14/17 at 14:00 Ondansetron HCl (Zofran Inj) 4 mg Q4H PRN IV NAUSEA AND/OR VOMITING; Start at 14:00 ROMA BUSCH Jan 15, 2017 10:15
--- NOTE | 2017-01-15 11:57 | PN ---
Date/Time of Note Date/Time of Note DATE: 01/15/17 TIME: 11:50 Assessment/Plan VTE Prophylaxis VTE Prophylaxis Intervention: SCD's Lines/Catheters IV [facility]from [facility] Peripheral IV Urinary Cath still in place: No Assessment/Plan Chief Complaint/Hosp Course Patient denies any chest pain denies any shortness of breath, patient continues to have elevated glucose, awaits for a diabetic consult evaluation, patient needs teaching regarding subcu insulin injection, Lantus and pre-meal NovoLog increased. Problems: Assessment/Plan 1. Ongoing chest pain consistent with unstable angina. Now POD#1 s/p PTCA/stent x 1 to distal RCA for high grade stenosis. Continue aspirin and Plavix. Dr. Tomas is following in cardiology consultation. 2. Cardiomyopathy with ejection fraction of 25%. 3. Coronary artery disease status post percutaneous transluminal coronary angioplasty with stent placement multiple times, [facility]. 4. Hypertension. 5. Dyslipidemia. 6. snf tobacco use. 7. Poorly controlled diabetes mellitus type 2 with last hemoglobin A1c of 8.8. Continue Lantus pre-meal NovoLog, pending diabetes education. Dr. Perez is asked to see patient in endocrinology consultation. Further recommendations based on clinical course. Plan of care discussed with Dr. Waggoner. Exam/Review of Systems Vital Signs Vitals Vital Signs Date Time Temp Pulse Resp B/P Pulse Ox O2 Delivery O2 Flow Rate FiO2 01/15/17 10:00 75 22 106/73 98 Room Air 01/15/17 08:00 98.1 Intake and Output 01/14/17 01/14/17 01/15/17 15:00 23:00 07:00 Intake Total 575 ml 1150 ml 575 ml Output Total 200 ml 550 ml 800 ml Balance 375 ml 600 ml -225 ml Results Result Diagram: 01/15/17 0509 01/15/17 0509 Results 24 hrs Laboratory Tests Test 01/14/17 13:46 01/14/17 16:48 01/14/17 21:13 01/15/17 02:04 Bedside Glucose 159 291 H 357 H 231 H Test 01/15/17 05:09 01/15/17 08:28 01/15/17 11:46 White Blood Count 6.6 Red Blood Count 4.18 L Hemoglobin 12.5 L Hematocrit 37.5 L Mean Corpuscular Volume 89.7 Mean Corpuscular Hemoglobin 29.9 Mean Corpuscular Hemoglobin Concent 33.3 Red Cell Distribution Width 13.0 Platelet Count 247 Mean Platelet Volume 9.5 Neutrophils % 53.2 Lymphocytes % 34.3 Monocytes % 9.4 Eosinophils % 2.0 Basophils % 0.8 Nucleated Red Blood Cells % 0.0 Neutrophils # 3.5 Lymphocytes # 2.3 Monocytes # 0.6 Eosinophils # 0.1 Basophils # 0.1 Nucleated Red Blood Cells # 0.0 Sodium Level 142 Potassium Level 4.6 Chloride Level 105 Carbon Dioxide Level 30 Anion Gap 12 Blood Urea Nitrogen 12 Creatinine 0.71 Glucose Level 180 Calcium Level 8.9 Total Bilirubin 0.3 Direct Bilirubin 0.00 Indirect Bilirubin 0.3 Aspartate Amino Transf (AST/SGOT) 17 Alanine Aminotransferase (ALT/SGPT) 51 Alkaline Phosphatase 53 Total Protein 6.7 Albumin 3.6 Globulin 3.10 Albumin/Globulin Ratio 1.16 Bedside Glucose 190 223 H Medications Medications Current Medications Acetaminophen (Tylenol Tab) 650 mg Q4H PRN PO PAIN AND OR ELEVATED TEMP Last administered on 01/14/17 23:00; Admin Dose 650 MG; Start 01/12/17 at 22:00 Nitroglycerin (Nitroglycerin (Sl Tab) 0.4 Mg) 1 tab Q5M PRN SL ANGINA; Start 01/12/17 at 22:00 Aspirin (Halfprin) 81 mg DAILY PO Last administered on 01/15/17 08:32; Admin Dose 81 MG; Start 01/13/17 at 09:00 Clopidogrel Bisulfate (plaVIX) 75 mg DAILY PO Last administered on 01/15/17 08:33; Admin Dose 75 MG; Start 01/13/17 at 09:00 Digoxin (Digoxin) 0.125 mg DAILY@13 PO Last administered on 01/14/17 15:17; Admin Dose 0.125 MG; Start 01/13/17 at 13:00 Fluoxetine HCl (Prozac) 10 mg DAILY PO Last administered on 01/15/17 08:33; Admin Dose 10 MG; Start 01/13/17 at 09:00 Furosemide (Lasix) 40 mg DAILY@06 PO Last administered on 01/15/17 05:57; Admin Dose 40 MG; Start 01/13/17 at 06:00 Valsartan (Diovan) 80 mg DAILY PO Last administered on 01/15/17 08:33; Admin Dose 80 MG; Start 01/13/17 at 09:00 Insulin Glargine (Lantus) 27 unit DAILY@08 SC Last administered on 01/15/17 08:35; Admin Dose 27 UNIT; Start 01/13/17 at 08:00 Diagnostic Test (Pha) (Accu-Chek) 1 ea 02 XX Last administered on 01/15/17 02 :00; Admin Dose 1 EA; Start 01/13/17 at 02:00 Enoxaparin Sodium (Lovenox) 40 mg DAILY SC Last administered on 01/15/17 08: 37; Admin Dose 40 MG; Start 01/13/17 at 09:00 Miscellaneous Information 1 ea NOTE XX ; Start 01/12/17 at 22:30 Glucose (Glutose) 15 gm Q15M PRN PO DECREASED GLUCOSE; Start 01/12/17 at 22:30 Glucose (Glutose) 22.5 gm Q15M PRN PO DECREASED GLUCOSE; Start 01/12/17 at 22: 30 Dextrose (D50w Syringe) 25 ml Q15M PRN IV DECREASED GLUCOSE; Start 01/12/17 at 22:30 Dextrose (D50w Syringe) 50 ml Q15M PRN IV DECREASED GLUCOSE; Start 01/12/17 at 22:30 Glucagon (Glucagen) 1 mg Q15M PRN IM DECREASED GLUCOSE; Start 01/12/17 at 22: 30 Glucose (Glutose) 15 gm Q15M PRN BUCCAL DECREASED GLUCOSE; Start 01/12/17 at 22:30 Famotidine (Pepcid) 20 mg DAILY PO Last administered on 01/15/17 08:32; Admin Dose 20 MG; Start 01/13/17 at 13:00 Ranolazine (Ranexa) 500 mg Q12 PO Last administered on 01/15/17 08:33; Admin Dose 500 MG; Start 01/13/17 at 21:00 Metoprolol Succinate (Toprol Xl) 25 mg DAILY PO Last administered on 08:33; Admin Dose 25 MG; Start 01/14/17 at 09:00 Acetaminophen (Tylenol Tab) 650 mg Q4H PRN PO NON-CARDIAC PAIN LEVEL 1-3; Start 01/14/17 at 14:00 Oxycodone/ Acetaminophen (Percocet (5/ 325)) 1 tab Q4H PRN PO REPORTED NON- CARDIAC PAIN 4-7; Start 01/14/17 at 14:00 Morphine Sulfate (morphine) 1 mg Q1H PRN IV PAIN NOT RELIEVED BY OTHERS; Start 01/14/17 at 14:00 Al Hydrox/Mg Hydrox/Simethicone (Mag-Al Plus) 30 ml Q4H PRN PO GASTROINTESTINAL UPSET; Start 01/14/17 at 14:00 Ondansetron HCl (Zofran Inj) 4 mg Q4H PRN IV NAUSEA AND/OR VOMITING; Start at 14:00 RIGOBERTO LAI Jan 15, 2017 11:57
[2017-01-15] MEDS: DIGOXIN 0.125 MG TAB PO SCH (13:34)
--- NOTE | 2017-01-15 13:46 | RADRPT ---
Vent Rate: 76 bpm RR Interval: 0 msec RI Interval: 172 msec QRS Duration: 136 msec QT Interval: 408 msec QTC Interval: 459 msec P-R-T [place]: 69 - -11 - -88 degrees Sinus rhythm with occasional premature ventricular complexes Nonspecific intraventricular block Cannot rule out Septal infarct , age undetermined Abnormal ECG Electronically Signed By: Marco Roe [id number]
--- NOTE | 2017-01-15 13:46 | RADRPT ---
Vent Rate: 76 bpm RR Interval: 0 msec [place] Interval: 172 msec QRS Duration: 136 msec QT Interval: 408 msec QTC Interval: 459 msec P-R-T [place]: 69 - -11 - -88 degrees Sinus rhythm with occasional premature ventricular complexes Nonspecific intraventricular block Cannot rule out Septal infarct , age undetermined Abnormal ECG Electronically Signed By: Marco Roe [id number]
--- NOTE | 2017-01-15 13:46 | RADRPT ---
Vent Rate: 76 bpm RR Interval: 0 msec [place] Interval: 172 msec QRS Duration: 136 msec QT Interval: 408 msec QTC Interval: 459 msec P-R-T [place]: 69 - -11 - -88 degrees Sinus rhythm with occasional premature ventricular complexes Nonspecific intraventricular block Cannot rule out Septal infarct , age undetermined Abnormal ECG Electronically Signed By: Marco Roe [id number]
--- NOTE | 2017-01-15 13:49 | RADRPT ---
Vent Rate: 77 bpm RR Interval: 0 msec ND Interval: 172 msec QRS Duration: 138 msec QT Interval: 402 msec QTC Interval: 454 msec P-R-T [place]: 57 - 25 - 0 degrees Normal sinus rhythm Possible Left atrial enlargement Nonspecific intraventricular block Cannot rule out Septal infarct , age undetermined T wave abnormality, consider inferior ischemia Abnormal ECG Electronically Signed By: Marco Roe [id number]
--- NOTE | 2017-01-15 13:49 | RADRPT ---
Vent Rate: 77 bpm RR Interval: 0 msec [place] Interval: 172 msec QRS Duration: 138 msec QT Interval: 402 msec QTC Interval: 454 msec P-R-T [place]: 57 - 25 - 0 degrees Normal sinus rhythm Possible Left atrial enlargement Nonspecific intraventricular block Cannot rule out Septal infarct , age undetermined T wave abnormality, consider inferior ischemia Abnormal ECG Electronically Signed By: Marco Roe [id number]
--- NOTE | 2017-01-15 13:49 | RADRPT ---
Vent Rate: 77 bpm RR Interval: 0 msec RI Interval: 172 msec QRS Duration: 138 msec QT Interval: 402 msec QTC Interval: 454 msec P-R-T [place]: 57 - 25 - 0 degrees Normal sinus rhythm Possible Left atrial enlargement Nonspecific intraventricular block Cannot rule out Septal infarct , age undetermined T wave abnormality, consider inferior ischemia Abnormal ECG Electronically Signed By: Marco Roe [id number]
--- NOTE | 2017-01-15 15:07 | CONS ---
Date/Time of Note Date/Time of Note DATE: 01/15/17 TIME: 14:59 Assessment/Plan Assessment/Plan Problems: (1) Tobacco abuse Status: Chronic Comment: He has been strongly re-counseled on this point. This is a critical risk factor for his longevity and not in a positive fashion (2) Diabetes mellitus type 2 in nonobese Status: Chronic Comment: Is been on combination of oral agents with insulin. And then place him back on his oral agents and try and work with him on his insulin. In this particular case I do not feel replacing the Januvia that he takes as an outpatient with a GLP-1 will offer significant benefits. Here we simply need to make sure he knows how to use his insulin, has access to insulin, and is using his insulin. (3) Essential hypertension Status: Chronic Comment: He is on valsartan at this time. This should be continued and the beta blockade should be continued as appropriate at least 6 months if not 2 years. (4) Hyperlipidemia associated with type 2 diabetes mellitus Status: Chronic Comment: Statin therapy. (5) Coronary artery disease involving [place] coronary artery Status: Acute Comment: He is now status post right coronary artery stenting with a drug eluting stent. Further care as per cardiology. Attempt to modify his risk factors as best he allows us to including diabetic control Qualifiers: Qualified Code: I25.110 - Coronary artery disease involving [place] coronary artery of [place] heart with unstable angina pectoris (6) Systolic CHF with reduced left ventricular function, NYHA class 2 Status: Chronic Comment: Use of valsartan with beta blockade in the setting (7) S/P right coronary artery (RCA) stent placement Onset Date: ~ 01/14/2017 Status: Acute Comment: As per guidance from cardiology Consultation Date/Type/Reason Admit Date/Time Jan 12, 2017 at 17:09 Date of Consultation: Jan 15, 2017 Type of Consultation: Endocrinology Reason for Consultation Diabetes mellitus type 2 with poor control; non-STEMI; coronary artery disease; hypertension; hyperlipidemia; tobacco abuse Referring Provider: RIGOBERTO LAI Hx of Present Illness 56-year-old gentleman admitted with NSTEMI, right coronary artery occlusion, diabetes mellitus type 2, hypertension, hyperlipidemia, CHF. He reports his regular doctor has been treating with a combination of oral agent regimen. He historically has not had good control looking at our records in the hospital with his best A1c being in the eights. We are asked to see him to see if we can achieve somewhat better glycemic control. Please see the notes from our health promotion educator. It appears that even though he has been on insulin his comfort with insulin injections may not be at the level we would like. Constitutional: no complaints Respiratory: no complaints Cardiovascular: no complaints (Resolved after PCI and stenting) Gastrointestinal: no complaints Genitourinary: no complaints Psychological: no complaints Past Medical History Medical History: angina, congestive heart failure, coronary artery disease, diabetes, high cholesterol, hypertension, other (Tobacco abuse) Past Surgical History Past Surgical Hx: other (Status post multiple PCI with stenting) Family History Significant Family History: heart disease, diabetes, hypertension Social History Alcohol Use: occasionally Smoking Status: Current every day smoker Drug Use: none Exam/Review of Systems Vital Signs Vitals Vital Signs Date Time Temp Pulse Resp B/P Pulse Ox O2 Delivery O2 Flow Rate FiO2 01/15/17 14:00 83 24 101/68 96 Room Air 01/15/17 12:00 98.3 Intake and Output 01/14/17 01/14/17 01/15/17 15:00 23:00 07:00 Intake Total 575 ml 1150 ml 575 ml Output Total 200 ml 550 ml 800 ml Balance 375 ml 600 ml -225 ml Exam Constitutional: alert, oriented ENMT: mucosa pink and moist, nl external ears & nose, nl lips & teeth, nl nasal mucosa & septum Neck: non-tender, supple Respiratory: clear to auscultation, normal air movement Cardiovascular: nl pulses, regular rate and rhythm Results Result Diagram: 01/15/17 0509 01/15/17 0509 Results 24 hrs Laboratory Tests Test 01/14/17 16:48 01/14/17 21:13 01/15/17 02:04 01/15/17 05:09 Bedside Glucose 291 H 357 H 231 H White Blood Count 6.6 Red Blood Count 4.18 L Hemoglobin 12.5 L Hematocrit 37.5 L Mean Corpuscular Volume 89.7 Mean Corpuscular Hemoglobin 29.9 Mean Corpuscular Hemoglobin Concent 33.3 Red Cell Distribution Width 13.0 Platelet Count 247 Mean Platelet Volume 9.5 Neutrophils % 53.2 Lymphocytes % 34.3 Monocytes % 9.4 Eosinophils % 2.0 Basophils % 0.8 Nucleated Red Blood Cells % 0.0 Neutrophils # 3.5 Lymphocytes # 2.3 Monocytes # 0.6 Eosinophils # 0.1 Basophils # 0.1 Nucleated Red Blood Cells # 0.0 Sodium Level 142 Potassium Level 4.6 Chloride Level 105 Carbon Dioxide Level 30 Anion Gap 12 Blood Urea Nitrogen 12 Creatinine 0.71 Glucose Level 180 Calcium Level 8.9 Total Bilirubin 0.3 Direct Bilirubin 0.00 Indirect Bilirubin 0.3 Aspartate Amino Transf (AST/SGOT) 17 Alanine Aminotransferase (ALT/SGPT) 51 Alkaline Phosphatase 53 Total Protein 6.7 Albumin 3.6 Globulin 3.10 Albumin/Globulin Ratio 1.16 Test 01/15/17 08:28 01/15/17 11:46 Bedside Glucose 190 223 H Medications Medications Current Medications Acetaminophen (Tylenol Tab) 650 mg Q4H PRN PO PAIN AND OR ELEVATED TEMP Last administered on 01/14/17 23:00; Admin Dose 650 MG; Start 01/12/17 at 22:00 Nitroglycerin (Nitroglycerin (Sl Tab) 0.4 Mg) 1 tab Q5M PRN SL ANGINA; Start 01/12/17 at 22:00 Aspirin (Halfprin) 81 mg DAILY PO Last administered on 01/15/17 08:32; Admin Dose 81 MG; Start 01/13/17 at 09:00 Clopidogrel Bisulfate (plaVIX) 75 mg DAILY PO Last administered on 01/15/17 08:33; Admin Dose 75 MG; Start 01/13/17 at 09:00 Digoxin (Digoxin) 0.125 mg DAILY@13 PO Last administered on 01/15/17 13:34; Admin Dose 0.125 MG; Start 01/13/17 at 13:00 Fluoxetine HCl (Prozac) 10 mg DAILY PO Last administered on 01/15/17 08:33; Admin Dose 10 MG; Start 01/13/17 at 09:00 Furosemide (Lasix) 40 mg DAILY@06 PO Last administered on 01/15/17 05:57; Admin Dose 40 MG; Start 01/13/17 at 06:00 Valsartan (Diovan) 80 mg DAILY PO Last administered on 01/15/17 08:33; Admin Dose 80 MG; Start 01/13/17 at 09:00 Diagnostic Test (Pha) (Accu-Chek) 1 ea 02 XX Last administered on 01/15/17 02 :00; Admin Dose 1 EA; Start 01/13/17 at 02:00 Enoxaparin Sodium (Lovenox) 40 mg DAILY SC Last administered on 01/15/17 08: 37; Admin Dose 40 MG; Start 01/13/17 at 09:00 Miscellaneous Information 1 ea NOTE XX ; Start 01/12/17 at 22:30 Glucose (Glutose) 15 gm Q15M PRN PO DECREASED GLUCOSE; Start 01/12/17 at 22:30 Glucose (Glutose) 22.5 gm Q15M PRN PO DECREASED GLUCOSE; Start 01/12/17 at 22: 30 Dextrose (D50w Syringe) 25 ml Q15M PRN IV DECREASED GLUCOSE; Start 01/12/17 at 22:30 Dextrose (D50w Syringe) 50 ml Q15M PRN IV DECREASED GLUCOSE; Start 01/12/17 at 22:30 Glucagon (Glucagen) 1 mg Q15M PRN IM DECREASED GLUCOSE; Start 01/12/17 at 22: 30 Glucose (Glutose) 15 gm Q15M PRN BUCCAL DECREASED GLUCOSE; Start 01/12/17 at 22:30 Famotidine (Pepcid) 20 mg DAILY PO Last administered on 01/15/17 08:32; Admin Dose 20 MG; Start 01/13/17 at 13:00 Ranolazine (Ranexa) 500 mg Q12 PO Last administered on 01/15/17 08:33; Admin Dose 500 MG; Start 01/13/17 at 21:00 Metoprolol Succinate (Toprol Xl) 25 mg DAILY PO Last administered on 08:33; Admin Dose 25 MG; Start 01/14/17 at 09:00 Acetaminophen (Tylenol Tab) 650 mg Q4H PRN PO NON-CARDIAC PAIN LEVEL 1-3; Start 01/14/17 at 14:00 Oxycodone/ Acetaminophen (Percocet (5/ 325)) 1 tab Q4H PRN PO REPORTED NON- CARDIAC PAIN 4-7; Start 01/14/17 at 14:00 Morphine Sulfate (morphine) 1 mg Q1H PRN IV PAIN NOT RELIEVED BY OTHERS; Start 01/14/17 at 14:00 Al Hydrox/Mg Hydrox/Simethicone (Mag-Al Plus) 30 ml Q4H PRN PO GASTROINTESTINAL UPSET; Start 01/14/17 at 14:00 Ondansetron HCl (Zofran Inj) 4 mg Q4H PRN IV NAUSEA AND/OR VOMITING; Start at 14:00 Insulin Glargine (Lantus) 32 unit DAILY@08 SC ; Start 01/16/17 at 08:00 LARRY WANG MD Jan 15, 2017 15:07
[2017-01-15] MEDS: LINAGLIPTIN 5 MG TABLET PO SCH (15:41)
[2017-01-15] MEDS: metFORMIN 500 MG TAB PO SCH (16:49)
[2017-01-16] VITALS (13 sets, daily range): BP systolic 89–110; BP diastolic 54–74; PULSE 73–101; RESP 16–18
[2017-01-16] MEDS: ACCU-CHEK XX SCH (01:15)
[2017-01-16] MEDS: FUROSEMIDE 40 MG TAB PO SCH (05:09)
[2017-01-16] MEDS ORDERED: INSULIN GLARGINE [LANtus] 3 ML PEN SC SCH (08:00)
[2017-01-16] MEDS: ASPIRIN (EC) 81 MG TAB PO SCH (08:57)
[2017-01-16] MEDS: RANOLAZINE (SR) 500 MG TAB PO SCH ×2 (08:57→21:00)
[2017-01-16] MEDS: LINAGLIPTIN 5 MG TABLET PO SCH (08:57)
[2017-01-16] MEDS: FAMOTIDINE 20 MG TAB PO SCH (08:57)
[2017-01-16] MEDS: metFORMIN 500 MG TAB PO SCH ×2 (08:57→18:07)
[2017-01-16] MEDS: FLUOXETINE 10 MG CAP PO SCH (08:58)
[2017-01-16] MEDS: CLOPIDOGREL 75 MG TAB PO SCH (08:58)
[2017-01-16] MEDS: ENOXAPARIN 40 MG/0.4 ML SYG SC SCH (09:03)
[2017-01-16] MEDS: INSULIN ASPART [NOVOLOG] 3 ML PEN SC SCH ×7 (09:03→20:47)
--- NOTE | 2017-01-16 10:02 | PN ---
Date/Time of Note Date/Time of Note DATE: 01/16/17 TIME: 10:01 Assessment/Plan VTE Prophylaxis VTE Prophylaxis Intervention: other Lines/Catheters IV [facility] (from [facility] Peripheral IV Urinary Cath still in place: No Assessment/Plan Chief Complaint/Hosp Course 1. Ongoing chest pain consistent with unstable angina. Now POD#1 s/p PTCA/stent x 1 to distal RCA for high grade stenosis. Continue aspirin and Plavix. Dr. Tomas is following in cardiology consultation. 2. Cardiomyopathy with ejection fraction of 25%. 3. Coronary artery disease status post percutaneous transluminal coronary angioplasty with stent placement multiple times, last one in 2017 at [facility]. 4. Hypertension. 5. Dyslipidemia. 6. nursing home tobacco use. 7. Poorly controlled diabetes mellitus type 2 with last hemoglobin A1c of 8.8. Continue Lantus pre-meal NovoLog, pending diabetes education. Dr. Perez is asked to see patient in endocrinology consultation. Problems: Subjective 24 Hr Interval Summary Free Text/Dictation Patient denies any chest pain Exam/Review of Systems Vital Signs Vitals Vital Signs Date Time Temp Pulse Resp B/P Pulse Ox O2 Delivery O2 Flow Rate FiO2 01/16/17 08:22 73 01/16/17 07:56 98.0 16 97/60 98 01/16/17 05:32 Room Air Intake and Output 01/15/17 01/15/17 01/16/17 15:00 23:00 07:00 Intake Total 1050 ml 750 ml Output Total 300 ml Balance 1050 ml 450 ml Exam Constitutional: well developed Head: atraumatic, normocephalic Neck: supple Respiratory: clear to auscultation Cardiovascular: regular rate and rhythm Gastrointestinal: non-tender, soft Extremities: normal pulses Results Result Diagram: 01/16/17 0636 01/16/17 0636 Results 24 hrs Laboratory Tests Test 01/15/17 11:46 01/15/17 16:50 01/15/17 21:21 01/16/17 06:36 Bedside Glucose 223 H 133 157 White Blood Count 6.4 Red Blood Count 4.08 L Hemoglobin 12.1 L Hematocrit 36.5 L Mean Corpuscular Volume 89.5 Mean Corpuscular Hemoglobin 29.7 Mean Corpuscular Hemoglobin Concent 33.2 Red Cell Distribution Width 13.1 Platelet Count 257 Mean Platelet Volume 9.4 Neutrophils % 46.9 Lymphocytes % 39.0 Monocytes % 10.8 Eosinophils % 1.9 Basophils % 0.9 Nucleated Red Blood Cells % 0.0 Neutrophils # 3.0 Lymphocytes # 2.5 Monocytes # 0.7 Eosinophils # 0.1 Basophils # 0.1 Nucleated Red Blood Cells # 0.0 Sodium Level 141 Potassium Level 3.9 Chloride Level 103 Carbon Dioxide Level 30 Anion Gap 12 Blood Urea Nitrogen 12 Creatinine 0.75 Glucose Level 142 Calcium Level 9.3 Test 01/16/17 08:54 Bedside Glucose 155 Medications Medications Current Medications Acetaminophen (Tylenol Tab) 650 mg Q4H PRN PO PAIN AND OR ELEVATED TEMP Last administered on 01/14/17 23:00; Admin Dose 650 MG; Start 01/12/17 at 22:00 Nitroglycerin (Nitroglycerin (Sl Tab) 0.4 Mg) 1 tab Q5M PRN SL ANGINA; Start 01/12/17 at 22:00 Aspirin (Halfprin) 81 mg DAILY PO Last administered on 01/16/17 08:57; Admin Dose 81 MG; Start 01/13/17 at 09:00 Clopidogrel Bisulfate (plaVIX) 75 mg DAILY PO Last administered on 01/16/17 08:58; Admin Dose 75 MG; Start 01/13/17 at 09:00 Digoxin (Digoxin) 0.125 mg DAILY@13 PO Last administered on 01/15/17 13:34; Admin Dose 0.125 MG; Start 01/13/17 at 13:00 Fluoxetine HCl (Prozac) 10 mg DAILY PO Last administered on 01/16/17 08:58; Admin Dose 10 MG; Start 01/13/17 at 09:00 Furosemide (Lasix) 40 mg DAILY@06 PO Last administered on 01/15/17 05:57; Admin Dose 40 MG; Start 01/13/17 at 06:00 Valsartan (Diovan) 80 mg DAILY PO Last administered on 01/15/17 08:33; Admin Dose 80 MG; Start 01/13/17 at 09:00 Diagnostic Test (Pha) (Accu-Chek) 1 ea 02 XX Last administered on 01/15/17 02 :00; Admin Dose 1 EA; Start 01/13/17 at 02:00 Enoxaparin Sodium (Lovenox) 40 mg DAILY SC Last administered on 01/16/17 09: 03; Admin Dose 40 MG; Start 01/13/17 at 09:00 Miscellaneous Information 1 ea NOTE XX ; Start 01/12/17 at 22:30 Glucose (Glutose) 15 gm Q15M PRN PO DECREASED GLUCOSE; Start 01/12/17 at 22:30 Glucose (Glutose) 22.5 gm Q15M PRN PO DECREASED GLUCOSE; Start 01/12/17 at 22: 30 Dextrose (D50w Syringe) 25 ml Q15M PRN IV DECREASED GLUCOSE; Start 01/12/17 at 22:30 Dextrose (D50w Syringe) 50 ml Q15M PRN IV DECREASED GLUCOSE; Start 01/12/17 at 22:30 Glucagon (Glucagen) 1 mg Q15M PRN IM DECREASED GLUCOSE; Start 01/12/17 at 22: 30 Glucose (Glutose) 15 gm Q15M PRN BUCCAL DECREASED GLUCOSE; Start 01/12/17 at 22:30 Famotidine (Pepcid) 20 mg DAILY PO Last administered on 01/16/17 08:57; Admin Dose 20 MG; Start 01/13/17 at 13:00 Ranolazine (Ranexa) 500 mg Q12 PO Last administered on 01/16/17 08:57; Admin Dose 500 MG; Start 01/13/17 at 21:00 Metoprolol Succinate (Toprol Xl) 25 mg DAILY PO Last administered on 08:33; Admin Dose 25 MG; Start 01/14/17 at 09:00 Acetaminophen (Tylenol Tab) 650 mg Q4H PRN PO NON-CARDIAC PAIN LEVEL 1-3; Start 01/14/17 at 14:00 Oxycodone/ Acetaminophen (Percocet (5/ 325)) 1 tab Q4H PRN PO REPORTED NON- CARDIAC PAIN 4-7; Start 01/14/17 at 14:00 Morphine Sulfate (morphine) 1 mg Q1H PRN IV PAIN NOT RELIEVED BY OTHERS; Start 01/14/17 at 14:00 Al Hydrox/Mg Hydrox/Simethicone (Mag-Al Plus) 30 ml Q4H PRN PO GASTROINTESTINAL UPSET; Start 01/14/17 at 14:00 Ondansetron HCl (Zofran Inj) 4 mg Q4H PRN IV NAUSEA AND/OR VOMITING; Start at 14:00 Insulin Glargine (Lantus) 32 unit DAILY@08 SC Last administered on 01/16/17 09:06; Admin Dose 32 UNIT; Start 01/16/17 at 08:00 Linagliptin (Tradjenta) 5 mg DAILY PO Last administered on 01/16/17 08:57; Admin Dose 5 MG; Start 01/15/17 at 15:00 ES MEDRANO Jan 16, 2017 10:02
--- NOTE | 2017-01-16 10:12 | CONS ---
Date/Time of Note Date/Time of Note DATE: 01/16/17 TIME: 10:09 Assessment/Plan Assessment/Plan Chief Complaint/Hosp Course 56-year-old gentleman admitted with NSTEMI, right coronary artery occlusion, diabetes mellitus type 2, hypertension, hyperlipidemia, CHF. He reports his regular doctor has been treating with a combination of oral agent regimen. He historically has not had good control looking at our records in the hospital with his best A1c being in the eights. We are asked to see him to see if we can achieve somewhat better glycemic control. Please see the notes from our wellness educator. It appears that even though he has been on insulin his comfort with insulin injections may not be at the level we would like. Problems: (1) Systolic CHF with reduced left ventricular function, NYHA class 2 Status: Chronic Comment: Stable on medications. Please note that may not be possible to push his medications more based on his blood pressure tolerance (2) Diabetes mellitus type 2 in nonobese Status: Chronic Comment: His control is coming into line nicely. We will make mild adjustments to his insulins. Please note from the standpoint he could be discharged home (3) Essential hypertension Status: Chronic Comment: Well-controlled (4) Tobacco abuse Status: Chronic Comment: Strongly re-counseled Consultation Date/Type/Reason Admit Date/Time Jan 12, 2017 at 17:09 Initial Consult Date 01/15/17 Type of Consultation: Endocrinology Reason for Consultation Diabetes mellitus type 2 Referring Provider: RIGOBERTO LAI 24 HR Interval Summary Free Text/Dictation Patient indicates no chest pain no shortness of breath no nausea or vomiting Constitutional: no complaints Exam/Review of Systems Vital Signs Vitals Vital Signs Date Time Temp Pulse Resp B/P Pulse Ox O2 Delivery O2 Flow Rate FiO2 01/16/17 08:22 73 01/16/17 07:56 98.0 16 97/60 98 01/16/17 05:32 Room Air Intake and Output 01/15/17 01/15/17 01/16/17 15:00 23:00 07:00 Intake Total 1050 ml 750 ml Output Total 300 ml Balance 1050 ml 450 ml Exam Sitting up in bed and occasionally walking the halls Constitutional: alert, oriented Neck: non-tender, supple Respiratory: clear to auscultation, normal air movement Cardiovascular: nl pulses, regular rate and rhythm Gastrointestinal: nl liver, spleen, non-tender, soft Results Result Diagram: 01/16/17 0636 01/16/17 0636 Results 24 hrs Laboratory Tests Test 01/15/17 11:46 01/15/17 16:50 01/15/17 21:21 01/16/17 06:36 Bedside Glucose 223 H 133 157 White Blood Count 6.4 Red Blood Count 4.08 L Hemoglobin 12.1 L Hematocrit 36.5 L Mean Corpuscular Volume 89.5 Mean Corpuscular Hemoglobin 29.7 Mean Corpuscular Hemoglobin Concent 33.2 Red Cell Distribution Width 13.1 Platelet Count 257 Mean Platelet Volume 9.4 Neutrophils % 46.9 Lymphocytes % 39.0 Monocytes % 10.8 Eosinophils % 1.9 Basophils % 0.9 Nucleated Red Blood Cells % 0.0 Neutrophils # 3.0 Lymphocytes # 2.5 Monocytes # 0.7 Eosinophils # 0.1 Basophils # 0.1 Nucleated Red Blood Cells # 0.0 Sodium Level 141 Potassium Level 3.9 Chloride Level 103 Carbon Dioxide Level 30 Anion Gap 12 Blood Urea Nitrogen 12 Creatinine 0.75 Glucose Level 142 Calcium Level 9.3 Test 01/16/17 08:54 Bedside Glucose 155 Medications Medications Current Medications Acetaminophen (Tylenol Tab) 650 mg Q4H PRN PO PAIN AND OR ELEVATED TEMP Last administered on 01/14/17 23:00; Admin Dose 650 MG; Start 01/12/17 at 22:00 Nitroglycerin (Nitroglycerin (Sl Tab) 0.4 Mg) 1 tab Q5M PRN SL ANGINA; Start 01/12/17 at 22:00 Aspirin (Halfprin) 81 mg DAILY PO Last administered on 01/16/17 08:57; Admin Dose 81 MG; Start 01/13/17 at 09:00 Clopidogrel Bisulfate (plaVIX) 75 mg DAILY PO Last administered on 01/16/17 08:58; Admin Dose 75 MG; Start 01/13/17 at 09:00 Digoxin (Digoxin) 0.125 mg DAILY@13 PO Last administered on 01/15/17 13:34; Admin Dose 0.125 MG; Start 01/13/17 at 13:00 Fluoxetine HCl (Prozac) 10 mg DAILY PO Last administered on 01/16/17 08:58; Admin Dose 10 MG; Start 01/13/17 at 09:00 Furosemide (Lasix) 40 mg DAILY@06 PO Last administered on 01/15/17 05:57; Admin Dose 40 MG; Start 01/13/17 at 06:00 Valsartan (Diovan) 80 mg DAILY PO Last administered on 01/15/17 08:33; Admin Dose 80 MG; Start 01/13/17 at 09:00 Diagnostic Test (Pha) (Accu-Chek) 1 ea 02 XX Last administered on 01/15/17 02 :00; Admin Dose 1 EA; Start 01/13/17 at 02:00 Enoxaparin Sodium (Lovenox) 40 mg DAILY SC Last administered on 01/16/17 09: 03; Admin Dose 40 MG; Start 01/13/17 at 09:00 Miscellaneous Information 1 ea NOTE XX ; Start 01/12/17 at 22:30 Glucose (Glutose) 15 gm Q15M PRN PO DECREASED GLUCOSE; Start 01/12/17 at 22:30 Glucose (Glutose) 22.5 gm Q15M PRN PO DECREASED GLUCOSE; Start 01/12/17 at 22: 30 Dextrose (D50w Syringe) 25 ml Q15M PRN IV DECREASED GLUCOSE; Start 01/12/17 at 22:30 Dextrose (D50w Syringe) 50 ml Q15M PRN IV DECREASED GLUCOSE; Start 01/12/17 at 22:30 Glucagon (Glucagen) 1 mg Q15M PRN IM DECREASED GLUCOSE; Start 01/12/17 at 22: 30 Glucose (Glutose) 15 gm Q15M PRN BUCCAL DECREASED GLUCOSE; Start 01/12/17 at 22:30 Famotidine (Pepcid) 20 mg DAILY PO Last administered on 01/16/17 08:57; Admin Dose 20 MG; Start 01/13/17 at 13:00 Ranolazine (Ranexa) 500 mg Q12 PO Last administered on 01/16/17 08:57; Admin Dose 500 MG; Start 01/13/17 at 21:00 Metoprolol Succinate (Toprol Xl) 25 mg DAILY PO Last administered on 08:33; Admin Dose 25 MG; Start 01/14/17 at 09:00 Acetaminophen (Tylenol Tab) 650 mg Q4H PRN PO NON-CARDIAC PAIN LEVEL 1-3; Start 01/14/17 at 14:00 Oxycodone/ Acetaminophen (Percocet (5/ 325)) 1 tab Q4H PRN PO REPORTED NON- CARDIAC PAIN 4-7; Start 01/14/17 at 14:00 Morphine Sulfate (morphine) 1 mg Q1H PRN IV PAIN NOT RELIEVED BY OTHERS; Start 01/14/17 at 14:00 Al Hydrox/Mg Hydrox/Simethicone (Mag-Al Plus) 30 ml Q4H PRN PO GASTROINTESTINAL UPSET; Start 01/14/17 at 14:00 Ondansetron HCl (Zofran Inj) 4 mg Q4H PRN IV NAUSEA AND/OR VOMITING; Start at 14:00 Insulin Glargine (Lantus) 32 unit DAILY@08 SC Last administered on 01/16/17 09:06; Admin Dose 32 UNIT; Start 01/16/17 at 08:00 Linagliptin (Tradjenta) 5 mg DAILY PO Last administered on 01/16/17 08:57; Admin Dose 5 MG; Start 01/15/17 at 15:00 LARRY WANG MD Jan 16, 2017 10:11
[2017-01-16] MEDS: METOPROLOL (XL) 25 MG TAB PO SCH (14:23)
[2017-01-16] MEDS: DIGOXIN 0.125 MG TAB PO SCH (14:23)
[2017-01-16] MEDS: VALSARTAN 80 MG TAB PO SCH (14:24)
--- NOTE | 2017-01-16 15:09 | CONS ---
Date/Time of Note Date/Time of Note DATE: 01/16/17 TIME: 15:04 Assessment/Plan Assessment/Plan Additional Assessment/Plan Typical chest pain CAD s/p PTCA and stenting Ischemic cardiomyopathy Hyperlipidemia Diabetes Hemodynamically stable Continue lasix Continue digoxin Continue metoprolol Continue valsartan Continue ASA and Plavix continue Ranexa Continue lipitor Continue Insulin Continue GI and DVT Prophylaxis Consultation Date/Type/Reason Admit Date/Time Jan 12, 2017 at 17:09 Constitutional: no complaints Respiratory: no complaints Cardiovascular: no complaints (Resolved after PCI and stenting) Gastrointestinal: no complaints Genitourinary: no complaints Psychological: no complaints Past Medical History Medical History: angina, congestive heart failure, coronary artery disease, diabetes, high cholesterol, hypertension, other (Tobacco abuse) Past Surgical History Past Surgical Hx: other (Status post multiple PCI with stenting) Social History Alcohol Use: occasionally Smoking Status: Current every day smoker Drug Use: none Exam/Review of Systems Vital Signs Vitals Vital Signs Date Time Temp Pulse Resp B/P Pulse Ox O2 Delivery O2 Flow Rate FiO2 01/16/17 12:33 98.0 80 18 110/70 98 01/16/17 05:32 Room Air Intake and Output 01/15/17 01/15/17 01/16/17 15:00 23:00 07:00 Intake Total 1050 ml 750 ml Output Total 300 ml Balance 1050 ml 450 ml Exam Constitutional: alert Head: atraumatic, normocephalic Neck: non-tender, supple Respiratory: clear to auscultation Cardiovascular: regular rate and rhythm Gastrointestinal: nl liver, spleen, non-tender, soft Extremities: normal pulses Results Result Diagram: 01/16/17 0636 01/16/17 0636 Results 24 hrs Laboratory Tests Test 01/15/17 16:50 01/15/17 21:21 01/16/17 06:36 01/16/17 08:54 Bedside Glucose 133 157 155 White Blood Count 6.4 Red Blood Count 4.08 L Hemoglobin 12.1 L Hematocrit 36.5 L Mean Corpuscular Volume 89.5 Mean Corpuscular Hemoglobin 29.7 Mean Corpuscular Hemoglobin Concent 33.2 Red Cell Distribution Width 13.1 Platelet Count 257 Mean Platelet Volume 9.4 Neutrophils % 46.9 Lymphocytes % 39.0 Monocytes % 10.8 Eosinophils % 1.9 Basophils % 0.9 Nucleated Red Blood Cells % 0.0 Neutrophils # 3.0 Lymphocytes # 2.5 Monocytes # 0.7 Eosinophils # 0.1 Basophils # 0.1 Nucleated Red Blood Cells # 0.0 Sodium Level 141 Potassium Level 3.9 Chloride Level 103 Carbon Dioxide Level 30 Anion Gap 12 Blood Urea Nitrogen 12 Creatinine 0.75 Glucose Level 142 Calcium Level 9.3 Test 01/16/17 12:19 Bedside Glucose 119 Medications Medications Current Medications Acetaminophen (Tylenol Tab) 650 mg Q4H PRN PO PAIN AND OR ELEVATED TEMP Last administered on 01/14/17 23:00; Admin Dose 650 MG; Start 01/12/17 at 22:00 Nitroglycerin (Nitroglycerin (Sl Tab) 0.4 Mg) 1 tab Q5M PRN SL ANGINA; Start 01/12/17 at 22:00 Aspirin (Halfprin) 81 mg DAILY PO Last administered on 01/16/17 08:57; Admin Dose 81 MG; Start 01/13/17 at 09:00 Clopidogrel Bisulfate (plaVIX) 75 mg DAILY PO Last administered on 01/16/17 08:58; Admin Dose 75 MG; Start 01/13/17 at 09:00 Digoxin (Digoxin) 0.125 mg DAILY@13 PO Last administered on 01/16/17 14:23; Admin Dose 0.125 MG; Start 01/13/17 at 13:00 Fluoxetine HCl (Prozac) 10 mg DAILY PO Last administered on 01/16/17 08:58; Admin Dose 10 MG; Start 01/13/17 at 09:00 Furosemide (Lasix) 40 mg DAILY@06 PO Last administered on 01/15/17 05:57; Admin Dose 40 MG; Start 01/13/17 at 06:00 Valsartan (Diovan) 80 mg DAILY PO Last administered on 01/16/17 14:24; Admin Dose 80 MG; Start 01/13/17 at 09:00 Diagnostic Test (Pha) (Accu-Chek) 1 ea 02 XX Last administered on 01/15/17 02 :00; Admin Dose 1 EA; Start 01/13/17 at 02:00 Enoxaparin Sodium (Lovenox) 40 mg DAILY SC Last administered on 01/16/17 09: 03; Admin Dose 40 MG; Start 01/13/17 at 09:00 Miscellaneous Information 1 ea NOTE XX ; Start 01/12/17 at 22:30 Glucose (Glutose) 15 gm Q15M PRN PO DECREASED GLUCOSE; Start 01/12/17 at 22:30 Glucose (Glutose) 22.5 gm Q15M PRN PO DECREASED GLUCOSE; Start 01/12/17 at 22: 30 Dextrose (D50w Syringe) 25 ml Q15M PRN IV DECREASED GLUCOSE; Start 01/12/17 at 22:30 Dextrose (D50w Syringe) 50 ml Q15M PRN IV DECREASED GLUCOSE; Start 01/12/17 at 22:30 Glucagon (Glucagen) 1 mg Q15M PRN IM DECREASED GLUCOSE; Start 01/12/17 at 22: 30 Glucose (Glutose) 15 gm Q15M PRN BUCCAL DECREASED GLUCOSE; Start 01/12/17 at 22:30 Famotidine (Pepcid) 20 mg DAILY PO Last administered on 01/16/17 08:57; Admin Dose 20 MG; Start 01/13/17 at 13:00 Ranolazine (Ranexa) 500 mg Q12 PO Last administered on 01/16/17 08:57; Admin Dose 500 MG; Start 01/13/17 at 21:00 Metoprolol Succinate (Toprol Xl) 25 mg DAILY PO Last administered on 14:23; Admin Dose 25 MG; Start 01/14/17 at 09:00 Acetaminophen (Tylenol Tab) 650 mg Q4H PRN PO NON-CARDIAC PAIN LEVEL 1-3; Start 01/14/17 at 14:00 Oxycodone/ Acetaminophen (Percocet (5/ 325)) 1 tab Q4H PRN PO REPORTED NON- CARDIAC PAIN 4-7; Start 01/14/17 at 14:00 Morphine Sulfate (morphine) 1 mg Q1H PRN IV PAIN NOT RELIEVED BY OTHERS; Start 01/14/17 at 14:00 Al Hydrox/Mg Hydrox/Simethicone (Mag-Al Plus) 30 ml Q4H PRN PO GASTROINTESTINAL UPSET; Start 01/14/17 at 14:00 Ondansetron HCl (Zofran Inj) 4 mg Q4H PRN IV NAUSEA AND/OR VOMITING; Start at 14:00 Linagliptin (Tradjenta) 5 mg DAILY PO Last administered on 01/16/17 08:57; Admin Dose 5 MG; Start 01/15/17 at 15:00 Insulin Glargine (Lantus) 34 unit DAILY@08 SC ; Start 01/17/17 at 08:00 DAISHA RIVAS M.D. Jan 16, 2017 15:09
[2017-01-17] VITALS (12 sets, daily range): BP systolic 95–114; BP diastolic 55–73; PULSE 72–85; RESP 16–18
[2017-01-17] MEDS: ACCU-CHEK XX SCH (02:00)
[2017-01-17] MEDS: FUROSEMIDE 40 MG TAB PO SCH (05:23)
[2017-01-17] MEDS: ASPIRIN (EC) 81 MG TAB PO SCH (08:31)
[2017-01-17] MEDS: LINAGLIPTIN 5 MG TABLET PO SCH (08:31)
[2017-01-17] MEDS: CLOPIDOGREL 75 MG TAB PO SCH (08:31)
[2017-01-17] MEDS: FAMOTIDINE 20 MG TAB PO SCH (08:31)
[2017-01-17] MEDS: metFORMIN 500 MG TAB PO SCH ×2 (08:32→17:51)
[2017-01-17] MEDS: VALSARTAN 80 MG TAB PO SCH (08:32)
[2017-01-17] MEDS: RANOLAZINE (SR) 500 MG TAB PO SCH ×2 (08:32→21:00)
[2017-01-17] MEDS: FLUOXETINE 10 MG CAP PO SCH (08:32)
[2017-01-17] MEDS: METOPROLOL (XL) 25 MG TAB PO SCH (08:33)
[2017-01-17] MEDS: INSULIN ASPART [NOVOLOG] 3 ML PEN SC SCH ×7 (08:38→21:00)
[2017-01-17] MEDS: INSULIN GLARGINE [LANtus] 3 ML PEN SC SCH (08:39)
[2017-01-17] MEDS: ENOXAPARIN 40 MG/0.4 ML SYG SC SCH (08:39)
--- NOTE | 2017-01-17 10:57 | PN ---
Date/Time of Note Date/Time of Note DATE: 01/17/17 TIME: 10:57 Assessment/Plan VTE Prophylaxis VTE Prophylaxis Intervention: other Lines/Catheters IV [facility]from [facility]): [facility] Urinary Cath still in place: No Assessment/Plan Chief Complaint/Hosp Course 1. Ongoing chest pain consistent with unstable angina. Now POD#1 s/p PTCA/stent x 1 to distal RCA for high grade stenosis. Continue aspirin and Plavix. Dr. Tomas is following in cardiology consultation. 2. Cardiomyopathy with ejection fraction of 25%. 3. Coronary artery disease status post percutaneous transluminal coronary angioplasty with stent placement multiple times, last one in 2017 at [facility]. 4. Hypertension. 5. Dyslipidemia. 6. shelter tobacco use. 7. Poorly controlled diabetes mellitus type 2 with last hemoglobin A1c of 8.8. Continue Lantus pre-meal NovoLog, pending diabetes education. Dr. Perez is asked to see patient in endocrinology consultation. Problems: Subjective 24 Hr Interval Summary Free Text/Dictation Patient has no complaints Exam/Review of Systems Vital Signs Vitals Vital Signs Date Time Temp Pulse Resp B/P Pulse Ox O2 Delivery O2 Flow Rate FiO2 01/17/17 08:12 79 01/17/17 07:54 97.0 18 108/65 98 01/16/17 05:32 Room Air Intake and Output 01/16/17 01/16/17 01/17/17 15:00 23:00 07:00 Intake Total 800 ml 500 ml Balance 800 ml 500 ml Exam Constitutional: well developed Head: atraumatic, normocephalic Neck: supple Respiratory: diminished breath sounds Cardiovascular: regular rate and rhythm Gastrointestinal: non-tender, soft Extremities: normal pulses Results Result Diagram: 01/16/17 0636 01/16/17 0636 Results 24 hrs Laboratory Tests Test 01/16/17 12:19 01/16/17 18:03 01/16/17 20:26 01/17/17 08:26 Bedside Glucose 119 168 82 173 Medications Medications Current Medications Acetaminophen (Tylenol Tab) 650 mg Q4H PRN PO PAIN AND OR ELEVATED TEMP Last administered on 01/14/17t 23:00; Admin Dose 650 MG; Start 01/12/17 at 22:00 Nitroglycerin (Nitroglycerin (Sl Tab) 0.4 Mg) 1 tab Q5M PRN SL ANGINA; Start 01/12/17 at 22:00 Aspirin (Halfprin) 81 mg DAILY PO Last administered on 01/17/17 08:31; Admin Dose 81 MG; Start 01/13/17 at 09:00 Clopidogrel Bisulfate (plaVIX) 75 mg DAILY PO Last administered on 01/17/17 08:31; Admin Dose 75 MG; Start 01/13/17 at 09:00 Digoxin (Digoxin) 0.125 mg DAILY@13 PO Last administered on 01/16/17 14:23; Admin Dose 0.125 MG; Start 01/13/17 at 13:00 Fluoxetine HCl (Prozac) 10 mg DAILY PO Last administered on 01/17/17 08:32; Admin Dose 10 MG; Start 01/13/17 at 09:00 Furosemide (Lasix) 40 mg DAILY@06 PO Last administered on 01/17/17 05:23; Admin Dose 40 MG; Start 01/13/17 at 06:00 Valsartan (Diovan) 80 mg DAILY PO Last administered on 01/17/17 08:32; Admin Dose 80 MG; Start 01/13/17 at 09:00 Diagnostic Test (Pha) (Accu-Chek) 1 ea 02 XX Last administered on 01/15/17 02 :00; Admin Dose 1 EA; Start 01/13/17 at 02:00 Enoxaparin Sodium (Lovenox) 40 mg DAILY SC Last administered on 01/17/17 08: 39; Admin Dose 40 MG; Start 01/13/17 at 09:00 Miscellaneous Information 1 ea NOTE XX ; Start 01/12/17 at 22:30 Glucose (Glutose) 15 gm Q15M PRN PO DECREASED GLUCOSE; Start 01/12/17 at 22:30 Glucose (Glutose) 22.5 gm Q15M PRN PO DECREASED GLUCOSE; Start 01/12/17 at 22: 30 Dextrose (D50w Syringe) 25 ml Q15M PRN IV DECREASED GLUCOSE; Start 01/12/17 at 22:30 Dextrose (D50w Syringe) 50 ml Q15M PRN IV DECREASED GLUCOSE; Start 01/12/17 at 22:30 Glucagon (Glucagen) 1 mg Q15M PRN IM DECREASED GLUCOSE; Start 01/12/17 at 22: 30 Glucose (Glutose) 15 gm Q15M PRN BUCCAL DECREASED GLUCOSE; Start 01/12/17 at 22:30 Famotidine (Pepcid) 20 mg DAILY PO Last administered on 01/17/17 08:31; Admin Dose 20 MG; Start 01/13/17 at 13:00 Ranolazine (Ranexa) 500 mg Q12 PO Last administered on 01/17/17 08:32; Admin Dose 500 MG; Start 01/13/17 at 21:00 Metoprolol Succinate (Toprol Xl) 25 mg DAILY PO Last administered on 08:33; Admin Dose 25 MG; Start 01/14/17 at 09:00 Acetaminophen (Tylenol Tab) 650 mg Q4H PRN PO NON-CARDIAC PAIN LEVEL 1-3; Start 01/14/17 at 14:00 Oxycodone/ Acetaminophen (Percocet (5/ 325)) 1 tab Q4H PRN PO REPORTED NON- CARDIAC PAIN 4-7; Start 01/14/17 at 14:00 Morphine Sulfate (morphine) 1 mg Q1H PRN IV PAIN NOT RELIEVED BY OTHERS; Start 01/14/17 at 14:00 Al Hydrox/Mg Hydrox/Simethicone (Mag-Al Plus) 30 ml Q4H PRN PO GASTROINTESTINAL UPSET; Start 01/14/17 at 14:00 Ondansetron HCl (Zofran Inj) 4 mg Q4H PRN IV NAUSEA AND/OR VOMITING; Start at 14:00 Linagliptin (Tradjenta) 5 mg DAILY PO Last administered on 01/17/17 08:31; Admin Dose 5 MG; Start 01/15/17 at 15:00 Insulin Glargine (Lantus) 34 unit DAILY@08 SC Last administered on 01/17/17 08:39; Admin Dose 34 UNIT; Start 01/17/17 at 08:00 ES MEDRANO Jan 17, 2017 10:57
--- NOTE | 2017-01-17 12:23 | CONS ---
Date/Time of Note Date/Time of Note DATE: 01/17/17 TIME: 12:19 Assessment/Plan Assessment/Plan Chief Complaint/Hosp Course 56-year-old gentleman admitted with NSTEMI, right coronary artery occlusion, diabetes mellitus type 2, hypertension, hyperlipidemia, CHF. He reports his regular doctor has been treating with a combination of oral agent regimen. He historically has not had good control looking at our records in the hospital with his best A1c being in the eights. We are asked to see him to see if we can achieve somewhat better glycemic control. Please see the notes from our development educator. It appears that even though he has been on insulin his comfort with insulin injections may not be at the level we would like. Problems: (1) Diabetes mellitus type 2 in nonobese Status: Chronic Comment: His diabetic control is in line and at goal on the current combination regimen. I would advocate for this to be continued including through discharge. (2) Essential hypertension Status: Chronic Comment: Adequate control on his medications for his heart blood pressure and CHF (3) Hyperlipidemia associated with type 2 diabetes mellitus Status: Chronic Comment: Adequate control with statin therapy (4) S/P right coronary artery (RCA) stent placement Onset Date: ~ 01/14/2017 Status: Acute Comment: As per cardiology stable (5) Tobacco abuse Status: Chronic Comment: Re-counseled strongly to discontinue tobacco products (6) Systolic CHF with reduced left ventricular function, NYHA class 2 Status: Chronic Comment: On appropriate therapy Consultation Date/Type/Reason Admit Date/Time Jan 12, 2017 at 17:09 Initial Consult Date 01/15/17 Type of Consultation: Endocrinology Reason for Consultation Diabetes mellitus type 2 with an adequate control at admission, and A1c of 8.8 Referring Provider: RIGOBERTO LAI 24 HR Interval Summary Free Text/Dictation Patient with his daughter translating reports no hypoglycemic symptomatology. He has no complaints Exam/Review of Systems Vital Signs Vitals Vital Signs Date Time Temp Pulse Resp B/P Pulse Ox O2 Delivery O2 Flow Rate FiO2 01/17/17 12:17 85 01/17/17 11:59 98.0 16 99/62 98 01/16/17 05:32 Room Air Intake and Output 01/16/17 01/16/17 01/17/17 15:00 23:00 07:00 Intake Total 800 ml 500 ml Balance 800 ml 500 ml Results No change in exam Result Diagram: 01/16/17 0636 01/16/17 0636 Results 24 hrs Laboratory Tests Test 01/16/17 18:03 01/16/17 20:26 01/17/17 08:26 Bedside Glucose 168 82 173 Medications Medications Current Medications Acetaminophen (Tylenol Tab) 650 mg Q4H PRN PO PAIN AND OR ELEVATED TEMP Last administered on 01/14/17 23:00; Admin Dose 650 MG; Start 01/12/17 at 22:00 Nitroglycerin (Nitroglycerin (Sl Tab) 0.4 Mg) 1 tab Q5M PRN SL ANGINA; Start 01/12/17 at 22:00 Aspirin (Halfprin) 81 mg DAILY PO Last administered on 01/17/17 08:31; Admin Dose 81 MG; Start 01/13/17 at 09:00 Clopidogrel Bisulfate (plaVIX) 75 mg DAILY PO Last administered on 01/17/17 08:31; Admin Dose 75 MG; Start 01/13/17 at 09:00 Digoxin (Digoxin) 0.125 mg DAILY@13 PO Last administered on 01/16/17 14:23; Admin Dose 0.125 MG; Start 01/13/17 at 13:00 Fluoxetine HCl (Prozac) 10 mg DAILY PO Last administered on 01/17/17 08:32; Admin Dose 10 MG; Start 01/13/17 at 09:00 Furosemide (Lasix) 40 mg DAILY@06 PO Last administered on 01/17/17 05:23; Admin Dose 40 MG; Start 01/13/17 at 06:00 Valsartan (Diovan) 80 mg DAILY PO Last administered on 01/17/17 08:32; Admin Dose 80 MG; Start 01/13/17 at 09:00 Diagnostic Test (Pha) (Accu-Chek) 1 ea 02 XX Last administered on 01/15/17 02 :00; Admin Dose 1 EA; Start 01/13/17 at 02:00 Enoxaparin Sodium (Lovenox) 40 mg DAILY SC Last administered on 01/17/17 08: 39; Admin Dose 40 MG; Start 01/13/17 at 09:00 Miscellaneous Information 1 ea NOTE XX ; Start 01/12/17 at 22:30 Glucose (Glutose) 15 gm Q15M PRN PO DECREASED GLUCOSE; Start 01/12/17 at 22:30 Glucose (Glutose) 22.5 gm Q15M PRN PO DECREASED GLUCOSE; Start 01/12/17 at 22: 30 Dextrose (D50w Syringe) 25 ml Q15M PRN IV DECREASED GLUCOSE; Start 01/12/17 at 22:30 Dextrose (D50w Syringe) 50 ml Q15M PRN IV DECREASED GLUCOSE; Start 01/12/17 at 22:30 Glucagon (Glucagen) 1 mg Q15M PRN IM DECREASED GLUCOSE; Start 01/12/17 at 22: 30 Glucose (Glutose) 15 gm Q15M PRN BUCCAL DECREASED GLUCOSE; Start 01/12/17 at 22:30 Famotidine (Pepcid) 20 mg DAILY PO Last administered on 01/17/17 08:31; Admin Dose 20 MG; Start 01/13/17 at 13:00 Ranolazine (Ranexa) 500 mg Q12 PO Last administered on 01/17/17 08:32; Admin Dose 500 MG; Start 01/13/17 at 21:00 Metoprolol Succinate (Toprol Xl) 25 mg DAILY PO Last administered on 08:33; Admin Dose 25 MG; Start 01/14/17 at 09:00 Acetaminophen (Tylenol Tab) 650 mg Q4H PRN PO NON-CARDIAC PAIN LEVEL 1-3; Start 01/14/17 at 14:00 Oxycodone/ Acetaminophen (Percocet (5/ 325)) 1 tab Q4H PRN PO REPORTED NON- CARDIAC PAIN 4-7; Start 01/14/17 at 14:00 Morphine Sulfate (morphine) 1 mg Q1H PRN IV PAIN NOT RELIEVED BY OTHERS; Start 01/14/17 at 14:00 Al Hydrox/Mg Hydrox/Simethicone (Mag-Al Plus) 30 ml Q4H PRN PO GASTROINTESTINAL UPSET; Start 01/14/17 at 14:00 Ondansetron HCl (Zofran Inj) 4 mg Q4H PRN IV NAUSEA AND/OR VOMITING; Start at 14:00 Linagliptin (Tradjenta) 5 mg DAILY PO Last administered on 01/17/17 08:31; Admin Dose 5 MG; Start 01/15/17 at 15:00 Insulin Glargine (Lantus) 34 unit DAILY@08 SC Last administered on 01/17/17t 08:39; Admin Dose 34 UNIT; Start 01/17/17 at 08:00 LARRY WANG MD Jan 17, 2017 12:23
[2017-01-17] MEDS: DIGOXIN 0.125 MG TAB PO SCH (13:09)
--- NOTE | 2017-01-17 14:06 | CONS ---
Date/Time of Note Date/Time of Note DATE: 01/17/17 TIME: 14:05 Assessment/Plan Assessment/Plan Additional Assessment/Plan Typical chest pain CAD s/p PTCA and stenting Ischemic cardiomyopathy Hyperlipidemia Diabetes Hemodynamically stable Stopped Lasix Continue digoxin Continue metoprolol Continue valsartan Continue ASA and Plavix continue Ranexa Continue lipitor Continue Insulin Continue GI and DVT Prophylaxis Consultation Date/Type/Reason Admit Date/Time Jan 12, 2017 at 17:09 Initial Consult Date 01/15/17 Type of Consultation: Endocrinology Referring Provider: RIGOBERTO LAI Exam/Review of Systems Vital Signs Vitals Vital Signs Date Time Temp Pulse Resp B/P Pulse Ox O2 Delivery O2 Flow Rate FiO2 01/17/17 12:17 85 01/17/17 11:59 98.0 16 99/62 98 01/16/17 05:32 Room Air Intake and Output 01/16/17 01/16/17 01/17/17 15:00 23:00 07:00 Intake Total 800 ml 500 ml Balance 800 ml 500 ml Exam Constitutional: alert Head: atraumatic, normocephalic Neck: non-tender, supple Respiratory: clear to auscultation Cardiovascular: regular rate and rhythm Gastrointestinal: nl liver, spleen, non-tender, soft Extremities: normal pulses Results Result Diagram: 01/16/17 0636 01/16/17 0636 Results 24 hrs Laboratory Tests Test 01/16/17 18:03 01/16/17 20:26 01/17/17 08:26 01/17/17 11:41 Bedside Glucose 168 82 173 127 Medications Medications Current Medications Acetaminophen (Tylenol Tab) 650 mg Q4H PRN PO PAIN AND OR ELEVATED TEMP Last administered on 01/14/17 23:00; Admin Dose 650 MG; Start 01/12/17 at 22:00 Nitroglycerin (Nitroglycerin (Sl Tab) 0.4 Mg) 1 tab Q5M PRN SL ANGINA; Start 01/12/17 at 22:00 Aspirin (Halfprin) 81 mg DAILY PO Last administered on 01/17/17 08:31; Admin Dose 81 MG; Start 01/13/17 at 09:00 Clopidogrel Bisulfate (plaVIX) 75 mg DAILY PO Last administered on 01/17/17 08:31; Admin Dose 75 MG; Start 01/13/17 at 09:00 Digoxin (Digoxin) 0.125 mg DAILY@13 PO Last administered on 01/17/17 13:09; Admin Dose 0.125 MG; Start 01/13/17 at 13:00 Fluoxetine HCl (Prozac) 10 mg DAILY PO Last administered on 01/17/17 08:32; Admin Dose 10 MG; Start 01/13/17 at 09:00 Furosemide (Lasix) 40 mg DAILY@06 PO Last administered on 01/17/17 05:23; Admin Dose 40 MG; Start 01/13/17 at 06:00 Valsartan (Diovan) 80 mg DAILY PO Last administered on 01/17/17 08:32; Admin Dose 80 MG; Start 01/13/17 at 09:00 Diagnostic Test (Pha) (Accu-Chek) 1 ea 02 XX Last administered on 01/15/17 02 :00; Admin Dose 1 EA; Start 01/13/17 at 02:00 Enoxaparin Sodium (Lovenox) 40 mg DAILY SC Last administered on 01/17/17 08: 39; Admin Dose 40 MG; Start 01/13/17 at 09:00 Miscellaneous Information 1 ea NOTE XX ; Start 01/12/17 at 22:30 Glucose (Glutose) 15 gm Q15M PRN PO DECREASED GLUCOSE; Start 01/12/17 at 22:30 Glucose (Glutose) 22.5 gm Q15M PRN PO DECREASED GLUCOSE; Start 01/12/17 at 22: 30 Dextrose (D50w Syringe) 25 ml Q15M PRN IV DECREASED GLUCOSE; Start 01/12/17 at 22:30 Dextrose (D50w Syringe) 50 ml Q15M PRN IV DECREASED GLUCOSE; Start 01/12/17 at 22:30 Glucagon (Glucagen) 1 mg Q15M PRN IM DECREASED GLUCOSE; Start 01/12/17 at 22: 30 Glucose (Glutose) 15 gm Q15M PRN BUCCAL DECREASED GLUCOSE; Start 01/12/17 at 22:30 Famotidine (Pepcid) 20 mg DAILY PO Last administered on 01/17/17 08:31; Admin Dose 20 MG; Start 01/13/17 at 13:00 Ranolazine (Ranexa) 500 mg Q12 PO Last administered on 01/17/17 08:32; Admin Dose 500 MG; Start 01/13/17 at 21:00 Metoprolol Succinate (Toprol Xl) 25 mg DAILY PO Last administered on 08:33; Admin Dose 25 MG; Start 01/14/17 at 09:00 Acetaminophen (Tylenol Tab) 650 mg Q4H PRN PO NON-CARDIAC PAIN LEVEL 1-3; Start 01/14/17 at 14:00 Oxycodone/ Acetaminophen (Percocet (5/ 325)) 1 tab Q4H PRN PO REPORTED NON- CARDIAC PAIN 4-7; Start 01/14/17 at 14:00 Morphine Sulfate (morphine) 1 mg Q1H PRN IV PAIN NOT RELIEVED BY OTHERS; Start 01/14/17 at 14:00 Al Hydrox/Mg Hydrox/Simethicone (Mag-Al Plus) 30 ml Q4H PRN PO GASTROINTESTINAL UPSET; Start 01/14/17 at 14:00 Ondansetron HCl (Zofran Inj) 4 mg Q4H PRN IV NAUSEA AND/OR VOMITING; Start at 14:00 Linagliptin (Tradjenta) 5 mg DAILY PO Last administered on 01/17/17 08:31; Admin Dose 5 MG; Start 01/15/17 at 15:00 Insulin Glargine (Lantus) 34 unit DAILY@08 SC Last administered on 01/17/17 08:39; Admin Dose 34 UNIT; Start 01/17/17 at 08:00 DAISHA RIVAS M.D. Jan 17, 2017 14:06
[2017-01-18 00:25] VITALS: PULSE 81
[2017-01-18 00:41] VITALS: BP 106/64; RESP 16
[2017-01-18] MEDS: ACCU-CHEK XX SCH (02:00)
[2017-01-18 04:26] VITALS: PULSE 77
[2017-01-18 04:30] VITALS: BP 101/58; RESP 16
[2017-01-18 07:36] VITALS: BP 105/69; RESP 20
[2017-01-18] MEDS: CLOPIDOGREL 75 MG TAB PO SCH (08:17)
[2017-01-18] MEDS: RANOLAZINE (SR) 500 MG TAB PO SCH (08:17)
[2017-01-18] MEDS: FLUOXETINE 10 MG CAP PO SCH (08:18)
[2017-01-18] MEDS: LINAGLIPTIN 5 MG TABLET PO SCH (08:18)
[2017-01-18] MEDS: ASPIRIN (EC) 81 MG TAB PO SCH (08:18)
[2017-01-18] MEDS: metFORMIN 500 MG TAB PO SCH (08:18)
[2017-01-18] MEDS: METOPROLOL (XL) 25 MG TAB PO SCH (08:19)
[2017-01-18] MEDS: FAMOTIDINE 20 MG TAB PO SCH (08:19)
[2017-01-18] MEDS: INSULIN ASPART [NOVOLOG] 3 ML PEN SC SCH ×4 (08:24→12:38)
[2017-01-18] MEDS: ENOXAPARIN 40 MG/0.4 ML SYG SC SCH (08:25)
[2017-01-18] MEDS: VALSARTAN 80 MG TAB PO SCH (08:29)
[2017-01-18] MEDS: INSULIN GLARGINE [LANtus] 3 ML PEN SC SCH (08:31)
[2017-01-18 11:25] VITALS: BP 103/72; RESP 18
--- NOTE | 2017-01-18 12:02 | CONS ---
Date/Time of Note Date/Time of Note DATE: 01/18/17 TIME: 11:58 Assessment/Plan Assessment/Plan Chief Complaint/Hosp Course IMPRESSION: 1. Chest pain concerning for unstable angina, assess for acute coronary syndrome. Ongoing chest pain consistent with unstable angina. Now POD#1 s/p PTCA /stent x 1 to distal RCA for high grade stenosis 2. History of cardiomyopathy with severely depressed left ventricular ejection fraction, last approximately 25%. 3. Abnormal electrocardiogram with anteroseptal Q's and borderline ST depressions in the inferior leads. 4. Hypotension, borderline. 5. Dyslipidemia. 6. Ongoing tobacco usage. REcc: -Tele monitoring -ongoing eval for adjustment in insulin therapy by endocrine -Continue asa/plavix s/p PTCA stent to RCA -Continue BB/Diovan as tolerated opnly -Contineu po digoxin -Would resume lasix daily therapy -start aldactone -Low dose statin -outpatient f/u with me already scheduled when ready for d/c from endocrine standpoint Problems: Consultation Date/Type/Reason Admit Date/Time Jan 12, 2017 at 17:09 Initial Consult Date 01/13/2017 Type of Consultation: cardiology Reason for Consultation chest pain Referring Provider: RIGOBERTO LAI Exam/Review of Systems Vital Signs Vitals Vital Signs Date Time Temp Pulse Resp B/P Pulse Ox O2 Delivery O2 Flow Rate FiO2 01/18/17 11:25 97.7 74 18 103/72 98 01/16/17 05:32 Room Air Intake and Output 01/17/17 01/17/17 01/18/17 15:00 23:00 07:00 Intake Total 900 ml 600 ml Balance 900 ml 600 ml Exam Review of Systems: CONSTITUTIONAL: No fevers, chills. PULMONARY: No sob CARDIOVASCULAR: No chest pain/palpitations GASTROINTESTINAL: No nausea/vomiting. GENITOURINARY: No hematuria/dysuria. MUSCULOSKELETAL: No myagias/arthalgias. PSYCHIATRIC: The patient denies depression. NEUROLOGIC: No weakness Constitutional: alert Psych: no complaints Head: normocephalic ENMT: mucosa pink and moist Neck: jvd (9 cm water), supple Respiratory: diminished breath sounds Cardiovascular: regular rate and rhythm Gastrointestinal: non-tender, soft Musculoskeletal: muscle tone (normal) Extremities: edema (none) Neurological: other (No focal deficits) Results Result Diagram: 01/18/1760601/18/17606 Results 24 hrs Laboratory Tests Test 01/17/17 16:47 01/17/17 20:04 01/18/17 06:07 01/18/17 08:15 Bedside Glucose 164 108 180 White Blood Count 6.1 Red Blood Count 3.92 L Hemoglobin 12.0 L Hematocrit 35.3 L Mean Corpuscular Volume 90.1 Mean Corpuscular Hemoglobin 30.6 Mean Corpuscular Hemoglobin Concent 34.0 Red Cell Distribution Width 13.0 Platelet Count 253 Mean Platelet Volume 9.6 Neutrophils % 45.1 Lymphocytes % 40.6 Monocytes % 10.6 Eosinophils % 2.5 Basophils % 1.0 Nucleated Red Blood Cells % 0.0 Neutrophils # 2.7 Lymphocytes # 2.5 Monocytes # 0.6 Eosinophils # 0.2 Basophils # 0.1 Nucleated Red Blood Cells # 0.0 Sodium Level 140 Potassium Level 4.1 Chloride Level 103 Carbon Dioxide Level 26 Anion Gap 15 Blood Urea Nitrogen 20 Creatinine 0.70 Glucose Level 164 Calcium Level 9.1 Medications Medications Current Medications Acetaminophen (Tylenol Tab) 650 mg Q4H PRN PO PAIN AND OR ELEVATED TEMP Last administered on 01/14/17 23:00; Admin Dose 650 MG; Start 01/12/17 at 22:00 Nitroglycerin (Nitroglycerin (Sl Tab) 0.4 Mg) 1 tab Q5M PRN SL ANGINA; Start 01/12/17 at 22:00 Aspirin (Halfprin) 81 mg DAILY PO Last administered on 01/18/17 08:18; Admin Dose 81 MG; Start 01/13/17 at 09:00 Clopidogrel Bisulfate (plaVIX) 75 mg DAILY PO Last administered on 01/18/17 08:17; Admin Dose 75 MG; Start 01/13/17 at 09:00 Digoxin (Digoxin) 0.125 mg DAILY@13 PO Last administered on 01/17/17 13:09; Admin Dose 0.125 MG; Start 01/13/17 at 13:00 Fluoxetine HCl (Prozac) 10 mg DAILY PO Last administered on 01/18/17 08:18; Admin Dose 10 MG; Start 01/13/17 at 09:00 Valsartan (Diovan) 80 mg DAILY PO Last administered on 01/17/17 08:32; Admin Dose 80 MG; Start 01/13/17 at 09:00 Diagnostic Test (Pha) (Accu-Chek) 1 ea 02 XX Last administered on 01/15/17 02 :00; Admin Dose 1 EA; Start 01/13/17 at 02:00 Enoxaparin Sodium (Lovenox) 40 mg DAILY SC Last administered on 01/18/17 08: 25; Admin Dose 40 MG; Start 01/13/17 at 09:00 Miscellaneous Information 1 ea NOTE XX ; Start 01/12/17 at 22:30 Glucose (Glutose) 15 gm Q15M PRN PO DECREASED GLUCOSE; Start 01/12/17 at 22:30 Glucose (Glutose) 22.5 gm Q15M PRN PO DECREASED GLUCOSE; Start 01/12/17 at 22: 30 Dextrose (D50w Syringe) 25 ml Q15M PRN IV DECREASED GLUCOSE; Start 01/12/17 at 22:30 Dextrose (D50w Syringe) 50 ml Q15M PRN IV DECREASED GLUCOSE; Start 01/12/17 at 22:30 Glucagon (Glucagen) 1 mg Q15M PRN IM DECREASED GLUCOSE; Start 01/12/17 at 22: 30 Glucose (Glutose) 15 gm Q15M PRN BUCCAL DECREASED GLUCOSE; Start 01/12/17 at 22:30 Famotidine (Pepcid) 20 mg DAILY PO Last administered on 01/18/17 08:19; Admin Dose 20 MG; Start 01/13/17 at 13:00 Ranolazine (Ranexa) 500 mg Q12 PO Last administered on 01/18/17 08:17; Admin Dose 500 MG; Start 01/13/17 at 21:00 Metoprolol Succinate (Toprol Xl) 25 mg DAILY PO Last administered on 08:19; Admin Dose 25 MG; Start 01/14/17 at 09:00 Acetaminophen (Tylenol Tab) 650 mg Q4H PRN PO NON-CARDIAC PAIN LEVEL 1-3; Start 01/14/17 at 14:00 Oxycodone/ Acetaminophen (Percocet (5/ 325)) 1 tab Q4H PRN PO REPORTED NON- CARDIAC PAIN 4-7; Start 01/14/17 at 14:00 Morphine Sulfate (morphine) 1 mg Q1H PRN IV PAIN NOT RELIEVED BY OTHERS; Start 01/14/17 at 14:00 Al Hydrox/Mg Hydrox/Simethicone (Mag-Al Plus) 30 ml Q4H PRN PO GASTROINTESTINAL UPSET; Start 01/14/17 at 14:00 Ondansetron HCl (Zofran Inj) 4 mg Q4H PRN IV NAUSEA AND/OR VOMITING; Start at 14:00 Linagliptin (Tradjenta) 5 mg DAILY PO Last administered on 01/18/17 08:18; Admin Dose 5 MG; Start 01/15/17 at 15:00 Insulin Glargine (Lantus) 34 unit DAILY@08 SC Last administered on 01/18/17 08:31; Admin Dose 34 UNIT; Start 01/17/17 at 08:00 ROMA BUSCH Jan 18, 2017 12:02
[2017-01-18] MEDS: DIGOXIN 0.125 MG TAB PO SCH (12:36)
[2017-01-18] MEDS ORDERED: ASPI-664 PO (13:45)
[2017-01-18] MEDS ORDERED: CLOP75TA4 PO (13:45)
[2017-01-18] MEDS ORDERED: LANT3I SC (13:45)
[2017-01-18] MEDS ORDERED: LAS20 PO (13:45)
[2017-01-18] MEDS ORDERED: METO-335 PO (13:45)
[2017-01-18] MEDS ORDERED: NOVO3I SC (13:45)
[2017-01-18] MEDS ORDERED: SPIR25TA PO (13:45)
[2017-01-18] MEDS ORDERED: VALS80TA2 PO (13:45)
[2017-01-18] MEDS ORDERED: DIGO125T PO (13:45)
[2017-01-18] MEDS ORDERED: RANO500T2 PO (13:45)
[2017-01-18] MEDS ORDERED: METF500T PO (13:49)
--- NOTE | 2017-01-18 14:11 | CONS ---
Date/Time of Note Date/Time of Note DATE: 01/18/17 TIME: 14:08 Assessment/Plan Assessment/Plan Chief Complaint/Hosp Course 56-year-old gentleman admitted with NSTEMI, right coronary artery occlusion, diabetes mellitus type 2, hypertension, hyperlipidemia, CHF. He reports his regular doctor has been treating with a combination of oral agent regimen. He historically has not had good control looking at our records in the hospital with his best A1c being in the eights. We are asked to see him to see if we can achieve somewhat better glycemic control. Please see the notes from our agricultural extension educator. It appears that even though he has been on insulin his comfort with insulin injections may not be at the level we would like. Problems: (1) S/P right coronary artery (RCA) stent placement Onset Date: ~ 01/14/2017 Status: Acute Comment: Stable post procedure now ready for discharge. Please see cardiology notes. Please note from an endocrine standpoint he has been ready for discharge (2) Diabetes mellitus type 2 in nonobese Status: Chronic Comment: Excellent glucose control. He can be followed up as an outpatient as previously delineated. (3) Essential hypertension Status: Chronic Comment: Adequate control especially using medicines which are also beneficial for his heart failure (4) Hyperlipidemia associated with type 2 diabetes mellitus Status: Chronic Comment: Good control, continue statin therapy. (5) Tobacco abuse Status: Chronic Comment: Strongly re-counseled again (6) Systolic CHF with reduced left ventricular function, NYHA class 2 Status: Chronic Comment: On appropriate medication treatment. Consultation Date/Type/Reason Admit Date/Time Jan 12, 2017 at 17:09 Initial Consult Date 01/15/17 Type of Consultation: Endocrinology Reason for Consultation Diabetes mellitus type 2 with complications Referring Provider: RIGOBERTO LAI 24 HR Interval Summary Free Text/Dictation Patient is significantly improved. No hypoglycemic or hyperglycemic symptoms Detailed Summary Respiratory: no complaints Cardiovascular: no complaints Gastrointestinal: no complaints Endocrine: no complaints Exam/Review of Systems Vital Signs Vitals Vital Signs Date Time Temp Pulse Resp B/P Pulse Ox O2 Delivery O2 Flow Rate FiO2 01/18/17 11:25 97.7 74 18 103/72 98 01/16/17 05:32 Room Air Intake and Output 01/17/17 01/17/17 01/18/17 15:00 23:00 07:00 Intake Total 900 ml 600 ml Balance 900 ml 600 ml Exam Constitutional: alert, oriented Respiratory: clear to auscultation, normal air movement Cardiovascular: nl pulses, regular rate and rhythm Results Result Diagram: 01/18/17 0607 01/18/17 0607 Results 24 hrs Laboratory Tests Test 01/17/17 16:47 01/17/17 20:04 01/18/17 06:07 01/18/17 08:15 Bedside Glucose 164 108 180 White Blood Count 6.1 Red Blood Count 3.92 L Hemoglobin 12.0 L Hematocrit 35.3 L Mean Corpuscular Volume 90.1 Mean Corpuscular Hemoglobin 30.6 Mean Corpuscular Hemoglobin Concent 34.0 Red Cell Distribution Width 13.0 Platelet Count 253 Mean Platelet Volume 9.6 Neutrophils % 45.1 Lymphocytes % 40.6 Monocytes % 10.6 Eosinophils % 2.5 Basophils % 1.0 Nucleated Red Blood Cells % 0.0 Neutrophils # 2.7 Lymphocytes # 2.5 Monocytes # 0.6 Eosinophils # 0.2 Basophils # 0.1 Nucleated Red Blood Cells # 0.0 Sodium Level 140 Potassium Level 4.1 Chloride Level 103 Carbon Dioxide Level 26 Anion Gap 15 Blood Urea Nitrogen 20 Creatinine 0.70 Glucose Level 164 Calcium Level 9.1 Test 01/18/17 12:31 Bedside Glucose 114 Medications Medications Current Medications Acetaminophen (Tylenol Tab) 650 mg Q4H PRN PO PAIN AND OR ELEVATED TEMP Last administered on 01/14/17 23:00; Admin Dose 650 MG; Start 01/12/17 at 22:00 Nitroglycerin (Nitroglycerin (Sl Tab) 0.4 Mg) 1 tab Q5M PRN SL ANGINA; Start 01/12/17 at 22:00 Aspirin (Halfprin) 81 mg DAILY PO Last administered on 01/18/17 08:18; Admin Dose 81 MG; Start 01/13/17 at 09:00 Clopidogrel Bisulfate (plaVIX) 75 mg DAILY PO Last administered on 01/18/17 08:17; Admin Dose 75 MG; Start 01/13/17 at 09:00 Digoxin (Digoxin) 0.125 mg DAILY@13 PO Last administered on 01/18/17 12:36; Admin Dose 0.125 MG; Start 01/13/17 at 13:00 Fluoxetine HCl (Prozac) 10 mg DAILY PO Last administered on 01/18/17 08:18; Admin Dose 10 MG; Start 01/13/17 at 09:00 Valsartan (Diovan) 80 mg DAILY PO Last administered on 01/17/17 08:32; Admin Dose 80 MG; Start 01/13/17 at 09:00 Diagnostic Test (Pha) (Accu-Chek) 1 ea 02 XX Last administered on 01/15/17 02 :00; Admin Dose 1 EA; Start 01/13/17 at 02:00 Enoxaparin Sodium (Lovenox) 40 mg DAILY SC Last administered on 01/18/17 08: 25; Admin Dose 40 MG; Start 01/13/17 at 09:00 Miscellaneous Information 1 ea NOTE XX ; Start 01/12/17 at 22:30 Glucose (Glutose) 15 gm Q15M PRN PO DECREASED GLUCOSE; Start 01/12/17 at 22:30 Glucose (Glutose) 22.5 gm Q15M PRN PO DECREASED GLUCOSE; Start 01/12/17 at 22: 30 Dextrose (D50w Syringe) 25 ml Q15M PRN IV DECREASED GLUCOSE; Start 01/12/17 at 22:30 Dextrose (D50w Syringe) 50 ml Q15M PRN IV DECREASED GLUCOSE; Start 01/12/17 at 22:30 Glucagon (Glucagen) 1 mg Q15M PRN IM DECREASED GLUCOSE; Start 01/12/17 at 22: 30 Glucose (Glutose) 15 gm Q15M PRN BUCCAL DECREASED GLUCOSE; Start 01/12/17 at 22:30 Famotidine (Pepcid) 20 mg DAILY PO Last administered on 01/18/17 08:19; Admin Dose 20 MG; Start 01/13/17 at 13:00 Ranolazine (Ranexa) 500 mg Q12 PO Last administered on 01/18/17 08:17; Admin Dose 500 MG; Start 01/13/17 at 21:00 Metoprolol Succinate (Toprol Xl) 25 mg DAILY PO Last administered on 08:19; Admin Dose 25 MG; Start 01/14/17 at 09:00 Acetaminophen (Tylenol Tab) 650 mg Q4H PRN PO NON-CARDIAC PAIN LEVEL 1-3; Start 01/14/17 at 14:00 Oxycodone/ Acetaminophen (Percocet (5/ 325)) 1 tab Q4H PRN PO REPORTED NON- CARDIAC PAIN 4-7; Start 01/14/17 at 14:00 Morphine Sulfate (morphine) 1 mg Q1H PRN IV PAIN NOT RELIEVED BY OTHERS; Start 01/14/17 at 14:00 Al Hydrox/Mg Hydrox/Simethicone (Mag-Al Plus) 30 ml Q4H PRN PO GASTROINTESTINAL UPSET; Start 01/14/17 at 14:00 Ondansetron HCl (Zofran Inj) 4 mg Q4H PRN IV NAUSEA AND/OR VOMITING; Start at 14:00 Linagliptin (Tradjenta) 5 mg DAILY PO Last administered on 01/18/17 08:18; Admin Dose 5 MG; Start 01/15/17 at 15:00 Insulin Glargine (Lantus) 34 unit DAILY@08 SC Last administered on 01/18/17 08:31; Admin Dose 34 UNIT; Start 01/17/17 at 08:00 Furosemide (Lasix) 20 mg DAILY PO ; Start 01/19/17 at 09:00 Spironolactone (Aldactone) 12.5 mg DAILY PO ; Start 01/19/17 at 09:00 LARRY WANG MD Jan 18, 2017 14:11
--- NOTE | 2017-01-18 22:41 | DS ---
Date/Time of Note Date/Time of Note DATE: 01/18/17 TIME: 22:39 Discharge Summary Admission/Discharge Info Admit Date/Time Jan 12, 2017 at 17:09 Discharge Date/Time Jan 18, 2017 at 14:20 Patient Condition: Stable Hx of Present Illness The patient is a 56-year-old gentleman with hypertension, diabetes, cardiomyopathy with severely decreased left ventricular ejection fraction, last being approximately 25% per last echo. The patient has multiple transluminal coronary angioplasty and stent placement in the past, recently done in 2017 at [facility]. Patient with dyslipidemia and longtime tobacco use. Patient stated that he quit 1 month ago. Patient also with diabetes mellitus. Hemoglobin A1c the last admission was 8.8. The patient was recently admitted for chest pain and was evaluated by Dr. Tomas and patient was treated for congestive heart failure exacerbation. The patient also had a history of pneumonia. Patient stated that he had developed chest pain that feels like needles in his chest. Also, the pain was 6/10 with radiation to the left upper extremity. Patient took nitroglycerin and his blood pressure medicine and called 911. Patient was brought by paramedics to the emergency room. In the emergency room, patient underwent 12-lead EKG, which revealed sinus tachycardia. Chest x-ray did not show any pneumonia or pneumothorax. Troponin was negative on admission. However, patient noted to have elevated blood sugar to 238 and patient is admitted. The patient was given nitroglycerin paste in the emergency room with some relief in symptoms and patient was admitted for further evaluation and management. Hospital Course 1. Ongoing chest pain consistent with unstable angina. S/p PTCA/stent x 1 to distal RCA for high grade stenosis on 01/14. Continue aspirin and Plavix. Dr. Tomas is following in cardiology consultation. 2. Cardiomyopathy with ejection fraction of 25%. 3. Coronary artery disease status post percutaneous transluminal coronary angioplasty with stent placement multiple times, last one in 2017 at [facility]. 4. Hypertension. 5. Dyslipidemia. 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 7. Poorly controlled diabetes mellitus type 2 with last hemoglobin A1c of 8.8. Continue Lantus pre-meal NovoLog, pending diabetes education. is following in endocrinology consultation. Home Meds Active Scripts Metformin Hcl (Glucophage) 500 Mg Tablet, 1000 MG PO BID WITH MEALS for 30 Days , TAB Prov:RIGOBERTO LAI 17 Spironolactone* (Aldactone*) 25 Mg Tablet, 12.5 MG PO DAILY for 30 Days, TAB Prov:MARCELA01/18/17 Ranolazine* (Ranexa*) 500 Mg Tab.sr.12h, 500 MG PO Q12 for 30 Days, TAB Prov:01/18/17 Insulin Glargine* (Lantus*) 100 Unit/Ml Soln, 34 UNIT SC DAILY@08 for 30 Days Prov:01/18/17 Insulin Aspart* (Novolog Insulin Pen*) 100 Unit/Ml Soln, 11 UNIT SC WITH MEALS for 30 Days Prov:JOELLE01/18/17 Furosemide (Lasix) 20 Mg Tab, 20 MG PO DAILY for 30 Days, TAB Prov:01/18/17 Valsartan* (Diovan*) 80 Mg Tablet, 40 MG PO DAILY for 30 Days, TAB Prov:01/18/17 Digoxin* (Digitek*) 125 Mcg Tablet, 0.125 MG PO DAILY@13 for 30 Days, TAB Prov:01/18/17 Aspirin* (Aspirin* EC) 81 Mg Tablet.dr, 81 MG PO DAILY for 30 Days, TAB Prov:LULA01/18/17 Clopidogrel Bisulfate* (Clopidogrel Bisulfate*) 75 Mg Tablet, 75 MG PO DAILY for 30 Days, #30 TAB Prov:ABIEL01/18/17 Metoprolol Succinate* (Toprol XL*) 25 Mg Tab.sr.24h, 25 MG PO DAILY for 30 Days , TAB hold for systolic bp 105 or heart reate less than 60 beats per minute Prov:JUAN LAIETLANA 01/18/17 Reported Medications Fluoxetine Hcl* (Fluoxetine Hcl*) 10 Mg Tablet, 10 MG PO DAILY, TAB 12/05/16 Nitroglycerin* (Nitrostat*) 0.4 Mg Tab.subl, 0.4 MG SL Q5MIN Y for CHEST PAIN, BOTTLE 09/15/13 Discontinued Reported Medications Insulin Lispro (Humalog) 100 Unit/1 Ml Cartridge, 9 UNIT SQ TID 10/24/17 Cholecalciferol* (Vitamin D3*) 1,000 Unit Tablet, 1000 UNIT PO DAILY, TAB 12/05/16 Glipizide* (Glipizide*) 10 Mg Tablet, 10 MG PO AC BREAKFAST, TAB 12/05/16 [place]-3/Dha/Epa/Fish Oil (FISH OIL 1,000 MG SOFTGEL) 1 Each Capsule, 1 EACH PO, CAP 12/05/16 Atorvastatin* (Atorvastatin*) 80 Mg Tablet, 80 MG PO QHS, #30 TAB 12/05/16 Metformin Hcl* (Metformin Hcl*) 1,000 Mg Tablet, 1000 MG PO DAILY, TAB 09/13/13 Sitagliptin* (Januvia*) 100 Mg Tablet, 100 MG PO DAILY, TAB 09/13/13 Esomeprazole Mag Trihydrate (Nexium) 40 Mg Capsule.dr, 40 MG PO DAILY, CAP 09/13/13 Discontinued Scripts Furosemide* (Furosemide*) 40 Mg Tablet, 40 MG PO DAILY for 30 Days, TAB Prov:RIGOBERTO LAI 12/14/16 Potassium Chloride* (K-Dur*) 20 Meq Tab.prt.sr, 20 MEQ PO DAILY for 30 Days Prov:RIGOBERTO LAI 12/14/16 Insulin Glargine* (Lantus*) 100 Unit/Ml Soln, 27 UNIT SC DAILY@08 for 30 Days Prov:RIGOBERTO LAI 12/14/16 Insulin Glargine* (Lantus*) 100 Unit/Ml Soln, 42 UNIT SC DAILY@08 for 30 Days Prov:ILENE JIMENEZ 01/10/17 Insulin Aspart* (Novolog Insulin Pen*) 100 Unit/Ml Soln, 14 UNIT SC WITH MEALS for 30 Days Prov:ILENE JIMENEZ 01/10/17 Pantoprazole* (Protonix*) 40 Mg Tablet.dr, 40 MG PO DAILY, #30 TAB Prov:ILENE JIMENEZ 01/10/17 Docusate Sodium* (Colace*) 100 Mg Capsule, 100 MG PO DAILY, #30 CAP Prov:ILENE JIMENEZ 01/10/17 Ranolazine* (Ranexa*) 500 Mg Tab.sr.12h, 500 MG PO Q12 for 30 Days, TAB Prov:ILENE JIMENEZ 01/10/17 Metformin Hcl (Glucophage) 500 Mg Tablet, 1000 MG PO BID WITH MEALS for 30 Days , TAB Prov:JOELLERIGOBERTO 12/14/16 Spironolactone* (Aldactone*) 25 Mg Tablet, 25 MG PO DAILY for 30 Days, TAB Prov:RIGOBERTO LAI 12/14/16 Insulin Aspart* (Novolog Insulin Pen*) 100 Unit/Ml Soln, 9 UNIT SC WITH MEALS for 30 Days Prov:RIGOBERTO LAI 12/14/16 Follow-up Plan f/up with Dr Tomas in 2 weeks, f/up with PMD in 2 weeks. Primary Care Provider Renita Rey Time spent on discharge: > 30 minutes Pending Labs Laboratory Tests Test 01/18/17 06:07 01/18/17 08:15 01/18/17 12:31 White Blood Count 6.110^3/ul (4.8-10.8) Red Blood Count 3.9210^6/ul (4.70-6.10) Hemoglobin 12.0g/dl (14.0-18.0) Hematocrit 35.3% (42.0-52.0) Mean Corpuscular Volume 90.1fl (82.0-101.0) Mean Corpuscular Hemoglobin 30.6pg (29.0-33.0) Mean Corpuscular Hemoglobin Concent 34.0g/dl (32.0-37.0) Red Cell Distribution Width 13.0% (11.5-14.5) Platelet Count 07463^3/UL (140-415) Mean Platelet Volume 9.6fl (7.4-10.4) Neutrophils % 45.1% (39.0-77.0) Lymphocytes % 40.6% (15.0-51.0) Monocytes % 10.6% (0.0-11.0) Eosinophils % 2.5% (0.0-7.0) Basophils % 1.0% (0.0-2.0) Nucleated Red Blood Cells % 0.0/100WBC (0.0-0.0) Neutrophils # 2.710^3/ul (1.6-7.5) Lymphocytes # 2.510^3/ul (0.8-2.9) Monocytes # 0.610^3/ul (0.3-0.9) Eosinophils # 0.210^3/ul (0.0-0.5) Basophils # 0.110^3/ul (0.0-0.1) Nucleated Red Blood Cells # 0.010^3/ul (0.0-0.0) Sodium Level 140mmol/L (135-144) Potassium Level 4.1mmol/L (3.5-5.1) Chloride Level 103mmol/L (97-110) Carbon Dioxide Level 26mmol/L (21-31) Anion Gap 15 (8-16) Blood Urea Nitrogen 20mg/dl (7-20) Creatinine 0.70mg/dl (0.61-1.24) Glucose Level 164mg/dl (70-220) Calcium Level 9.1mg/dl (8.4-10.2) Bedside Glucose 180mg/dL (70-220) 114mg/dL (70-220) RIGOBERTO LAI Jan 18, 2017 22:41
[2017-01-19] MEDS ORDERED: FUROSEMIDE 20 MG TAB PO SCH (09:00)
[2017-01-19] MEDS ORDERED: SPIRONOLACTONE 25 MG TAB PO SCH (09:00)
== END 2017-01-18 14:20 | disposition home or self-care (01) | DRG 247 ==
LOC: E/R 16:39 → TEL 17:09 → ICU 01-14 10:46 → TEL 01-15 22:12
PROVIDERS: ADMIT Internal Medicine; ATTEND Internal Medicine
PROC: 4A023N7 Measurement of Cardiac Sampling and Pressure, Left Heart, Percutaneous Approach (ICD-10-PCS; 2017-01-14)
PROC: 027034Z Dilation of Coronary Artery, One Artery with Drug-eluting Intraluminal Device, Percutaneous Approach (ICD-10-PCS; principal; 2017-01-14 10:30)
PROC: B2111ZZ Fluoroscopy of Multiple Coronary Arteries using Low Osmolar Contrast (ICD-10-PCS; 2017-01-14 10:30)
DX: I25.10 Atherosclerotic heart disease of native coronary artery without angina pectoris (principal); I42.9 Cardiomyopathy, unspecified; I11.0 Hypertensive heart disease with heart failure; I50.22 Chronic systolic (congestive) heart failure; I20.0 Unstable angina; I10 Essential (primary) hypertension; Z72.0 Tobacco use; E78.5 Hyperlipidemia, unspecified; E11.9 Type 2 diabetes mellitus without complications; Z79.82 Long term (current) use of aspirin; Z79.4 Long term (current) use of insulin
CPT/HCPCS: 36415; 71010; 80048; 80053; 80061; 82550; 82553; 82962; 83036; 84484; 85025; 85610; 85730; 86803; 87081; 87340; 93005; 93458; C1725; C1887; C9600; J1644; J1650; J1815; J1956; J2250; J3010; J7030; Q9967